=== PATIENT | female | born 1955 | race Caucasian/White ===

== ENCOUNTER → 2018-08-08 10:05 | Outpatient (CLI) | payer OTHER, SELFPAY ==
--- NOTE | 2018-08-08 10:08 | BI_ITS ---
MAMMOGRAPHY - BILATERAL SCREENING REASON FOR EXAM: Female, 63 years old. Routine annual screening examination. PERTINENT HISTORY: Sister with breast cancer. History of bilateral breast reduction surgery. Prior left stereotactic breast biopsy. TECHNIQUE: Digital bilateral breast danielle (3D mammographic acquisition) in the CC and MLO projections. 2-D mediolateral oblique (MLO) and craniocaudad (CC) views of both breasts were obtained. CAD: Full Field Digital Mammography with Computer Added Detection was performed. COMPARISON: Comparison is made with prior study dated August 05, 2017 and July 28, 2016. FINDINGS: Breast Composition: There are scattered areas of fibroglandular density. Stable 2 cm x 1.4 cm fat-containing nodule in the retroareolar region of the left breast. Stable macrocalcifications in the left breast. These are most likely represent postoperative changes. No other significant abnormalities are identified. There has been no significant change since the prior study. BI/SCREENING MAMM (CAD), BILAT IMPRESSION: Stable bilateral screening mammogram. Yearly follow-up mammogram recommended. (A) ASSESSMENT CATEGORY: BIRADS Category 2: Benign. A letter regarding these results will be sent to the patient by the facility within 30 days. Approximately 10% of breast cancers are not detected by mammography. A normal mammogram should not delay biopsy of a clinically suspicious abnormality. [id number] Electronically Signed: Ruperto Dorsey MD at 11:29 EST Tel [phone], Service support ,
--- OUTSIDE RECORDS SUMMARY | 2018-09-24 00:40 | XMS RPT_ITS | Clinical Summary ---
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 Medications Medication Instructions Start Stop Generic Name NDC Provider Date Date MELOXICAM 7.5 MG as directed / MELOXICAM 92444501416 Ivette TABS 02 Chicorelli ACZONE 5 % GEL as directed / DAPSONE 01196581352 Ivette 02 Chicorelli SPIRONOLACTONE 50 as directed / SPIRONOLACTONE 91364050842 Ivette MG TABS 02 Chicorelli GABAPENTIN 400 MG as directed / GABAPENTIN 67955336755 Ivette CAPS 02 Chicorelli IMODIUM A-D 2 MG as directed / LOPERAMIDE HCL 63117940389 Ivette CAPS 02 Chicorelli SYMBICORT 160-4.5 as directed / BUDESONIDE-FORMO 73597351708 Ivette MCG/ACT AERO 02 TEROL FUMARATE Chicorelli ARMOUR THYROID 30 as directed / THYROID 21154625481 Ivette MG TABS 02 Chicorelli ERGOCALCIFEROL as directed / ERGOCALCIFEROL [id number] Alison Crain 78897 UNIT CAPS 02 Chicorelli LOVAZA 1 GM CAPS as directed / [id number] 22606820445 Ivette Ford ETHYL ESTERS Chicorelli REXULTI 1 MG TABS as directed / BREXPIPRAZOLE [id number] Ivette 02 Chicorelli MAXALT 10 MG TABS as directed / RIZATRIPTAN 59290317825 Ivette Ford BENZOATE Chicorelli CYMBALTA 60 MG as directed / DULOXETINE HCL 70189429077 Alison Crain CPEP 02 Chicorelli PROAIR HFA 108 as directed / ALBUTEROL 35511225466 Alison Crain (90 Base) MCG/ACT 02 SULFATE Chicorelli AERS TOPAMAX 50 MG as directed / TOPIRAMATE [id number] Ivette TABS 02 Chicorelli KLONOPIN 1 MG as directed / CLONAZEPAM [id number] Alison Crain AKINS 02 Chicorelli Medications Administered No information available. Allergies, Adverse Reactions, Alerts Allergy Name Reaction Description Start Date Severity Status Provider RAGWEED Critical Active Alison Cain GRASS Critical Active Alison Cain BACTRIM Severe Active Alison Cain BIAXIN Critical Active Alison Cain VICODIN Severe Active Alison Cain WELLBUTRIN Severe Active Alison Cain Results Date Name Value Unit Range Flag Description Office Visit MEDS REVIEW Done Documentation of current medications (procedure) Plan of Care Type Date Detail Appointment 10:00 AM Alison Cain, [address] [place] [address], [address], [place], [address], Pending order X-Ray, Spine, Cervical 2-3 views Procedures Code Procedure Name Date Entry Date CPT-61548 Arthrocentesis, aspiration/injection; major joint shoulder, hip, knee Vital Signs No information available.
--- OUTSIDE RECORDS SUMMARY | 2018-09-24 00:40 | XMS RPT_ITS | Clinical Summary ---
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 Medications Medication Instructions Start Stop Generic Name NDC Provider Date Date MELOXICAM 7.5 MG as directed / MELOXICAM 84891554495 Ivette TABS 02 Ch[place]orelli ACZONE 5 % GEL as directed / DAPSONE 07313288659 Ivette 02 [place]lli SPIRONOLACTONE 50 as directed / SPIRONOLACTONE 37682514723 Ivette MG TABS 02 Chicorelli GABAPENTIN 400 MG as directed / GABAPENTIN 75003905553 Ivette CAPS 02 Chicorelli IMODIUM A-D 2 MG as directed / LOPERAMIDE HCL 73556384544 Ivette CAPS 02 Chicorelli SYMBICORT 160-4.5 as directed / BUDESONIDE-FORMO 70497158622 Ivette MCG/ACT AERO 02 TEROL FUMARATE Chicorelli ARMOUR THYROID 30 as directed / THYROID 63186282256 Ivette MG TABS 02 Chicorelli ERGOCALCIFEROL as directed / ERGOCALCIFEROL 84411043099 Ivette 18239 UNIT CAPS 02 Chicorelli LOVAZA 1 GM CAPS as directed / [id number]-3-[id number] [id number] Alison Crain 02 ETHYL ESTERS Chicorelli REXULTI 1 MG TABS as directed / BREXPIPRAZOLE 10298106373 Ivette 02 Chicorelli MAXALT 10 MG TABS as directed / RIZATRIPTAN 10266902317 Ivette 02 BENZOATE Chicorelli CYMBALTA 60 MG as directed / DULOXETINE HCL 93447579560 Ivette CPEP 02 Chicorelli PROAIR HFA 108 as directed / ALBUTEROL 33514032911 Ivette (90 Base) MCG/ACT 02 SULFATE Chicorelli AERS TOPAMAX 50 MG as directed / TOPIRAMATE [id number] Ivette TABS 02 Chicorelli KLONOPIN 1 MG as directed / CLONAZEPAM [id number] Ivette TABS 02 Chicorelli NUVIGIL 150 MG / ARMODAFINIL [id number] Ivette TABS 03 Chicorelli Medications Administered No information available. Allergies, [...] (procedure) Plan of Care Type Date Detail Pending order X-Ray, Spine, Cervical 2-3 views Procedures Code Procedure Name Date Entry Date CPT-71271 Arthrocentesis, aspiration/injection; major joint shoulder, hip, knee Vital Signs No information available.
--- OUTSIDE RECORDS SUMMARY | 2018-09-24 00:40 | XMS RPT_ITS | Clinical Summary ---
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 Medications Medication Instructions Start Stop Generic Name NDC Provider Date Date MELOXICAM 7.5 MG as directed / MELOXICAM 57073175873 Ivette TABS 02 Ch[place]orelli ACZONE 5 % GEL as directed / DAPSONE 72175654035 Ivette 02 Ch[place]orelli SPIRONOLACTONE 50 as directed / SPIRONOLACTONE 79839356828 Ivette MG TABS 02 Chicorelli GABAPENTIN 400 MG as directed / GABAPENTIN 30085103784 Ivette CAPS 02 Chicorelli IMODIUM A-D 2 MG as directed / LOPERAMIDE HCL 24737049852 Ivette CAPS 02 Chicorelli SYMBICORT 160-4.5 as directed / BUDESONIDE-FORMO 53596021157 Ivette MCG/ACT AERO 02 TEROL FUMARATE Chicorelli ARMOUR THYROID 30 as directed / THYROID 53633310506 Ivette MG TABS 02 Chicorelli ERGOCALCIFEROL as directed / ERGOCALCIFEROL 22012554659 Ivette 13754 UNIT CAPS 02 Chicorelli LOVAZA 1 GM CAPS as directed / [id number]-8-[id number] Alison Crain 02 ETHYL ESTERS Chicorelli REXULTI 1 MG TABS as directed / BREXPIPRAZOLE 26979715988 Ivette 02 Chicorelli MAXALT 10 MG TABS as directed / RIZATRIPTAN 51945897412 Ivette 02 BENZOATE Chicorelli CYMBALTA 60 MG as directed / DULOXETINE HCL 96117507765 Ivette CPEP 02 Chicorelli PROAIR HFA 108 as directed / ALBUTEROL [id number] Ivette (90 Base) MCG/ACT 02 SULFATE Chicorelli AERS TOPAMAX 50 MG as directed / TOPIRAMATE 55999620329 Ivette TABS 02 Chicorelli KLONOPIN 1 MG as directed / CLONAZEPAM 67952729170 Ivette TABS 02 Chicorelli NUVIGIL 150 MG / ARMODAFINIL [id number] Ivette TABS 03 Chicorelli Medications Administered No [...] Procedures Code Procedure Name Date Entry Date CPT-59083 Arthrocentesis, aspiration/injection; major joint shoulder, hip, knee Vital Signs No information available.
--- OUTSIDE RECORDS SUMMARY | 2018-09-24 00:40 | XMS RPT_ITS | Clinical Summary ---
:1955 Author Organization [facility] Address [address] [place] [address] Phone Care Team Providers Name Role Phone Tamica Mukherjee Unavailable Conditions or Problems Problem Problem Onset Status Entry Provider Comment Standard Annotate Name Code Date Date Description Neck pain 84714863 Active Ivette Neck pain (SNOMED CT) / Chicorelli Frozen 639566657 Active Ivette Adhesive right (SNOMED CT) / Chicorelli capsulitis shoulder of shoulder Medications Medication Instructions Start Stop Generic Name NDC Provider Date Date MELOXICAM 7.5 MG as directed MELOXICAM 59562396125 Ivette TABS /02 Ch[place]orelli ACZONE 5 % GEL as directed DAPSONE 43761993552 Ivette /02 Ch[place]lli SPIRONOLACTONE 50 as directed SPIRONOLACTONE 37405233003 Ivette MG TABS /02 [place]orelli GABAPENTIN 400 MG as directed GABAPENTIN 05996751362 Ivette CAPS /02 Chicorelli IMODIUM A-D 2 MG as directed LOPERAMIDE HCL 85874118022 Ivette CAPS /02 Chicorelli SYMBICORT 160-4.5 as directed BUDESONIDE-FORMO 67266727535 Ivette MCG/ACT AERO /02 TEROL FUMARATE Chicorelli ARMOUR THYROID 30 as directed THYROID 39695830093 Ivette MG TABS /02 Chicorelli ERGOCALCIFEROL as directed ERGOCALCIFEROL 83322152201 Alison Crain [address] UNIT CAPS /02 Chicorelli LOVAZA 1 GM CAPS as directed [id number]-7-[id number] 69064929039 Alison Crain / ETHYL ESTERS Chicorelli REXULTI 1 MG TABS as directed BREXPIPRAZOLE 28962525868 Alison Crain / Chicorelli MAXALT 10 MG TABS as directed RIZATRIPTAN 16099383662 Alison Crain / BENZOATE Chicorelli CYMBALTA 60 MG as directed DULOXETINE HCL 84412506229 Alison Crain CPEP / Chicorelli PROAIR HFA 108 as directed ALBUTEROL 72530978136 Alison Crain (90 Base) MCG/ACT / SULFATE Chicorelli AERS TOPAMAX 50 MG as directed TOPIRAMATE 05248371648 Alison Crain TABS / Chicorelli KLONOPIN 1 MG as directed CLONAZEPAM [id number] Alison Crain TABS Chicorelli Medications Administered No information available. Allergies, Adverse Reactions, Alerts Allergy Name Reaction Start Date Severity Status Provider Description RAGWEED Critical Active Alison Cain GRASS Critical [...] Procedures Code Procedure Name Date Entry Date CPT-90470 Arthrocentesis, aspiration/injection; major joint shoulder, hip, knee Vital Signs No information available.
--- OUTSIDE RECORDS SUMMARY | 2018-09-24 00:40 | XMS RPT_ITS | Clinical Summary ---
:1955 Author Organization formerly [facility] Address [address] [place] [address] Phone Care Team Providers Name Role Phone Tamica Mukherjee Unavailable Conditions or Problems Problem Problem Onset Status Entry Provider Comment Standard Annotate Name Code Date Date Description Neck pain 64230922 Active Ivette Neck pain (SNOMED CT) / Chicorelli Frozen 714477744 Active Ivette Adhesive right (SNOMED CT) / Chicorelli capsulitis shoulder of shoulder Medications Medication Instructions Start Stop Generic Name NDC Provider Date Date MELOXICAM 7.5 MG as directed MELOXICAM 64307449145 Ivette TABS /02 Chicorelli ACZONE 5 % GEL as directed DAPSONE 90376391986 Ivette /02 Chicorelli SPIRONOLACTONE 50 as directed SPIRONOLACTONE 72939130915 Ivette MG TABS /02 Chicorelli GABAPENTIN 400 MG as directed GABAPENTIN 24220143245 Ivette CAPS /02 Chicorelli IMODIUM A-D 2 MG as directed LOPERAMIDE HCL 48523648907 Ivette CAPS /02 Chicorelli SYMBICORT 160-4.5 as directed BUDESONIDE-FORMO 80144562608 Ivette MCG/ACT AERO /02 TEROL FUMARATE Chicorelli ARMOUR THYROID 30 as directed THYROID 70836206738 Ivette MG TABS /02 Chicorelli ERGOCALCIFEROL as directed ERGOCALCIFEROL 62133918349 Alison Crain 55294 UNIT CAPS /02 Chicorelli LOVAZA 1 GM CAPS as directed [id number]-[id number] 28408715605 Ivette / ETHYL ESTERS Chicorelli REXULTI 1 MG TABS as directed BREXPIPRAZOLE 70371524838 Alison Crain / Chicorelli MAXALT 10 MG TABS as directed RIZATRIPTAN 37556247539 Alison Crain / BENZOATE Chicorelli CYMBALTA 60 MG as directed DULOXETINE HCL 43026171333 Alison Crain CPEP /02 Chicorelli PROAIR HFA 108 as directed ALBUTEROL 31016407050 Alison Crain (90 Base) MCG/ACT / SULFATE Chicorelli AERS TOPAMAX 50 MG as directed TOPIRAMATE 65356421415 Alison Crain TABS / Chicorelli KLONOPIN 1 MG as directed CLONAZEPAM 15727920476 Alison Crain TABS / Chicorelowen Medications Administered No information available. Allergies, Adverse Reactions, Alerts Allergy Name Reaction Start Date Severity Status Provider Description RAGWEED Critical Active Alison Cain GRASS Critical Active Alison Cain BACTRIM Severe Active Alison Cain BIAXIN Critical Active Alison Cain VICODIN Severe Active Alison Cain WELLBUTRIN Severe Active Alison Cain Results No information available. Plan of Care Type Date Detail Pending order X-Ray, Spine, Cervical 2-3 views Procedures No information available. Vital Signs No information available.
--- OUTSIDE RECORDS SUMMARY | 2018-09-24 00:40 | XMS RPT_ITS | Clinical Summary ---
:1955 Author Organization [facility] Address [address] [place] [address] Phone Care Team Providers Name Role Phone Tamica Mukherjee Unavailable Conditions or Problems Problem Problem Onset Status Entry Provider Comment Standard Annotate Name Code Date Date Description Neck pain 57279687 Active Ivette Neck pain (SNOMED CT) / Chicorelli Frozen 349252160 Active Ivette Adhesive right (SNOMED CT) / Chicorelli capsulitis shoulder of shoulder Medications Medication Instructions Start Stop Generic Name NDC Provider Date Date MELOXICAM 7.5 MG as directed MELOXICAM 56108541421 Ivette TABS /02 Ch[place]lli ACZONE 5 % GEL as directed DAPSONE 81913209767 Ivette /02 Ch[place]lli SPIRONOLACTONE 50 as directed SPIRONOLACTONE 13502342909 Ivette MG TABS /02 Chicorelli GABAPENTIN 400 MG as directed GABAPENTIN 06433008078 Ivette CAPS /02 Chicorelli IMODIUM A-D 2 MG as directed LOPERAMIDE HCL 35730767900 Ivette CAPS /02 Chicorelli SYMBICORT 160-4.5 as directed BUDESONIDE-FORMO 78132797171 Ivette MCG/ACT AERO /02 TEROL FUMARATE Chicorelli ARMOUR THYROID 30 as directed THYROID 23418689306 Ivette MG TABS /02 Chicorelli ERGOCALCIFEROL as directed ERGOCALCIFEROL 57660040410 Alison Crain 775[address] UNIT CAPS /02 Chicorelli LOVAZA 1 GM CAPS as directed [id number] [id number] Alison Crain / ETHYL ESTERS Chicorelli REXULTI 1 MG TABS as directed BREXPIPRAZOLE 22402939198 Alison Crain / Chicorelli MAXALT 10 MG TABS as directed RIZATRIPTAN 49455005816 Alison Crain / BENZOATE Chicorelli CYMBALTA 60 MG as directed DULOXETINE HCL 64897374891 Alison Crain CPEP / Chicorelli PROAIR HFA 108 as directed ALBUTEROL 25837933121 Alison Crain (90 Base) MCG/ACT / SULFATE Chicorelli AERS TOPAMAX 50 MG as directed TOPIRAMATE 77425124437 Alison Crain TABS / Chicorelli KLONOPIN 1 MG as directed CLONAZEPAM [id number] Alison Crain TABS Chicorelli Medications Administered No [...] Procedures Code Procedure Name Date Entry Date CPT-36417 Arthrocentesis, aspiration/injection; major joint shoulder, hip, knee Vital Signs No information available.
--- OUTSIDE RECORDS SUMMARY | 2018-09-24 00:42 | XMS RPT_ITS | Continuity of Care Document ---
:1955 Author Organization [facility] Address [facility] [facility] [place] [address] Phone Care Team Providers Name Role Phone Kathia Patton CNP Unavailable Андрей Williamson MD Unavailable Dr. Marvel Steiner Unavailable Alison Cain Unavailable Jaime Early Unavailable Mimi Rice Unavailable Unavailable Slarb [facility], Bhavna Unavailable Unavailable Unavailable Unavailable Problems Name Dates Details Allergic rhinitis (J30.9, 477.9) Status: Active Anxiety and depression (F41.9, 300.00) Comments: Ruby for anxiety and panic as well as and Rexulti, and cymbaltaSees Dr. 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 Dr. Alexander 8-15 continue current meds. having breast reduction and will help i believe. right now depression and sleep occ. an issue and fibro OOC. look like reactive mono. so rest alot fluids psych changing meds. Status: Active Gas raising (R14.0, 787.3) Status: Active Hair loss (L65.9, 704.00) Status: Active Hoarse voice quality (R49.0, 784.42) Comments: consider ENT, try prilosec dont eat after 6pm Status: Active Hypertension (I10, 401.9) Comments: stable on lisinopril-hctz. reviewed EKG Status: Active Hypothyroidism, unspecified (E03.9, 244.9) 12-May-2012 Comments: was seeing wellness Dr Lynne Vieira at [facility] gone now, will get labs with next visit, TSH 1.Free T4 .77, on armor thyroid today labs stable continue armor thyroid Status: Active Impaired fasting glucose (R73.01, 790.21) Comments: prediabetes will repeat in 3 months 10-16 5.7, 1-17 5.9, 5-17 5.9 Status: Active Migraine (G43.909, 346.90) Comments: improved on topamax uses maxalt rarely currently no migraine Status: Active Mixed Hyperlipidemia (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) (E78.2, 272.2) Comments: reveiwed with patient recent tests hdl good. Status: Active Need for prophylactic vaccination and inoculation against influenza (Renamed from Need for immunization against influenza) (Z23, V04.81) Status: Active Need for prophylactic vaccination and inoculation against influenza (Renamed from Need for immunization against influenza) (Z23, V04.81) Status: Active Need for prophylactic vaccination and inoculation against influenza (Renamed from Need for immunization against influenza) (Z23, V04.81) Status: Active Nonsmoker (Z78.9, V49.89) Status: Active Obesity, unspecified (E66.9, 278.00) Comments: eating less and loosing on topamax. Status: Active CJ (obstructive sleep apnea) (G47.33, 327.23) Comments: on cpap, arthur Bradley Status: Active Rash (R21, 782.1) 12-May-2012 Comments: ? fungal vs seborea dermatitis reji try diflucan and see if different Status: Active Restless legs (G25.81, 333.94) Comments: stable on topamax Status: Active Unspecified Diagnosis Status: Active Uses hearing aid (Z97.4, V45.89) Status: Active Vitamin D deficiency, unspecified (E55.9, 268.9) Status: Active Medications Name Dates Details Aczone 5 % External Gel Active qhs (5 %) Comments: Dr. Jack Trinidad 220 MG Oral Tablet Active as needed (220 MG) Comments: Medication taken as needed. Smoot Thyroid 30 MG Oral Tablet 1 (one) Tablet qd and 2 on Saturday for 0 days Quantity: 114 {Tablet} Refills: 3 Ordered:16-Oct-2017 Ciesa SHEILA, Kathia Vanegas CNP, Diana Start : 16-Oct-2017 Active Smoot Thyroid 30 MG Oral Tablet 1 (one) Tablet qd and 2 on Saturday for 0 days Quantity: 115 {Tablet} Refills: 3 Ordered:16-Oct-2017 Ciesa SHEILA, Kathia Vanegas CNP, Diana Start : 16-Oct-2017 Active Belsomra 20 MG Oral Tablet 1 (one) Tablet Tablet as needed for 0 days Quantity: 30 {Tablet} Refills: 0 Ordered:08-Jul-2017 Bhavna Leonard LPN Start : 01-Apr-2017 Active Comments:Medication taken as needed. Cymbalta 30 MG Oral Capsule Delayed Release Particles 1 (one) Capsule Capsule qam for 0 days Quantity: 30 {Capsule} Refills: 0 Ordered:08-Jul-2017 Bhavna Leonard LPN Start : 01-Apr-2017 Active Cymbalta 60 MG Oral Capsule Delayed Release Particles 2 (two) Capsule DR Part q am for 0 days Quantity: 60 {Capsule} Refills: 0 Ordered:01-Apr-2017 Pooja DEVELOPMENT ANALYST, Kathia Vanegas DEVELOPMENT ANALYST, Diana Start : 01-Apr-2017 Active Fish Oil Burp-Less 1200 MG Oral Capsule 1 (one) Capsule Capsule daily for 0 days Quantity: 30 {Capsule} Refills: 0 Ordered:29-Jan-2017 Rosario Kan Start : 26-Dec-2016 Active Imodium A-D 2 MG Oral Capsule prn diarrhea (2 MG) Active KLONOPIN, 1MG (Oral Tablet) uad Tablet 1 in am 2 hs for 0 days Refills: 0 Ordered:10-Aug-2009 Bhargavi Mueller LPN Start : 17-May-2009 Active MAXALT, 10MG (Oral Tablet) uad Tablet PRN for 0 days Quantity: 10 {Tablet} Refills: 3 Ordered:14-Nov-2015 Nataly Berger MD Start : 14-Nov-2015 Active Nuvigil 150 MG Oral Tablet 1 (one) Tablet Tablet daily for 0 days Quantity: 30 {Tablet} Refills: 0 Ordered:08-Jul-2017 Bhavna Leonard LPN Start : 01-Apr-2017 Active PriLOSEC OTC 20 MG Oral Tablet Delayed Release 1 (one) Tablet Tablet daily as directed for 0 days Quantity: 30 {Tablet} Refills: 0 Ordered:16-Oct-2017 Bhavna Leonard LPN Start : 08-Jul-2017 Active ProAir HFA 108 (90 Base) MCG/ACT Inhalation Aerosol Solution (108 (90 Base) MCG/ACT) Active PROAIR HFA, 108 (90 Base)MCG/ACT (Inhalation Aerosol Solution) 1-2 puffs every 4 hours prn for 0 days Refills: 0 Ordered:29-Aug-2011 TAY Tracey Start : 29-Aug-2011 Active Rexulti 1 MG Oral Tablet 1 (one) Tablet Tablet daily for 30 days Quantity: 30 {Tablet} Refills: 0 Ordered:16-Mar-2016 Bhavna Leonard LPN Start : 13-Feb-2016 Active Comments:Prescribed with Psych Ella Domínguez ROPINIRole HCl 1 MG Oral Tablet 1 (one) Tablet Tablet qhs for 0 days Quantity: 30 {Tablet} Refills: 0 Ordered:06-May-2018 Sathishmaggie SOSA, Kathia SUNIstephenmaggie DEVELOPMENT ANALYST, Diana Start : 22-Jan-2018 Active Comments:neuro Spironolactone 50 MG Oral Tablet bid (50 MG) Active Comments:Dr. Santiago SYMBICORT, 160-4.5MCG/ACT (Inhalation Aerosol) 2 puffs bid (160-4.5 MCG/ACT) Active Comments:Dr. peoples TOPAMAX, 50MG (Oral Tablet) uad Tablet Tablet 1 in am 2 in pm for 0 days Quantity: 60 {Tablet} Refills: 3 Ordered:11-Dec-2013 Nataly Berger MD Start : 11-Dec-2013 Active Comments:[place] manages Topiramate 100 MG Oral Tablet (100 MG) Active ADVAIR DISKUS, 250-50MCG/DOSE (Inhalation Miscellaneous) Misc BID for 0 days Refills: 0 Ordered:13-Aug-2008 TAY Tracey Start : 13-Aug-2008 End : 27-Oct-2008 Inactive ALEVE, 220MG (Oral Tablet) 2 (two) Tablet bid with food for 14 days Refills: 0 Ordered:11-Dec-2013 Luz Valdez DO Start : 20-Nov-2013 End : 04-Dec-2013 Inactive ALIGN (Oral Capsule) 1 (one) Capsule daily for 0 days Quantity: 30 {Capsule} Refills: 0 Ordered:04-Jan-2012 TAY Tracey Start : 06-Nov-2011 End : 04-Jan-2012 Inactive LAURO-D 24 HOUR, 180-240MG (Oral Tablet Extended Release 24 Hour) 1 (one) Tablet ER 24HR QD for 0 days Quantity: 30 {Tablet_ER_24HR} Refills: 5 Ordered:28-May-2008 Omaira Vizcarra Start : 28-May-2008 End : 31-Aug-2008 Inactive ASMANEX 120 METERED DOSES, 220MCG/INH (Inhalation Aerosol Powder Breath Activated) 1 puff qd for 0 days Refills: 0 Ordered:10-Nov-2008 TAY Tracey End : 10-Nov-2008 Inactive ASMANEX 30 METERED DOSES, 220MCG/INH (Inhalation Aerosol Powder Breath Activated) once daily for 0 days Refills: 0 Ordered:30-Mar-2011 Long [facility], Michelle L End : 30-Mar-2011 Inactive AUGMENTIN, 875-125MG (Oral Tablet) 1 Tablet bid for 14 days Quantity: 28 {Tablet} Refills: 0 Ordered:07-Sep-2011 TAY Tracey Start : 31-Aug-2011 End : 07-Sep-2011 Inactive AVELOX, 400MG (Oral Tablet) Tablet QD for 0 days Quantity: 7 {Tablet} Refills: 0 Ordered:24-Aug-2008 Omaira Vizcarra Start : 24-Aug-2008 End : 31-Aug-2008 Inactive BACTROBAN NASAL, 2% (Nasal Ointment) 1 (one) Ointment bid for 2 weeks for 0 days Quantity: 1 {Package} Refills: 0 Ordered:11-Oct-2014 TAY Tracey Start : 10-Aug-2014 End : 11-Oct-2014 Inactive BACTROBAN, 2% (External Cream) 1 Cream bid to wound for 0 days Quantity: 1 {Cream} Refills: 0 Ordered:12-May-2012 TAY Tracey Start : 04-Feb-2012 End : 12-May-2012 Inactive BENADRYL, 25MG (Oral Capsule) 1 Capsule q6-8 hrs prn for 0 days Quantity: 21 {Capsule} Refills: 0 Ordered:18-Sep-2010 Satinder HENAON, Michelle L Start : 11-Aug-2010 End : 18-Sep-2010 Inactive BENTYL, 20MG (Oral Tablet) 1 Tablet tid for 0 days Quantity: 60 {Tablet} Refills: 0 Ordered:16-Jan-2013 TAY Tracey Start : 05-Dec-2012 End : 16-Jan-2013 Inactive BIAXIN XL PAC, 500MG (Oral Tablet Extended Release 24 Hour) 2 (two) Tablet ER 24HR as directed for 0 days Quantity: 2 {Package(s)} Refills: 0 Ordered:14-Oct-2006 Omaira Vizcarra Start : 14-Oct-2006 End : 05-Dec-2006 Inactive CEFDINIR, 300MG (Oral Capsule) 1 Capsule bid for 10 days Quantity: 20 {Capsule} Refills: 0 Ordered:13-Mar-2011 Pooja DEVELOPMENT ANALYST, Kathia Vanegas DEVELOPMENT ANALYST, Kathia Dias Start : 13-Mar-2011 End : 23-Mar-2011 Inactive Cheratussin AC 100-10 MG/5ML Oral Solution 4 Milliliter qhs prn for 0 days Quantity: 150 {Milliliter} Refills: 0 Ordered:28-Jan-2018 Bhavna Leonard LPN Start : 16-Oct-2017 End : 28-Jan-2018 Inactive CHERATUSSIN AC, 100-10MG/5ML (Oral Syrup) 1 Syrup 1-2 tsp every 6 hours prn cough for 0 days Quantity: 8 {Ounce(s)} Refills: 0 Ordered:10-Aug-2013 Nya Thompson LPN Start : 07-May-2013 End : 10-Aug-2013 Inactive CILOXAN, 0.3% (Ophthalmic Solution) 1 Solution bid for 0 days Quantity: 1 {Solution} Refills: 0 Ordered:24-Oct-2010 Bhargavi Mueller LPN Start : 18-Sep-2010 End : 24-Oct-2010 Inactive Comments:dispense one bottle CIPROFLOXACIN HCL, 500MG (Oral Tablet) 1 Tablet bid for 7 days Quantity: 14 {Tablet} Refills: 0 Ordered:18-Feb-2014 Nataly Berger MD Start : 18-Feb-2014 End : 25-Feb-2014 Inactive CIPROFLOXACIN HCL, 750MG (Oral Tablet) 1 Tablet bid for 0 days Quantity: 20 {Tablet} Refills: 0 Ordered:28-Jan-2013 Bhargavi Mueller LPN Start : 16-Jan-2013 End : 28-Jan-2013 Inactive CLARINEX, 5MG (Oral Tablet) Tablet QD for 0 days Refills: 0 Ordered:07-Nov-2010 TAY Tracey Start : 24-Oct-2010 End : 07-Nov-2010 Inactive Comments:after done use zyretic COLD-EEZE, 13.3MG (Mouth/Throat Lozenge) 1 Lozenge tid for 0 days Quantity: 30 {Lozenge} Refills: 0 Ordered:16-Dec-2012 Bhargavi Mueller LPN Start : 14-Oct-2012 End : 16-Dec-2012 Inactive CYCLOBENZAPRINE HCL, 10MG (Oral Tablet) 1 Tablet every 8 hours prn for 0 days Quantity: 30 {Tablet} Refills: 0 Ordered:11-Oct-2014 TAY Tracey Start : 19-Jan-2014 End : 11-Oct-2014 Inactive CYTOMEL, 5MCG (Oral Tablet) 1 Tablet qd for 0 days Refills: 0 Ordered:27-Mar-2007 Omaira Vizcarra Start : 27-Mar-2007 End : 11-Aug-2008 Inactive Comments:restarted 03/27/07 CYTOMEL, 5MCG (Oral Tablet) uad Tablet 4 in am 2 in pm for 0 days Quantity: 90 {Tablet} Refills: 0 Ordered:05-May-2013 Rosario Kan Start : 16-Jan-2013 End : 05-May-2013 Inactive DEMEROL, 50MG (Oral Tablet) 1 (one) Tablet once today and in 12hr for 0 days Quantity: 2 {Tablet} Refills: 0 Ordered:28-Apr-2008 Omaiar Vizcarra Start : 28-Apr-2008 End : 28-May-2008 Inactive DEPLIN, 15MG (Oral Tablet) 1 (one) Tablet QD for 500 days Refills: 0 Ordered:24-Jan-2010 TAY Tracey Start : 24-Jan-2010 End : 08-Jun-2011 Inactive DIOVAN HCT, 160-25MG (Oral Tablet) Tablet QD for 0 days Quantity: 30 {Tablet} Refills: 6 Ordered:10-Nov-2008 TAY Tracey Start : 10-Nov-2008 End : 20-Jan-2009 Inactive DOXYCYCLINE HYCLATE, 100MG (Oral Capsule) 1 Capsule bid for 14 days Quantity: 28 {Capsule} Refills: 0 Ordered:12-May-2012 TAY Tracey Start : 29-Apr-2012 End : 12-May-2012 Inactive DOXYCYCLINE HYCLATE, 100MG (Oral Tablet) 1 (one) Tablet bid for 7 days Quantity: 14 {Tablet} Refills: 0 Ordered:02-Mar-2015 Kathia Patton CNP, CNP, Mary E Start : 02-Mar-2015 End : 09-Mar-2015 Inactive DRISDOL, 60251HQFM (Oral Capsule) 1 q weekly (52485 UNIT) Inactive ESTRADIOL, 1MG (Oral Tablet) 1 qd (1 MG) Inactive FETZIMA, 120MG (Oral Capsule Extended Release 24 Hour) 1 (one) Capsule ER 24HR qd for 0 days Quantity: 30 {Capsule} Refills: 0 Ordered:14-Nov-2015 TAY Tracey Start : 11-Oct-2014 End : 14-Nov-2015 Inactive FLAGYL, 500MG (Oral Tablet) 1 Tablet bid for 0 days Quantity: 20 {Tablet} Refills: 0 Ordered:28-Jan-2013 Bhargavi Mueller LPN Start : 16-Jan-2013 End : 28-Jan-2013 Inactive FLONASE, 50MCG/ACT (Nasal Suspension) 2 (two) Puff(s) daily for 0 days Quantity: 1 {Container} Refills: 0 Ordered:11-Oct-2014 TAY Tracey Start : 08-Jun-2014 End : 11-Oct-2014 Inactive GAS-X EXTRA STRENGTH, 125MG (Oral Capsule) 1 prn (125 MG) Inactive GUAIATUSSIN AC, 100-10MG/5ML (Oral Syrup) 1-2 Teaspoon(s) TID/PRN for 0 days Quantity: 6 {Ounce(s)} Refills: 0 Ordered:16-Aug-2008 TAY Tracey Start : 16-Aug-2008 End : 27-Oct-2008 Inactive HYCODEN (Oral Syrup) (Free Text) 1 Teaspoon(s) q6hrs prn cough for 0 days Quantity: 6 {Ounce(s)} Refills: 0 Ordered:07-Nov-2010 TAY Tracey Start : 25-Oct-2010 End : 07-Nov-2010 Inactive KETEK JUN, 400MG (Oral Tablet) 2 (two) Tablet daily for 5 days Refills: 0 Ordered:24-Jul-2007 Omaira Vizcarra Start : 24-Jul-2007 End : 29-Jul-2007 Inactive KETOROLAC TROMETHAMINE, 10MG (Oral Tablet) 1 Tablet q6hrs for 2 days Quantity: 8 {Tablet} Refills: 0 Ordered:17-Dec-2012 Kathia Patton CNP, CNP, Mary E Start : 17-Dec-2012 End : 19-Dec-2012 Inactive LEVOFLOXACIN, 500MG (Oral Tablet) 1 (one) Tablet Tablet qd for 0 days Quantity: 7 {Tablet} Refills: 0 Ordered:11-Oct-2014 TAY Tracey Start : 24-May-2014 End : 11-Oct-2014 Inactive LOPERAMIDE HCL, 2MG (Oral Tablet) 1 Tablet take 2 tabs to begin then 1 tab after each loose stool for 0 days Quantity: 60 {Tablet} Refills: 0 Ordered:16-Jan-2013 TAY Tracey Start : 16-Dec-2012 End : 16-Jan-2013 Inactive Comments:Do not exceed 16mg/day Lovaza 1 GM Oral Capsule uad Capsule 2 in am 2 in evening for 0 days Quantity: 120 {Capsule} Refills: 3 Ordered:08-Jul-2017 Bhavna Leonard LPN Start : 01-Apr-2017 End : 08-Jul-2017 Inactive Meloxicam 7.5 MG Oral Tablet 1 (one) Tablet prn for 0 days Quantity: 30 {Tablet} Refills: 1 Ordered:08-Jul-2017 Bhavna Leonard LPN Start : 01-Apr-2017 End : 08-Jul-2017 Inactive Comments:with food MERIDIA, 5MG (Oral Capsule) 1 qd for 0 days Refills: 0 Ordered:12-Sep-2008 Omaira Vizcarra End : 11-Aug-2008 Inactive NABUMETONE, 750MG (Oral Tablet) 1 two times daily for 0 days Refills: 0 Ordered:02-May-2010 TAY Tracey Start : 19-Oct-2009 Inactive NASACORT AQ, 55MCG/ACT (Nasal Aerosol Solution) 2 (two) Aerosol Soln daily for 0 days Refills: 0 Ordered:04-Aug-2008 Omaira Vizcarra Start : 04-Aug-2008 End : 14-Oct-2007 Inactive NASONEX, 50MCG/ACT (Nasal Suspension) 2 (two) Puff(s) daily for 0 days Quantity: 1 {Suspension} Refills: 0 Ordered:11-May-2011 Bhargavi Mueller LPN Start : 30-Mar-2011 End : 11-May-2011 Inactive NEXIUM, 40MG (Oral Capsule Delayed Release) 1 (one) Capsule DR qd for 0 days Quantity: 30 {Capsule_DR} Refills: 2 Ordered:06-Sep-2008 TAY Tracey Start : 06-Sep-2008 End : 20-Jan-2009 Inactive OMNARIS, 50MCG/ACT (Nasal Suspension) 2 (two) Suspension daily for 0 days Quantity: 1 {Suspension} Refills: 0 Ordered:29-Aug-2011 Refugio Isaac Start : 11-May-2011 End : 29-Aug-2011 Inactive ORTHO-NOVUM (28), 0.5/0.75/1-35MG-MCG (Oral Tablet) 1 (one) Tablet QD for 0 days Quantity: 90 {Tablet} Refills: 3 Ordered:12-May-2012 TAY Tracey Start : 04-Feb-2012 End : 12-May-2012 Inactive PEPCID AC MAXIMUM STRENGTH, 20MG (Oral Tablet Chewable) 1 Tablet Chewable bid for 0 days Quantity: 28 {Tablet_Chewable} Refills: 0 Ordered:18-Sep-2010 Michelle Rajan LPN Start : 11-Aug-2010 End : 18-Sep-2010 Inactive PHENERGAN, 25MG (Oral Tablet) 1 (one) Tablet q6h prn for 0 days Quantity: 15 {Tablet} Refills: 0 Ordered:28-Apr-2008 Omaira Vizcarra Start : 28-Apr-2008 End : 28-May-2008 Inactive PHENTERMINE HCL, 30MG (Oral Capsule) 1 qd for 0 days Refills: 0 Ordered:22-Apr-2009 TAY Tracey End : 22-Apr-2009 Inactive PREDNISONE, 10MG (Oral Tablet) 1 Tablet for 0 days Refills: 0 Ordered:11-Aug-2008 Omaira Vizcarra Start : 11-Aug-2008 End : 24-Aug-2008 Inactive PRISTIQ, 100MG (Oral Tablet Extended Release 24 Hour) 1 Tablet ER 24HR qd for 0 days Refills: 0 Ordered:23-Nov-2008 TAY Tracey Start : 23-Nov-2008 Inactive Comments:per Dr. Damian WARREN HFA, 108 (90 Base)MCG/ACT (Inhalation Aerosol Solution) 1 or 2 puffs q 4-6 hours prn for 0 days Refills: 0 Ordered:10-Nov-2008 TAY Tracey End : 10-Nov-2008 Inactive PYRIDIUM, 200MG (Oral Tablet) 1 Tablet bid prn for 0 days Quantity: 10 {Tablet} Refills: 0 Ordered:14-Apr-2012 Bhargavi Mueller LPN Start : 20-Mar-2012 End : 14-Apr-2012 Inactive RELAFEN, 500MG (Oral Tablet) 4 QD for 0 days Refills: 0 Ordered:12-Sep-2008 Omaira Vizcarra End : 05-Dec-2006 Inactive RHINOCORT AQUA, 32MCG/ACT (Nasal Suspension) Suspension 1-squirt each nostroil daily for 0 days Quantity: 1 {Suspension} Refills: 0 Ordered:28-Apr-2008 Omaira Vizcarra Start : 28-Apr-2008 End : 28-May-2008 Inactive SEROQUEL XR, 50MG (Oral Tablet Extended Release 24 Hour) 1 Tablet ER 24HR qd for 0 days Refills: 0 Ordered:14-Nov-2015 TAY Tracey Start : 22-Apr-2009 End : 14-Nov-2015 Inactive SINGULAIR, 10MG (Oral Tablet) Tablet QD for 0 days Quantity: 30 {Tablet} Refills: 0 Ordered:24-Aug-2008 TAY Tracey Start : 24-Aug-2008 End : 27-Oct-2008 Inactive SOMA, 350MG (Oral Tablet) Tablet BID/PRN for 0 days Quantity: 60 {Tablet} Refills: 0 Ordered:28-May-2008 Omaira Vizcarra Start : 28-May-2008 End : 11-Aug-2008 Inactive SYNTHROID, 50MCG (Oral Tablet) 1/2 Tablet qd for 0 days Refills: 0 Ordered:12-Sep-2008 Omaira Vizcarra Start : 22-Aug-2007 End : 11-Aug-2008 Inactive Tessalon Perles 100 MG Oral Capsule 1 (one) Capsule tid prn for cough for 0 days Quantity: 30 {Capsule} Refills: 0 Ordered:28-Jan-2018 Slarb Bhavna ASHLEY Start : 16-Oct-2017 End : 28-Jan-2018 Inactive TOPAMAX, 200MG (Oral Tablet) 1 QD for 0 days Refills: 0 Ordered:24-Jan-2010 TAY Tracey Start : 19-Oct-2009 Inactive TOPICORT LP, 0.05% (External Cream) Cream BID for 0 days Quantity: 1 {Cream} Refills: 0 Ordered:19-Dec-2007 Omaira Vizcarra Start : 19-Dec-2007 End : 28-May-2008 Inactive VALTREX, 1GM (Oral Tablet) 1 Tablet tid for 7 days Quantity: 21 {Tablet} Refills: 0 Ordered:16-Apr-2012 Kathia Patton CNP, CNP Diana Start : 16-Apr-2012 End : 23-Apr-2012 Inactive VITAMIN D3, 5000UNIT (Oral Tablet) 1 qd (5000 UNIT) Inactive ZITHROMAX Z-JUN, 250MG (Oral Tablet) 1 Tablet TAD for 0 days Quantity: 1 {Package(s)} Refills: 0 Ordered:10-Aug-2013 Nya Thompson LPN Start : 07-May-2013 End : 10-Aug-2013 Inactive Comments:void after 30 days CLARITIN, 10MG (Oral Capsule) 1 (one) Capsule Capsule daily for 0 days Quantity: 30 {Capsule} Refills: 0 Ordered:09-Aug-2015 Bhavna Leonard LPN Start : 02-Mar-2015 End : 09-Aug-2015 Discontinued Diflucan 150 MG Oral Tablet uad Tablet Tablet one time dose today may repeat in 2 days if not gone for 0 days Quantity: 2 {Tablet} Refills: 0 Ordered:16-Mar-2016 Bhavna Leonard LPN Start : 13-Feb-2016 End : 16-Mar-2016 Discontinued DULERA, 200-5MCG/ACT (Inhalation Aerosol) 1 (one) Aerosol Aerosol bid for 0 days Quantity: 1 {Container} Refills: 0 Ordered:29-Jun-2014 Nataly Berger MD Start : 08-Jun-2014 End : 29-Jun-2014 Discontinued Ergocalciferol 47082 UNIT Oral Capsule 1 Capsule twice weekly for 0 days Quantity: 24 {Capsule} Refills: 0 Ordered:01-Apr-2017 Bhavna Leonard LPN Start : 26-Sep-2016 End : 01-Apr-2017 Discontinued FLEXERIL, 10MG (Oral Tablet) Tablet TID/PRN for 0 days Refills: 0 Ordered:12-Sep-2008 Omaira Vizcarra Start : 14-Oct-2007 End : 28-May-2008 Discontinued Gabapentin 400 MG Oral Capsule qhs (400 MG) End : 01-Apr-2017 Discontinued Comments:Dr. elwis HYDROCHLOROTHIAZIDE, 25MG (Oral Tablet) Tablet QD for 0 days Refills: 0 Ordered:10-Nov-2008 Nataly Berger MD Start : 27-Oct-2008 End : 10-Nov-2008 Discontinued IMITREX, 25MG (Oral Tablet) 1 Tablet QD PRN for 0 days Refills: 0 Ordered:12-Sep-2008 Omaira Vizcarra Start : 09-Dec-2007 End : 28-May-2008 Discontinued LEVAQUIN, 500MG (Oral Tablet) Tablet QD for 0 days Quantity: 10 {Tablet} Refills: 0 Ordered:04-Aug-2008 Omaira Vizcarra Start : 04-Aug-2008 End : 17-Aug-2008 Discontinued Lisinopril-Hydrochlorothiazide 10-12.5 MG Oral Tablet 1 Tablet qd for 0 days Quantity: 90 {Tablet} Refills: 3 Ordered:22-Oct-2016 Pooja SOSA, Kathia Vanegas CNP, Kathia Dias Start : 19-Jun-2016 End : 22-Oct-2016 Discontinued LOVAZA, 1GM (Oral Capsule) 2 bid (1 GM) End : 09-Aug-2015 Discontinued MAGNESIUM GLUCONATE, 500MG (Oral Tablet) 2 (two) Tablet at bedtime for 0 days Quantity: 120 {Tablet} Refills: 0 Ordered:09-Aug-2015 Slarb Bhavna ASHLEY Start : 12-May-2012 End : 09-Aug-2015 Discontinued ORTHO-NOVUM (21), 0.5/0.75/1-35MG-MCG (Oral Tablet) 1 QD for 0 days Refills: 0 Ordered:20-May-2006 Omaira Vizcarra Start : 20-May-2006 End : 12-Nov-2006 Discontinued Comments:This order discontinued per [facility]. PREVACID, 30MG (Oral Capsule Delayed Release) Capsule DR QD for 0 days Refills: 0 Ordered:14-Oct-2007 Omaira Vizcarra Start : 14-Oct-2007 End : 09-Dec-2007 Discontinued SYNTHROID, 25MCG (Oral Tablet) Tablet QD for 0 days Quantity: 30 {Tablet} Refills: 3 Ordered:20-May-2006 Omaira Vizcarra Start : 20-May-2006 End : 05-Dec-2006 Discontinued VITAMIN D, 1000UNIT (Oral Capsule) 1 QD for 0 days Refills: 0 Ordered:12-Sep-2008 Omaira Vizcarra End : 09-Dec-2007 Discontinued Allergies and Adverse Reactions Name Dates Details Augmentin *PENICILLINS* (Allergy) Status: Active Comments: severe diarrhea, nausea and abd. cramping Bactrim *ANTI-INFECTIVE AGENTS - MISC.* Status: Active (Allergy) BIAXIN XL PAC, 500MG (Oral Tablet Status: Active Extended Release 24 Hour) (Allergy) Comments: vomit Influenza vaccine (Allergy) Status: Active Comments: localized reaction 08/08/10 Vicodin *ANALGESICS - OPIOID* (Allergy) Status: Active Wellbutrin *ANTIDEPRESSANTS* (Allergy) Status: Active Past Medical History Name Dates Details Abdominal pain, acute, generalized (R10.84, 789.07) Comments: saw Dr. steiner. did biopsy and colonscopy and negative. told IBS> decrease ruffage and citrus fruits. notice these worsen. notice stress worsen. see Dr. steiner 03-20. CTscan neg 02-05. Status: Inactive as of 11-Oct-2014 Abnormal albumin (R77.0, 790.99) Comments: low will recheck and increase protien Status: Inactive as of 11-Oct-2014 Abnormal blood chemistry (R79.9, 790.6) Comments: albumin recheck Status: Inactive as of 16-Jan-[address] of brain (R90.89, 793.0) Comments: multiple calcification--seen neurologist, rare syndrome, recommend see endocrine ? why. Status: Inactive as of 16-Jan-2013 Abnormal mammogram (R92.8, 793.80) Comments: reveiwed with patient recent tests and need biopsy Status: Inactive as of 16-Jan-2013 Abnormal TSH (R79.89, 790.6) Status: Inactive as of 16-Jan-2013 Acute electrocardiogram changes (R94.31, 794.31) Comments: EKG showed new septal R waves plus with stress and anxiety will get chest pressure. has surgery planned. echo and stress reveiwed with patient recent tests today and okay. cleared now for surgery. Status: Inactive as of 16-May-2015 ACUTE NASOPHARYNGITIS (COMMON COLD) (460.) (460) Status: Resolved as of 20-Jan-2009 Acute pharyngitis (J02.9, 462) Status: Inactive as of 16-May-2015 Acute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 ST changes noted to suggest ischemia. At peak exercise, no ST or T-wave changes were noted to suggest ischemia. Occasional premature ventricular complexes were noted. The res ting blood pressure was 116/62 with a peak blood pressure of 140/80. No clinical angina was noted. The test was terminated due to shortness of breath. MYOCARDIAL PERFUSION PROTOCOL: 14.8 mCi of Ses tamibi was injected at rest. The patient exercised according to the regular Osman protocol for a total duration of 6 minutes attaining 84% of maximum predicted heart rate and a workload of 7 METS. At peak exercise, 45.0 mCi of Sestamibi was injected. Stress images were obtained. Stress and rest images were reconstructed and compared in the short axis, vertical long, and horizontal long axes. [place] d images were also obtained. PERFUSION SPECT ANALYSIS: Review of the images demonstrate normal uptake of tracer noted in all areas of the myocardium. The resting images similarly demonstrated normal uptake of tracer noted in all areas of the myocardium. There is uniform perfusion noted in all areas of the myocardium on the stress and resting images. Mild breast attenuation is present. GATED S PECT ANALYSIS: The gated ejection fraction is noted to be 77% with no wall motion abnormalities present. CONCLUSION 1. Normal exercise myocardial perfusion stress test with no evidence of ischemia. 2. Preserved ejection fraction noted. CC: Nataly Berger MD Die Machine Operator: PARADA Signed 01-Oct-2014 12 Lead Electrocardiogram Result: Comments: See Note; NOTES: [facility] Cardiovascular Services [address] [place] [address] 12 Lead EKG 09/30/141617 MR#: [id number] Acct: [id number] Name: KATHIA VALENTE Rep #: [id number] : 1955 59 From: Guilherme Cisse MD Attending Dr: Thao Goff Status: REG CLI Ordering Dr: Thao Rosa PA-C Date: 09/30/14 Location: [facility] Sex: F C Admitted: Test Reason : PRE OP Blood Pressure : / mmHG Vent. Rate : 092 BPM Atrial Rate : 092 BPM P-R Int : 112 ms QRS Dur : 094 ms QT Int : 368 ms P-R-T Axes : 058 -17 014 degrees QTc Int : 455 ms No rmal sinus rhythm Septal infarct , age undetermined Abnormal ECG Confirmed by GUILHERME CISSE ([id number]), website/blog editor TAMARA MORAN ([id number]) on 10/01/2014 1: 16:07 PM Referred By: KAREEM Confirmed By:GUILHERME POWERS ON 10/01/14 1316 Date Guilherme Cisse MD CC: Nataly Berger MD Date Dictated: 09/30/141617 Date Transcribed: 09/30/141617 Die Machine Operator: Signed 08-Jun-2014 Spirometry (13665) Comments: see scanned document of test done to see results reviewed today with patient Result: 08-Jun-2014 ELECTROCARDIOGRAM, COMPLETE (ECG) (24546) Comments: see scanned document of test done to see results reviewed today with patient Result: [MEASUREMENTS ANALYSIS] Date of Test: 06/08/2014 12:31:18; Heart Rate: 86; HI Interval: 146; QRS: 104; QT Interval: 360; Corrected QT Interval (QTc): 405; P Wave [place]: 38; QRS Wave [place]: -9; T Wave [place] : -1; Blood Pressure: 118/70 [ECG DIAGNOSTIC STATEMENTS] Date of Test: 06/08/2014 12:31:18; Summary: Sinus Rhythm WITHIN NORMAL LIMITS 24-May-2014 Spirometry (70401) Comments: good effort and curvve mild restriciton Result: 02-Feb-2014 Upper Ext Joint Only(Routine) Result: Comments: See Note; NOTES: [facility] Imaging Services [address] [place] [address] MRI Report MR#: [id number] Acct: [id number] Name: KATHIA VALENTE Rep #: [id number] DO B: 1955 F 58 From: Kevin Lee MD PCP: Nataly Berger MD Status: REG CLI Study: Upper Ext Joint Only(Routine) Date of Exam: 02/02/14 Exam# [id number] Ordering Dr: Luz Valdez DO STUDY : MRI LEFT SHOULDER REASON FOR EXAM: Female, 58 years old. Left shoulder pain and decreased range of motion. Left arm radiculopathy. No known injury. TECHNIQUE: Standardized fat and water weighted pulse sequences were obtained in all 3 orthogonal planes. COMPARISON: None. FINDINGS: Patient was moving throughout the procedure which resulted in a degraded image quality, but there is still significant diagnostic information available. Given the limitations of the degraded image quality, there is a probable full-thickness tear of the anterior leading edge of the distal supraspinatus tendon which measures approximately 10 mm in width and length (series 3 image 6 and series 8 images 10-11). There is no retracted tendon. Normal supraspinatus tendo n. Normal infraspinatus tendon. Normal subscapularis tendon. Normal teres minor tendon. Normal supraspinatus muscle. Normal infraspinatus muscle. Normal subscapularis muscle. Normal teres minor musc le. There is fluid in the glenohumeral joint distending the sub-coracoid recess and extending into the biceps tendon sheath. Normal humeral head and visualized proximal humerus. Normal biceps labral complex. Normal intracapsular long biceps tendon. There is a small tear of the posterior superior labrum at the 10 o'clock to the 11 o'clock position which does not extend superiorly or anteriorly a nd does not qualify as a SLAP tear (series 7 images 7-8 and series 3 images 8- 9). There is blunting of the articular surface of the anterior and inferior labrum but there are no further discrete labr al tears and there is no osseous Bankart lesion. Normal capsulo- ligamentous complex. Normal rotator interval. There is mild osteoarthritis of the acromioclavicular articulation. There is a Type II morphology (curved), with a neutral orientation. There is edema/minimal fluid in the subacromial-subdeltoid bursa. Normal quadrilateral space. Normal axillary space. Normal deltoid muscle. Normal t rapezius muscle. IMPRESSION: 1. Technically limited examination because of patient motion. 2. Given the limitations of the degraded image quality, there is a pr obable full-thickness tear of the anterior leading edge of the distal supraspinatus tendon. 3. Posterior superior labral tear without evidence of a SLAP tear. 4. Acromioclavicular arthrosis. 5. Farshad ohumeral joint effusion and edema/minimal fluid in the subacromial-subdeltoid bursa. Electronically Signed: Kevin Lee MD at 14:02 EDT Tel , Service support [phone], CC: Natayl Berger MD; Luz Valdez DO Die Machine Operator: Signed 10-Aug-2013 Brain/Head without Contrast Result: Comments: See Note; NOTES: [facility] Imaging Services [address] [place] [address] CAT Scan Report MR#: [id number] Acct: [id number] Name: KATHIA VALENTE Rep #: [id number] : 1955 F 58 From: Ruperto Dorsey MD PCP: Status: REG CLI Study: Brain/Head without Contrast Date of Exam: 08/10/13 Exam# [id number] Ordering Dr: Luz Valdez DO STUDY: CT BRAI N WITHOUT CONTRAST REASON FOR EXAM: Female, 58 years old. Syncope. History of Fahr's disease. RADIATION DOSAGE (If Supplied By Facility): CTDIvol = ( 64.89 ) mGy, DLP = ( 1053.62 ) mGycm TECHNIQ UE: Transaxial CT imaging of the brain was performed without administration of intravenous contrast material. COMPARISON: None. FINDINGS: Normal soft tissue st ructures. Normal calvarium. Normal size ventricles and extra-axial spaces for the patient's age. Normal white matter tracts of the cerebral hemispheres. Dense calcification is seen within the basal ganglia in keeping with known heart disease. Calcifications are also seen in the right and left cerebellar hemispheres as well as at the dukes white matter junction of both cerebral hemispheres. Vanessa l brainstem. There is no intracranial hemorrhage. There are no findings of an acute ischemic infarction. Normal visualized paranasal sinuses. IMPRESSION: Jacob cifications in the basal ganglia as well as within the cerebellar hemispheres and dukes-white matter junction in keeping with known Fahr's disease. Electronically Signed: Ruperto Dorsey M.D. 2 at 16:06 EST , Service support [phone], CC: Luz Valdez DO Die Machine Operator: Signed Immunization Name Dates Details Tdap (7 years and up) on: 17-May-2009 Comments: Lot #: [id number] date: mount given: 0.5 mlRoute: IMSite given: left deltoidGiven by: Maggie Lua LPN Social History Name Dates Details Caffeine Use Comments: 3 glasses soda qd Status: Active Current Work/Study Status Comments: Unemployed not looking for work Status: Active Exercise History Comments: Inactive Status: Active Living Situation Comments: Lives alone Status: Active No Drug Use Status: Active Non Drinker/No Alcohol Use Status: Active Non Smoker/No Tobacco Use Status: Active Tobacco use: Never smoker. Status: Active Smoking Status Name Dates Details Never smoker Vital Signs Date Test Result Details [id number] Temperature 98.2 f Comments: Method: Temporal Pulse 93 /min Comments: Pattern: Regular Respiration Rate 13 /min Comments: Pattern: Unlabored O2 SAT 96 % Comments: Room air BP Systolic 110 mm[Hg] Comments: Patient Position: Sitting; Cuff Location: Left Arm; Cuff Size: Standard BP Diastolic 80 mm[Hg] Comments: Patient Position: Sitting; Cuff Location: Left Arm; Cuff Size: Standard Weight 225.5 lb Height 63 in Body Mass Index Calculated 39.95 kg/m2 Body Surface Area Calculated 2.04 m2 :32 Temperature 97 f Pulse 99 /min Comments: Pattern: Regular Respiration Rate 16 /min Comments: Pattern: Unlabored O2 SAT 97 % Comments: Room air BP Systolic 118 mm[Hg] Comments: Patient Position: Sitting; Cuff Location: Left Arm; Cuff Size: Standard BP Diastolic 80 mm[Hg] Comments: Patient Position: Sitting; Cuff Location: Left Arm; Cuff Size: Standard Weight 214.375 lb Height 63 in Body Mass Index Calculated 37.97 kg/m2 Body Surface Area Calculated 1.99 m2 :25 Temperature 97.9 f Pulse 64 /min Comments: Pattern: Regular Respiration Rate 18 /min Comments: Pattern: Unlabored O2 SAT 99 % Comments: Room air BP Systolic 116 mm[Hg] Comments: Patient Position: Sitting; Cuff Location: Left Arm; Cuff Size: Standard BP Diastolic 72 mm[Hg] Comments: Patient Position: Sitting; Cuff Location: Left Arm; Cuff Size: Standard Weight 215 lb Height 63 in Body Mass Index Calculated 38.09 kg/m2 Body Surface Area Calculated 1.99 m2 :26 Temperature 97.6 f Pulse 87 /min Comments: Pattern: Regular Respiration Rate 18 /min Comments: Pattern: Unlabored O2 SAT 95 % Comments: Room air BP Systolic 122 mm[Hg] Comments: Patient Position: Sitting; Cuff Location: Left Arm; Cuff Size: Standard BP Diastolic 78 mm[Hg] Comments: Patient Position: Sitting; Cuff Location: Left Arm; Cuff Size: Standard Weight 214 lb Height 63 in Body Mass Index Calculated 37.91 kg/m2 Body Surface Area Calculated 1.99 m2 :49 Temperature 97.9 f Pulse 96 /min Comments: Pattern: Regular Respiration Rate 16 /min Comments: Pattern: Unlabored O2 SAT 94 % Comments: Room air BP Systolic 118 mm[Hg] Comments: Patient Position: Sitting; Cuff Location: Left Arm; Cuff Size: Standard BP Diastolic 76 mm[Hg] Comments: Patient Position: Sitting; Cuff Location: Left Arm; Cuff Size: Standard Weight 223.25 lb Height 63 in Body Mass Index Calculated 39.55 kg/m2 Body Surface Area Calculated 2.03 m2 :27 Temperature 97.4 f Comments: Method: Temporal Pulse 86 /min Comments: Pattern: Regular Respiration Rate 16 /min Comments: Pattern: Unlabored O2 SAT 98 % Comments: Room air BP Systolic 110 mm[Hg] Comments: Patient Position: Sitting; Cuff Location: Left Arm; Cuff Size: Standard BP Diastolic 68 mm[Hg] Comments: Patient Position: Sitting; Cuff Location: Left Arm; Cuff Size: Standard Weight 221.25 lb Height 63 in Body Mass Index Calculated 39.19 kg/m2 Body Surface Area Calculated 2.02 m2 :12 Temperature 98 f Pulse 101 /min Comments: Pattern: Regular Respiration Rate 16 /min Comments: Pattern: Unlabored O2 SAT 98 % Comments: Room air BP Systolic 118 mm[Hg] Comments: Patient Position: Sitting; Cuff Location: Left Arm; Cuff Size: Standard BP Diastolic 80 mm[Hg] Comments: Patient Position: Sitting; Cuff Location: Left Arm; Cuff Size: Standard Weight 221.25 lb Height 63 in Body Mass Index Calculated 39.19 kg/m2 Body Surface Area Calculated 2.02 m2 :31 Temperature 97.8 f Pulse 93 /min Comments: Pattern: Regular Respiration Rate 16 /min Comments: Pattern: Unlabored O2 SAT 97 % Comments: Room air BP Systolic 124 mm[Hg] Comments: Patient Position: Sitting; Cuff Location: Left Arm; Cuff Size: Standard BP Diastolic 76 mm[Hg] Comments: Patient Position: Sitting; Cuff Location: Left Arm; Cuff Size: Standard Weight 227.125 lb Height 63 in Body Mass Index Calculated 40.23 kg/m2 Body Surface Area Calculated 2.04 m2 :18 Temperature 97.3 f Pulse 88 /min Comments: Pattern: Regular Respiration Rate 16 /min Comments: Pattern: Unlabored O2 SAT 95 % Comments: Room air BP Systolic 138 mm[Hg] Comments: Patient Position: Sitting; Cuff Location: Left Arm; Cuff Size: Standard BP Diastolic 84 mm[Hg] Comments: Patient Position: Sitting; Cuff Location: Left Arm; Cuff Size: Standard Weight 228 lb Height 63 in Body Mass Index Calculated 40.39 kg/m2 Body Surface Area Calculated 2.04 m2 :34 Comments: repeat bp BP Systolic 104 mm[Hg] Comments: Patient Position: Sitting; Cuff Location: Left Arm; Cuff Size: Standard BP Diastolic 62 mm[Hg] Comments: Patient Position: Sitting; Cuff Location: Left Arm; Cuff Size: Standard :34 Comments: doppler used 102/0 Pulse 89 /min Comments: Pattern: Regular :33 Pulse 83 /min Comments: Pattern: Regular BP Systolic 110 mm[Hg] Comments: Patient Position: Supine; Cuff Location: Left Arm; Cuff Size: Standard BP Diastolic 80 mm[Hg] Comments: Patient Position: Supine; Cuff Location: Left Arm; Cuff Size: Standard :38 Pulse 96 /min Comments: Pattern: Regular Respiration Rate 16 /min Comments: Pattern: Unlabored O2 SAT 95 % Comments: Room air BP Systolic 104 mm[Hg] Comments: Patient Position: Sitting; Cuff Location: Left Arm; Cuff Size: Standard BP Diastolic 80 mm[Hg] Comments: Patient Position: Sitting; Cuff Location: Left Arm; Cuff Size: Standard Weight 222 lb Height 63 in Body Mass Index Calculated 39.33 kg/m2 Body Surface Area Calculated 2.02 m2 :24 Temperature 97.9 f Comments: Method: Temporal Pulse 81 /min Comments: Pattern: Regular Respiration Rate 16 /min Comments: Pattern: Unlabored O2 SAT 98 % Comments: Room air BP Systolic 120 mm[Hg] Comments: Patient Position: Sitting; Cuff Location: Left Arm; Cuff Size: Standard BP Diastolic 70 mm[Hg] Comments: Patient Position: Sitting; Cuff Location: Left Arm; Cuff Size: Standard Weight 222 lb Height 63 in Body Mass Index Calculated 39.33 kg/m2 Body Surface Area Calculated 2.02 m2 :30 Temperature 97.7 f Pulse 84 /min Comments: Pattern: Regular Respiration Rate 16 /min Comments: Pattern: Unlabored O2 SAT 95 % Comments: Room air BP Systolic 116 mm[Hg] Comments: Patient Position: Sitting; Cuff Location: Left Arm; Cuff Size: Standard BP Diastolic 72 mm[Hg] Comments: Patient Position: Sitting; Cuff Location: Left Arm; Cuff Size: Standard Weight 222.5 lb Height 63 in Body Mass Index Calculated 39.41 kg/m2 Body Surface Area Calculated 2.02 m2 [id number] Temperature 98.2 f Pulse 90 /min Comments: Pattern: Regular Respiration Rate 18 /min Comments: Pattern: Unlabored O2 SAT 96 % Comments: Room air BP Systolic 132 mm[Hg] Comments: Patient Position: Sitting; Cuff Location: Left Arm; Cuff Size: Standard BP Diastolic 64 mm[Hg] Comments: Patient Position: Sitting; Cuff Location: Left Arm; Cuff Size: Standard Weight 216.5 lb Height 63 in Body Mass Index Calculated 38.35 kg/m2 Body Surface Area Calculated 2 m2 :31 Temperature 97.4 f Pulse 80 /min Comments: Pattern: Regular Respiration Rate 17 /min Comments: Pattern: Unlabored O2 SAT 95 % Comments: Room air BP Systolic 124 mm[Hg] Comments: Patient Position: Sitting; Cuff Location: Left Arm; Cuff Size: Standard BP Diastolic 82 mm[Hg] Comments: Patient Position: Sitting; Cuff Location: Left Arm; Cuff Size: Standard Weight 222 lb Height 63 in Body Mass Index Calculated 39.33 kg/m2 Body Surface Area Calculated 2.02 m2 :17 Temperature 97.9 f Comments: Method: Temporal Pulse 86 /min Comments: Pattern: Regular Respiration Rate 18 /min Comments: Pattern: Unlabored O2 SAT 97 % Comments: Room air BP Systolic 114 mm[Hg] Comments: Patient Position: Sitting; Cuff Location: Left Arm; Cuff Size: Large BP Diastolic 78 mm[Hg] Comments: Patient Position: Sitting; Cuff Location: Left Arm; Cuff Size: Large Weight 222 lb Height 63 in Body Mass Index Calculated 39.33 kg/m2 Body Surface Area Calculated 2.02 m2 :28 Temperature 87 f Pulse 87 /min Comments: Pattern: Regular Respiration Rate 16 /min Comments: Pattern: Unlabored O2 SAT 95 % Comments: Room air BP Systolic 140 mm[Hg] Comments: Patient Position: Sitting; Cuff Location: Left Arm; Cuff Size: Standard BP Diastolic 84 mm[Hg] Comments: Patient Position: Sitting; Cuff Location: Left Arm; Cuff Size: Standard Weight 230 lb Height 63 in Body Mass Index Calculated 40.74 kg/m2 Body Surface Area Calculated 2.05 m2 :08 Temperature 97.1 f Comments: Method: Temporal Pulse 99 /min Comments: Pattern: Regular Respiration Rate 20 /min Comments: Pattern: Unlabored O2 SAT 98 % Comments: Room air BP Systolic 118 mm[Hg] Comments: Patient Position: Sitting; Cuff Location: Left Arm; Cuff Size: Large BP Diastolic 76 mm[Hg] Comments: Patient Position: Sitting; Cuff Location: Left Arm; Cuff Size: Large Weight 226 lb Height 63 in Body Mass Index Calculated 40.03 kg/m2 Body Surface Area Calculated 2.04 m2 :15 Temperature 99 f Comments: Method: Oral Pulse 102 /min Comments: Pattern: Regular Respiration Rate 17 /min O2 SAT 97 % Comments: Room air BP Systolic 122 mm[Hg] Comments: Patient Position: Sitting; Cuff Location: Left Arm; Cuff Size: Standard BP Diastolic 80 mm[Hg] Comments: Patient Position: Sitting; Cuff Location: Left Arm; Cuff Size: Standard Weight 236 lb Height 63 in Body Mass Index Calculated 41.81 kg/m2 Body Surface Area Calculated 2.07 m2 :29 Temperature 98.4 f Comments: Method: Oral Pulse 100 /min Comments: Pattern: Regular Respiration Rate 16 /min Comments: Pattern: Unlabored O2 SAT 98 % Comments: Room air BP Systolic 120 mm[Hg] Comments: Patient Position: Sitting; Cuff Location: Left Arm; Cuff Size: Standard BP Diastolic 78 mm[Hg] Comments: Patient Position: Sitting; Cuff Location: Left Arm; Cuff Size: Standard Weight 236 lb Height 63 in Body Mass Index Calculated 41.81 kg/m2 Body Surface Area Calculated 2.07 m2 :53 Temperature 97.1 f Comments: Method: Oral Pulse 102 /min Comments: Pattern: Regular Respiration Rate 18 /min O2 SAT 98 % Comments: Room air BP Systolic 124 mm[Hg] Comments: Patient Position: Sitting; Cuff Location: Left Arm; Cuff Size: Standard BP Diastolic 76 mm[Hg] Comments: Patient Position: Sitting; Cuff Location: Left Arm; Cuff Size: Standard Weight 236 lb Height 63 in Body Mass Index Calculated 41.81 kg/m2 Body Surface Area Calculated 2.07 m2 :56 Temperature 98.2 f Comments: Method: Temporal Pulse 90 /min Comments: Pattern: Regular Respiration Rate 20 /min Comments: Pattern: Unlabored O2 SAT 98 % Comments: Room air BP Systolic 124 mm[Hg] Comments: Patient Position: Sitting; Cuff Location: Left Arm; Cuff Size: Large BP Diastolic 78 mm[Hg] Comments: Patient Position: Sitting; Cuff Location: Left Arm; Cuff Size: Large Weight 236 lb Height 63 in Body Mass Index Calculated 41.81 kg/m2 Body Surface Area Calculated 2.07 m2 :25 Temperature 98.1 f Comments: Method: Temporal Pulse 98 /min Comments: Pattern: Regular Respiration Rate 16 /min Comments: Pattern: Unlabored O2 SAT 94 % Comments: Room air BP Systolic 128 mm[Hg] Comments: Patient Position: Sitting; Cuff Location: Left Arm; Cuff Size: Standard BP Diastolic 80 mm[Hg] Comments: Patient Position: Sitting; Cuff Location: Left Arm; Cuff Size: Standard Weight 236 lb Height 63 in Body Mass Index Calculated 41.81 kg/m2 Body Surface Area Calculated 2.07 m2 :56 Temperature 98.2 f Comments: Method: Temporal Pulse 94 /min Comments: Pattern: Regular Respiration Rate 18 /min Comments: Pattern: Unlabored O2 SAT 97 % Comments: Room air BP Systolic 102 mm[Hg] Comments: Patient Position: Sitting; Cuff Location: Left Arm; Cuff Size: Standard BP Diastolic 72 mm[Hg] Comments: Patient Position: Sitting; Cuff Location: Left Arm; Cuff Size: Standard Weight 236 lb Height 63 in Body Mass Index Calculated 41.81 kg/m2 Body Surface Area Calculated 2.07 m2 :06 Temperature 98.2 f Comments: Method: Temporal Pulse 74 /min Comments: Pattern: Regular Respiration Rate 16 /min Comments: Pattern: Unlabored O2 SAT 98 % Comments: Room air BP Systolic 118 mm[Hg] Comments: Patient Position: Sitting; Cuff Location: Left Arm; Cuff Size: Standard BP Diastolic 70 mm[Hg] Comments: Patient Position: Sitting; Cuff Location: Left Arm; Cuff Size: Standard Weight 236 lb Height 63 in Body Mass Index Calculated 41.81 kg/m2 Body Surface Area Calculated 2.07 m2 :29 Temperature 97 f Pulse 92 /min Comments: Pattern: Regular Respiration Rate 18 /min Comments: Pattern: Unlabored O2 SAT 97 % Comments: Room air BP Systolic 116 mm[Hg] Comments: Patient Position: Sitting; Cuff Location: Left Arm; Cuff Size: Large BP Diastolic 80 mm[Hg] Comments: Patient Position: Sitting; Cuff Location: Left Arm; Cuff Size: Large Weight 232 lb Height 63 in Body Mass Index Calculated 41.1 kg/m2 Body Surface Area Calculated 2.06 m2 :25 Temperature 96 f Comments: Method: Temporal Pulse 114 /min Comments: Pattern: Regular Respiration Rate 16 /min Comments: Pattern: Unlabored O2 SAT 96 % Comments: Room air BP Systolic 116 mm[Hg] Comments: Patient Position: Sitting; Cuff Location: Left Arm; Cuff Size: Standard BP Diastolic 74 mm[Hg] Comments: Patient Position: Sitting; Cuff Location: Left Arm; Cuff Size: Standard Weight 232 lb Height 63 in Body Mass Index Calculated 41.1 kg/m2 Body Surface Area Calculated 2.06 m2 :11 Temperature 97.3 f Comments: Method: Oral Pulse 98 /min Comments: Pattern: Regular Respiration Rate 16 /min Comments: Pattern: Unlabored O2 SAT 92 % Comments: Room air BP Systolic 122 mm[Hg] Comments: Patient Position: Sitting; Cuff Location: Left Arm; Cuff Size: Standard BP Diastolic 78 mm[Hg] Comments: Patient Position: Sitting; Cuff Location: Left Arm; Cuff Size: Standard Weight 243.8 lb Height 63 in Body Mass Index Calculated 43.19 kg/m2 Body Surface Area Calculated 2.1 m2 :12 Temperature 96.6 f Comments: Method: Temporal Pulse 95 /min Comments: Pattern: Regular Respiration Rate 16 /min Comments: Pattern: Unlabored O2 SAT 94 % Comments: Room air BP Systolic 122 mm[Hg] Comments: Patient Position: Sitting; Cuff Location: Left Arm; Cuff Size: Standard BP Diastolic 74 mm[Hg] Comments: Patient Position: Sitting; Cuff Location: Left Arm; Cuff Size: Standard Weight 242.8 lb Height 63 in Body Mass Index Calculated 43.01 kg/m2 Body Surface Area Calculated 2.1 m2 :13 Temperature 98 f Comments: Method: Oral Pulse 83 /min Comments: Pattern: Regular Respiration Rate 18 /min Comments: Pattern: Unlabored O2 SAT 98 % Comments: Room air BP Systolic 124 mm[Hg] Comments: Patient Position: Sitting; Cuff Location: Right Arm; Cuff Size: Large BP Diastolic 78 mm[Hg] Comments: Patient Position: Sitting; Cuff Location: Right Arm; Cuff Size: Large Weight 245.1875 lb Height 63 in Body Mass Index Calculated 43.43 kg/m2 Body Surface Area Calculated 2.11 m2 :43 Pulse 85 /min Comments: Pattern: Regular Respiration Rate 16 /min Comments: Pattern: Unlabored O2 SAT 98 % Comments: Room air BP Systolic 118 mm[Hg] Comments: Patient Position: Sitting; Cuff Location: Left Arm; Cuff Size: Standard BP Diastolic 80 mm[Hg] Comments: Patient Position: Sitting; Cuff Location: Left Arm; Cuff Size: Standard Weight 241.125 lb Height 63 in Body Mass Index Calculated 42.71 kg/m2 Body Surface Area Calculated 2.09 m2 :01 Temperature 98.1 f Comments: Method: Oral Pulse 109 /min Comments: Pattern: Regular Respiration Rate 20 /min Comments: Pattern: Unlabored O2 SAT 96 % Comments: Room air BP Systolic 128 mm[Hg] Comments: Patient Position: Sitting; Cuff Location: Left Arm; Cuff Size: Large BP Diastolic 82 mm[Hg] Comments: Patient Position: Sitting; Cuff Location: Left Arm; Cuff Size: Large Weight 241.125 lb Height 63 in Body Mass Index Calculated 42.71 kg/m2 Body Surface Area Calculated 2.09 m2 :31 Pulse 91 /min Comments: Pattern: Regular Respiration Rate 20 /min Comments: Pattern: Unlabored O2 SAT 96 % Comments: Room air BP Systolic 122 mm[Hg] Comments: Patient Position: Sitting; Cuff Location: Left Arm; Cuff Size: Large BP Diastolic 78 mm[Hg] Comments: Patient Position: Sitting; Cuff Location: Left Arm; Cuff Size: Large Weight 240 lb Height 63 in Body Mass Index Calculated 42.51 kg/m2 Body Surface Area Calculated 2.09 m2 :23 Temperature 97.4 f Comments: Method: Temporal Pulse 74 /min Comments: Pattern: Regular Respiration Rate 16 /min Comments: Pattern: Unlabored O2 SAT 97 % Comments: Room air BP Systolic 122 mm[Hg] Comments: Patient Position: Sitting; Cuff Location: Left Arm; Cuff Size: Standard BP Diastolic 66 mm[Hg] Comments: Patient Position: Sitting; Cuff Location: Left Arm; Cuff Size: Standard Weight 242 lb Height 63 in Body Mass Index Calculated 42.87 kg/m2 Body Surface Area Calculated 2.1 m2 :44 Pulse 80 /min Comments: Pattern: Regular Respiration Rate 18 /min Comments: Pattern: Unlabored BP Systolic 124 mm[Hg] Comments: Patient Position: Sitting; Cuff Location: Left Arm; Cuff Size: Large BP Diastolic 82 mm[Hg] Comments: Patient Position: Sitting; Cuff Location: Left Arm; Cuff Size: Large Weight 239.25 lb Height 63 in Body Mass Index Calculated 42.38 kg/m2 Body Surface Area Calculated 2.09 m2 :29 Temperature 97.8 f Comments: Method: Temporal Pulse 70 /min Comments: Pattern: Regular Respiration Rate 16 /min Comments: Pattern: Unlabored O2 SAT 98 % Comments: Room air BP Systolic 128 mm[Hg] Comments: Patient Position: Sitting; Cuff Location: Left Arm; Cuff Size: Standard BP Diastolic 76 mm[Hg] Comments: Patient Position: Sitting; Cuff Location: Left Arm; Cuff Size: Standard Weight 234 lb Height 63 in Body Mass Index Calculated 41.45 kg/m2 Body Surface Area Calculated 2.07 m2 :08 Temperature 98 f Comments: Method: Oral Pulse 80 /min Comments: Pattern: Regular Respiration Rate 20 /min Comments: Pattern: Unlabored BP Systolic 114 mm[Hg] Comments: Patient Position: Sitting; Cuff Location: Left Arm; Cuff Size: Standard BP Diastolic 78 mm[Hg] Comments: Patient Position: Sitting; Cuff Location: Left Arm; Cuff Size: Standard Weight 234 lb Height 63 in Body Mass Index Calculated 41.45 kg/m2 Body Surface Area Calculated 2.07 m2 :22 Temperature 98.2 f Comments: Method: Oral Pulse 76 /min Comments: Pattern: Regular Respiration Rate 16 /min Comments: Pattern: Unlabored O2 SAT 95 % Comments: Room air BP Systolic 118 mm[Hg] Comments: Patient Position: Sitting; Cuff Location: Left Arm; Cuff Size: Standard BP Diastolic 78 mm[Hg] Comments: Patient Position: Sitting; Cuff Location: Left Arm; Cuff Size: Standard Weight 234 lb Height 63 in Body Mass Index Calculated 41.45 kg/m2 Body Surface Area Calculated 2.07 m2 :24 Temperature 97.6 f Comments: Method: Oral Pulse 84 /min Comments: Pattern: Regular Respiration Rate 20 /min Comments: Pattern: Unlabored BP Systolic 114 mm[Hg] Comments: Patient Position: Sitting; Cuff Location: Left Arm; Cuff Size: Standard BP Diastolic 78 mm[Hg] Comments: Patient Position: Sitting; Cuff Location: Left Arm; Cuff Size: Standard Weight 233 lb Height 63 in Body Mass Index Calculated 41.27 kg/m2 Body Surface Area Calculated 2.06 m2 :49 Temperature 98 f Comments: Method: Oral Pulse 88 /min Comments: Pattern: Regular Respiration Rate 20 /min Comments: Pattern: Unlabored BP Systolic 126 mm[Hg] Comments: Patient Position: Sitting; Cuff Location: Left Arm; Cuff Size: Large BP Diastolic 82 mm[Hg] Comments: Patient Position: Sitting; Cuff Location: Left Arm; Cuff Size: Large Weight 233 lb Height 63 in Body Mass Index Calculated 41.27 kg/m2 Body Surface Area Calculated 2.06 m2 :01 Temperature 98.2 f Comments: Method: Oral Pulse 102 /min Comments: Pattern: Regular Respiration Rate 20 /min BP Systolic 132 mm[Hg] Comments: Patient Position: Sitting; Cuff Location: Left Arm; Cuff Size: Standard BP Diastolic 86 mm[Hg] Comments: Patient Position: Sitting; Cuff Location: Left Arm; Cuff Size: Standard Weight 233 lb Height 63 in Body Mass Index Calculated 41.27 kg/m2 Body Surface Area Calculated 2.06 m2 :09 Temperature 97.8 f Comments: Method: Oral Pulse 76 /min Comments: Pattern: Regular Respiration Rate 18 /min Comments: Pattern: Unlabored BP Systolic 124 mm[Hg] Comments: Patient Position: Sitting; Cuff Location: Left Arm; Cuff Size: Large BP Diastolic 84 mm[Hg] Comments: Patient Position: Sitting; Cuff Location: Left Arm; Cuff Size: Large Weight 233 lb Height 63 in Body Mass Index Calculated 41.27 kg/m2 Body Surface Area Calculated 2.06 m2 :30 Temperature 98.3 f Comments: Method: Oral Pulse 82 /min Comments: Pattern: Regular Respiration Rate 17 /min BP Systolic 120 mm[Hg] Comments: Patient Position: Sitting; Cuff Location: Left Arm; Cuff Size: Standard BP Diastolic 80 mm[Hg] Comments: Patient Position: Sitting; Cuff Location: Left Arm; Cuff Size: Standard Weight 234.375 lb Height 63 in Body Mass Index Calculated 41.52 kg/m2 Body Surface Area Calculated 2.07 m2 :38 Temperature 97.7 f Comments: Method: Oral Pulse 80 /min Comments: Pattern: Regular Respiration Rate 20 /min Comments: Pattern: Unlabored BP Systolic 122 mm[Hg] Comments: Patient Position: Sitting; Cuff Location: Left Arm; Cuff Size: Large BP Diastolic 82 mm[Hg] Comments: Patient Position: Sitting; Cuff Location: Left Arm; Cuff Size: Large Weight 236 lb Height 63 in Body Mass Index Calculated 41.81 kg/m2 Body Surface Area Calculated 2.07 m2 :10 Temperature 95.4 f Comments: Method: Temporal Pulse 104 /min Comments: Pattern: Regular Respiration Rate 16 /min Comments: Pattern: Unlabored O2 SAT 97 % Comments: Room air BP Systolic 118 mm[Hg] Comments: Patient Position: Sitting; Cuff Location: Left Arm; Cuff Size: Standard BP Diastolic 80 mm[Hg] Comments: Patient Position: Sitting; Cuff Location: Left Arm; Cuff Size: Standard Weight 234 lb Height 63 in Body Mass Index Calculated 41.45 kg/m2 Body Surface Area Calculated 2.07 m2 :02 Temperature 97 f Comments: Method: Tympanic Pulse 92 /min Comments: Pattern: Regular Respiration Rate 18 /min Comments: Pattern: Unlabored O2 SAT 98 % Comments: Room air BP Systolic 112 mm[Hg] Comments: Patient Position: Sitting; Cuff Location: Left Arm; Cuff Size: Standard BP Diastolic 78 mm[Hg] Comments: Patient Position: Sitting; Cuff Location: Left Arm; Cuff Size: Standard Weight 232 lb Height 63 in Body Mass Index Calculated 41.1 kg/m2 Body Surface Area Calculated 2.06 m2 :34 Temperature 98 f Comments: Method: Oral Pulse 76 /min Comments: Pattern: Regular Respiration Rate 20 /min Comments: Pattern: Unlabored BP Systolic 124 mm[Hg] Comments: Patient Position: Sitting; Cuff Location: Left Arm; Cuff Size: Standard BP Diastolic 78 mm[Hg] Comments: Patient Position: Sitting; Cuff Location: Left Arm; Cuff Size: Standard Weight 232 lb Height 63 in Body Mass Index Calculated 41.1 kg/m2 Body Surface Area Calculated 2.06 m2 :08 Temperature 97.8 f Comments: Method: Oral Pulse 84 /min Comments: Pattern: Regular Respiration Rate 20 /min Comments: Pattern: Unlabored BP Systolic 108 mm[Hg] Comments: Patient Position: Sitting; Cuff Location: Left Arm; Cuff Size: Standard BP Diastolic 74 mm[Hg] Comments: Patient Position: Sitting; Cuff Location: Left Arm; Cuff Size: Standard Weight 232 lb Height 63 in Body Mass Index Calculated 41.1 kg/m2 Body Surface Area Calculated 2.06 m2 :01 Temperature 98.8 f Comments: Method: Oral Pulse 72 /min Comments: Pattern: Regular Respiration Rate 16 /min Comments: Pattern: Unlabored O2 SAT 93 % Comments: Room air BP Systolic 118 mm[Hg] Comments: Patient Position: Sitting; Cuff Location: Left Arm; Cuff Size: Standard BP Diastolic 72 mm[Hg] Comments: Patient Position: Sitting; Cuff Location: Left Arm; Cuff Size: Standard Weight 233.375 lb Height 63 in Body Mass Index Calculated 41.34 kg/m2 Body Surface Area Calculated 2.07 m2 :53 Temperature 98.2 f Comments: Method: Oral Pulse 102 /min Comments: Pattern: Regular Respiration Rate 17 /min Comments: Pattern: Unlabored O2 SAT 95 % Comments: Room air BP Systolic 136 mm[Hg] Comments: Patient Position: Sitting; Cuff Location: Left Arm; Cuff Size: Standard BP Diastolic 80 mm[Hg] Comments: Patient Position: Sitting; Cuff Location: Left Arm; Cuff Size: Standard Weight 228 lb Height 63 in Body Mass Index Calculated 40.39 kg/m2 Body Surface Area Calculated 2.04 m2 :09 Temperature 97.8 f Comments: Method: Temporal Pulse 72 /min Comments: Pattern: Regular Respiration Rate 16 /min Comments: Pattern: Unlabored BP Systolic 104 mm[Hg] Comments: Patient Position: Sitting; Cuff Location: Left Arm; Cuff Size: Standard BP Diastolic 62 mm[Hg] Comments: Patient Position: Sitting; Cuff Location: Left Arm; Cuff Size: Standard Weight 228 lb Height 63 in Body Mass Index Calculated 40.39 kg/m2 Body Surface Area Calculated 2.04 m2 :39 Temperature 98.8 f Comments: Method: Oral Pulse 92 /min Comments: Pattern: Regular Respiration Rate 16 /min Comments: Pattern: Unlabored BP Systolic 110 mm[Hg] Comments: Patient Position: Sitting; Cuff Location: Left Arm; Cuff Size: Large BP Diastolic 64 mm[Hg] Comments: Patient Position: Sitting; Cuff Location: Left Arm; Cuff Size: Large Weight 228 lb Height 63 in Body Mass Index Calculated 40.39 kg/m2 Body Surface Area Calculated 2.04 m2 :03 Temperature 98.2 f Comments: Method: Oral Pulse 84 /min Comments: Pattern: Regular Respiration Rate 20 /min Comments: Pattern: Unlabored BP Systolic 100 mm[Hg] Comments: Patient Position: Sitting; Cuff Location: Left Arm; Cuff Size: Large BP Diastolic 72 mm[Hg] Comments: Patient Position: Sitting; Cuff Location: Left Arm; Cuff Size: Large Weight 227 lb Height 63 in Body Mass Index Calculated 40.21 kg/m2 Body Surface Area Calculated 2.04 m2 :29 Temperature 97.8 f Comments: Method: Oral Pulse 96 /min Comments: Pattern: Regular Respiration Rate 18 /min Comments: Pattern: Unlabored BP Systolic 122 mm[Hg] Comments: Patient Position: Sitting; Cuff Location: Left Arm; Cuff Size: Standard BP Diastolic 80 mm[Hg] Comments: Patient Position: Sitting; Cuff Location: Left Arm; Cuff Size: Standard Weight 225 lb Height 63 in Body Mass Index Calculated 39.86 kg/m2 Body Surface Area Calculated 2.03 m2 :34 Temperature 98.1 f Comments: Method: Oral Pulse 78 /min Comments: Pattern: Regular Respiration Rate 20 /min Comments: Pattern: Unlabored BP Systolic 124 mm[Hg] Comments: Patient Position: Sitting; Cuff Location: Left Arm; Cuff Size: Large BP Diastolic 80 mm[Hg] Comments: Patient Position: Sitting; Cuff Location: Left Arm; Cuff Size: Large Weight 229 lb Height 63 in Body Mass Index Calculated 40.57 kg/m2 Body Surface Area Calculated 2.05 m2 :49 Temperature 97.6 f Comments: Method: Oral Pulse 90 /min Comments: Pattern: Regular Respiration Rate 20 /min Comments: Pattern: Unlabored BP Systolic 124 mm[Hg] Comments: Patient Position: Sitting; Cuff Location: Left Arm; Cuff Size: Standard BP Diastolic 82 mm[Hg] Comments: Patient Position: Sitting; Cuff Location: Left Arm; Cuff Size: Standard Weight 230 lb Height 63 in Body Mass Index Calculated 40.74 kg/m2 Body Surface Area Calculated 2.05 m2 :33 Temperature 97.5 f Pulse 94 /min Comments: Pattern: Regular Respiration Rate 17 /min Comments: Pattern: Unlabored BP Systolic 136 mm[Hg] Comments: Patient Position: Sitting; Cuff Location: Left Arm; Cuff Size: Standard BP Diastolic 84 mm[Hg] Comments: Patient Position: Sitting; Cuff Location: Left Arm; Cuff Size: Standard Weight 230.1 lb Height 63 in Body Mass Index Calculated 40.76 kg/m2 Body Surface Area Calculated 2.05 m2 :13 Temperature 98.2 f Comments: Method: Oral Pulse 72 /min Comments: Pattern: Regular Respiration Rate 16 /min Comments: Pattern: Unlabored BP Systolic 112 mm[Hg] Comments: Patient Position: Sitting; Cuff Location: Left Arm; Cuff Size: Standard BP Diastolic 68 mm[Hg] Comments: Patient Position: Sitting; Cuff Location: Left Arm; Cuff Size: Standard Weight 232.1 lb Height 63 in Body Mass Index Calculated 41.11 kg/m2 Body Surface Area Calculated 2.06 m2 :33 Temperature 97.6 f Comments: Method: Oral Pulse 78 /min Comments: Pattern: Regular Respiration Rate 18 /min Comments: Pattern: Unlabored BP Systolic 124 mm[Hg] Comments: Patient Position: Sitting; Cuff Location: Left Arm; Cuff Size: Standard BP Diastolic 80 mm[Hg] Comments: Patient Position: Sitting; Cuff Location: Left Arm; Cuff Size: Standard Weight 240 lb Height 63 in Body Mass Index Calculated 42.51 kg/m2 Body Surface Area Calculated 2.09 m2 [id number] Temperature 98.6 f Comments: Method: Oral Pulse 102 /min Comments: Pattern: Regular Respiration Rate 18 /min O2 SAT 96 % Comments: Room air BP Systolic 110 mm[Hg] Comments: Patient Position: Sitting; Cuff Location: Left Arm; Cuff Size: Standard BP Diastolic 70 mm[Hg] Comments: Patient Position: Sitting; Cuff Location: Left Arm; Cuff Size: Standard Weight 250 lb Height 63 in Body Mass Index Calculated 44.29 kg/m2 Body Surface Area Calculated 2.13 m2 :30 Temperature 97.6 f Comments: Method: Oral Pulse 88 /min Comments: Pattern: Regular Respiration Rate 18 /min Comments: Pattern: Unlabored BP Systolic 110 mm[Hg] Comments: Patient Position: Sitting; Cuff Location: Left Arm; Cuff Size: Standard BP Diastolic 76 mm[Hg] Comments: Patient Position: Sitting; Cuff Location: Left Arm; Cuff Size: Standard Weight 250 lb Height 63 in Body Mass Index Calculated 44.29 kg/m2 Body Surface Area Calculated 2.13 m2 :04 Temperature 98.3 f Comments: Method: Oral Pulse 88 /min Comments: Pattern: Regular Respiration Rate 16 /min Comments: Pattern: Unlabored BP Systolic 108 mm[Hg] Comments: Patient Position: Sitting; Cuff Location: Left Arm; Cuff Size: Large BP Diastolic 78 mm[Hg] Comments: Patient Position: Sitting; Cuff Location: Left Arm; Cuff Size: Large Weight 250 lb Height 63 in Body Mass Index Calculated 44.29 kg/m2 Body Surface Area Calculated 2.13 m2 :10 Temperature 98.4 f Comments: Method: Oral Pulse 100 /min Comments: Pattern: Regular Respiration Rate 16 /min Comments: Pattern: Unlabored BP Systolic 140 mm[Hg] Comments: Patient Position: Sitting; Cuff Location: Right Arm; Cuff Size: Large BP Diastolic 68 mm[Hg] Comments: Patient Position: Sitting; Cuff Location: Right Arm; Cuff Size: Large Weight 253 lb Height 63 in Body Mass Index Calculated 44.82 kg/m2 Body Surface Area Calculated 2.14 m2 :17 Temperature 97.4 f Comments: Method: Oral Pulse 90 /min Comments: Pattern: Regular Respiration Rate 18 /min Comments: Pattern: Unlabored BP Systolic 130 mm[Hg] Comments: Patient Position: Sitting; Cuff Location: Left Arm; Cuff Size: Standard BP Diastolic 80 mm[Hg] Comments: Patient Position: Sitting; Cuff Location: Left Arm; Cuff Size: Standard Weight 253 lb Height 63.5 in Body Mass Index Calculated 44.11 kg/m2 Body Surface Area Calculated 2.15 m2 :23 Temperature 97.9 f Comments: Method: Oral Pulse 86 /min Comments: Pattern: Regular Respiration Rate 22 /min Comments: Pattern: Unlabored BP Systolic 124 mm[Hg] Comments: Patient Position: Sitting; Cuff Location: Left Arm; Cuff Size: Large BP Diastolic 84 mm[Hg] Comments: Patient Position: Sitting; Cuff Location: Left Arm; Cuff Size: Large Weight 253 lb Height 63.5 in Body Mass Index Calculated 44.11 kg/m2 Body Surface Area Calculated 2.15 m2 :10 Temperature 97.7 f Comments: Method: Oral Pulse 86 /min Comments: Pattern: Regular Respiration Rate 17 /min Comments: Pattern: Unlabored O2 SAT 95 % Comments: Room air BP Systolic 120 mm[Hg] Comments: Patient Position: Sitting; Cuff Location: Left Arm; Cuff Size: Standard BP Diastolic 82 mm[Hg] Comments: Patient Position: Sitting; Cuff Location: Left Arm; Cuff Size: Standard Weight 251 lb Height 63.5 in Body Mass Index Calculated 43.76 kg/m2 Body Surface Area Calculated 2.14 m2 :04 Temperature 97.3 f Comments: Method: Oral Pulse 82 /min Comments: Pattern: Regular Respiration Rate 17 /min Comments: Pattern: Unlabored BP Systolic 120 mm[Hg] Comments: Patient Position: Sitting; Cuff Location: Left Arm; Cuff Size: Standard BP Diastolic 80 mm[Hg] Comments: Patient Position: Sitting; Cuff Location: Left Arm; Cuff Size: Standard Weight 251 lb Height 63.5 in Body Mass Index Calculated 43.76 kg/m2 Body Surface Area Calculated 2.14 m2 :11 Temperature 96.4 f Comments: Method: Oral Pulse 98 /min Comments: Pattern: Regular Respiration Rate 18 /min Comments: Pattern: Unlabored BP Systolic 130 mm[Hg] Comments: Patient Position: Sitting; Cuff Location: Left Arm; Cuff Size: Standard BP Diastolic 80 mm[Hg] Comments: Patient Position: Sitting; Cuff Location: Left Arm; Cuff Size: Standard :21 Temperature 97 f Comments: Method: Oral Pulse 108 /min Comments: Pattern: Regular Respiration Rate 18 /min Comments: Pattern: Unlabored BP Systolic 132 mm[Hg] Comments: Patient Position: Sitting; Cuff Location: Left Arm; Cuff Size: Standard BP Diastolic 80 mm[Hg] Comments: Patient Position: Sitting; Cuff Location: Left Arm; Cuff Size: Standard :17 Temperature 98.4 f Comments: Method: Oral Pulse 88 /min Comments: Pattern: Regular Respiration Rate 20 /min Comments: Pattern: Unlabored BP Systolic 124 mm[Hg] Comments: Patient Position: Sitting; Cuff Location: Left Arm; Cuff Size: Standard BP Diastolic 80 mm[Hg] Comments: Patient Position: Sitting; Cuff Location: Left Arm; Cuff Size: Standard Weight 251 lb Height 63.5 in Body Mass Index Calculated 43.76 kg/m2 Body Surface Area Calculated 2.14 m2 :01 Temperature 97.8 f Comments: Method: Oral Pulse 86 /min Comments: Pattern: Regular Respiration Rate 20 /min Comments: Pattern: Unlabored BP Systolic 118 mm[Hg] Comments: Patient Position: Sitting; Cuff Location: Left Arm; Cuff Size: Large BP Diastolic 80 mm[Hg] Comments: Patient Position: Sitting; Cuff Location: Left Arm; Cuff Size: Large Weight 251 lb Height 63.5 in Body Mass Index Calculated 43.76 kg/m2 Body Surface Area Calculated 2.14 m2 :40 Temperature 95.9 f Comments: Method: Oral Pulse 82 /min Comments: Pattern: Regular Respiration Rate 18 /min Comments: Pattern: Unlabored BP Systolic 112 mm[Hg] Comments: Patient Position: Sitting; Cuff Location: Left Arm; Cuff Size: Standard BP Diastolic 78 mm[Hg] Comments: Patient Position: Sitting; Cuff Location: Left Arm; Cuff Size: Standard Weight 248.3125 lb :54 Temperature 98.2 f Comments: Method: Oral Pulse 78 /min Comments: Pattern: Regular Respiration Rate 20 /min Comments: Pattern: Unlabored BP Systolic 104 mm[Hg] Comments: Patient Position: Sitting; Cuff Location: Left Arm; Cuff Size: Large BP Diastolic 74 mm[Hg] Comments: Patient Position: Sitting; Cuff Location: Left Arm; Cuff Size: Large Weight 248 lb :30 Temperature 98.2 f Comments: Method: Oral Pulse 84 /min Comments: Pattern: Regular Respiration Rate 20 /min Comments: Pattern: Unlabored BP Systolic 116 mm[Hg] Comments: Patient Position: Sitting; Cuff Location: Left Arm; Cuff Size: Large BP Diastolic 78 mm[Hg] Comments: Patient Position: Sitting; Cuff Location: Left Arm; Cuff Size: Large Weight 246 lb :28 Pulse 90 /min Comments: Pattern: Regular Respiration Rate 20 /min Comments: Pattern: Unlabored BP Systolic 120 mm[Hg] Comments: Patient Position: Sitting; Cuff Location: Left Arm; Cuff Size: Large BP Diastolic 80 mm[Hg] Comments: Patient Position: Sitting; Cuff Location: Left Arm; Cuff Size: Large Weight 254 lb :28 Temperature 97.4 f Comments: Method: Oral Pulse 82 /min Comments: Pattern: Regular Respiration Rate 18 /min Comments: Pattern: Unlabored BP Systolic 110 mm[Hg] Comments: Patient Position: Sitting; Cuff Location: Left Arm; Cuff Size: Standard BP Diastolic 74 mm[Hg] Comments: Patient Position: Sitting; Cuff Location: Left Arm; Cuff Size: Standard Weight 247.4375 lb :32 Temperature 97.2 f Comments: Method: Oral Pulse 92 /min Comments: Pattern: Regular Respiration Rate 18 /min Comments: Pattern: Unlabored O2 SAT 98 % Comments: Room air BP Systolic 112 mm[Hg] Comments: Patient Position: Sitting; Cuff Location: Left Arm; Cuff Size: Standard BP Diastolic 72 mm[Hg] Comments: Patient Position: Sitting; Cuff Location: Left Arm; Cuff Size: Standard Weight 248 lb Height 0 in Head Circumference 0.00 cm :52 Pulse 80 /min Comments: Pattern: Regular Respiration Rate 18 /min Comments: Pattern: Unlabored BP Systolic 122 mm[Hg] Comments: Patient Position: Sitting; Cuff Location: Left Arm; Cuff Size: Large BP Diastolic 82 mm[Hg] Comments: Patient Position: Sitting; Cuff Location: Left Arm; Cuff Size: Large Weight 248 lb Height 0 in Head Circumference 0.00 cm :02 Pulse 78 /min Comments: Pattern: Regular Respiration Rate 18 /min Comments: Pattern: Unlabored BP Systolic 116 mm[Hg] Comments: Patient Position: Sitting; Cuff Location: Left Arm; Cuff Size: Large BP Diastolic 80 mm[Hg] Comments: Patient Position: Sitting; Cuff Location: Left Arm; Cuff Size: Large Weight 249 lb Height 0 in Head Circumference 0.00 cm :11 Pulse 80 /min Comments: Pattern: Regular Respiration Rate 16 /min Comments: Pattern: Unlabored BP Systolic 118 mm[Hg] Comments: Patient Position: Sitting; Cuff Location: Left Arm; Cuff Size: Large BP Diastolic 78 mm[Hg] Comments: Patient Position: Sitting; Cuff Location: Left Arm; Cuff Size: Large Weight 245.05 lb Height 0 in Head Circumference 0.00 cm :25 Pulse 78 /min Comments: Pattern: Regular Respiration Rate 18 /min Comments: Pattern: Unlabored BP Systolic 126 mm[Hg] Comments: Patient Position: Sitting; Cuff Location: Left Arm; Cuff Size: Large BP Diastolic 84 mm[Hg] Comments: Patient Position: Sitting; Cuff Location: Left Arm; Cuff Size: Large Weight 241 lb Height 0 in Head Circumference 0.00 cm :37 Pulse 70 /min Comments: Pattern: Regular Respiration Rate 16 /min Comments: Pattern: Unlabored BP Systolic 116 mm[Hg] Comments: Patient Position: Sitting; Cuff Location: Left Arm; Cuff Size: Large BP Diastolic 80 mm[Hg] Comments: Patient Position: Sitting; Cuff Location: Left Arm; Cuff Size: Large Weight 239 lb Height 0 in Head Circumference 0.00 cm :18 Pulse 98 /min Comments: Pattern: Regular Respiration Rate 20 /min Comments: Pattern: Unlabored BP Systolic 160 mm[Hg] Comments: Patient Position: Sitting; Cuff Location: Left Arm; Cuff Size: Large BP Diastolic 110 mm[Hg] Comments: Patient Position: Sitting; Cuff Location: Left Arm; Cuff Size: Large Weight 240 lb Height 0 in Head Circumference 0.00 cm :42 Temperature 98.2 f Comments: Method: Oral Pulse 94 /min Comments: Pattern: Regular Respiration Rate 20 /min Comments: Pattern: Labored O2 SAT 98 % Comments: Room air BP Systolic 180 mm[Hg] Comments: Patient Position: Sitting; Cuff Location: Left Arm; Cuff Size: Large BP Diastolic 100 mm[Hg] Comments: Patient Position: Sitting; Cuff Location: Left Arm; Cuff Size: Large Weight 240 lb Height 0 in Head Circumference 0.00 cm :15 Temperature 96.1 f Comments: Method: Oral Pulse 92 /min Comments: Pattern: Regular Respiration Rate 18 /min Comments: Pattern: Unlabored O2 SAT 98 % Comments: Room air BP Systolic 112 mm[Hg] Comments: Patient Position: Sitting; Cuff Location: Left Arm; Cuff Size: Large BP Diastolic 62 mm[Hg] Comments: Patient Position: Sitting; Cuff Location: Left Arm; Cuff Size: Large Weight 233.25 lb Height 0 in Head Circumference 0.00 cm :13 Temperature 97.8 f Comments: Method: Undefined Pulse 108 /min Comments: Pattern: Regular Respiration Rate 18 /min Comments: Pattern: Undefined BP Systolic 130 mm[Hg] Comments: Patient Position: Sitting; Cuff Location: Right Arm; Cuff Size: Large BP Diastolic 84 mm[Hg] Comments: Patient Position: Sitting; Cuff Location: Right Arm; Cuff Size: Large Weight 0 lb Height 0 in Head Circumference 0.00 cm :51 Temperature 97.9 f Comments: Method: Oral Pulse 88 /min Comments: Pattern: Regular Respiration Rate 18 /min Comments: Pattern: Unlabored BP Systolic 118 mm[Hg] Comments: Patient Position: Sitting; Cuff Location: Left Arm; Cuff Size: Large BP Diastolic 78 mm[Hg] Comments: Patient Position: Sitting; Cuff Location: Left Arm; Cuff Size: Large Weight 0 lb Height 0 in Head Circumference 0.00 cm :50 Temperature 98.2 f Comments: Method: Oral Pulse 80 /min Comments: Pattern: Regular Respiration Rate 18 /min Comments: Pattern: Unlabored O2 SAT 98 % Comments: Room air BP Systolic 126 mm[Hg] Comments: Patient Position: Sitting; Cuff Location: Left Arm; Cuff Size: Large BP Diastolic 82 mm[Hg] Comments: Patient Position: Sitting; Cuff Location: Left Arm; Cuff Size: Large Weight 0 lb Height 0 in Head Circumference 0.00 cm :41 Temperature 97.2 f Comments: Method: Oral Pulse 118 /min Comments: Pattern: Regular Respiration Rate 18 /min Comments: Pattern: Unlabored O2 SAT 98 % Comments: Room air BP Systolic 144 mm[Hg] Comments: Patient Position: Sitting; Cuff Location: Left Arm; Cuff Size: Standard BP Diastolic 88 mm[Hg] Comments: Patient Position: Sitting; Cuff Location: Left Arm; Cuff Size: Standard Weight 226.5625 lb Height 0 in Head Circumference 0.00 cm :58 Temperature 98.7 f Comments: Method: Oral Pulse 104 /min Comments: Pattern: Regular Respiration Rate 20 /min Comments: Pattern: Unlabored O2 SAT 98 % Comments: Room air BP Systolic 140 mm[Hg] Comments: Patient Position: Sitting; Cuff Location: Right Arm; Cuff Size: Standard BP Diastolic 90 mm[Hg] Comments: Patient Position: Sitting; Cuff Location: Right Arm; Cuff Size: Standard Weight 0 lb Height 0 in Head Circumference 0.00 cm :04 Temperature 97.8 f Comments: Method: Oral Pulse 92 /min Comments: Pattern: Regular Respiration Rate 18 /min Comments: Pattern: Unlabored O2 SAT 98 % Comments: Room air BP Systolic 122 mm[Hg] Comments: Patient Position: Sitting; Cuff Location: Left Arm; Cuff Size: Large BP Diastolic 84 mm[Hg] Comments: Patient Position: Sitting; Cuff Location: Left Arm; Cuff Size: Large Weight 0 lb Height 0 in Head Circumference 0.00 cm :16 Temperature 97.7 f Comments: Method: Undefined Pulse 96 /min Comments: Pattern: Regular Respiration Rate 18 /min Comments: Pattern: Undefined BP Systolic 116 mm[Hg] Comments: Patient Position: Sitting; Cuff Location: Right Arm; Cuff Size: Large BP Diastolic 82 mm[Hg] Comments: Patient Position: Sitting; Cuff Location: Right Arm; Cuff Size: Large Weight 0 lb Height 0 in Head Circumference 0.00 cm :08 Temperature 97.9 f Comments: Method: Oral Pulse 88 /min Comments: Pattern: Regular Respiration Rate 18 /min Comments: Pattern: Unlabored BP Systolic 122 mm[Hg] Comments: Patient Position: Sitting; Cuff Location: Left Arm; Cuff Size: Large BP Diastolic 72 mm[Hg] Comments: Patient Position: Sitting; Cuff Location: Left Arm; Cuff Size: Large Weight 226.5625 lb Height 0 in Head Circumference 0.00 cm :29 Temperature 98 f Comments: Method: Oral Pulse 86 /min Comments: Pattern: Regular Respiration Rate 16 /min Comments: Pattern: Unlabored BP Systolic 110 mm[Hg] Comments: Patient Position: Sitting; Cuff Location: Left Arm; Cuff Size: Standard BP Diastolic 80 mm[Hg] Comments: Patient Position: Sitting; Cuff Location: Left Arm; Cuff Size: Standard Weight 226 lb Height 0 in Head Circumference 0.00 cm :03 Temperature 97.6 f Comments: Method: Oral Pulse 70 /min Comments: Pattern: Regular Respiration Rate 18 /min Comments: Pattern: Unlabored BP Systolic 124 mm[Hg] Comments: Patient Position: Sitting; Cuff Location: Left Arm; Cuff Size: Large BP Diastolic 80 mm[Hg] Comments: Patient Position: Sitting; Cuff Location: Left Arm; Cuff Size: Large Weight 226 lb Height 0 in Head Circumference 0.00 cm :42 Temperature 97.6 f Comments: Method: Oral Pulse 74 /min Comments: Pattern: Regular Respiration Rate 16 /min Comments: Pattern: Unlabored BP Systolic 120 mm[Hg] Comments: Patient Position: Sitting; Cuff Location: Left Arm; Cuff Size: Standard BP Diastolic 82 mm[Hg] Comments: Patient Position: Sitting; Cuff Location: Left Arm; Cuff Size: Standard Weight 220.0313 lb Height 0 in Head Circumference 0.00 cm :48 Temperature 98.2 f Comments: Method: Oral Pulse 72 /min Comments: Pattern: Regular Respiration Rate 18 /min Comments: Pattern: Unlabored BP Systolic 122 mm[Hg] Comments: Patient Position: Sitting; Cuff Location: Left Arm; Cuff Size: Standard BP Diastolic 78 mm[Hg] Comments: Patient Position: Sitting; Cuff Location: Left Arm; Cuff Size: Standard Weight 0 lb Height 0 in Head Circumference 0.00 cm :20 Temperature 97.8 f Comments: Method: Oral Pulse 72 /min Comments: Pattern: Regular Respiration Rate 18 /min Comments: Pattern: Unlabored BP Systolic 122 mm[Hg] Comments: Patient Position: Sitting; Cuff Location: Left Arm; Cuff Size: Standard BP Diastolic 76 mm[Hg] Comments: Patient Position: Sitting; Cuff Location: Left Arm; Cuff Size: Standard Weight 0 lb Height 0 in Head Circumference 0.00 cm :29 Temperature 98.2 f Comments: Method: Oral Pulse 76 /min Comments: Pattern: Regular Respiration Rate 18 /min Comments: Pattern: Unlabored BP Systolic 118 mm[Hg] Comments: Patient Position: Sitting; Cuff Location: Left Arm; Cuff Size: Standard BP Diastolic 76 mm[Hg] Comments: Patient Position: Sitting; Cuff Location: Left Arm; Cuff Size: Standard Weight 227 lb Height 0 in Head Circumference 0.00 cm :27 Temperature 98.4 f Comments: Method: Oral Pulse 80 /min Comments: Pattern: Regular Respiration Rate 18 /min Comments: Pattern: Unlabored BP Systolic 124 mm[Hg] Comments: Patient Position: Sitting; Cuff Location: Right Arm; Cuff Size: Large BP Diastolic 76 mm[Hg] Comments: Patient Position: Sitting; Cuff Location: Right Arm; Cuff Size: Large Weight 225.0313 lb Height 63.5 in Body Mass Index Calculated 39.24 kg/m2 Body Surface Area Calculated 2.05 m2 Head Circumference 0.00 cm :31 Temperature 97.6 f Comments: Method: Oral Pulse 84 /min Comments: Pattern: Regular Respiration Rate 18 /min Comments: Pattern: Unlabored BP Systolic 140 mm[Hg] Comments: Patient Position: Sitting; Cuff Location: Left Arm; Cuff Size: Large BP Diastolic 100 mm[Hg] Comments: Patient Position: Sitting; Cuff Location: Left Arm; Cuff Size: Large Weight 225.0313 lb Height 0 in Head Circumference 0.00 cm :38 Temperature 97.2 f Comments: Method: Oral Pulse 88 /min Comments: Pattern: Regular Respiration Rate 17 /min Comments: Pattern: Unlabored O2 SAT 97 % Comments: Room air BP Systolic 136 mm[Hg] Comments: Patient Position: Sitting; Cuff Location: Left Arm; Cuff Size: Standard BP Diastolic 84 mm[Hg] Comments: Patient Position: Sitting; Cuff Location: Left Arm; Cuff Size: Standard Weight 219 lb Height 0 in Head Circumference 0.00 cm :45 Temperature 98 f Comments: Method: Oral Pulse 72 /min Comments: Pattern: Regular Respiration Rate 18 /min Comments: Pattern: Unlabored BP Systolic 124 mm[Hg] Comments: Patient Position: Sitting; Cuff Location: Left Arm; Cuff Size: Standard BP Diastolic 80 mm[Hg] Comments: Patient Position: Sitting; Cuff Location: Left Arm; Cuff Size: Standard Weight 0 lb Height 0 in Head Circumference 0.00 cm :14 Temperature 98.2 f Comments: Method: Oral Pulse 78 /min Comments: Pattern: Regular Respiration Rate 18 /min Comments: Pattern: Unlabored BP Systolic 126 mm[Hg] Comments: Patient Position: Sitting; Cuff Location: Left Arm; Cuff Size: Standard BP Diastolic 82 mm[Hg] Comments: Patient Position: Sitting; Cuff Location: Left Arm; Cuff Size: Standard Weight 219 lb Height 0 in Head Circumference 0.00 cm :33 Temperature 98.6 f Comments: Method: Oral Pulse 76 /min Comments: Pattern: Regular Respiration Rate 20 /min Comments: Pattern: Unlabored BP Systolic 122 mm[Hg] Comments: Patient Position: Sitting; Cuff Location: Left Arm; Cuff Size: Standard BP Diastolic 80 mm[Hg] Comments: Patient Position: Sitting; Cuff Location: Left Arm; Cuff Size: Standard Weight 0 lb Height 0 in Head Circumference 0.00 cm :48 Temperature 98.5 f Comments: Method: Oral Pulse 86 /min Comments: Pattern: Regular Respiration Rate 18 /min Comments: Pattern: Unlabored BP Systolic 122 mm[Hg] Comments: Patient Position: Sitting; Cuff Location: Left Arm; Cuff Size: Standard BP Diastolic 74 mm[Hg] Comments: Patient Position: Sitting; Cuff Location: Left Arm; Cuff Size: Standard Weight 219 lb Height 0 in Head Circumference 0.00 cm :03 Temperature 97.5 f Comments: Method: Oral Pulse 88 /min Comments: Pattern: Regular Respiration Rate 16 /min Comments: Pattern: Unlabored BP Systolic 120 mm[Hg] Comments: Patient Position: Sitting; Cuff Location: Right Arm; Cuff Size: Standard BP Diastolic 76 mm[Hg] Comments: Patient Position: Sitting; Cuff Location: Right Arm; Cuff Size: Standard Weight 219 lb Height 0 in Head Circumference 0.00 cm :19 Temperature 97.7 f Comments: Method: Oral Pulse 88 /min Comments: Pattern: Regular Respiration Rate 20 /min Comments: Pattern: Unlabored BP Systolic 124 mm[Hg] Comments: Patient Position: Sitting; Cuff Location: Left Arm; Cuff Size: Standard BP Diastolic 82 mm[Hg] Comments: Patient Position: Sitting; Cuff Location: Left Arm; Cuff Size: Standard Weight 215 lb Height 0 in Head Circumference 0.00 cm :23 Temperature 98.6 f Comments: Method: Oral Pulse 90 /min Comments: Pattern: Regular Respiration Rate 20 /min Comments: Pattern: Unlabored BP Systolic 130 mm[Hg] Comments: Patient Position: Sitting; Cuff Location: Left Arm; Cuff Size: Standard BP Diastolic 90 mm[Hg] Comments: Patient Position: Sitting; Cuff Location: Left Arm; Cuff Size: Standard Weight 211 lb Height 0 in Head Circumference 0.00 cm :04 Temperature 98.1 f Comments: Method: Oral Pulse 100 /min Comments: Pattern: Regular Respiration Rate 16 /min Comments: Pattern: Unlabored BP Systolic 110 mm[Hg] Comments: Patient Position: Sitting; Cuff Location: Left Arm; Cuff Size: Standard BP Diastolic 86 mm[Hg] Comments: Patient Position: Sitting; Cuff Location: Left Arm; Cuff Size: Standard Weight 0 lb Height 0 in Head Circumference 0.00 cm :41 Temperature 97.9 f Comments: Method: Oral Pulse 78 /min Comments: Pattern: Regular Respiration Rate 20 /min Comments: Pattern: Unlabored BP Systolic 124 mm[Hg] Comments: Patient Position: Sitting; Cuff Location: Left Arm; Cuff Size: Standard BP Diastolic 80 mm[Hg] Comments: Patient Position: Sitting; Cuff Location: Left Arm; Cuff Size: Standard Weight 206 lb Height 0 in Head Circumference 0.00 cm :04 Pulse 72 /min Comments: Pattern: Regular Respiration Rate 16 /min Comments: Pattern: Unlabored BP Systolic 114 mm[Hg] Comments: Patient Position: Sitting; Cuff Location: Left Arm; Cuff Size: Standard BP Diastolic 72 mm[Hg] Comments: Patient Position: Sitting; Cuff Location: Left Arm; Cuff Size: Standard Weight 206.5 lb Height 63 in Body Mass Index Calculated 36.58 kg/m2 Body Surface Area Calculated 1.96 m2 Head Circumference 0.00 cm :06 Temperature 97.9 f Comments: Method: Oral Pulse 72 /min Comments: Pattern: Regular Respiration Rate 16 /min Comments: Pattern: Unlabored BP Systolic 134 mm[Hg] Comments: Patient Position: Sitting; Cuff Location: Left Arm; Cuff Size: Standard BP Diastolic 82 mm[Hg] Comments: Patient Position: Sitting; Cuff Location: Left Arm; Cuff Size: Standard Weight 210 lb Height 0 in Head Circumference 0.00 cm :19 Pulse 84 /min Comments: Pattern: Regular Respiration Rate 16 /min Comments: Pattern: Undefined BP Systolic 120 mm[Hg] Comments: Patient Position: Sitting; Cuff Location: Left Arm; Cuff Size: Standard BP Diastolic 90 mm[Hg] Comments: Patient Position: Sitting; Cuff Location: Left Arm; Cuff Size: Standard Weight 207 lb Height 63 in Body Mass Index Calculated 36.67 kg/m2 Body Surface Area Calculated 1.96 m2 Head Circumference 0.00 cm Results Date Description Value Details :17 CALCIFEDIOL (04037) Comments: PATIENT WAS FASTINGPERFORMED BY: [email or web address] [place] [id number] Vitamin D, 25-Hydroxy 27.4 ng/mL (Abnormal) Range: 30.0-100.0 Comments: Vitamin D deficiency has been defined by the [place] of[place] and an Endocrine Society practice guideline as alevel of serum 25-OH vitamin D less than 20 ng/mL (1,2).The Endocrine Society went on to further define vitamin Dinsufficiency as a level between 21 and 29 ng/mL (2).1. IOM ([place] of [employer]). 2010. Dietary reference intakes for calcium and D. [place]: The National Academies Press.2. Coy MF, Raya NC, Armida PARADA, et al. Evaluation, treatment, and prevention of vitamin D deficiency: an Endocrine Society clinical practice guideline. JCEM. 2010; 96(7):1911-30. :17 MICROALBUMIN: CREATININE RATIO Comments: PATIENT WAS FASTINGPERFORMED BY: [email or web address] [facility] [id number] ([id number]) AND (27316) Alb/Creat Ratio <5.2 {mg/g_creat} (Normal) Range: 0.0-30.0 Albumin, Urine <3.0 ug/mL (Normal) Creatinine, Urine 58.1 mg/dL (Normal) :17 URINALYSIS (24110) Comments: PATIENT WAS FASTINGPERFORMED BY: [facility] CenterDvvgow4589 [facility] [id number] Microscopic Examination See below: (Normal) Comments: Microscopic was indicated and was performed. Nitrite, Urine Negative (Normal) Urobilinogen,Semi-Qn 0.2 mg/dL (Normal) Range: 0.2-1.0 Bilirubin Negative (Normal) Occult Blood Negative (Normal) Ketones Negative (Normal) Glucose Negative (Normal) Protein Negative (Normal) WBC Esterase Trace (Abnormal) Appearance Clear (Normal) Urine-Color Yellow (Normal) pH 6.0 (Normal) Range: 5.0-7.5 Specific [place] 1.016 (Normal) Range: 1.005-1.030 :17 TSH (39217) Comments: PATIENT WAS FASTINGPERFORMED BY: [facility] CenterGoynkb8827 [facility] [id number] TSH 1.550 {uIU/mL} (Normal) Range: 0.450-4.500 :17 CBC, Platelets & Auto Diff Comments: PATIENT WAS FASTINGPERFORMED BY: [facility] CenterOmluhp7517 [facility] [id number] ([id number]) Immature Grans (Abs) 0.0 {x10E3/uL} (Normal) Range: 0.0-0.1 Immature Granulocytes 0 % (Normal) Baso (Absolute) 0.0 {x10E3/uL} (Normal) Range: 0.0-0.2 Eos (Absolute) 0.2 {x10E3/uL} (Normal) Range: 0.0-0.4 Monocytes(Absolute) 0.5 {x10E3/uL} (Normal) Range: 0.1-0.9 Lymphs (Absolute) 3.1 {x10E3/uL} (Normal) Range: 0.7-3.1 Neutrophils (Absolute) 3.7 {x10E3/uL} (Normal) Range: 1.4-7.0 Basos 0 % (Normal) Eos 2 % (Normal) Monocytes 7 % (Normal) Lymphs 41 % (Normal) Neutrophils 50 % (Normal) Platelets 266 {x10E3/uL} (Normal) Range: 150-379 RDW 14.6 % (Normal) Range: 12.3-15.4 MCHC 33.1 g/dL (Normal) Range: 31.5-35.7 MCH 28.9 pg (Normal) Range: 26.6-33.0 MCV 87 fL (Normal) Range: 79-97 Hematocrit 42.3 % (Normal) Range: 34.0-46.6 Hemoglobin 14.0 g/dL (Normal) Range: 11.1-15.9 RBC 4.84 {x10E6/uL} (Normal) Range: 3.77-5.28 WBC 7.6 {x10E3/uL} (Normal) Range: 3.4-10.8 :17 Lipid Panel (23107) Comments: PATIENT WAS FASTINGPERFORMED BY: [employer] [facility] [id number] LDL/HDL Ratio 1.7 {ratio} (Normal) Range: 0.0-3.2 Comments: LDL/HDL Ratio Men Women 1/2 Avg.Risk 1.0 1.5 Av g.Risk 3.6 3.2 2X Avg.Risk 6.2 5.0 3X Avg.Risk 8.0 6.1 LDL Cholesterol Calc 111 mg/dL (Abnormal) Range: 0-99 VLDL Cholesterol Jacob 25 mg/dL (Normal) Range: 5-40 HDL Cholesterol 65 mg/dL (Normal) Triglycerides 126 mg/dL (Normal) Range: 0-149 Cholesterol, Total 201 mg/dL (Abnormal) Range: 100-199 :17 Metabolic Panel, Comprehensive Comments: PATIENT WAS FASTINGPERFORMED BY: [employer] [facility] [id number] ([id number]) ALT (SGPT) 16 [iU]/L (Normal) Range: 0-32 AST (SGOT) 15 [iU]/L (Normal) Range: 0-40 Alkaline Phosphatase 82 [iU]/L (Normal) Range: 39-117 Bilirubin, Total 0.3 mg/dL (Normal) Range: 0.0-1.2 A/G Ratio 1.7 (Normal) Range: 1.2-2.2 Globulin, Total 2.4 g/dL (Normal) Range: 1.5-4.5 Albumin 4.0 g/dL (Normal) Range: 3.6-4.8 Protein, Total 6.4 g/dL (Normal) Range: 6.0-8.5 Calcium 9.2 mg/dL (Normal) Range: 8.7-10.3 Carbon Dioxide, Total 21 mmol/L (Normal) Range: 20-29 Chloride 108 mmol/L (Abnormal) Range: 96-106 Potassium 4.5 mmol/L (Normal) Range: 3.5-5.2 Sodium 144 mmol/L (Normal) Range: 134-144 BUN/Creatinine Ratio 19 (Normal) Range: 12-28 eGFR If Africn Am 58 mL/min/1.73 (Abnormal) eGFR If NonAfricn Am 50 mL/min/1.73 (Abnormal) Creatinine 1.18 mg/dL (Abnormal) Range: 0.57-1.00 BUN 22 mg/dL (Normal) Range: 8-27 Glucose 95 mg/dL (Normal) Range: 65-99 29-Apr-20189:17 Microscopic Examination Comments: PATIENT WAS FASTINGPERFORMED BY: [employer] [facility] [facility] [id number] Bacteria Few (Normal) Mucus Threads Present (Normal) Epithelial Cells (non renal) 0-10 {/hpf} (Normal) Range: 0 - 10 RBC 0-2 {/hpf} (Normal) Range: 0 - 2 WBC 0-5 {/hpf} (Normal) Range: 0 - 5 [id number]-Gnh-027187:31 CALCIFEDIOL (30299) Comments: PATIENT NOT FASTINGPERFORMED BY: [employer] [id number] Vitamin D, 25-Hydroxy 27.7 ng/mL (Abnormal) Range: 30.0-100.0 Comments: Vitamin D deficiency has been defined by the [place] of[place]icine and an Endocrine Society practice guideline as alevel of serum 25-OH vitamin D less than 20 ng/mL (1,2).The Endocrine Society went on to further define vitamin Dinsufficiency as a level between 21 and 29 ng/mL (2).1. IOM ([place] of [employer]). 2010. Dietary reference intakes for calcium and D. [place]: The National Academies Press.2. Coy MF, Raya CLARK, Armida PARADA, et al. Evaluation, treatment, and prevention of vitamin D deficiency: an Endocrine Society clinical practice guideline. JCEM. 2010; 96(7):1911-30. [id number] VITAMIN B12 AND FOLATES Comments: PATIENT NOT FASTINGPERFORMED BY: [employer] Znelbd2367 [place] [id number] ([id number]) Folate (Folic Acid), Serum 18.9 ng/mL (Normal) Comments: A serum folate concentration of less than 3.1 ng/mL isconsidered to represent clinical deficiency. Vitamin B12 595 pg/mL (Normal) Range: 232-1245 :54 TSH (95414) Comments: PATIENT WAS FASTINGPERFORMED BY: [facility] Hxbjgs2818 [facility] [id number] TSH 1.360 {uIU/mL} (Normal) Range: 0.450-4.500 :54 CBC, Platelets & Auto Diff Comments: PATIENT WAS FASTINGPERFORMED BY: [facility] Lmhfav7468 [facility] [id number] ([id number]) Immature Grans (Abs) 0.0 {x10E3/uL} (Normal) Range: 0.0-0.1 Immature Granulocytes 0 % (Normal) Baso (Absolute) 0.0 {x10E3/uL} (Normal) Range: 0.0-0.2 Eos (Absolute) 0.1 {x10E3/uL} (Normal) Range: 0.0-0.4 Monocytes(Absolute) 0.7 {x10E3/uL} (Normal) Range: 0.1-0.9 Lymphs (Absolute) 2.8 {x10E3/uL} (Normal) Range: 0.7-3.1 Neutrophils (Absolute) 4.6 {x10E3/uL} (Normal) Range: 1.4-7.0 Basos 0 % (Normal) Eos 2 % (Normal) Monocytes 8 % (Normal) Lymphs 34 % (Normal) Neutrophils 56 % (Normal) Platelets 284 {x10E3/uL} (Normal) Range: 150-379 RDW 14.3 % (Normal) Range: 12.3-15.4 MCHC 32.7 g/dL (Normal) Range: 31.5-35.7 MCH 29.1 pg (Normal) Range: 26.6-33.0 MCV 89 fL (Normal) Range: 79-97 Hematocrit 43.4 % (Normal) Range: 34.0-46.6 Hemoglobin 14.2 g/dL (Normal) Range: 11.1-15.9 RBC 4.88 {x10E6/uL} (Normal) Range: 3.77-5.28 WBC 8.2 {x10E3/uL} (Normal) Range: 3.4-10.8 56-Vfk-53824:54 Metabolic Panel, Comprehensive Comments: PATIENT WAS FASTINGPERFORMED BY: [facility] CenterUuxqvf1653 [facility] [id number] ([id number]) ALT (SGPT) 17 [iU]/L (Normal) Range: 0-32 AST (SGOT) 14 [iU]/L (Normal) Range: 0-40 Alkaline Phosphatase, S 82 [iU]/L (Normal) Range: 39-117 Bilirubin, Total <0.2 mg/dL (Normal) Range: 0.0-1.2 A/G Ratio 1.7 (Normal) Range: 1.2-2.2 Globulin, Total 2.4 g/dL (Normal) Range: 1.5-4.5 Albumin, Serum 4.1 g/dL (Normal) Range: 3.6-4.8 Protein, Total, Serum 6.5 g/dL (Normal) Range: 6.0-8.5 Calcium, Serum 9.1 mg/dL (Normal) Range: 8.7-10.3 Carbon Dioxide, Total 19 mmol/L (Normal) Range: 18-29 Chloride, Serum 109 mmol/L (Abnormal) Range: 96-106 Potassium, Serum 4.3 mmol/L (Normal) Range: 3.5-5.2 Sodium, Serum 143 mmol/L (Normal) Range: 134-144 BUN/Creatinine Ratio 30 (Abnormal) Range: 12-28 eGFR If Africn Am 74 mL/min/1.73 (Normal) eGFR If NonAfricn Am 64 mL/min/1.73 (Normal) Creatinine, Serum 0.96 mg/dL (Normal) Range: 0.57-1.00 BUN 29 mg/dL (Abnormal) Range: 8-27 Glucose, Serum 104 mg/dL (Abnormal) Range: 65-99 :54 LIPID PANEL (31366) Comments: PATIENT WAS FASTINGPERFORMED BY: [facility] CenterPtkdws1820 [facility] [id number] LDL/HDL Ratio 1.7 {ratio_units} (Normal) Range: 0.0-3.2 Comments: LDL/HDL Ratio Men Women 1/2 Avg.Risk 1.0 1.5 Av g.Risk 3.6 3.2 2X Avg.Risk 6.2 5.0 3X Avg.Risk 8.0 6.1 LDL Cholesterol Calc 94 mg/dL (Normal) Range: 0-99 VLDL Cholesterol Jacob 32 mg/dL (Normal) Range: 5-40 HDL Cholesterol 56 mg/dL (Normal) Triglycerides 159 mg/dL (Abnormal) Range: 0-149 Cholesterol, Total 182 mg/dL (Normal) Range: 100-199 :28 Metabolic Panel, Comprehensive Comments: repeat for SGOT 48; PATIENT NOT FASTINGPERFORMED BY: [facility] CenterVynmoj0261 [facility] [id number] ([id number]) ALT (SGPT) 18 [iU]/L (Normal) Range: 0-32 AST (SGOT) 19 [iU]/L (Normal) Range: 0-40 Alkaline Phosphatase, S 76 [iU]/L (Normal) Range: 39-117 Bilirubin, Total 0.2 mg/dL (Normal) Range: 0.0-1.2 A/G Ratio 1.8 (Normal) Range: 1.2-2.2 Globulin, Total 2.4 g/dL (Normal) Range: 1.5-4.5 Albumin, Serum 4.3 g/dL (Normal) Range: 3.6-4.8 Protein, Total, Serum 6.7 g/dL (Normal) Range: 6.0-8.5 Calcium, Serum 9.0 mg/dL (Normal) Range: 8.7-10.3 Carbon Dioxide, Total 22 mmol/L (Normal) Range: 18-29 Chloride, Serum 107 mmol/L (Abnormal) Range: 96-106 Potassium, Serum 3.8 mmol/L (Normal) Range: 3.5-5.2 Sodium, Serum 143 mmol/L (Normal) Range: 134-144 BUN/Creatinine Ratio 22 (Normal) Range: 12-28 eGFR If Africn Am 68 mL/min/1.73 (Normal) eGFR If NonAfricn Am 59 mL/min/1.73 (Abnormal) Creatinine, Serum 1.03 mg/dL (Abnormal) Range: 0.57-1.00 BUN 23 mg/dL (Normal) Range: 8-27 Glucose, Serum 94 mg/dL (Normal) Range: 65-99 [id number]-Dtf-[id number]:36 TSH (THYROID STIMULATING Comments: Jun 2017; PATIENT WAS FASTINGPERFORMED BY: [employer] [facility] [id number] HORMONE) ([id number]) TSH 1.270 {uIU/mL} (Normal) Range: 0.450-4.500 [id number]:[id number] Metabolic Panel, Comprehensive Comments: Jun 2017; PATIENT WAS FASTINGPERFORMED BY: [employer] [facility] [id number] ([id number]) ALT (SGPT) 24 [iU]/L (Normal) Range: 0-32 AST (SGOT) 48 [iU]/L (Abnormal) Range: 0-40 Alkaline Phosphatase, S 79 [iU]/L (Normal) Range: 39-117 Bilirubin, Total 0.4 mg/dL (Normal) Range: 0.0-1.2 A/G Ratio 1.7 (Normal) Range: 1.2-2.2 Globulin, Total 2.5 g/dL (Normal) Range: 1.5-4.5 Albumin, Serum 4.3 g/dL (Normal) Range: 3.6-4.8 Protein, Total, Serum 6.8 g/dL (Normal) Range: 6.0-8.5 Calcium, Serum 9.3 mg/dL (Normal) Range: 8.7-10.3 Carbon Dioxide, Total 22 mmol/L (Normal) Range: 18-29 Chloride, Serum 108 mmol/L (Abnormal) Range: 96-106 Potassium, Serum 4.4 mmol/L (Normal) Range: 3.5-5.2 Sodium, Serum 147 mmol/L (Abnormal) Range: 134-144 BUN/Creatinine Ratio 15 (Normal) Range: 12-28 eGFR If Africn Am 78 mL/min/1.73 (Normal) eGFR If NonAfricn Am 68 mL/min/1.73 (Normal) Creatinine, Serum 0.92 mg/dL (Normal) Range: 0.57-1.00 BUN 14 mg/dL (Normal) Range: 8-27 Glucose, Serum 85 mg/dL (Normal) Range: 65-99 4-Lev-570071:36 Lipid Panel (22025) Comments: Jun 2017; PATIENT WAS FASTINGPERFORMED BY: [employer] [facility] [id number] LDL/HDL Ratio 1.8 {ratio_units} (Normal) Range: 0.0-3.2 Comments: LDL/HDL Ratio Men Women 1/2 Avg.Risk 1.0 1.5 Av g.Risk 3.6 3.2 2X Avg.Risk 6.2 5.0 3X Avg.Risk 8.0 6.1 LDL Cholesterol Calc 104 mg/dL (Abnormal) Range: 0-99 VLDL Cholesterol Jacob 28 mg/dL (Normal) Range: 5-40 HDL Cholesterol 59 mg/dL (Normal) Triglycerides 139 mg/dL (Normal) Range: 0-149 Cholesterol, Total 191 mg/dL (Normal) Range: 100-199 [id number]-Ujs-[id number]:36 HGB A1C (29076) Comments: (Jun 2017); PATIENT WAS FASTINGPERFORMED BY: [employer] [facility] [id number] Hemoglobin A1c 5.3 % (Normal) Range: 4.8-5.6 Comments: . Pre-diabetes: 5.7 - 6.4 Diabetes: >6.4 Glycemic control for adults with diabetes: <7.0 [id number]:20 HGB A1C (83997) Comments: today; PATIENT NOT FASTINGPERFORMED BY: [facility]70 [facility] [id number] Hemoglobin A1c 6.1 % (Abnormal) Range: 4.8-5.6 Comments: . Pre-diabetes: 5.7 - 6.4 Diabetes: >6.4 Glycemic control for adults with diabetes: <7.0 :22 LIPID PANEL (20137) Comments: REpeat in Mar; PATIENT WAS FASTINGPERFORMED BY: [facility] [id number] LDL/HDL Ratio 2.2 {ratio_units} (Normal) Range: 0.0-3.2 Comments: LDL/HDL Ratio Men Women 1/2 Avg.Risk 1.0 1.5 Av g.Risk 3.6 3.2 2X Avg.Risk 6.2 5.0 3X Avg.Risk 8.0 6.1 LDL Cholesterol Calc 135 mg/dL (Abnormal) Range: 0-99 VLDL Cholesterol Jacob 28 mg/dL (Normal) Range: 5-40 HDL Cholesterol 62 mg/dL (Normal) Triglycerides 142 mg/dL (Normal) Range: 0-149 Cholesterol, Total 225 mg/dL (Abnormal) Range: 100-199 :22 T4, FREE (THYROXINE) (31712) Comments: PATIENT WAS FASTINGPERFORMED BY: [facility] [place] [address] [id number]; OV 12/14 T4,Free(Direct) 0.77 ng/dL (Abnormal) Range: 0.82-1.77 :22 T3, FREE (TRIDOTHYRONINE) (64081) Comments: PATIENT WAS FASTINGPERFORMED BY: [facility]6[address] [facility] [id number] Triiodothyronine,Free,Serum 3.0 pg/mL (Normal) Range: 2.0-4.4 :22 TSH (THYROID STIMULATING Comments: PATIENT WAS FASTINGPERFORMED BY: [address] [id number] HORMONE) (16913) TSH 1.390 {uIU/mL} (Normal) Range: 0.450-4.500 :22 Metabolic Panel, Comprehensive Comments: PATIENT WAS FASTINGPERFORMED BY: [address]ox RoadDublin [place] [id number] (22772) ALT (SGPT) 14 [iU]/L (Normal) Range: 0-32 AST (SGOT) 14 [iU]/L (Normal) Range: 0-40 Alkaline Phosphatase, S 68 [iU]/L (Normal) Range: 39-117 Bilirubin, Total 0.3 mg/dL (Normal) Range: 0.0-1.2 A/G Ratio 1.7 (Normal) Range: 1.2-2.2 Globulin, Total 2.5 g/dL (Normal) Range: 1.5-4.5 Albumin, Serum 4.3 g/dL (Normal) Range: 3.5-5.5 Protein, Total, Serum 6.8 g/dL (Normal) Range: 6.0-8.5 Calcium, Serum 9.4 mg/dL (Normal) Range: 8.7-10.2 Carbon Dioxide, Total 19 mmol/L (Normal) Range: 18-29 Chloride, Serum 107 mmol/L (Abnormal) Range: 96-106 Potassium, Serum 4.3 mmol/L (Normal) Range: 3.5-5.2 Sodium, Serum 144 mmol/L (Normal) Range: 134-144 BUN/Creatinine Ratio 22 (Normal) Range: 9-23 eGFR If Africn Am 71 mL/min/1.73 (Normal) eGFR If NonAfricn Am 62 mL/min/1.73 (Normal) Creatinine, Serum 1.00 mg/dL (Normal) Range: 0.57-1.00 BUN 22 mg/dL (Normal) Range: 6-24 Glucose, Serum 92 mg/dL (Normal) Range: 65-99 :22 HGB A1C (25691) Comments: PATIENT WAS FASTINGPERFORMED BY: [facility] CenterAzzykv4323 [facility] [id number] Hemoglobin A1c 5.9 % (Abnormal) Range: 4.8-5.6 Comments: . Pre-diabetes: 5.7 - 6.4 Diabetes: >6.4 Glycemic control for adults with diabetes: <7.0 :22 LIPID PANEL (35968) Comments: PATIENT WAS FASTINGPERFORMED BY: [facility] Zqyynr2841 [facility] [id number] LDL/HDL Ratio 2.1 {ratio_units} (Normal) Range: 0.0-3.2 Comments: LDL/HDL Ratio Men Women 1/2 Avg.Risk 1.0 1.5 Av g.Risk 3.6 3.2 2X Avg.Risk 6.2 5.0 3X Avg.Risk 8.0 6.1 LDL Cholesterol Calc 121 mg/dL (Abnormal) Range: 0-99 VLDL Cholesterol Jacob 30 mg/dL (Normal) Range: 5-40 HDL Cholesterol 57 mg/dL (Normal) Triglycerides 151 mg/dL (Abnormal) Range: 0-149 Cholesterol, Total 208 mg/dL (Abnormal) Range: 100-199 :22 CALCIFEDIOL (73684) Comments: PATIENT WAS FASTINGPERFORMED BY: [facility] Uhbsli7703 [facility] [id number] Vitamin D, 25-Hydroxy 31.2 ng/mL (Normal) Range: 30.0-100.0 Comments: Vitamin D deficiency has been defined by the [place] of[place]icine and an Endocrine Society practice guideline as alevel of serum 25-OH vitamin D less than 20 ng/mL (1,2).The Endocrine Society went on to further define vitamin Dinsufficiency as a level between 21 and 29 ng/mL (2).1. IOM ([place] of Medicine). 2010. Dietary reference intakes for calcium and D. [place]: The National Academies Press.2. Coy MF, Raya NC, Armida PARADA, et al. Evaluation, treatment, and prevention of vitamin D deficiency: an Endocrine Society clinical practice guideline. JCEM. 2010; 96(7):1911-30. 91-Lce-304198:14 URINE RAMON CULTURE-IDENTIFICATN Comments: PATIENT NOT FASTINGPERFORMED BY: [facility] Iiopbs1305 [facility] [id number] Information: SRC:UC (67224) Result 1 MUG (Normal) Comments: Mixed urogenital flora2,000 Colonies/mL Urine Culture,Comprehensive Final report (Normal) 71-Ffc-25202:11 Urinalysis, Office (18956) UA - LEUKOCYTE ESTERASE Trace (Normal) UA - NITRITE Negative (Normal) URINE UROBILINGN SAUNDRA TIMED Normal mg/dL (Normal) UA - PROTEIN Negative mg/dL (Normal) UA - PH 6 (Abnormal) UA - BLOOD Negative (Normal) UA - SPECIFIC GRAVITY 1.020 (Normal) UA - KETONES Negative mg/dL (Normal) UA - BILIRUBIN Negative (Normal) UA - GLUCOSE Negative (Normal) 92-Uja-288610:29 Renal function Panel (13628) Comments: PATIENT NOT FASTINGPERFORMED BY: [facility] [id number] Albumin, Serum 4.1 g/dL (Normal) Range: 3.5-5.5 Phosphorus, Serum 3.4 mg/dL (Normal) Range: 2.5-4.5 Calcium, Serum 9.4 mg/dL (Normal) Range: 8.7-10.2 Carbon Dioxide, Total 21 mmol/L (Normal) Range: 18-29 Chloride, Serum 101 mmol/L (Normal) Range: 96-106 Potassium, Serum 4.2 mmol/L (Normal) Range: 3.5-5.2 Sodium, Serum 138 mmol/L (Normal) Range: 134-144 BUN/Creatinine Ratio 27 (Abnormal) Range: 9-23 eGFR If Africn Am 73 mL/min/1.73 (Normal) eGFR If NonAfricn Am 63 mL/min/1.73 (Normal) Creatinine, Serum 0.98 mg/dL (Normal) Range: 0.57-1.00 BUN 26 mg/dL (Abnormal) Range: 6-24 Glucose, Serum 90 mg/dL (Normal) Range: 65-99 78-Zaq-35497:45 Comp. Metabolic Panel (14) Comments: PATIENT WAS FASTINGPERFORMED BY: Crocodoc6370 [facility] SystemsNov[facility] [id number] ALT (SGPT) 14 [iU]/L (Normal) Range: 0-32 AST (SGOT) 15 [iU]/L (Normal) Range: 0-40 Alkaline Phosphatase, 65 [iU]/L (Normal) Range: 39-117 S Bilirubin, Total 0.2 mg/dL (Normal) Range: 0.0-1.2 A/G Ratio 1.5 (Normal) Range: 1.1-2.5 Globulin, Total 2.7 g/dL (Normal) Range: 1.5-4.5 Albumin, Serum 4.1 g/dL (Normal) Range: 3.5-5.5 Protein, Total, Serum 6.8 g/dL (Normal) Range: 6.0-8.5 Calcium, Serum 9.2 mg/dL (Normal) Range: 8.7-10.2 Carbon Dioxide, Total 21 mmol/L (Normal) Range: 18-29 Chloride, Serum 105 mmol/L (Normal) Range: 96-106 Potassium, Serum 4.2 mmol/L (Normal) Range: 3.5-5.2 Sodium, Serum 142 mmol/L (Normal) Range: 134-144 BUN/Creatinine Ratio 26 (Abnormal) Range: 9-23 eGFR If Africn Am 78 mL/min/1.73 (Normal) eGFR If NonAfricn Am 67 mL/min/1.73 (Normal) Creatinine, Serum 0.93 mg/dL (Normal) Range: 0.57-1.00 BUN 24 mg/dL (Normal) Range: 6-24 Glucose, Serum 98 mg/dL (Normal) Range: 65-99 Hemoglobin A1c 5.9 % (Abnormal) Comments: PATIENT WAS FASTINGPERFORMED BY: [facility] [id number] :45 Range: 4.8-5.6 Comments: . Pre-diabetes: 5.7 - 6.4 Diabetes: >6.4 Glycemic control for adults with diabetes: <7.0 :45 Lipid Panel Comments: PATIENT WAS FASTINGPERFORMED BY: Azumio70 [facility] [id number] LDL Cholesterol Calc 110 mg/dL (Abnormal) Range: 0-99 VLDL Cholesterol Jacob 29 mg/dL (Normal) Range: 5-40 HDL Cholesterol 60 mg/dL (Normal) Triglycerides 144 mg/dL (Normal) Range: 0-149 Cholesterol, Total 199 mg/dL (Normal) Range: 100-199 :45 Microalbumin, Random Urine Comments: PATIENT WAS FASTINGPERFORMED BY: Azumio70 [facility] [id number] Microalbumin, Urine 15.2 ug/mL (Normal) :45 Microscopic Examination Comments: PATIENT WAS FASTINGPERFORMED BY: [facility] Ljqoqc5528 [facility] [id number] Bacteria Few (Normal) Mucus Threads Present (Normal) Crystal Type Amorphous Sediment (Normal) Crystals Present (Abnormal) Cast Type Hyaline casts (Normal) Casts Present {/lpf} (Abnormal) Epithelial Cells (non renal) >10 {/hpf} (Abnormal) Range: 0 - 10 RBC 3-10 {/hpf} (Abnormal) Range: 0 - 2 WBC 11-30 {/hpf} (Abnormal) Range: 0 - 5 :45 Urinalysis, Routine Comments: PATIENT WAS FASTINGPERFORMED BY: Crocodoc6370 [facility] [id number] Microscopic Examination See below: Comments: Microscopic was indicated and was performed. (Normal) Nitrite, Urine Negative (Normal) Urobilinogen,Semi-Qn 1.0 mg/dL Range: 0.2-1.0 (Normal) Bilirubin Negative (Normal) Occult Blood Negative (Normal) Ketones Negative (Normal) Glucose Negative (Normal) Protein Negative (Normal) WBC Esterase 2+ (Abnormal) Appearance Cloudy (Abnormal) Urine-Color Yellow (Normal) pH 6.5 (Normal) Range: 5.0-7.5 Specific [place] 1.019 (Normal) Range: 1.005-1.030 Vitamin D, 25-Hydroxy 41.6 ng/mL Comments: PATIENT WAS FASTINGPERFORMED BY: [facility] Bvzrzi5626 [facility] [id number] 78:45 (Normal) Range: 30.0-100.0 Comments: Vitamin D deficiency has been defined by the [place] ofMedicine and an Endocrine Society practice guideline as alevel of serum 25-OH vitamin D less than 20 ng/mL (1,2).The Endocrine Society went on to further define vitamin Dinsufficiency as a level between 21 and 29 ng/mL (2).1. IOM ([place] of Medicine). 2010. Dietary reference intakes for calcium and D. [place]: The National Academies Press.2. Coy MF, Raya NC, Armida PARADA, et al. Evaluation, treatment, and prevention of vitamin D deficiency: an Endocrine Society clinical practice guideline. JCEM. 2010; 96(7):1911-30. BREAST BIOPSY (CHOOSE SITE) See Note (Normal) Comments: [facility] Grpfekielb4314 [address]. [place], [address] 610:30 Comments: Patient: KATHIA VALENTE : 1955 (61/F) Acct Num: [id number] Phys: Mckayla Napoles MD Unit Num: [id number] Loc: BIRAD Specimen: [id number] Received: 08/06/161443 Spec Type: BREAS T BX TISSUES TISSUES: COMMENT Immunohistochemistry ([id number]) supports the above diagnosis. GROSS DESCRIPTION Received is one container labeled with the patient's name and arelis gnated left breast. The specimen consists of multiple elongated fragments of gordon-yellow fibroadipose tissue that in aggregate measure 3 x 2.5 x 0.3 cm. The entire specimen is submitted in one casset te. / SJ:osbaldo 08/06/16 TC:5 CPT: 42866 HEADER OPERATION: Left stereotactic needle core biopsy PRE-OP DIAGNOSIS: Left microcalcifications TISSUE SUBMITTED: Left breast tissue ISCHEMIC TONY E: 2 minutes FIXATION TIME: 9 hours MICROSCOPIC DESCRIPTION Slides are reviewed. MICROSCOPIC DIAGNOSIS Left breast, stereotactic needle core biopsy: Fibrosis, associated benign histioc ytic proliferation, clustered microcalcifications and organizing hemorrhage. No evidence of malignancy. AM:osbaldo 08/07/16 Signed Rajat [facility] 08/08/16 <signature on file> IMMUNOHISTOCHEMISTRY See Note (Normal) Comments: [facility] Cmuezmhrnd1871 [address]. [place], [address] ; another doc 60:00 Comments: Patient: KATHIA VALENTE : 1955 (61/F) Acct Num: [id number] Phys: Mckayla Napoles MD Unit Num: [id number] Loc: BIRAD Specimen: [id number] Received: 08/07/161122 Spec Type: IMMU NO TISSUES TISSUES: SPECIMEN INFORMATION: Tissue Source: Left breast tissue Clinical Info: Left microcalcifications Specimen Number: [id number] CPT code: 40642, 74094 x4 METHOD OLOGY: Deparaffinized sections of prefer/formalin-fixed tissue or PAP/DQ stained slides are incubated with monoclonal/polyclonal antibodies/oligonucleotide probes. Localization is made via biotin thaddeus e immunoperoxidase method. Appropriate controls are performed and reacted as expected. Results on target cell population are indicated in the following table: RESULTS: ANTIBODY / CLONE RESULT AE1-3 (AE1/AE3/PCK26) negative Macro (HAM-56) positive GATA3 (L50-823) negative P53 (DO-7) negative CK7 (OV-TL12/30) negative These tests were developed and their performance characteristics determined by [facility]. They may not have been cleared or approved by the U.S. Food and Drug A dministration. The FDA has determined that such clearance or approval is not necessary. INTERPRETATION: Left breast core biopsy: Benign breast tissue. AM:osbaldo 08/08/16 PHYSICIAN AND INSTITUTION [place] [address] Signed Rajat [facility] 08/08/16 <signature on file> :00 TSH (57126) Comments: PATIENT NOT FASTINGPERFORMED BY: [facility] Kkrrpo5415 [facility] [id number] TSH 0.646 {uIU/mL} (Normal) Range: 0.450-4.500 31-Jul-20169:00 T4, FREE (THYROXINE) (65535) Comments: PATIENT NOT FASTINGPERFORMED BY: [facility] Mrqfjd7677 [facility] [id number] T4,Free(Direct) 0.73 ng/dL (Abnormal) Range: 0.82-1.77 31-Jul-20169:00 T3, FREE (TRIDOTHYRONINE) (43639) Comments: PATIENT NOT FASTINGPERFORMED BY: [facility] Tqfbno1205 [facility] [id number] Triiodothyronine,Free,Serum 2.4 pg/mL (Normal) Range: 2.0-4.4 :46 HGB A1C (49040) Comments: PATIENT WAS FASTINGPERFORMED BY: [facility]6[address] [facility] [id number] Hemoglobin A1c 5.7 % (Abnormal) Range: 4.8-5.6 Comments: . Pre-diabetes: 5.7 - 6.4 Diabetes: >6.4 Glycemic control for adults with diabetes: <7.0 :46 Metabolic Panel, Basic (95246) Comments: PATIENT WAS FASTINGPERFORMED BY: [facility] CompanyBarnes-Jewish HospitalBhwmyd7766 [facility] [id number] Calcium, Serum 9.2 mg/dL (Normal) Range: 8.7-10.2 Carbon Dioxide, Total 19 mmol/L (Normal) Range: 18-29 Chloride, Serum 105 mmol/L (Normal) Range: 97-106 Comments: Please note reference interval change Potassium, Serum 4.0 mmol/L (Normal) Range: 3.5-5.2 Comments: Please note reference interval change Sodium, Serum 141 mmol/L (Normal) Range: 136-144 Comments: Please note reference interval change BUN/Creatinine Ratio 25 (Abnormal) Range: 9-23 eGFR If Africn Am 80 mL/min/1.73 (Normal) eGFR If NonAfricn Am 69 mL/min/1.73 (Normal) Creatinine, Serum 0.91 mg/dL (Normal) Range: 0.57-1.00 BUN 23 mg/dL (Normal) Range: 6-24 Glucose, Serum 92 mg/dL (Normal) Range: 65-99 :46 TSH (33032) Comments: PATIENT WAS FASTINGPERFORMED BY: [facility]6[address] [facility] [id number] TSH 1.080 {uIU/mL} (Normal) Range: 0.450-4.500 :46 T4, FREE (THYROXINE) (85962) Comments: PATIENT WAS FASTINGPERFORMED BY: [facility] CompanyCharles [place] [address]10[address] [facility] [id number] T4,Free(Direct) 0.77 ng/dL (Abnormal) Range: 0.82-1.77 :46 T3, FREE (TRIDOTHYRONINE) (87687) Comments: PATIENT WAS FASTINGPERFORMED BY: [facility] Ceplfr6025 [facility] [id number] Triiodothyronine,Free,Serum 2.5 pg/mL (Normal) Range: 2.0-4.4 :46 Lipid Panel (05560) Comments: PATIENT WAS FASTINGPERFORMED BY: [facility] Ucmfkr7964 [facility] [id number] LDL/HDL Ratio 2.1 {ratio_units} (Normal) Range: 0.0-3.2 Comments: LDL/HDL Ratio Men Women 1/2 Avg.Risk 1.0 1.5 Av g.Risk 3.6 3.2 2X Avg.Risk 6.2 5.0 3X Avg.Risk 8.0 6.1 LDL Cholesterol Calc 117 mg/dL (Abnormal) Range: 0-99 VLDL Cholesterol Jacob 31 mg/dL (Normal) Range: 5-40 HDL Cholesterol 56 mg/dL (Normal) Comments: According to ATP-III Guidelines, HDL-C >59 mg/dL is considered anegative risk factor for CHD. Triglycerides 155 mg/dL (Abnormal) Range: 0-149 Cholesterol, Total 204 mg/dL (Abnormal) Range: 100-199 :46 CALCIFEDIOL (59544) Comments: PATIENT WAS FASTINGPERFORMED BY: [facility] Hgnkzh2769 [facility] [id number]; OV 06/19 Vitamin D, 25-Hydroxy 26.0 ng/mL (Abnormal) Range: 30.0-100.0 Comments: Vitamin D deficiency has been defined by the [place] ofMedicine and an Endocrine Society practice guideline as alevel of serum 25-OH vitamin D less than 20 ng/mL (1,2).The Endocrine Society went on to further define vitamin Dinsufficiency as a level between 21 and 29 ng/mL (2).1. IOM ([place] of Medicine). 2010. Dietary reference intakes for calcium and D. [place]: The National Academies Press.2. Coy MF, Raya NC, Armida PARADA, et al. Evaluation, treatment, and prevention of vitamin D deficiency: an Endocrine Society clinical practice guideline. JCEM. 2010; 96(7):1911-30. :38 METABOLIC PANEL, Comments: PATIENT WAS FASTINGPERFORMED BY: [facility] Dmyzxs6159 [facility] [id number] Information: [id number] COMPREHENSIVE (70662) ALT (SGPT) 14 [iU]/L (Normal) Range: 0-32 AST (SGOT) 15 [iU]/L (Normal) Range: 0-40 Alkaline Phosphatase, S 69 [iU]/L (Normal) Range: 39-117 Bilirubin, Total 0.3 mg/dL (Normal) Range: 0.0-1.2 A/G Ratio 1.8 (Normal) Range: 1.1-2.5 Globulin, Total 2.3 g/dL (Normal) Range: 1.5-4.5 Albumin, Serum 4.1 g/dL (Normal) Range: 3.5-5.5 Protein, Total, Serum 6.4 g/dL (Normal) Range: 6.0-8.5 Calcium, Serum 9.2 mg/dL (Normal) Range: 8.7-10.2 Carbon Dioxide, Total 23 mmol/L (Normal) Range: 18-29 Chloride, Serum 103 mmol/L (Normal) Range: 97-108 Potassium, Serum 4.1 mmol/L (Normal) Range: 3.5-5.2 Sodium, Serum 144 mmol/L (Normal) Range: 134-144 BUN/Creatinine Ratio 22 (Normal) Range: 9-23 eGFR If Africn Am 72 mL/min/1.73 (Normal) eGFR If NonAfricn Am 63 mL/min/1.73 (Normal) Creatinine, Serum 0.99 mg/dL (Normal) Range: 0.57-1.00 BUN 22 mg/dL (Normal) Range: 6-24 Glucose, Serum 94 mg/dL (Normal) Range: 65-99 :38 LIPID PANEL (03181) Comments: PATIENT WAS FASTINGPERFORMED BY: [facility] Wprxjh3591 [facility] [id number] LDL/HDL Ratio 2.3 {ratio_units} (Normal) Range: 0.0-3.2 Comments: LDL/HDL Ratio Men Women 1/2 Avg.Risk 1.0 1.5 Av g.Risk 3.6 3.2 2X Avg.Risk 6.2 5.0 3X Avg.Risk 8.0 6.1 LDL Cholesterol Calc 124 mg/dL (Abnormal) Range: 0-99 VLDL Cholesterol Jacob 24 mg/dL (Normal) Range: 5-40 HDL Cholesterol 54 mg/dL (Normal) Comments: According to ATP-III Guidelines, HDL-C >59 mg/dL is considered anegative risk factor for CHD. Triglycerides 119 mg/dL (Normal) Range: 0-149 Cholesterol, Total 202 mg/dL (Abnormal) Range: 100-199 :38 CALCIFIDIOL (46244) VIT D 25 Comments: PATIENT WAS FASTINGPERFORMED BY: [facility].To Dblekb7077 [facility] [id number]; [facility] Vitamin D, 25-Hydroxy 29.1 ng/mL (Abnormal) Range: 30.0-100.0 Comments: Vitamin D deficiency has been defined by the [place] ofSt[facility] Hospitalcine and an Endocrine Society practice guideline as alevel of serum 25-OH vitamin D less than 20 ng/mL (1,2).The Endocrine Society went on to further define vitamin Dinsufficiency as a level between 21 and 29 ng/mL (2).1. IOM ([place] of Medicine). 2010. Dietary reference intakes for calcium and D. [place]: The National Academies Press.2. Coy MF, Raya NC, Armida PARADA, et al. Evaluation, treatment, and prevention of vitamin D deficiency: an Endocrine Society clinical practice guideline. JCEM. 2010; 96(7):1911-30. :38 HGB A1C (11433) Comments: PATIENT WAS FASTINGPERFORMED BY: [facility] Dlkodv4247 [facility] [id number]; [facility] 7-22 Hemoglobin A1c 6.0 % (Abnormal) Range: 4.8-5.6 Comments: . Pre-diabetes: 5.7 - 6.4 Diabetes: >6.4 Glycemic control for adults with diabetes: <7.0 73-Tli-549663:08 PT (PROTHROMBIN TIME) (57644) Comments: PATIENT NOT FASTINGPERFORMED BY: [facility]6[address] [facility] [id number] Prothrombin Time 10.3 {sec} (Normal) Range: 9.1-12.0 INR 1.0 (Normal) Range: 0.8-1.2 Comments: Reference interval is for non-anticoagulated patients. . Suggested INR therapeutic range for Vitamin K anta gonist therapy: Standard Dose (moderate intensity therapeutic range): 2.0 - 3.0 Higher intensity therapeutic range 2.5 - 3.5 62-Hzk-730757:08 CBC, Platelets & Auto Comments: PATIENT NOT FASTINGPERFORMED BY: [facility]6[address] [facility] [id number] Information: [id number] Diff (36234) Immature Grans (Abs) 0.0 {x10E3/uL} (Normal) Range: 0.0-0.1 Immature Granulocytes 0 % (Normal) Baso (Absolute) 0.0 {x10E3/uL} (Normal) Range: 0.0-0.2 Eos (Absolute) 0.2 {x10E3/uL} (Normal) Range: 0.0-0.4 Monocytes(Absolute) 0.5 {x10E3/uL} (Normal) Range: 0.1-0.9 Lymphs (Absolute) 2.6 {x10E3/uL} (Normal) Range: 0.7-3.1 Neutrophils (Absolute) 3.7 {x10E3/uL} (Normal) Range: 1.4-7.0 Basos 0 % (Normal) Eos 3 % (Normal) Monocytes 7 % (Normal) Lymphs 38 % (Normal) Neutrophils 52 % (Normal) Platelets 286 {x10E3/uL} (Normal) Range: 150-379 RDW 14.5 % (Normal) Range: 12.3-15.4 MCHC 32.5 g/dL (Normal) Range: 31.5-35.7 MCH 28.3 pg (Normal) Range: 26.6-33.0 MCV 87 fL (Normal) Range: 79-97 Hematocrit 39.4 % (Normal) Range: 34.0-46.6 Hemoglobin 12.8 g/dL (Normal) Range: 11.1-15.9 RBC 4.53 {x10E6/uL} (Normal) Range: 3.77-5.28 WBC 7.0 {x10E3/uL} (Normal) Range: 3.4-10.8 63-Qme-743043:08 Metabolic Panel, Comprehensive Comments: PATIENT NOT FASTINGPERFORMED BY: [facility] Rahyzf7505 [facility] [id number] (77926) ALT (SGPT) 11 [iU]/L (Normal) Range: 0-32 AST (SGOT) 15 [iU]/L (Normal) Range: 0-40 Alkaline Phosphatase, S 77 [iU]/L (Normal) Range: 39-117 Bilirubin, Total 0.2 mg/dL (Normal) Range: 0.0-1.2 A/G Ratio 1.4 (Normal) Range: 1.1-2.5 Globulin, Total 2.8 g/dL (Normal) Range: 1.5-4.5 Albumin, Serum 3.9 g/dL (Normal) Range: 3.5-5.5 Protein, Total, Serum 6.7 g/dL (Normal) Range: 6.0-8.5 Calcium, Serum 9.1 mg/dL (Normal) Range: 8.7-10.2 Carbon Dioxide, Total 19 mmol/L (Normal) Range: 18-29 Chloride, Serum 105 mmol/L (Normal) Range: 97-108 Potassium, Serum 3.8 mmol/L (Normal) Range: 3.5-5.2 Sodium, Serum 139 mmol/L (Normal) Range: 134-144 BUN/Creatinine Ratio 23 (Normal) Range: 9-23 eGFR If Africn Am 98 mL/min/1.73 (Normal) eGFR If NonAfricn Am 85 mL/min/1.73 (Normal) Creatinine, Serum 0.77 mg/dL (Normal) Range: 0.57-1.00 BUN 18 mg/dL (Normal) Range: 6-24 Glucose, Serum 87 mg/dL (Normal) Range: 65-99 13-Nsp-88767:21 Urinalysis, Office (84062) UA - LEUKOCYTE ESTERASE Negative (Normal) UA - NITRITE Negative (Normal) URINE UROBILINGN SAUNDRA TIMED 2 mg/dL (Normal) UA - PROTEIN Negative mg/dL (Normal) UA - PH 6.0 (Normal) UA - BLOOD Negative (Normal) UA - SPECIFIC GRAVITY 1.025 (Normal) UA - KETONES Negative mg/dL (Normal) UA - BILIRUBIN Negative (Normal) UA - GLUCOSE Negative (Normal) :06 CALCIFIDIOL (73568) VIT D 25 Comments: PATIENT WAS FASTINGPERFORMED BY: [facility] NetworksNew [facility] Medical CenterKugupb1996 [facility] [id number] Vitamin D, 25-Hydroxy 31.1 ng/mL (Normal) Range: 30.0-100.0 Comments: Vitamin D deficiency has been defined by the [place] ofSt. [facility] Hospitalcine and an Endocrine Society practice guideline as alevel of serum 25-OH vitamin D less than 20 ng/mL (1,2).The Endocrine Society went on to further define vitamin Dinsufficiency as a level between 21 and 29 ng/mL (2).1. IOM ([place] of Medicine). 2010. Dietary reference intakes for calcium and D. [place]: The National Academies Press.2. Coy MF, Raya NC, Armida PARADA, et al. Evaluation, treatment, and prevention of vitamin D deficiency: an Endocrine Society clinical practice guideline. JCEM. 2010; 96(7):1911-30. :06 METABOLIC PANEL, Comments: PATIENT WAS FASTINGPERFORMED BY: [facility] CareNew [facility] CenterYtdfps3589 [facility] [id number] Information: [id number] COMPREHENSIVE (37165) ALT (SGPT) 17 [iU]/L (Normal) Range: 0-32 AST (SGOT) 17 [iU]/L (Normal) Range: 0-40 Alkaline Phosphatase, S 80 [iU]/L (Normal) Range: 39-117 Bilirubin, Total 0.3 mg/dL (Normal) Range: 0.0-1.2 A/G Ratio 1.6 (Normal) Range: 1.1-2.5 Globulin, Total 2.7 g/dL (Normal) Range: 1.5-4.5 Albumin, Serum 4.4 g/dL (Normal) Range: 3.5-5.5 Protein, Total, Serum 7.1 g/dL (Normal) Range: 6.0-8.5 Calcium, Serum 9.5 mg/dL (Normal) Range: 8.7-10.2 Carbon Dioxide, Total 20 mmol/L (Normal) Range: 18-29 Chloride, Serum 106 mmol/L (Normal) Range: 97-108 Potassium, Serum 3.5 mmol/L (Normal) Range: 3.5-5.2 Sodium, Serum 144 mmol/L (Normal) Range: 134-144 BUN/Creatinine Ratio 19 (Normal) Range: 9-23 eGFR If Africn Am 75 mL/min/1.73 (Normal) eGFR If NonAfricn Am 65 mL/min/1.73 (Normal) Creatinine, Serum 0.96 mg/dL (Normal) Range: 0.57-1.00 BUN 18 mg/dL (Normal) Range: 6-24 Glucose, Serum 113 mg/dL (Abnormal) Range: 65-99 63-Rnl-11765:06 LIPID PANEL (08378) Comments: PATIENT WAS FASTINGPERFORMED BY: [place] [facility] [id number]; apt. 3-21 LDL/HDL Ratio 2.3 {ratio_units} (Normal) Range: 0.0-3.2 Comments: LDL/HDL Ratio Men Women 1/2 Avg.Risk 1.0 1.5 Av g.Risk 3.6 3.2 2X Avg.Risk 6.2 5.0 3X Avg.Risk 8.0 6.1 LDL Cholesterol Calc 131 mg/dL (Abnormal) Range: 0-99 VLDL Cholesterol Jacob 44 mg/dL (Abnormal) Range: 5-40 HDL Cholesterol 58 mg/dL (Normal) Comments: According to ATP-III Guidelines, HDL-C >59 mg/dL is considered anegative risk factor for CHD. Triglycerides 221 mg/dL (Abnormal) Range: 0-149 Cholesterol, Total 233 mg/dL (Abnormal) Range: 100-199 3-Ynk-310172:21 Upper Respiratory Culture Comments: PATIENT NOT FASTINGPERFORMED BY: [employer] [facility] [id number] Information: SRC:THRT [id number] Result 1 RRF (Normal) Comments: Routine respiratory samuel Upper Respiratory Culture Final report (Normal) :19 Rapid Strep Test, Office (00898) Rapid Strep Test, Office Negative (Normal) :18 Rapid Flu (15371 x 2) Influenza A Ag negetive A & B (Normal) :33 METABOLIC PANEL, Comments: PATIENT WAS FASTINGPERFORMED BY: [facility]6[address] [facility] [id number] Information: [id number] COMPREHENSIVE (22531) ALT (SGPT) 10 [iU]/L (Normal) Range: 0-32 AST (SGOT) 15 [iU]/L (Normal) Range: 0-40 Alkaline Phosphatase, S 75 [iU]/L (Normal) Range: 39-117 Bilirubin, Total 0.3 mg/dL (Normal) Range: 0.0-1.2 A/G Ratio 1.4 (Normal) Range: 1.1-2.5 Globulin, Total 2.8 g/dL (Normal) Range: 1.5-4.5 Albumin, Serum 4.0 g/dL (Normal) Range: 3.5-5.5 Protein, Total, Serum 6.8 g/dL (Normal) Range: 6.0-8.5 Calcium, Serum 9.1 mg/dL (Normal) Range: 8.7-10.2 Carbon Dioxide, Total 22 mmol/L (Normal) Range: 18-29 Chloride, Serum 101 mmol/L (Normal) Range: 97-108 Potassium, Serum 3.9 mmol/L (Normal) Range: 3.5-5.2 Sodium, Serum 139 mmol/L (Normal) Range: 134-144 BUN/Creatinine Ratio 18 (Normal) Range: 9-23 eGFR If Africn Am 82 mL/min/1.73 (Normal) eGFR If NonAfricn Am 71 mL/min/1.73 (Normal) Creatinine, Serum 0.90 mg/dL (Normal) Range: 0.57-1.00 BUN 16 mg/dL (Normal) Range: 6-24 Glucose, Serum 85 mg/dL (Normal) Range: 65-99 :33 LIPID PANEL (49808) Comments: PATIENT WAS FASTINGPERFORMED BY: [facility] CenterAytltf8644 [facility] [id number]; will review at 05/16 appt LDL/HDL Ratio 1.9 {ratio_units} (Normal) Range: 0.0-3.2 Comments: LDL/HDL Ratio Men Women 1/2 Avg.Risk 1.0 1.5 Av g.Risk 3.6 3.2 2X Avg.Risk 6.2 5.0 3X Avg.Risk 8.0 6.1 LDL Cholesterol Calc 139 mg/dL (Abnormal) Range: 0-99 VLDL Cholesterol Jacob 49 mg/dL (Abnormal) Range: 5-40 HDL Cholesterol 72 mg/dL (Normal) Comments: According to ATP-III Guidelines, HDL-C >59 mg/dL is considered anegative risk factor for CHD. Triglycerides 243 mg/dL (Abnormal) Range: 0-149 Cholesterol, Total 260 mg/dL (Abnormal) Range: 100-199 :33 CALCIFIDIOL (85350) VIT D 25 Comments: PATIENT WAS FASTINGPERFORMED BY: [facility] Zzwlby6496 [facility] [id number] Vitamin D, 25-Hydroxy 30.0 ng/mL (Normal) Range: 30.0-100.0 Comments: Vitamin D deficiency has been defined by the [place] of[place]icine and an Endocrine Society practice guideline as alevel of serum 25-OH vitamin D less than 20 ng/mL (1,2).The Endocrine Society went on to further define vitamin Dinsufficiency as a level between 21 and 29 ng/mL (2).1. IOM ([place] of Medicine). 2010. Dietary reference intakes for calcium and D. [place]: The National Academies Press.2. Coy MF, Raya NC, Armida PARADA, et al. Evaluation, treatment, and prevention of vitamin D deficiency: an Endocrine Society clinical practice guideline. JCEM. 2010; 96(7):1911-30. :33 Hemoglobin Glyclated (HGB A1C) Comments: PATIENT WAS FASTINGPERFORMED BY: [facility] CenterUeddld2219 [facility] [id number] (27187) Hemoglobin A1c 5.5 % (Normal) Range: 4.8-5.6 Comments: . Increased risk for diabetes: 5.7 - 6.4 Diabetes: >6.4 Glycemic control for adults with diabetes: <7.0 :32 Comprehensive Metabolic Profil Comments: Test performed at:[facility] [address] [place], [place] [id number] GAP 9 (Normal) Range: 5-15 CO2 26.0 mmol/L (Normal) Range: 21.0-32.0 CL 107 mmol/L (Normal) Range: 98-107 K 3.7 mmol/L (Normal) Range: 3.5-5.1 NA 142 mmol/L (Normal) Range: 136-145 T BILI 0.30 mg/dL (Normal) Range: 0.00-4.00 ALT 21 U/L (Normal) Range: 12-78 ALK P 84 U/L (Normal) Range: 50-136 AST 15 U/L (Normal) Range: 15-37 CA 8.9 mg/dL (Normal) Range: 8.5-10.1 A/G 0.8 {RATIO} (Abnormal) Range: 0.9-2.4 GLOB 3.9 g/dL (Normal) Range: 2.7-4.2 ALB 3.1 g/dL (Abnormal) Range: 3.4-5.0 T PROT 7.0 g/dL (Normal) Range: 6.4-8.2 BUN/CRE 19.1 {RATIO} (Normal) Range: 10-20 EST GFR - AA 65 mL/min (Normal) EST GFR 54 mL/min (Abnormal) CREAT,SERUM 1.1 mg/dL (Abnormal) Range: 0.6-1.0 BUN 21 mg/dL (Abnormal) Range: 7-18 GLU 96 mg/dL (Normal) Range: 70-110 :32 Hemoglobin A1c Comments: Test performed at:[facility] [address] [place] [address] HGB A1C 5.6 % (Normal) Range: 4.2-6.3 :32 Lipid Profile Comments: Test performed at:[facility] [address] [place] [address] VLDL 37 mg/dL (Normal) Range: 5-40 LDL 108 mg/dL (Normal) Range: 0-130 HDL 63 mg/dL (Normal) Comments: Reference Range HDL <40 mg/dL Low HDL Cholesterol HDL >or= 60 mg/dL High HDL Cholesterol TRIG 186 mg/dL (Normal) Range: 0-199 Comments: Serum Triglycerides Reference Interval Normal <150 mg/dL Borderline high 150 - 199 mg/dL High 200 - 499 mg/dL Very High > or = 500 mg/dL CHOL 208 mg/dL (Abnormal) Comments: <200 mg/dL Desirable 200-240 mg/dL Borderline >240 mg/dL High Risk :32 Vitamin D,25 Hydroxy Comments: Test performed at:[facility] [address] [place] [address] Vitamin D 25-OH 28.4 ng/mL (Normal) Comments: Vitamin D 25(OH) Status Range Deficiency <20 ng/mL (50nmol/L) Insuffciency 20 - 30 ng/mL (50 - 75 nmol/L) Sufficiency 30 - 100 ng/mL (75 - 250 nmol/L) Toxicity >100 ng/mL (>250 nmol/L) :35 Basic Metabolic Profile (BMP) Comments: Test performed at:[facility] [address] [place] [address] GAP 9 (Normal) Range: 5-15 CO2 26.0 mmol/L (Normal) Range: 21.0-32.0 CL 103 mmol/L (Normal) Range: 98-107 K 3.4 mmol/L (Abnormal) Range: 3.5-5.1 NA 138 mmol/L (Normal) Range: 136-145 CA 9.0 mg/dL (Normal) Range: 8.5-10.1 BUN/CRE 22.2 {RATIO} (Abnormal) Range: 10-20 EST GFR - AA 84 mL/min (Normal) EST GFR 69 mL/min (Normal) CREAT,SERUM 0.9 mg/dL (Normal) Range: 0.6-1.0 BUN 20 mg/dL (Abnormal) Range: 7-18 GLU 87 mg/dL (Normal) Range: 70-110 95-Xvk-657165:35 CBC-Complete Blood Cnt No Diff Comments: Test performed at:[facility] [address] [place] [place] [address] MPV 10.8 fL (Normal) Range: 6.2-12.0 PLT 345 K/mm3 (Normal) Range: 150-450 RDW SD 47.1 fL (Abnormal) Range: 35.1-43.9 RDW CV 14.8 % (Abnormal) Range: 11.6-14.6 MCHC 31.8 {g/gl} (Abnormal) Range: 32-36 MCH 27.4 pg (Normal) Range: 27.0-32.0 MCV 86.3 fL (Normal) Range: 81-99 HCT 40.9 % (Normal) Range: 37-47 HGB 13.0 g/dL (Normal) Range: 12.0-15.0 RBC 4.74 {M/mm3} (Normal) Range: 4.2-5.4 WBC 11.2 K/mm3 (Abnormal) Range: 4.4-11.0 3-Jzl-987619:53 Rapid Flu (97234 x 2) Influenza A Ag negative a and b (Normal) 22-Amo-733612:34 POTASSIUM SERUM (95393) Comments: PATIENT NOT FASTINGPERFORMED BY: [facility] Unfnvk5[address] [facility] [id number] Information: [id number] Potassium, Serum 3.9 mmol/L (Normal) Range: 3.5-5.2 6-Dgq-287415:21 Basic Metabolic Profile (BMP) Comments: Test performed at:[facility] [address] [place] [address] GAP 9 (Normal) Range: 5-15 CO2 24.0 mmol/L (Normal) Range: 21.0-32.0 CL 106 mmol/L (Normal) Range: 98-107 K 3.4 mmol/L (Abnormal) Range: 3.5-5.1 NA 139 mmol/L (Normal) Range: 136-145 CA 8.9 mg/dL (Normal) Range: 8.5-10.1 BUN/CRE 22.2 {RATIO} (Abnormal) Range: 10-20 EST GFR - AA 84 mL/min (Normal) EST GFR 69 mL/min (Normal) CREAT,SERUM 0.9 mg/dL (Normal) Range: 0.6-1.0 BUN 20 mg/dL (Abnormal) Range: 7-18 GLU 80 mg/dL (Normal) Range: 70-110 3-Zlv-610677:21 CBC-Complete Blood Cnt No Diff Comments: Test performed at:[facility] [address] [place], [place] [id number] MPV 10.6 fL (Normal) Range: 6.2-12.0 PLT 320 K/mm3 (Normal) Range: 150-450 RDW SD 48.6 fL (Abnormal) Range: 35.1-43.9 RDW CV 15.3 % (Abnormal) Range: 11.6-14.6 MCHC 31.4 {g/gl} (Abnormal) Range: 32-36 MCH 27.2 pg (Normal) Range: 27.0-32.0 MCV 86.6 fL (Normal) Range: 81-99 HCT 42.0 % (Normal) Range: 37-47 HGB 13.2 g/dL (Normal) Range: 12.0-15.0 RBC 4.85 {M/mm3} (Normal) Range: 4.2-5.4 WBC 9.5 K/mm3 (Normal) Range: 4.4-11.0 :49 Hemoglobin Glyclated (HGB A1C) Comments: PATIENT WAS FASTINGPERFORMED BY: [employer] Iauwal[address] [facility] [id number] (37395) Hemoglobin A1c 5.9 % (Abnormal) Range: 4.8-5.6 Comments: . Increased risk for diabetes: 5.7 - 6.4 Diabetes: >6.4 Glycemic control for adults with diabetes: <7.0 :49 Metabolic Panel, Comments: PATIENT WAS FASTINGPERFORMED BY: [facility] NetworksZ[facility] CenterXgimhb1473 [facility] [id number] Information: [id number] Comprehensive (12274) ALT (SGPT) 16 [iU]/L (Normal) Range: 0-32 AST (SGOT) 20 [iU]/L (Normal) Range: 0-40 Alkaline Phosphatase, S 78 [iU]/L (Normal) Range: 39-117 Bilirubin, Total 0.3 mg/dL (Normal) Range: 0.0-1.2 A/G Ratio 1.5 (Normal) Range: 1.1-2.5 Globulin, Total 2.7 g/dL (Normal) Range: 1.5-4.5 Albumin, Serum 4.0 g/dL (Normal) Range: 3.5-5.5 Protein, Total, Serum 6.7 g/dL (Normal) Range: 6.0-8.5 Calcium, Serum 9.5 mg/dL (Normal) Range: 8.7-10.2 Carbon Dioxide, Total 21 mmol/L (Normal) Range: 18-29 Chloride, Serum 105 mmol/L (Normal) Range: 97-108 Potassium, Serum 4.2 mmol/L (Normal) Range: 3.5-5.2 Sodium, Serum 141 mmol/L (Normal) Range: 134-144 BUN/Creatinine Ratio 22 (Normal) Range: 9-23 eGFR If Africn Am 82 mL/min/1.73 (Normal) eGFR If NonAfricn Am 71 mL/min/1.73 (Normal) Creatinine, Serum 0.90 mg/dL (Normal) Range: 0.57-1.00 BUN 20 mg/dL (Normal) Range: 6-24 Glucose, Serum 89 mg/dL (Normal) Range: 65-99 81-Fqp-64159:49 Lipid Panel (16890) Comments: PATIENT WAS FASTINGPERFORMED BY: [facility] CenterEezusi7572 [facility] [id number] LDL/HDL Ratio 1.6 {ratio_units} (Normal) Range: 0.0-3.2 Comments: LDL/HDL Ratio Men Women 1/2 Avg.Risk 1.0 1.5 Av g.Risk 3.6 3.2 2X Avg.Risk 6.2 5.0 3X Avg.Risk 8.0 6.1 LDL Cholesterol Calc 106 mg/dL (Abnormal) Range: 0-99 VLDL Cholesterol Jacob 39 mg/dL (Normal) Range: 5-40 HDL Cholesterol 68 mg/dL (Normal) Comments: According to ATP-III Guidelines, HDL-C >59 mg/dL is considered anegative risk factor for CHD. Triglycerides 196 mg/dL (Abnormal) Range: 0-149 Cholesterol, Total 213 mg/dL (Abnormal) Range: 100-199 :49 CALCIFIDIOL (09496) VIT D 25 Comments: PATIENT WAS FASTINGPERFORMED BY: [facility] Qczmtg3253 [facility] [id number] Vitamin D, 25-Hydroxy 45.5 ng/mL (Normal) Range: 30.0-100.0 Comments: Vitamin D deficiency has been defined by the [place] of[place]icine and an Endocrine Society practice guideline as alevel of serum 25-OH vitamin D less than 20 ng/mL (1,2).The Endocrine Society went on to further define vitamin Dinsufficiency as a level between 21 and 29 ng/mL (2).1. IOM ([place] of Medicine). 2010. Dietary reference intakes for calcium and D. [place]: The National Academies Press.2. Coy MF, Raya NC, Armida PARADA, et al. Evaluation, treatment, and prevention of vitamin D deficiency: an Endocrine Society clinical practice guideline. JCEM. 2010; 96(7):1911-30. :08 HgA1C , Office (60949) HgA1C , Office 6.1 % (Normal) Range: 4.6 - 7.1 :08 Blood Glucose , Office (82080) Blood Glucose , Office 108 (Normal) :56 CBCD ALC 2.74 {X10_3/ul} (Normal) Range: 0.83-4.51 ANC 3.4 {X10_3/uL} (Normal) Range: 2.0-7.7 IG% 0.100 % (Normal) Range: 0.0-0.9 Comments: IG% - Immature Granulocytes (promyelocytes, myelocytes andmetamyelocytes) > 1% indicates that a LEFT SHIFT is Present. B% 0.3 % (Normal) Range: 0-1 E% 3.5 % (Normal) Range: 0-5 M% 10.1 % (Abnormal) Range: 0-10 L% 38.4 % (Normal) Range: 19-41 N% 47.6 % (Normal) Range: 47-70 MPV 10.5 fL (Normal) Range: 6.2-12.0 PLT 402 K/mm3 (Normal) Range: 150-450 RDWSD 44.5 fL (Abnormal) Range: 35.1-43.9 RDWCV 14.8 % (Abnormal) Range: 11.6-14.6 MCHC 32.0 {g/gl} (Normal) Range: 32-36 MCH 26.9 pg (Abnormal) Range: 27.0-32.0 MCV 83.9 fL (Normal) Range: 81-99 HCT 38.1 % (Normal) Range: 37-47 HGB 12.2 g/dL (Normal) Range: 12.0-15.0 RBC 4.54 {M/mm3} (Normal) Range: 4.2-5.4 WBC 7.1 K/mm3 (Normal) Range: 4.4-11.0 :56 CMP GAP 9 (Normal) Range: 5-15 CO2 23.0 mmol/L (Normal) Range: 21.0-32.0 CL 106 mmol/L (Normal) Range: 98-107 K 3.5 mmol/L (Normal) Range: 3.5-5.1 NA 138 mmol/L (Normal) Range: 136-145 BIT 0.20 mg/dL (Normal) Range: 0.00-4.00 ALT 24 U/L (Normal) Range: 12-78 ALK 83 U/L (Normal) Range: 50-136 AST 17 U/L (Normal) Range: 15-37 CA 9.6 mg/dL (Normal) Range: 8.5-10.1 AG 0.8 {RATIO} (Abnormal) Range: 0.9-2.4 GLOB 3.9 g/dL (Normal) Range: 2.7-4.2 ALB 3.0 g/dL (Abnormal) Range: 3.4-5.0 TPROT 6.9 g/dL (Normal) Range: 6.4-8.2 BC 17.8 {RATIO} (Normal) Range: 10-20 ECRCL 57.05 ml/min (Normal) GFRAA 84 mL/min (Normal) GFR 69 mL/min (Normal) CREAT 0.9 mg/dL (Normal) Range: 0.6-1.0 BUN 16 mg/dL (Normal) Range: 7-18 GLU 83 mg/dL (Normal) Range: 70-110 :56 LIPID VLDL 30 mg/dL (Normal) Range: 5-40 LDL 90 mg/dL (Normal) Range: 0-130 HDL 70 mg/dL (Normal) Comments: Reference RangeHDL <40 mg/dL Low HDL CholesterolHDL >or= 60 mg/dL High HDL Cholesterol TRIG 150 mg/dL (Normal) Range: 0-199 Comments: Serum Triglycerides Reference IntervalNormal <150 mg/dLBorderline high 150 - 199 mg/dLHigh 200 - 499 mg/ dLVery High > or = 500 mg/dL CHOL 190 mg/dL (Normal) Comments: <200 mg/dL Khnwxwmzc143-049 mg/dL Borderline>240 mg/dL High Risk :56 TSH 1.21 {uIU/mL} (Normal) Range: 0.358-3.74 :56 UAC Comments: How was Urine Obtained? CLEAN CATCH AMORP 2+ (Normal) UMUC 0 SEEN {/hpf} (Normal) UBAC 0 SEEN {/hpf} (Normal) UEPIS 0-5 SEEN {/hpf} (Normal) Range: 5-10 URBC 0 SEEN {/hpf} (Normal) Range: 0-5 UWBC 0 SEEN {/hpf} (Normal) Range: 0-5 HENRY Negative /ul (Normal) UOB Negative /ul (Normal) ERICK Negative (Normal) UROBU Normal mg/dL (Normal) uPROTU Negative mg/dL (Normal) SWETHA 6.5 (Normal) Range: 5.0 - 8.0 SGU 1.020 (Normal) Range: 1.002-1.030 KETU Negative mg/dL (Normal) BILIU Negative mg/dL (Normal) GLUR Normal mg/dL (Normal) UCLAR Sl. Cloudy (Normal) UCOL Yellow (Normal) 11-Kaw-624154:30 RAMON CULTURE-OTHER (12541) Comments: PATIENT NOT FASTINGPERFORMED BY: YULIANA [facility] Gncqic[address] [facility] [id number] Information: SRC:THRT [id number] Result 1 RRF (Normal) Comments: Routine respiratory samuel Upper Respiratory Culture Final report (Normal) :56 Rapid Strep Test, Office (35160) Rapid Strep Test, Office Negative (Normal) 57-Nbs-493736:14 EBV Panel (94256) Comments: PATIENT NOT FASTINGPERFORMED BY: [facility]CoNew [facility] CenterUznwdn3919 Rusty VicenteNovant Health [id number] Information: [id number] Interpretation: SPRCS (Normal) Comments: EBV Interpretation Chart . Interpretation EBV-IgM VCA-IgG EBNA-IgG EA(D)-IgG . EBV Seronegative - - - - Early Phase + - - - Acute Primary + + - +or- Infection Convalescence/Past - + + +or- Infection Reactivated +or- + + + Infection + Antibody Present - Antibody Absent EBV Nuclear Antigen Ab, IgG >600.0 U/mL (Abnormal) Range: 0.0-17.9 Comments: Negative <18.0 Equivocal 18.0 - 21.9 Positive >21.9 EBV Ab VCA, IgG >600.0 U/mL (Abnormal) Range: 0.0-17.9 Comments: Negative <18.0 Equivocal 18.0 - 21.9 Positive >21.9 EBV Early Antigen Ab, IgG >150.0 U/mL (Abnormal) Range: 0.0-8.9 Comments: Hepatitis A, Hepatitis C and HIV antibodies may cross-reactwith this assay. Negative < 9.0 Equivoc al 9.0 - 10.9 Positive >10.9 EBV Ab VCA, IgM <36.0 U/mL (Normal) Range: 0.0-35.9 Comments: Negative <36.0 Equivocal 36.0 - 43.9 Positive >43.9 :37 UA Comments: Comments: CALL DR SANCHEZ WITH RESULTSHow was Urine Obtained? CLEAN CATCH HENRY Negative /ul (Normal) UOB Negative /ul (Normal) ERICK Negative (Normal) UROBU Normal mg/dL (Normal) uPROTU Negative mg/dL (Normal) SWETHA 6.0 (Normal) Range: 5.0 - 8.0 SGU 1.020 (Normal) Range: 1.002-1.030 KETU Negative mg/dL (Normal) BILIU Negative mg/dL (Normal) GLUR Normal mg/dL (Normal) UCLAR Sl. Cloudy (Normal) UCOL Yellow (Normal) 69-Ojy-374048:55 Microscopic Examination Comments: PERFORMED BY: [address] [id number] Bacteria Few (Normal) Mucus Threads Present (Normal) Epithelial Cells (non renal) 0-10 {/hpf} (Normal) Range: 0 - 10 RBC 0-2 {/hpf} (Normal) Range: 0 - 2 WBC 0-5 {/hpf} (Normal) Range: 0 - 5 :55 Urinalysis, Routine Comments: PERFORMED BY: [address] [id number] Microscopic Examination See below: (Normal) Appearance Clear (Normal) Urine-Color [place] (Normal) Comments: Unable to read or assay due to color interference. Specific [place] 1.018 (Normal) Range: 1.005-1.030 :55 Urine Culture,Comprehensive Comments: PERFORMED BY: [address] [id number] Result 1 MUG (Normal) Comments: Mixed urogenital flora1,000 Colonies/mL Urine Culture,Comprehensive Final report (Normal) 50-Lne-22002:09 Urinalysis, Office (28871) UA - LEUKOCYTE ESTERASE Negative (Normal) UA - NITRITE Positive (Normal) URINE UROBILINGN SAUNDRA TIMED Normal mg/dL (Normal) UA - PROTEIN Negative mg/dL (Normal) UA - PH 6 (Abnormal) UA - BLOOD Negative (Normal) UA - SPECIFIC GRAVITY 1.020 (Normal) UA - KETONES Negative mg/dL (Normal) UA - BILIRUBIN Negative (Normal) UA - GLUCOSE 100 (Abnormal) 4-Sho-548016:11 PREALB 28.9 mg/dL (Normal) Range: 20.0-40.0 2-Eze-084039:11 PROEL tPROELN Comment (Normal) Comments: The SPE pattern appears essentially unremarkable. Evidenceof monoclonal protein is not apparent.Performed at: [address] [id number] Director: David Weaver MD, Phone: [phone] tPROELAG 1.2 (Normal) Range: 0.7-2.0 tPROELIN Comment (Normal) Comments: Protein electrophoresis scan will follow via computer,mail, or corporate event planner delivery.Scanned image report available in EMR tPROELGL 2.9 g/dL (Normal) Range: 2.0-4.5 tPROELGA 0.7 g/dL (Normal) Range: 0.5-1.6 tPROELMS (Normal) Comments: NOT OBSERVED tPROELBE 1.2 g/dL (Normal) Range: 0.6-1.3 tPROELAL2 0.8 g/dL (Normal) Range: 0.4-1.2 tPROELAL1 0.3 g/dL (Normal) Range: 0.1-0.4 tPROELALB 3.5 g/dL (Normal) Range: 3.2-5.6 $tPROELTP 6.4 g/dL (Normal) Range: 6.0-8.5 :25 HgA1C , Office (01901) HgA1C , Office 6.0 % (Normal) Range: 4.6 - 7.1 :54 CBCD ANC 5.4 {X10_3/uL} (Normal) Range: 2.0-7.7 IG% 0.100 % (Normal) Range: 0.0-0.9 Comments: IG% - Immature Granulocytes (promyelocytes, myelocytes andmetamyelocytes) > 1% indicates that a LEFT SHIFT is Present. B% 0.2 % (Normal) Range: 0-1 E% 2.1 % (Normal) Range: 0-5 M% 6.1 % (Normal) Range: 0-10 L% 28.8 % (Normal) Range: 19-41 N% 62.7 % (Normal) Range: 47-70 MPV 10.5 fL (Normal) Range: 6.2-12.0 PLT 308 K/mm3 (Normal) Range: 150-450 RDWSD 45.0 fL (Abnormal) Range: 35.1-43.9 RDWCV 14.2 % (Normal) Range: 11.6-14.6 MCHC 33.0 {g/gl} (Normal) Range: 32-36 MCH 28.5 pg (Normal) Range: 27.0-32.0 MCV 86.5 fL (Normal) Range: 81-99 HCT 40.9 % (Normal) Range: 37-47 HGB 13.5 g/dL (Normal) Range: 12.0-15.0 RBC 4.73 {M/mm3} (Normal) Range: 4.2-5.4 WBC 8.7 K/mm3 (Normal) Range: 4.4-11.0 :54 CMP GAP 6 (Normal) Range: 5-15 CO2 24.0 mmol/L (Normal) Range: 21.0-32.0 CL 107 mmol/L (Normal) Range: 98-107 K 3.9 mmol/L (Normal) Range: 3.5-5.1 NA 137 mmol/L (Normal) Range: 136-145 BIT 0.20 mg/dL (Normal) Range: 0.00-1.00 ALT 25 U/L (Normal) Range: 12-78 ALK 77 U/L (Normal) Range: 50-136 AST 19 U/L (Normal) Range: 15-37 CA 8.9 mg/dL (Normal) Range: 8.5-10.1 AG 0.6 {RATIO} (Abnormal) Range: 0.9-2.4 GLOB 4.5 g/dL (Abnormal) Range: 2.7-4.2 ALB 2.8 g/dL (Abnormal) Range: 3.4-5.0 TPROT 7.3 g/dL (Normal) Range: 6.4-8.2 BC 23.3 {RATIO} (Abnormal) Range: 10-20 GFRAA 84 mL/min (Normal) GFR 69 mL/min (Normal) CREAT 0.9 mg/dL (Normal) Range: 0.6-1.0 BUN 21 mg/dL (Abnormal) Range: 7-18 GLU 95 mg/dL (Normal) Range: 70-110 :54 FT3 2.4 pg/mL (Normal) Range: 2.18-3.98 :54 LIPID LDL 122 mg/dL (Normal) Range: 0-130 VLDL 26 mg/dL (Normal) Range: 5-40 HDL 84 mg/dL (Normal) Comments: Reference RangeHDL <40 mg/dL Low HDL CholesterolHDL >or= 60 mg/dL High HDL Cholesterol TRIG 132 mg/dL (Normal) Range: 0-199 Comments: Serum Triglycerides Reference IntervalNormal <150 mg/dLBorderline high 150 - 199 mg/dLHigh 200 - 499 mg/ dLVery High > or = 500 mg/dL CHOL 232 mg/dL (Abnormal) Comments: <200 mg/dL Xrtrkvlsj441-592 mg/dL Borderline>240 mg/dL High Risk :54 T4F 0.62 ng/dL (Abnormal) Range: 0.76-1.46 :54 TSH 0.90 {uIU/mL} (Normal) Range: 0.358-3.74 :54 UAC Comments: How was Urine Obtained? CLEAN CATCH AMORP 2+ (Normal) UMUC 0 SEEN {/hpf} (Normal) UBAC 0 SEEN {/hpf} (Normal) UEPIS 0-5 SEEN {/hpf} (Normal) Range: 5-10 URBC 0 SEEN {/hpf} (Normal) Range: 0-5 UWBC 0 SEEN {/hpf} (Normal) Range: 0-5 HENRY Negative /ul (Normal) UOB Negative /ul (Normal) ERICK Negative (Normal) uPROTU Negative mg/dL (Normal) UROBU Normal mg/dL (Normal) SWETHA 8.0 (Normal) Range: 5.0 - 8.0 SGU 1.010 (Normal) Range: 1.002-1.030 KETU Negative mg/dL (Normal) BILIU Negative mg/dL (Normal) GLUR Normal mg/dL (Normal) UCLAR Sl. Cloudy (Normal) UCOL Yellow (Normal) :54 VITD 53.8 mg/mL (Normal) Comments: Vitamin D 25(OH) Status RangeDeficiency <20 ng/mL (50nmol/L)Insuffciency 20 - 30 ng/mL (50 - 75 nmol/L)Sufficiency 30 - 100 ng/mL (75 - 250 nmol/L)Toxicity >100 ng/mL (>250 nmol/L) :17 HgA1C , Office (95540) HgA1C , Office 5.8 % (Normal) Range: 4.6 - 7.1 :19 CBCMD ANC 3.7 3/uL (Normal) Range: 2.0-7.7 B% 0.7 % (Normal) Range: 0-1 IG% 0.10 % (Normal) Range: 0.0-0.9 Comments: IG% - Immature Granulocytes (promyelocytes, myelocytes,metamyelocytes) >1.0% indicates that a LEFT SHIFT ispresent. E% 5.4 % (Abnormal) Range: 0-5 M% 7.8 % (Normal) Range: 0-10 L% 37.2 % (Normal) Range: 19-41 N% 48.8 % (Normal) Range: 47-70 MPV 10.7 fL (Normal) Range: 6.2-12.0 PLT 275 K/mm3 (Normal) Range: 150-450 RDWCV 14.7 % (Abnormal) Range: 11.6-14.6 RDWSD 45.6 fL (Abnormal) Range: 35.1-43.9 MCHC 32.9 g/dL (Normal) Range: 32-36 MCH 28.4 pg (Normal) Range: 27.0-32.0 HCT 39.5 % (Normal) Range: 37-47 MCV 86.4 fL (Normal) Range: 81-99 HGB 13.0 g/dL (Normal) Range: 12.0-15.0 RBC 4.57 {M/mm3} (Normal) Range: 4.2-5.4 WBC 7.6 {k/mm3} (Normal) Range: 4.4-11.0 28-Apr-20138:19 CMP GAP 8 (Normal) Range: 5-15 CO2 27.0 mmol/L (Normal) Range: 21.0-32.0 CL 100 mmol/L (Normal) Range: 98-107 K 3.7 mmol/L (Normal) Range: 3.5-5.1 NA 135 mmol/L (Abnormal) Range: 136-145 BIT 0.30 mg/dL (Normal) Range: 0.00-1.00 ALK 74 U/L (Normal) Range: 50-136 ALT 27 U/L (Normal) Range: 12-78 AST 16 U/L (Normal) Range: 15-37 AG 0.8 {RATIO} (Abnormal) Range: 0.9-2.4 CA 8.5 mg/dL (Normal) Range: 8.5-10.1 ALB 3.0 g/dL (Abnormal) Range: 3.4-5.0 GLOB 3.7 g/dL (Normal) Range: 2.7-4.2 TPROT 6.7 g/dL (Normal) Range: 6.4-8.2 BC 21.0 {RATIO} (Abnormal) Range: 10-20 GFRAA 74 mL/min (Normal) CREAT 1.0 mg/dL (Normal) Range: 0.6-1.0 GFR 61 mL/min (Normal) BUN 21 mg/dL (Abnormal) Range: 7-18 GLU 80 mg/dL (Normal) Range: 70-110 :19 FT3 2.0 pg/mL (Abnormal) Range: 2.18-3.98 :19 LIPID VLDL 25 mg/dL (Normal) Range: 5-40 HDL 76 mg/dL (Normal) Comments: Reference RangeHDL <40 mg/dL Low HDL CholesterolHDL >or= 60 mg/dL High HDL Cholesterol LDL 101 mg/dL (Normal) Range: 0-130 CHOL 202 mg/dL (Abnormal) Comments: <200 mg/dL [id number] mg/dL Borderline>240 mg/dL High Risk TRIG 124 mg/dL (Normal) Comments: Serum Triglycerides Reference IntervalNormal <150 mg/dLBorderline high 150 - 199 mg/dLHigh 200 - 499 mg/ dLVery High > or = 500 mg/dL :19 T4F 0.65 ng/dL (Abnormal) Range: 0.76-1.46 :19 TSH 1.64 {uIU/mL} (Normal) Range: 0.358-3.74 :19 UAC UMUC 0 SEEN {/hpf} (Normal) UBAC 0 SEEN {/hpf} (Normal) UEPIS 5-10 SEEN {/hpf} (Normal) Range: 5-10 URBC 0 SEEN {/hpf} (Normal) Range: 0-5 UWBC 0-5 SEEN {/hpf} (Normal) Range: 0-5 HENRY 25 /ul (Abnormal) UOB Negative /ul (Normal) ERICK Negative (Normal) UROBU Normal mg/dL (Normal) uPROTU Negative mg/dL (Normal) SWETHA 6.5 (Normal) Range: 5.0 - 8.0 SGU 1.015 (Normal) Range: 1.002-1.030 KETU Negative mg/dL (Normal) BILIU Negative mg/dL (Normal) GLUR Normal mg/dL (Normal) UCLAR Sl. Cloudy (Normal) UCOL Yellow (Normal) :19 VITD 47.4 ng/mL (Normal) Comments: Vitamin D 25(OH) Status RangeDeficiency <20 ng/mL (50nmol/L)Insufficiency 20 - 30 ng/mL (50 - 75 nmol/L)Sufficiency 30 - 100 ng/mL (75 - 250 nm ol/L)Toxicity >100 ng/mL (250 nmol/L) :56 TSH (57230) Comments: copy to Dr. Damian Randle [facility]; PATIENT NOT FASTINGPERFORMED BY: [employer] [place] [id number] TSH 0.201 {uIU/mL} (Abnormal) Range: 0.450-4.500 :56 T3, FREE (TRIDOTHYRONINE) (11282) Comments: PATIENT NOT FASTINGPERFORMED BY: [employer] Qqluhd1346 [employer] [place] [id number] Triiodothyronine,Free,Serum 4.5 pg/mL (Abnormal) Range: 2.0-4.4 :56 T4, FREE (THYROXINE) Comments: PATIENT NOT FASTINGPERFORMED BY: [facility] Ehwbia7838 [facility] [id number] Information: [id number] ([id number]) T4,Free(Direct) 0.22 ng/dL (Abnormal) Range: 0.82-1.77 4-Tcs-799927:35 ABDOMEN/PELVIS WITH CONTRAST Radiology Report See Note (Normal) Comments: PROCEDURE: CT ABDOMEN AND PELVIS WITH CONTRAST REASON FOR EXAM: Female, 57 years old. Abdominal pain. RADIATION DOSAGE (If Supplied By Facility): CTDIvol = ( 22.33 ) mGy, DLP= ( 2396.65 ) mG ycm TECHNIQU E: Transaxial images were obtained from the dome of the diaphragmto the symphysis pubis with oral contrast. 100 ml of Isovue 300 contrastwas administered. Multiplanar coronal and sagittal images wereref ormatted. COMPARISON: Prior abdomen and pelvic CT exam of December 22, 2011. FINDINGS:One linear scar at the right lung base unchanged from the prior exam. Thevisualized portions of the heart are within no rmal limits. Normal liver. There are surgical clips in the gallbladder fossaconsistent with a prior cholecystectomy. There is moderate residualdilatation of the common bile duct without visualized filli ng defects.Normal spleen. Mildly prominent main pancreatic duct without otherabnormality of the pancreas or peripancreatic soft tissues. Normal bilateral adrenal glands. Normal right kidney. Normal left kidney. Normal visualized stomach. Normal small intestine. Mild diverticulosis ispresent. There is no current evidence of diverticulitis. The appendix isvisualized and appears normal. No enlarged mesen teric lymph nodes. Normal abdominal aorta. Normal inferior vena cava. Normalretroperitoneum. Normal urinary bladder. There are no demonstrated pelvic masses or freefluid. Normal abdominal wall. Minimal degenerative disk and joint changes. IMPRESSION:1. No acute abdominal findings.2. Mild diverticulosis without current evidence of diverticulitis.3. A normal appendix is identified.4. Normal gynecologic structures for age. No pelvic mass or free fluid. Signed: Christiana Lundberg M.D.January 28, 2013 at 5:14:08 PM [id number] Signed TT/TT If you are the referring physician and would like t o consult with theradiologist who provided this interpretation, please contact Christiana Solis M.D. at [phone]. If this radiologist is unavailable, youwill be directed to another radiologist to a ssist. If you are a patient with a question regarding this report, pleasecontact your referring physician directly. Professional Interpretation Provided By: [email or web address], Phone , Fax These documents contain legally protected and confidential healthinformation intended only for the use of the individual or entity namedabove. If you are not the intended recipient, you are hereby notifiedthat any disclosure, copying, distribution, or other use of thesedocuments is strictly prohibited. If you have received this informationin error, please notify the sender immediately and arrang e for the returnor destruction of these documents. Dictated on 01/28/131713 by Tamika JOSEPH,TheresaTranscribed on 01/28/131715 by ITS IMPORTSign by Tamika JOSEPH,Christiana on 01/29/13 1012 Sign by: Tamika JOSEPH,Christiana :32 CBCMD ANC 5.4 3/uL (Normal) Range: 2.0-7.7 IG% 0.10 % (Abnormal) Range: 0.0-0.0 B% 0.2 % (Normal) Range: 0-1 E% 3.1 % (Normal) Range: 0-5 M% 7.5 % (Normal) Range: 0-10 L% 25.7 % (Normal) Range: 19-41 N% 63.4 % (Normal) Range: 47-70 MPV 11.0 fL (Normal) Range: 6.2-12.0 PLT 301 K/mm3 (Normal) Range: 150-450 RDWSD 44.5 fL (Abnormal) Range: 35.1-43.9 RDWCV 14.3 % (Normal) Range: 11.6-14.6 MCHC 33.0 g/dL (Normal) Range: 32-36 MCH 28.1 pg (Normal) Range: 27.0-32.0 MCV 85.3 fL (Normal) Range: 81-99 HCT 39.4 % (Normal) Range: 37-47 HGB 13.0 g/dL (Normal) Range: 12.0-15.0 RBC 4.62 {M/mm3} (Normal) Range: 4.2-5.4 WBC 8.5 {k/mm3} (Normal) Range: 4.4-11.0 :32 CMP GAP 9 (Normal) Range: 5-15 CO2 27.0 mmol/L (Normal) Range: 21.0-32.0 CL 106 mmol/L (Normal) Range: 98-107 K 3.7 mmol/L (Normal) Range: 3.5-5.1 NA 142 mmol/L (Normal) Range: 136-145 BIT 0.30 mg/dL (Normal) Range: 0.00-1.00 ALT 37 U/L (Normal) Range: 12-78 ALK 63 U/L (Normal) Range: 50-136 AST 43 U/L (Abnormal) Range: 15-37 CA 9.6 mg/dL (Normal) Range: 8.5-10.1 AG 0.8 {RATIO} (Abnormal) Range: 0.9-2.4 GLOB 3.7 g/dL (Normal) Range: 2.7-4.2 ALB 3.1 g/dL (Abnormal) Range: 3.4-5.0 TPROT 6.8 g/dL (Normal) Range: 6.4-8.2 BC 23.8 {RATIO} (Abnormal) Range: 10-20 GFRAA 96 mL/min (Normal) GFR 79 mL/min (Normal) BUN 19 mg/dL (Abnormal) Range: 7-18 CREAT 0.8 mg/dL (Normal) Range: 0.6-1.0 Comments: RESULTS CALLED TO BILL 01/28/13 MADELIN ASENCIO.REPORT READ BACK BY SAME . GLU 90 mg/dL (Normal) Range: 70-110 02-Bea-136782:31 Sed Rate Erythrocyte (02343) Comments: PATIENT NOT FASTINGPERFORMED BY: [facility] Smkisv2723 [facility] [id number] Sedimentation Rate-Westergren 4 mm/h (Normal) Range: 0-40 60-Axr-820620:31 CBC, Platelets & Auto Comments: PATIENT NOT FASTINGPERFORMED BY: [facility] Rywepa1328 [facility] [id number] Information: [id number] Diff (42468) Immature Grans (Abs) 0.0 {x10E3/uL} (Normal) Range: 0.0-0.1 Immature Granulocytes 0 % (Normal) Range: 0-2 Baso (Absolute) 0.1 {x10E3/uL} (Normal) Range: 0.0-0.2 Eos (Absolute) 0.3 {x10E3/uL} (Normal) Range: 0.0-0.4 Monocytes(Absolute) 0.6 {x10E3/uL} (Normal) Range: 0.1-1.0 Lymphs (Absolute) 4.2 {x10E3/uL} (Normal) Range: 0.7-4.5 Neutrophils (Absolute) 6.3 {x10E3/uL} (Normal) Range: 1.8-7.8 Basos 0 % (Normal) Range: 0-3 Eos 3 % (Normal) Range: 0-7 Monocytes 6 % (Normal) Range: 4-13 Lymphs 37 % (Normal) Range: 14-46 Neutrophils 54 % (Normal) Range: 40-74 Platelets 326 {x10E3/uL} (Normal) Range: 140-415 RDW 14.2 % (Normal) Range: 12.3-15.4 MCHC 33.0 g/dL (Normal) Range: 31.5-35.7 MCH 27.6 pg (Normal) Range: 26.6-33.0 MCV 84 fL (Normal) Range: 79-97 Hematocrit 40.3 % (Normal) Range: 34.0-46.6 Hemoglobin 13.3 g/dL (Normal) Range: 11.1-15.9 RBC 4.82 {x10E6/uL} (Normal) Range: 3.77-5.28 WBC 11.5 {x10E3/uL} (Abnormal) Range: 4.0-10.5 61-Xhu-283154:31 Metabolic Panel, Comprehensive Comments: PATIENT NOT FASTINGPERFORMED BY: [facility]Mdsfxj[facility]1 [facility] [id number] ([id number]) ALT (SGPT) 20 [iU]/L (Normal) Range: 0-32 AST (SGOT) 21 [iU]/L (Normal) Range: 0-40 Alkaline Phosphatase, S 69 [iU]/L (Normal) Range: 25-150 Bilirubin, Total 0.2 mg/dL (Normal) Range: 0.0-1.2 A/G Ratio 1.5 (Normal) Range: 1.1-2.5 Globulin, Total 2.8 g/dL (Normal) Range: 1.5-4.5 Albumin, Serum 4.2 g/dL (Normal) Range: 3.5-5.5 Protein, Total, Serum 7.0 g/dL (Normal) Range: 6.0-8.5 Calcium, Serum 9.7 mg/dL (Normal) Range: 8.7-10.2 Carbon Dioxide, Total 22 mmol/L (Normal) Range: 20-32 Chloride, Serum 102 mmol/L (Normal) Range: 97-108 Potassium, Serum 4.1 mmol/L (Normal) Range: 3.5-5.2 Sodium, Serum 139 mmol/L (Normal) Range: 134-144 BUN/Creatinine Ratio 23 (Normal) Range: 9-23 eGFR If Africn Am 95 mL/min/1.73 (Normal) eGFR If NonAfricn Am 82 mL/min/1.73 (Normal) Creatinine, Serum 0.81 mg/dL (Normal) Range: 0.57-1.00 BUN 19 mg/dL (Normal) Range: 6-24 Glucose, Serum 98 mg/dL (Normal) Range: 65-99 85-Mql-066561:10 OVA & PARASITE DIR SMEAR Comments: PATIENT NOT FASTINGPERFORMED BY: [facility] [id number] Information: SRC:TASNEEM [id number] ([id number]) Result 1 NOCP (Normal) Comments: No ova, cysts, or parasites seen. Ova + Parasite Exam Final report (Normal) Comments: These results were obtained using wet preparation(s) and trichromestained smear. This test does not include testing for Cryptosporidiumparvum, Cyclospora, or Microsporidia. : CDIF See Note (Normal) Comments: A positive result in the glutamate dehydrogenase ofC. Difficile confirms the presence of the organism in a presence of toxigenic C. difficile. An indeterminate result (Antigen Negative/Toxin Positive)wi 25 ll occur in approximaately 10-12% of cases and should betreated as a positive result and retested with a freshspecimen. NOTE that Molecular testing for C. difficile isalso available in these cases. C. DIFF ANTIGENS NEGATIVE :25 CUST SHIGA See Note (Normal) Comments: SHIGA TOXIN 1 AND SHIGA TOXIN 2 NOT DETECTED CULST See Note (Normal) Comments: No Salmonella, Shigella, Yersinia or Campylobacter isolated.No significant amount of Staphylococcus aureus oryeast-like organisms isolated. :25 OP See Note (Normal) Comments: OVA AND PARASITES EXAM, ROUTINEThese results were obtained using wet preparation(s) and trichrome stained smear. Thistest does not include testingfor Crytosporidium parvum,Cyclospora, or Mi crosporidia. TESTING PERFORMED AT [facility]. ORIGINAL REPORT ONFILE IN LAB CONTAINS ADDITIONAL TEST SITE INFORMATION. OVA/ PARASITES EXAM NO OVA, CYSTS, OR PARASITES FOUND. :25 STOB See Note (Normal) Comments: OCCULT BLOOD Negative : WBCST See Note (Normal) Comments: FECAL WBC LACTOFERRIN Negative: No Fecal WBC Lactoferrin present :16 Blood Glucose , Office (99555) Blood Glucose , Office 97 (Normal) Comments: has eaten :04 CBCMD ANC 3.8 3/uL (Normal) Range: 2.0-7.7 IG% 0.10 % (Abnormal) Range: 0.0-0.0 B% 0.5 % (Normal) Range: 0-1 E% 13.1 % (Abnormal) Range: 0-5 M% 8.4 % (Normal) Range: 0-10 L% 34.2 % (Normal) Range: 19-41 N% 43.7 % (Abnormal) Range: 47-70 MPV 11.3 fL (Normal) Range: 6.2-12.0 PLT 261 K/mm3 (Normal) Range: 150-450 RDWSD 44.3 fL (Abnormal) Range: 35.1-43.9 RDWCV 14.7 % (Abnormal) Range: 11.6-14.6 MCHC 32.0 g/dL (Normal) Range: 32-36 MCH 27.4 pg (Normal) Range: 27.0-32.0 MCV 85.5 fL (Normal) Range: 81-99 HCT 40.0 % (Normal) Range: 37-47 HGB 12.8 g/dL (Normal) Range: 12.0-15.0 RBC 4.68 {M/mm3} (Normal) Range: 4.2-5.4 WBC 8.7 {k/mm3} (Normal) Range: 4.4-11.0 :04 CMP GAP 10 (Normal) Range: 5-15 CO2 27.0 mmol/L (Normal) Range: 21.0-32.0 CL 103 mmol/L (Normal) Range: 98-107 K 3.9 mmol/L (Normal) Range: 3.5-5.1 NA 140 mmol/L (Normal) Range: 136-145 BIT 0.40 mg/dL (Normal) Range: 0.00-1.00 *ALT 31 U/L (Normal) Range: 12-78 ALK 58 U/L (Normal) Range: 50-136 AST 19 U/L (Normal) Range: 15-37 CA 8.4 mg/dL (Abnormal) Range: 8.5-10.1 AG 0.9 {RATIO} (Normal) Range: 0.9-2.4 GLOB 3.6 g/dL (Normal) Range: 2.7-4.2 ALB 3.2 g/dL (Abnormal) Range: 3.4-5.0 TPROT 6.8 g/dL (Normal) Range: 6.4-8.2 BC 20.0 {RATIO} (Normal) Range: 10-20 GFRAA 96 mL/min (Normal) GFR 79 mL/min (Normal) CREAT 0.8 mg/dL (Normal) Range: 0.6-1.0 BUN 16 mg/dL (Normal) Range: 7-18 GLU 86 mg/dL (Normal) Range: 70-110 :04 LIPID VLDL 30 mg/dL (Normal) Range: 5-40 CHOL 164 mg/dL (Normal) Comments: <200 mg/dL Ssocbbfpi300-343 mg/dL Borderline>240 mg/dL High Risk HDL 60 mg/dL (Normal) Comments: Reference RangeHDL <40 mg/dL Low HDL CholesterolHDL >or= 60 mg/dL High HDL Cholesterol LDL 74 mg/dL (Normal) Range: 0-130 TRIG 151 mg/dL (Normal) Comments: Serum Triglycerides Reference IntervalNormal <150 mg/dLBorderline high 150 - 199 mg/dLHigh 200 - 499 mg/ dLVery High > or = 500 mg/dL :04 MIACRE tMICROCREAT 3.8 {mg/g_CRE} (Normal) MIALB 7.8 mg/L (Normal) CREU 203.4 mg/dL (Normal) :04 T4F 0.31 ng/dL (Abnormal) Range: 0.76-1.46 :04 TSH 0.37 {uIU/mL} (Normal) Range: 0.358-3.74 :04 VITD 78.9 ng/mL (Normal) Comments: Vitamin D 25(OH) Status RangeDeficiency <20 ng/mL (50nmol/L)Insufficiency 20 - 30 ng/mL (50 - 75 nmol/L)Sufficiency 30 - 100 ng/mL (75 - 250 nm ol/L)Toxicity >100 ng/mL (250 nmol/L)Effective 201204-Aug-201238-Wxv-449559:38 HgA1C , Office (05118) HgA1C , Office 5.4 % (Normal) Range: 4.6 - 7.1 44-Afi-508139:38 Blood Glucose , Office (96976) Blood Glucose , Office 106 (Normal) 52-Fut-048623:10 HgA1C , Office (72799) HgA1C , Office 6.0 % (Normal) Range: 4.6 - 7.1 24-Ise-620098:10 Blood Glucose , Office (96432) Blood Glucose , Office 106 (Normal) :58 CUAN No anaerobic bacteria isolated. (Normal) :58 CUN NAC See Note (Normal) Comments: AMOUNT GROWTH RARE ORGANISM 1: STAPHYLOCOCCUS AUREUS STAPHYLOCOCCUS AUREUS: REACTION BENZYLPENICILLIN - >=0.5 R CIPROFLOXACIN GP (IV/NF) $$ 4 R CLINDAMYCIN $$ <=0.25 S INDUCIBLE CC RESISTANCE (NF)$ Neg - ERYTHROMYCIN $$ >=8 R GENTA MICIN GP $ <=0.5 S LEVOFLOXACIN $ 4 I LINEZOLID $$$ 1 S MOXIFLOXICIN (NF) $$ 1 S OXACILLIN $$ 0.5 S TIGECYCLINE (NF) $$$ <=0.12 S QUINUPRISTIN/DALFOPRI (NF) $$$ <=0.25 S RIFAMPIN $ & lt;=0.5 S TETRACYCLINE $ <=1 S TRIMETHOPRIM/SULFAMETHOXAZ $ <=10 S VANCOMYCIN $ 1 S GS See Note (Normal) Comments: GRAM STAIN NO ORGANISMS SEEN :01 CUUR URC See Note (Normal) Comments: STAPHYLOCOCCUS SAPROPHYTICUS URINE SENSITIVITIES ARE NOTRECOMMENDED PER CLSI GUIDELINES.TREATMENT WITH NITROFURANTOIN, TRIMETHOPRIM SULFA OR AFLUROQUINILONE IS SUGGESTED. COLONY COUNT & gt;100,000 ORGANISM 1: STAPHYLOCOCCUS SAPROPHYTICUS STAPHYLOCOCCUS SAPROPHYTICUS: REACTION BENZYLPENICILLIN - >=0.5 R CIPROFLOXACIN GP (IV/NF) $$ <=0.5 S CLINDAMYCIN $$ <=0.25 S INDUCIBLE CC RESISTANCE (NF)$ Neg - ERYTHROMYCIN $$ >=8 R GENTAMICIN GP $ <=0.5 S LEVOFLOXACIN $ 0.5 S NITROFURANTOIN $ <=16 S OXACILLIN $$ >=4 R RIFA MPIN $ <=0.5 S TETRACYCLINE $ <=1 S VANCOMYCIN $ 1 S 35-Hpi-22839:14 Urinalysis, Office (63445) UA - BILIRUBIN Negative (Normal) UA - BLOOD Hemolyzed Small (Normal) UA - GLUCOSE Negative (Normal) UA - KETONES Negative mg/dL (Normal) UA - LEUKOCYTE ESTERASE Moderate (Normal) UA - NITRITE Negative (Normal) UA - PH 6.0 (Normal) UA - PROTEIN 100 mg/dL (Normal) UA - SPECIFIC GRAVITY 1.020 (Normal) URINE UROBILINGN SAUNDRA TIMED Normal mg/dL (Normal) :55 CMP GAP 10 (Normal) Range: 5-15 CO2 23.0 mmol/L (Normal) Range: 21.0-32.0 CL 106 mmol/L (Normal) Range: 98-107 K 4.0 mmol/L (Normal) Range: 3.5-5.1 NA 139 mmol/L (Normal) Range: 136-145 BIT 0.30 mg/dL (Normal) Range: 0.00-1.00 ALT 43 U/L (Normal) Range: 12-78 ALK 71 U/L (Normal) Range: 50-136 AST 23 U/L (Normal) Range: 15-37 CA 9.2 mg/dL (Normal) Range: 8.5-10.1 AG 0.8 {RATIO} (Abnormal) Range: 0.9-2.4 GLOB 3.9 g/dL (Normal) Range: 2.7-4.2 ALB 3.2 g/dL (Abnormal) Range: 3.4-5.0 TPROT 7.1 g/dL (Normal) Range: 6.4-8.2 BC 17.8 {RATIO} (Normal) Range: 10-20 GFRAA 84 mL/min (Normal) GFR 69 mL/min (Normal) CREAT 0.9 mg/dL (Normal) Range: 0.6-1.0 BUN 16 mg/dL (Normal) Range: 7-18 GLU 98 mg/dL (Normal) Range: 70-110 :55 LIPID VLDL 27 mg/dL (Normal) Range: 5-40 LDL 134 mg/dL (Abnormal) Range: 0-130 HDL 58 mg/dL (Normal) Comments: Reference Range HDL <40 mg/dL Low HDL Cholesterol HDL >or= 60 mg/dL High HDL Cholesterol TRIG 136 mg/dL (Normal) Comments: Serum Triglycerides Reference Interval Normal <150 mg/dL Borderline high 150 - 199 mg/dL High 200 - 499 mg/dL Very High > or = 500 mg/dL CHOL 219 mg/dL (Abnormal) Comments: <200 mg/dL Desirable 200-240 mg/dL Borderline >240 mg/dL High Risk :37 HgA1C , Office (60519) HgA1C , Office 5.8 % (Normal) Range: 4.6 - 7.1 :37 Blood Glucose , Office (13898) Blood Glucose , Office 120 (Normal) 3-Nrq-973667:01 Pathology Report Comments: PERFORMED BY: Nit[employer].IOCYT [facility] [place] Zboj20552 [facility] [id number] BY: ) [facility] [address] [place] [address] [id number] Clinical Inf ormation: [id number] See MATER Comments: Material submitted: .PART A: SHAVE BIOPSY LEFT KNEEPART B: SHAVE BIOPSY L GROINClinical history: .LARGE SKIN TAG Note (Normal) SLARGER AND IRRITATEDDiagnosis:A: FIBROEPITHELIAL POLYP.B: NEVUS LIPOMATOSUS SUPERFICIALIS.CHRISTOPHER/02/08/2012 Electronically signed: .Jennifer Lewis MD, DermatopathologistGross description: .A: SUBMITTED IN FORMALIN LABELED KATHIA VALENTE DESIGNATED LEFT POPLITEAL AREA IS A FRAGMENT OF GORDON/YELLOW TISSUE MEASURING 1.0 X 0.8 X 0.4 CM. THE MARGINS ARE INKED BLUE. THE SPE CIMEN IS SERIALLY SECTIONED INTO FOUR PIECES AND SUBMITTED IN TOTO IN A.B: SUBMITTED IN FORMALIN LABELED KATHIA VALENTE DESIGNATED LEFT GROIN IS A FRAGMENT OF YELLOW TISSUE MEASURING 1.1 X 0. 9 X 0.5 CM. THE MARGINS ARE INKED BLACK. THE SPECIMEN IS TRISECTED AND SUBMITTED IN TOTO IN B.XJW/JASPathologist provided ICD-9:701.9, 216.5CPT .750542, 164608 28-Jan-20129:19 CBCMD RBCM NORM C+C {NORMAL} (Normal) PE ADEQUATE (Normal) EOS 1 % (Normal) Range: 0-5 MON 5 % (Normal) Range: 0-10 LYMPH 29 % (Normal) Range: 19-41 BAND 5 % (Normal) Range: 0-5 PMN 60 % (Normal) Range: 47-70 SHANKAR 100 (Normal) ANC 4.5 3/uL (Normal) Range: 2.0-7.7 PLT 320 K/mm3 (Normal) Range: 150-450 RDW 15.0 % (Abnormal) Range: 11.6-14.6 MCHC 34.1 g/dL (Normal) Range: 32-36 MCH 28.8 pg (Normal) Range: 27.0-32.0 MCV 84.4 fL (Normal) Range: 81-99 HCT 37.7 % (Normal) Range: 37-47 HGB 12.8 g/dL (Normal) Range: 12.0-16.0 RBC 4.47 {M/mm3} (Normal) Range: 4.2-5.4 WBC 7.9 K/mm3 (Normal) Range: 4.4-11.0 :19 VITD 80.6 ng/mL (Normal) Range: 30.0-100.0 Comments: Vitamin D deficiency has been defined by the [place] of[place]icine and an Endocrine Society practice guideline as alevel of serum 25-OH vitamin D less than 20 ng/mL (1,2).The Endocrine Society went on to further define vitamin Dinsufficiency as a level between 21 and 29 ng/mL (2).1. IOM ([place] of Medicine). 2010. Dietary reference intakes for calcium and D. [place]: The National Academies Press.2. Coy MF, Raya NC, Armida PARADA, et al. Evaluation, treatment, and prevention of vitamin D deficiency: an Endocrine Society clinical practice guideline. JCEM. 2010; 96(7): 1911-30.Performed at: [facility] [address] [id number] Director: Shahrzad Clifford MD, Phone: [phone] 70-Lki-376791:33 Urinalysis, Office (16777) UA - BILIRUBIN Negative (Normal) UA - BLOOD Negative (Normal) UA - GLUCOSE Negative (Normal) UA - KETONES Negative mg/dL (Normal) UA - LEUKOCYTE ESTERASE Negative (Normal) UA - NITRITE Negative (Normal) UA - PH 6.0 (Normal) UA - PROTEIN Negative mg/dL (Normal) UA - SPECIFIC GRAVITY 1.025 (Normal) URINE UROBILINGN SAUNDRA TIMED Normal mg/dL (Normal) 24-Yoq-245076:06 HgA1C , Office (45388) HgA1C , Office 5.8 % (Normal) Range: 4.6 - 7.1 :19 QFTBINC tQFTBAGNIL 0.10 {IU/mL} (Normal) tQFTBINT Comment (Normal) Comments: The QuantiFERON TB Gold (in Tube) assay is intended for useas an aid in the diagnosis of TB infection. Negativeresults suggest that there is no TB infection. In patientswith high suspicion of exposure, a negative test should berepeated. A positive test indicates infection withMycobacterium tuberculosis. Among individuals withouttuberculosis infection, a positive test may be due toexposure to M. k[place] ii, M. szulgai or M. marinum. On theInternet, go to cdc.gov/tb for further details. .The specimen received for QuantiFERON testing was incubated by the ordering institution. Specific procedures outlinedin our Directory of Services and in the package insert forthe QuantiFERON Gold (In Tube) test must be followed toenable for proper stimulation o f cells for the productionof interferon gamma.Performed at: [address] [id number] Director: Carlos A Stover MD, Phone: [phone] tQFTBMIT > 10.00 {IU/mL} (Normal) tQFTBNIL 0.05 {IU/mL} (Normal) tQFTBAG 0.15 {IU/mL} (Normal) tQFTBPC Comment (Normal) Comments: To be considered positive a specimen should have a TB Agminus Nil value greater than or equal to 0.35 IU/mL and inaddition the TB Ag minus Nil value must be greater than orequal to 25% of the Nil value. There may be insufficientinformation in these values to differentiate between somenegative and some indeterminate test values. tQFTBGD Negative (Normal) 28-Jan-20129:19 PROEL tPROELIN Comment (Normal) Comments: The SPE pattern appears essentially unremarkable. Evidenceof monoclonal protein is not apparent.Protein electrophoresis scan will follow via computer,mail, or corporate event planner delivery. tPROELAG 1.1 (Normal) Range: 0.7-2.0 tPROELGL 3.0 g/dL (Normal) Range: 2.0-4.5 tPROELMS Not Observed g/dL (Normal) tPROELGA 0.7 g/dL (Normal) Range: 0.5-1.6 tPROELBE 1.2 g/dL (Normal) Range: 0.6-1.3 tPROELAL1 0.3 g/dL (Normal) Range: 0.1-0.4 tPROELAL2 0.9 g/dL (Normal) Range: 0.4-1.2 tPROELALB 3.4 g/dL (Normal) Range: 3.2-5.6 $tPROELTP 6.4 g/dL (Normal) Range: 6.0-8.5 :27 CBCD,SMEAR DIFF RED CELL MORPH SeeNote {NORMAL} (Normal) Comments: Result: NORM C+C PLT EST SeeNote (Normal) Comments: Result: ADEQUATE MONOCYTE 4 % (Normal) Range: 0-10 LYMPH 27 % (Normal) Range: 19-41 BAND 11 % (Abnormal) Range: 0-5 SEGS 58 % (Normal) Range: 47-70 CELLS COUNTED 100 (Normal) ABSOLUTE NEUT 8.8 3/uL (Abnormal) Range: 2.0-7.7 PLT 364 K/mm3 (Normal) Range: 150-450 RDW 15.8 % (Abnormal) Range: 11.6-14.6 MCHC 34.1 g/dL (Normal) Range: 32-36 MCH 28.3 pg (Normal) Range: 27.0-32.0 MCV 82.9 fL (Normal) Range: 81-99 HCT 40.6 % (Normal) Range: 37-47 HGB 13.8 g/dL (Normal) Range: 12.0-16.0 RBC 4.89 {M/mm3} (Normal) Range: 4.2-5.4 WBC 12.9 K/mm3 (Abnormal) Range: 4.4-11.0 :27 FREE T3 2.1 pg/mL (Abnormal) Range: 2.18-3.98 :27 T4 FREE DIRECT 0.27 ng/dL (Abnormal) Range: 0.76-1.46 :27 TSH 1.31 {uIU/mL} (Normal) Range: 0.358-3.74 60-Tnw-887824:54 UNILAT LT DIAG DIGITAL & CAD Radiology Report See Note (Normal) Comments: MAMMOGRAPHY - UNILATERAL DIAGNOSTIC: LEFT BREAST REASON FOR EXAM: Female, 56 years old. Abnormal screening mammogram. PERTINENT HISTORY: Non-contributory. TECHNIQUE: Digital examinati on. A 90 de gree lateral view as well ascompression spot views of the left breast were obtained. CAD: CAD wasperformed on this study. COMPARISON: Comparison is made with prior examination dated July. FINDINGS:The breast composition is composed of scattered fibroglandular densities. There is a 9.3-mm nodular density in the upper lateral aspect of the leftbreast. Ultrasound is recommended. No other s ignificant abnormalities are identified. IMPRESSION:Nodular density in the left breast as described. Correlation withultrasound is suggested . ASSESSMENT CATEGORY:BIRADS Category 0: Need additional cem ging evaluation and/or priormammograms for comparison. A letter regarding these results will be sentto the patient by the facility within 30 days. Approximately 10% of breast cancers are not detected b y mammography. Anormal mammogram should not delay biopsy of a clinically suspiciousabnormality. To consult with a radiologist regarding this report, please call our [id number] line @ Dictated on 09/05/11 1327 by Rosalba Dorsey MDranscribed on 09/05/11 1505 by ITS IMPORTSign by Ruperto Dorsey MD on 09/05/11 1506 Sign by: ____ Ruperto Dorsey MD [id number] BREAST UNILATERAL Radiology Report See Note (Normal) Comments: PROCEDURE: ULTRASOUND BREAST(S) - LEFT REASON FOR EXAM: Female, 56 years old. TECHNIQUE: Axial and longitudinal images of the LEFT breast wereperformed with a high resolution ultrasound transduce r. COMPARISON: None. FINDINGS: LEFT BREAST:There is a 1.1 cm x 1 cm x 1.7 cm hypoechoic nodule at the 3 o'clocklesionof the breast at 3 cm from the nipple. This has a vertical orientation.Abiopsy is recommended. There is also evidence of a 1.7 cm x 1.7 cm x 0.8cm well-defined hypoechoic nodule at the 3 o'clock position of the breastat 4 cm from the nipple with slight increased echotexture in the c enterofit. This may represent a small lymph node. IMPRESSION:Nodular density at the 3 o'clock position of the breast at 3 centimetersfrom the nipple. A biopsy is suggested. ASSESSMENT CATEGORY:BIRADS Category 4: Suspicious Abnormality - Biopsy Should Be Considered. To consult with a radiologist regarding this report, please call our [id number] line @ Dictated on 09/05/11 1130 by Willian JOSEPH,MengriJuliethranscribed on 09/06/11 1223 by ITS IMPORTSign by Ruperto Dorsey MD on 09/06/11 1224 Sign by: Ruperto Dorsey MD 29-Aug-20118:38 Rapid Strep Test, Office ([id number]) Rapid Strep Test, Negative (Normal) Office 29-Aug-20119:17 CULTURE, THROAT See Note (Normal) Comments: Penicillin is the drug of choice for Beta Streptococcalinfections. For Penicillin allergic patients, Erythromycinmay be used.COPY OF REPORT SENT TO [facility]CTION [facility] 08/31/11 1055[facility] AMOUNT GROW TH 2+ ORGANISM 1: GROUP A BETA STREPTOCOCCUS [id number] BILAT SCRN DIGITAL & CAD Radiology Report See Note (Normal) Comments: MAMMOGRAPHY - BILATERAL SCREENING REASON FOR EXAM: Female, 56 years old. Routine annual screeningexamination. PERTINENT HISTORY: Non-contributory. TECHNIQUE: Digital examination. Med iolateral ob lique (MLO) andcraniocaudad (CC) views of both breasts were obtained. CAD: CAD wasperformed on this study. COMPARISON: Comparison mammogram study of 06/05/2010. FINDINGS:The breast composition is comp osed of scattered fibroglandular densities. A 10 x 20 mm spiculated mass like density in the superior outer aspect ofthe left breast is noted and requires additional workup. There are no suspicious mass es or suspicious microcalcifications in theright breast. Partially obscured stable isodense masses are seen in bothbreasts. Stable nodular densities are seen in both breasts. Benignroundcalcification s are seen in both breasts.CAD images were reviewed.No other significant abnormalities are identified. IMPRESSION:The masslike density in the superior outer aspect of the left breastrequires additional workup. The patient should return for an LM view ofthe left breast as well as spot compression CC and spot compression MLOview of the left breast mass like density. An ultrasound may also beneeded. SESSMENT CATEGORY:BIRADS Category 0: Need additional imaging evaluation and/or priormammograms for comparison. A letter regarding these results will be sentto the patient by the facility within 30 day s. Approximately 10% of breast cancers are not detected by mammography. Anormal mammogram should not delay biopsy of a clinically suspiciousabnormality. To consult with a radiologist regarding this rep ort, please call our [id number] line @ Dictated on 08/24/11 1430 by Marissa Mccullough DOeTranscribed on 08/26/11 0800 by ITS IMPORTSign by Sherin Mccullough DO on 08/26/11 0801 Sign by: Sherin Mccullough DO 30-Oct-20117:27 COMP METABOLIC GAP 10 (Normal) Range: 5-15 CO2 24.0 mmol/L (Normal) Range: 21.0-32.0 CL 104 mmol/L (Normal) Range: 98-107 K 4.0 mmol/L (Normal) Range: 3.5-5.1 NA 138 mmol/L (Normal) Range: 136-145 T BILI 0.30 mg/dL (Normal) Range: 0.00-1.00 ALT 25 U/L (Normal) Range: 12-78 ALK P 60 U/L (Normal) Range: 50-136 AST 10 U/L (Abnormal) Range: 15-37 CA 8.7 mg/dL (Normal) Range: 8.5-10.1 A/G 0.8 {RATIO} (Abnormal) Range: 0.9-2.4 GLOB 4.3 g/dL (Abnormal) Range: 2.7-4.2 ALB 3.3 g/dL (Abnormal) Range: 3.4-5.0 T PROT 7.6 g/dL (Normal) Range: 6.4-8.2 BUN/CRE 30.0 {RATIO} (Abnormal) Range: 10-20 EST GFR - AA 96 mL/min (Normal) EST GFR 79 mL/min (Normal) CREAT,SERUM 0.8 mg/dL (Normal) Range: 0.6-1.0 BUN 24 mg/dL (Abnormal) Range: 7-18 GLU 107 mg/dL (Normal) Range: 70-110 [id number] LQDPAP [id number] PAPSMR Comment (Normal) Comments: The Pap smear is a screening test designed to aid in thedetection of premalignant and malignant conditions of theuterine cervix. It is not a diagnostic procedure andshould not be used as the sole means of detecting cervicalcancer. Both false-positive and false-negative reports dooccur. .The HPV DNA reflex criteria were not met with this speci menresult therefore, no HPV testing was performed. .Performed at: - [facility] [id number] Director: Annette Walsh MD, Phone: [phone] COMM . (Normal) DIAGN Comment (Normal) Comments: NEGATIVE FOR INTRAEPITHELIAL LESION AND MALIGNANCY.Satisfactory for evaluation. Endocervical and/or squamous metaplasticcells (endocervical component) are present.Giancarlo Hammonds, Roller [employer] (ASCP) This liquid based ThinPrep(R) pap test was screened withthe use of an image guided system. :55 CBCD,SMEAR DIFF RED CELL MORPH SeeNote {NORMAL} (Normal) Comments: Result: NORM C+C PLT EST SeeNote (Normal) Comments: Result: ADEQUATE MONOCYTE 2 % (Normal) Range: 0-10 LYMPH 32 % (Normal) Range: 19-41 BAND 5 % (Normal) Range: 0-5 SEGS 61 % (Normal) Range: 47-70 CELLS COUNTED 100 (Normal) ABSOLUTE NEUT 7.4 3/uL (Normal) Range: 2.0-7.7 PLT 331 K/mm3 (Normal) Range: 150-450 RDW 15.7 % (Abnormal) Range: 11.6-14.6 MCHC 33.8 g/dL (Normal) Range: 32-36 MCH 27.6 pg (Normal) Range: 27.0-32.0 MCV 81.8 fL (Normal) Range: 81-99 HCT 37.5 % (Normal) Range: 37-47 HGB 12.6 g/dL (Normal) Range: 12.0-16.0 RBC 4.58 {M/mm3} (Normal) Range: 4.2-5.4 WBC 11.1 K/mm3 (Abnormal) Range: 4.4-11.0 :30 CBCD,SMEAR DIFF RED CELL MORPH SeeNote {NORMAL} (Normal) Comments: Result: NORM C+C PLT EST SeeNote (Normal) Comments: Result: ADEQUATE EOS 1 % (Normal) Range: 0-5 MONOCYTE 8 % (Normal) Range: 0-10 LYMPH 25 % (Normal) Range: 19-41 SEGS 66 % (Normal) Range: 47-70 CELLS COUNTED 100 (Normal) ABSOLUTE NEUT 7.6 3/uL (Normal) Range: 2.0-7.7 PLT 334 K/mm3 (Normal) Range: 150-450 RDW 15.9 % (Abnormal) Range: 11.6-14.6 MCHC 33.7 g/dL (Normal) Range: 32-36 MCH 28.0 pg (Normal) Range: 27.0-32.0 MCV 83.1 fL (Normal) Range: 81-99 HCT 38.5 % (Normal) Range: 37-47 HGB 12.9 g/dL (Normal) Range: 12.0-16.0 RBC 4.63 {M/mm3} (Normal) Range: 4.2-5.4 WBC 11.3 K/mm3 (Abnormal) Range: 4.4-11.0 :30 COMP METABOLIC Comments: appt 05/17/11 GAP 10 (Normal) Range: 5-15 CO2 24.0 mmol/L (Normal) Range: 21.0-32.0 CL 104 mmol/L (Normal) Range: 98-107 K 4.0 mmol/L (Normal) Range: 3.5-5.1 NA 138 mmol/L (Normal) Range: 136-145 T BILI 0.30 mg/dL (Normal) Range: 0.00-1.00 ALT 20 U/L (Normal) Range: 12-78 ALK P 59 U/L (Normal) Range: 50-136 AST 9 U/L (Abnormal) Range: 15-37 CA 8.7 mg/dL (Normal) Range: 8.5-10.1 A/G 0.9 {RATIO} (Normal) Range: 0.9-2.4 GLOB 3.9 g/dL (Normal) Range: 2.7-4.2 ALB 3.4 g/dL (Normal) Range: 3.4-5.0 T PROT 7.3 g/dL (Normal) Range: 6.4-8.2 BUN/CRE 21.1 {RATIO} (Abnormal) Range: 10-20 EST GFR - AA 84 mL/min (Normal) EST GFR 69 mL/min (Normal) CREAT,SERUM 0.9 mg/dL (Normal) Range: 0.6-1.0 BUN 19 mg/dL (Abnormal) Range: 7-18 GLU 98 mg/dL (Normal) Range: 70-110 :30 FREE T3 2.7 pg/mL (Normal) Range: 2.18-3.98 :30 LIPID VLDL 37 mg/dL (Normal) Range: 5-40 LDL 87 mg/dL (Normal) Range: 0-130 HDL 48 mg/dL (Normal) Comments: Reference Range HDL <40 mg/dL Low HDL Cholesterol HDL >or= 60 mg/dL High HDL Cholesterol TRIG 184 mg/dL (Normal) Comments: Serum Triglycerides Reference Interval Normal <150 mg/dL Borderline high 150 - 199 mg/dL High 200 - 499 mg/dL Very High > or = 500 mg/dL CHOL 172 mg/dL (Normal) Comments: <200 mg/dL Desirable 200-240 mg/dL Borderline >240 mg/dL High Risk :30 T4 FREE DIRECT 0.47 ng/dL (Abnormal) Range: 0.76-1.46 :30 TSH 1.26 {uIU/mL} (Normal) Range: 0.358-3.74 :30 VIT D,25 70509 94.5 ng/mL (Normal) Comments: appt 05/17/11 Range: 32.0-100.0 Comments: Recent studies consider the lower limit of 32.0 ng/mL to ronn threshold for optimal health.Sp WYLIE. J Nutr. 2004;135(2):317-22.Performed at: [facility] [address] [id number]Lab Director: Shahrzad Clifford MD, Phone: [phone] :[phone] CULTURE, THROAT See Note (Normal) Comments: Normal throat samuel isolated. No beta-hemolyticstreptococcus isolated. :32 Rapid Strep Test, Office ([id number]) Rapid Strep Test, Office Negative (Normal) :21 CBCD,SMEAR DIFF PLT EST SeeNote (Normal) Comments: Result: ADEQUATE RED CELL MORPH SeeNote {NORMAL} (Normal) Comments: Result: NORM C+C EOS 2 % (Normal) Range: 0-5 MONOCYTE 9 % (Normal) Range: 0-10 OTHER WBC TYPE 1 % (Normal) ABSOLUTE NEUT 4.5 3/uL (Normal) Range: 2.0-7.7 BAND 1 % (Normal) Range: 0-5 CELLS COUNTED 100 (Normal) LYMPH 43 % (Abnormal) Range: 19-41 SEGS 44 % (Abnormal) Range: 47-70 PLT 298 K/mm3 (Normal) Range: 150-450 RDW 15.9 % (Abnormal) Range: 11.6-14.6 MCH 28.9 pg (Normal) Range: 27.0-32.0 MCHC 33.8 g/dL (Normal) Range: 32-36 MCV 85.5 fL (Normal) Range: 81-99 HCT 35.5 % (Abnormal) Range: 37-47 HGB 12.0 g/dL (Normal) Range: 12.0-16.0 RBC 4.16 {M/mm3} (Abnormal) Range: 4.2-5.4 WBC 8.4 K/mm3 (Normal) Range: 4.4-11.0 :21 COMP METABOLIC CO2 24.0 mmol/L (Normal) Range: 21.0-32.0 GAP 9 (Normal) Range: 5-15 CL 106 mmol/L (Normal) Range: 98-107 K 3.5 mmol/L (Normal) Range: 3.5-5.1 NA 139 mmol/L (Normal) Range: 136-145 ALT 25 U/L (Normal) Range: 12-78 T BILI 0.20 mg/dL (Normal) Range: 0.00-1.00 ALK P 47 U/L (Abnormal) Range: 50-136 AST 19 U/L (Normal) Range: 15-37 CA 8.6 mg/dL (Normal) Range: 8.5-10.1 A/G 0.7 {RATIO} (Abnormal) Range: 0.9-2.4 GLOB 3.8 g/dL (Normal) Range: 2.7-4.2 ALB 2.8 g/dL (Abnormal) Range: 3.4-5.0 T PROT 6.6 g/dL (Normal) Range: 6.4-8.2 BUN/CRE 20.0 {RATIO} (Normal) Range: 10-20 EST GFR 80 mL/min (Normal) EST GFR - AA 97 mL/min (Normal) CREAT,SERUM 0.8 mg/dL (Normal) Range: 0.6-1.0 BUN 16 mg/dL (Normal) Range: 7-18 GLU 92 mg/dL (Normal) Range: 70-110 :21 FREE T3 3.1 pg/mL (Normal) Range: 2.18-3.98 :21 LIPID VLDL 30 mg/dL (Normal) Range: 5-40 HDL 50 mg/dL (Normal) Comments: Reference Range HDL <40 mg/dL Low HDL Cholesterol HDL >or= 60 mg/dL High HDL Cholesterol LDL 90 mg/dL (Normal) Range: 0-130 TRIG 149 mg/dL (Normal) Comments: Serum Triglycerides Reference Interval Normal <150 mg/dL Borderline high 150 - 199 mg/dL High 200 - 499 mg/dL Very High > or = 500 mg/dL CHOL 170 mg/dL (Normal) Comments: <200 mg/dL Desirable 200-240 mg/dL Borderline >240 mg/dL High Risk :21 T4 FREE DIRECT 0.48 ng/dL (Abnormal) Range: 0.76-1.46 :21 TSH 0.75 {uIU/mL} (Normal) Range: 0.358-3.74 :21 VIT D,25 14941 70.2 ng/mL (Normal) Range: 32.0-100.0 Comments: Recent studies consider the lower limit of 32.0 ng/mL to ronn threshold for optimal health.Sp WYLIE. J Nutr. 2004;135(2):317-22.Performed at: - [place] [address]Lab Director: Shahrzad Clifford MD, Phone: [phone] 1-Mar-29480:00 CULTURE, THROAT See Note (Normal) Comments: Normal throat samuel isolated. No beta-hemolyticstreptococcus isolated. [id number]:36 PAP I-G [id number] GC BY NUC ACID SeeNote (Normal) Comments: Result: NEGATIVE CHLAMY,NUC ACID SeeNote (Normal) Comments: Result: NEGATIVE COMM . (Normal) PAPSMR Comment (Normal) Comments: The Pap smear is a screening test designed to aid in thedetection of premalignant and malignant conditions of theuterine cervix. It is not a diagnostic procedure andshould not be used as the sole means of detecting cervicalcancer. Both false-positive and false-negative reports dooccur. .The HPV DNA reflex criteria were not met with this speci menresult therefore, no HPV testing was performed. . DIAGN Comment (Normal) Comments: NEGATIVE FOR INTRAEPITHELIAL LESION AND MALIGNANCY.Satisfactory for evaluation. Endocervical and/or squamous metaplasticcells (endocervical component) are present.Malcolm Santillan Roller Pneumatic (ASCP)Th is liquid based ThinPrep(R) pap test was screened withthe use of an image guided system. [id number] BILAT SCRN DIGITAL & CAD Radiology Report See Note (Normal) Comments: Exam Number: [id number] AMMOGRAPHY - BILATERAL SCREENING INDICATION:Routine annual screening examination. PERTINENT HISTORY:Non-contributory. TECHNIQUE:Digital examination. Mediolateral oblique (MLO) an d craniocaudad (CC) views of both breasts were obtained. CAD was performed on this study. COMPARISON:June 03, 2009 and March 14, 2007 FINDINGS:The breast composition is composed of scattered fibroglan dular densities. There are no masses or suspicious microcalcifications. No other significant abnormalities are identified. IMPRESSION:Normal bilateral screening mammogram. Yearly follow-up recommended. ASSESSMENT CATEGORY:Category 2: Benign finding(s) Approximately 10% of breast cancers are not detected by mammography. A normal mammogram should not delay biopsy of a clinically suspicious abnormality. Reported By: THAO MILLER ESTRADIOL 4515 76.6 pg/mL (Normal) Comments: Adult Female:Follicular phase 12.5 - 166.0Ovulation phase 85.8 - 498.0Luteal phase 43.8 - 211.0Postmenopausal <6.0 - [id number] trimester 215.0 - >4300.0Girls (1- 2:05 10 years) 6.0 - 27.0Roche ECLIA methodology FSH 4309 12.2 m[iU]/mL Comments: Follicular phase 3.5 - 12.5Ovulation phase 4.7 - 21.5Luteal phase 1.7 - 7.7Postmenopausal 25.8 - 134.8Performed at: - [facility] [address] 2:05 (Normal) [id number] Director: Shahrzad Clifford MD, Phone: [phone] :[phone] CBCD,SMEAR DIFF ABSOLUTE NEUT 4.4 3/uL (Normal) Range: 2.0-7.7 BAND 1 % (Normal) Range: 0-5 CELLS COUNTED 100 (Normal) EOS 4 % (Normal) Range: 0-5 LYMPH 39 % (Normal) Range: 19-41 MCHC 33.7 g/dL (Normal) Range: 32-36 MONOCYTE 1 % (Normal) Range: 0-10 PLT 297 K/mm3 (Normal) Range: 150-450 PLT EST SeeNote (Normal) Comments: Result: ADEQUATE RDW 14.6 % (Normal) Range: 11.6-14.6 RED CELL MORPH SeeNote {NORMAL} (Normal) Comments: Result: NORM C+C SEGS 55 % (Normal) Range: 47-70 HCT 37.5 % (Normal) Range: 37-47 HGB 12.6 g/dL (Normal) Range: 12.0-16.0 MCH 28.5 pg (Normal) Range: 27.0-32.0 MCV 84.5 fL (Normal) Range: 81-99 RBC 4.44 {M/mm3} (Normal) Range: 4.2-5.4 WBC 7.8 K/mm3 (Normal) Range: 4.4-11.0 :53 COMP METABOLIC ALT 24 U/L (Normal) Range: 12-78 CL 104 mmol/L (Normal) Range: 98-107 CO2 24.0 mmol/L (Normal) Range: 21.0-32.0 GAP 11 (Normal) Range: 5-15 K 3.7 mmol/L (Normal) Range: 3.5-5.1 NA 139 mmol/L (Normal) Range: 136-145 T BILI 0.10 mg/dL (Normal) Range: 0.00-1.00 A/G 0.8 {RATIO} (Abnormal) Range: 0.9-2.4 ALB 3.1 g/dL (Abnormal) Range: 3.4-5.0 ALK P 62 U/L (Normal) Range: 50-136 AST 12 U/L (Abnormal) Range: 15-37 BUN 16 mg/dL (Normal) Range: 7-18 BUN/CRE 17.8 {RATIO} (Normal) Range: 10-20 CA 8.6 mg/dL (Normal) Range: 8.5-10.1 CREAT,SERUM 0.9 mg/dL (Normal) Range: 0.6-1.0 EST GFR 70 mL/min (Normal) EST GFR - AA 85 mL/min (Normal) GLOB 3.8 g/dL (Normal) Range: 2.7-4.2 T PROT 6.9 g/dL (Normal) Range: 6.4-8.2 GLU 93 mg/dL (Normal) Range: 70-110 :53 FREE T3 2.9 pg/mL (Normal) Range: 2.18-3.98 :53 LIPID CHOL 175 mg/dL (Normal) Comments: <200 mg/dL Vrqcfsbxy661-435 mg/dL Borderline>240 mg/dL High Risk HDL 50 mg/dL (Normal) Comments: Reference RangeHDL <40 mg/dL Low HDL CholesterolHDL >or= 60 mg/dL High HDL Cholesterol LDL 104 mg/dL (Normal) Range: 0-130 TRIG 105 mg/dL (Normal) Comments: Serum Triglycerides Reference IntervalNormal <150 mg/dLBorderline high 150 - 199 mg/dLHigh 200 - 499 mg/ dLVery High > or = 500 mg/dL VLDL 21 mg/dL (Normal) Range: 5-40 :53 MICROALB:CRE UR MALB:CREAT 10.0 {mg/g_CRE} (Normal) MICROALBUMIN,UR 18.3 mg/L (Normal) UR CREAT 181.8 mg/dL (Normal) :53 T4 FREE DIRECT 0.45 ng/dL (Abnormal) Range: 0.76-1.46 :53 TSH 0.34 {uIU/mL} (Abnormal) Range: 0.358-3.74 :53 VIT D,25 87295 51.5 ng/mL (Normal) Range: 32.0-100.0 Comments: Recent studies consider the lower limit of 32.0 ng/mL to ronn threshold for optimal health.[facility]. J Nutr. 2004;135(2):317-22.Performed at: [facility] [employer] [id number]Lab Director: Shahrzad Clifford MD, Phone: [phone] :[phone] VIT D,25 40510 63.3 ng/mL (Normal) Range: 32.0-100.0 Comments: Recent studies consider the lower limit of 32.0 ng/mL to ronn threshold for optimal health.[facility]. J Nutr. 2004;135(2):317-22.Performed at: [employer] [id number]Lab Director: Shahrzad Clifford MD, Phone: [phone] [id number]:02 GLU 95 mg/dL (Normal) Range: 70-110 :01 CBCD,SMEAR DIFF EOS 1 % (Normal) Range: 0-5 LYMPH 42 % (Abnormal) Range: 19-41 MONOCYTE 7 % (Normal) Range: 0-10 PLT EST SeeNote (Normal) Comments: Result: ADEQUATE RED CELL MORPH SeeNote {NORMAL} (Normal) Comments: Result: NORM C+C BAND 5 % (Normal) Range: 0-5 CELLS COUNTED 100 (Normal) HCT 42.8 % (Normal) Range: 37-47 HGB 13.9 g/dL (Normal) Range: 12.0-16.0 MCH 28.0 pg (Normal) Range: 27.0-32.0 MCHC 32.5 g/dL (Normal) Range: 32-36 MCV 86.2 fL (Normal) Range: 81-99 PLT 355 K/mm3 (Normal) Range: 150-450 RBC 4.97 {M/mm3} (Normal) Range: 4.2-5.4 RDW 14.4 % (Normal) Range: 11.6-14.6 SEGS 45 % (Abnormal) Range: 47-70 WBC 9.0 K/mm3 (Normal) Range: 4.4-11.0 :01 COMP METABOLIC CL 104 mmol/L (Normal) Range: 98-107 CO2 21.0 mmol/L (Normal) Range: 21.0-32.0 GAP 19 (Abnormal) Range: 5-15 K 3.5 mmol/L (Normal) Range: 3.5-5.1 A/G 0.8 {RATIO} (Abnormal) Range: 0.9-2.4 ALB 3.3 g/dL (Abnormal) Range: 3.4-5.0 ALK P 71 U/L (Normal) Range: 50-136 ALT 29 U/L (Normal) Range: 12-78 AST 10 U/L (Abnormal) Range: 15-37 BUN/CRE 19.0 {RATIO} (Normal) Range: 10-20 CA 9.0 mg/dL (Normal) Range: 8.5-10.1 CREAT,SERUM 1.0 mg/dL (Normal) Range: 0.6-1.0 EST GFR 62 mL/min (Normal) EST GFR - AA 75 mL/min (Normal) GLOB 4.1 g/dL (Normal) Range: 2.7-4.2 NA 144 mmol/L (Normal) Range: 136-145 T BILI 0.30 mg/dL (Normal) Range: 0.00-1.00 T PROT 7.4 g/dL (Normal) Range: 6.4-8.2 BUN 19 mg/dL (Abnormal) Range: 7-18 GLU 104 mg/dL (Normal) Range: 70-110 :01 LIPID VLDL 43 mg/dL (Abnormal) Range: 5-40 CHOL 216 mg/dL (Abnormal) Comments: <200 mg/dL Qvebijumk915-495 mg/dL Borderline>240 mg/dL High Risk HDL 57 mg/dL (Normal) Comments: Reference RangeHDL <40 mg/dL Low HDL CholesterolHDL >or= 60 mg/dL High HDL Cholesterol LDL 116 mg/dL (Normal) Range: 0-130 TRIG 213 mg/dL (Abnormal) Comments: Serum Triglycerides Reference IntervalNormal <150 mg/dLBorderline high 150 - 199 mg/dLHigh 200 - 499 mg/ dLVery High > or = 500 mg/dL :01 MICROALB:CRE UR MALB:CREAT 5.7 {mg/g_CRE} (Normal) MICROALBUMIN,UR 17.7 mg/L (Normal) UR CREAT 309.8 mg/dL (Normal) Comments: Test repeated and verified by dilution. :45 FREE T3 3.2 pg/mL (Normal) Range: 2.18-3.98 :45 T4 FREE DIRECT 0.5 ng/dL (Abnormal) Range: 0.76-1.146 :45 TSH 0.27 {uIU/mL} (Abnormal) Range: 0.358-3.74 :32 Rapid Strep Test, Office (24355) Rapid Strep Test, Negative (Normal) Office :51 BC No growth in 5 days. (Normal) :51 C DIF TOXIN See Note (Normal) Comments: C. DIFF TOXINS A&B NEGATIVE :51 CUL STOOL/SHIG CULTURE, STOOL See Note (Normal) Comments: No Salmonella, Shigella, Yersinia or Campylobacter isolated.No significant amount of Staphylococcus aureus oryeast-like organisms isolated. SHIGA-TOXIN See Note (Normal) Comments: SHIGA-TOXIN 1 & 2 SHIGA TOXIN 1 AND SHIGA TOXIN 2 NOT DETECTED : LDH 148 U/L (Normal) Range: 100-190 :51 O AND P See Note (Normal) Comments: OVA AND PARASITES EXAM, ROUTINE These results were obtained using wet preparation(s) and trichrome stained smear. This test does not include testing for Crytosporidium parvum, Cyclospora, or Microspo ridia. TESTING PERFORMED AT [facility]. ORIGINAL REPORT ON FILE IN LAB CONTAINS ADDITIONAL TEST SITE INFORMATION. OVA/ PARASITES EXAM NO OVA, CYSTS, OR PARASITES FOUND. :51 WBC,STOOL See Note (Normal) Comments: FECAL WBCs NONE SEEN [id number] CULTURE, URINE URINE CULTURE See Note {CFU/mL} (Normal) Comments: COLONY COUNT 1000-10,000 ORGANISM 1: MIXED GRAM POSITIVE ORGANISMS :06 CBCD,SMEAR DIFF EOS 7 % (Abnormal) Range: 0-5 LYMPH 27 % (Normal) Range: 19-41 MONOCYTE 6 % (Normal) Range: 0-10 PLT EST SeeNote (Normal) Comments: Result: ADEQUATE RED CELL MORPH SeeNote {NORMAL} (Normal) Comments: Result: NORM C+C BAND 2 % (Normal) Range: 0-5 CELLS COUNTED 100 (Normal) HCT 38.3 % (Normal) Range: 37-47 HGB 12.8 g/dL (Normal) Range: 12.0-16.0 MCH 28.1 pg (Normal) Range: 27.0-32.0 MCHC 33.4 g/dL (Normal) Range: 32-36 MCV 84.2 fL (Normal) Range: 81-99 PLT 333 K/mm3 (Normal) Range: 150-450 RBC 4.55 {M/mm3} (Normal) Range: 4.2-5.4 RDW 15.2 % (Abnormal) Range: 11.6-14.6 SEGS 58 % (Normal) Range: 47-70 WBC 13.8 K/mm3 (Abnormal) Range: 4.4-11.0 [id number]:26 BILAT SCRN DIGITAL & CAD Radiology Report See Note (Normal) Comments: Exam Number: [id number] MAMMOGRAM, BILATERAL SCREENING DIGITAL AND CAD HISTORYRoutine screening. Full field digital images were obtained in mediolateral oblique andcraniocaudal projections. CAD images w ere reviewed. The current study is compared to the examinations of December 17nd March 14, 2007. There is moderately dense fibroglandular parenchyma present. There isno skin thickening or retraction , architectural distortion, or clusterof suspicious microcalcifications. There are numerous areas ofasymmetric parenchymal density which are very similar to that seen onprevious examinations. If there is no suspicious palpableabnormality, followup mammogram in 1 year is recommended. IMPRESSIONThere is no radiographic evidence of malignancy identified. FINAL ASSESSMENTBenign findings. BIRADS Category 2. A letter regarding these results has been sent to the patient. This interpretation was rendered by a radiologist certified under theMammography Quality Standards Act of 1992 (MQSA). The mammograms werealso examined with computer-aided detection software (Stem.). Reported By: ANTHONY ANDRE M.D. [id number] LQD PAP [id number] Comments: CYTOLOGY INFORMATION:- CLINICAL INFORMATION: - DATE LMP/MENOPAUSE: - COLLECTION VIAL: Thin Prep Vial- HEALTH TECHNICIAN SOURCE: CERVICAL/ENDOCERVICAL- COLLECTION TECHNIQUE: BRUSH/SPATULA ADEQ Comment (Normal) Comments: Satisfactory for evaluation. Endocervical and/or squamous metaplasticcells (endocervical component) are present. COMM . (Normal) DIAGN Comment (Normal) Comments: NEGATIVE FOR INTRAEPITHELIAL LESION AND MALIGNANCY. HPV RFLX Comment (Normal) Comments: The HPV DNA reflex criteria were not met with this specimenresult therefore, no HPV testing was performed. .Performed At: [address] [id number] [facility] Comment (Normal) Comments: The Pap smear is a screening test designed to aid in thedetection of premalignant and malignant conditions of theuterine cervix. It is not a diagnostic procedure andshould not be used as the sole means of detecting cervicalcancer. Both false-positive and false-negative reports dooccur. . PERFORM Comment (Normal) Comments: Luc Cho, [employer] (ASCP) [id number] CBC HCT 39.7 % (Normal) Range: 37-47 HGB 13.1 g/dL (Normal) Range: 12.0-16.0 MCH 28.5 pg (Normal) Range: 27.0-32.0 MCHC 32.8 g/dL (Normal) Range: 32-36 MCV 86.9 fL (Normal) Range: 81-99 MPV 9.6 fL (Normal) Range: 6.5-12.0 PLT 293 K/mm3 (Normal) Range: 150-450 RBC 4.57 {M/mm3} (Normal) Range: 4.2-5.4 RDW 14.2 % (Normal) Range: 11.6-14.6 WBC 11.6 K/mm3 (Abnormal) Range: 4.4-11.0 :11 COMP METABOLIC A/G 0.8 {RATIO} (Abnormal) Range: 0.9-2.4 ALB 3.1 g/dL (Abnormal) Range: 3.4-5.0 ALK P 56 U/L (Normal) Range: 50-136 ALT 26 U/L (Abnormal) Range: 30-65 AST 8 U/L (Abnormal) Range: 15-37 BUN 22 mg/dL (Abnormal) Range: 7-18 BUN/CRE 22.0 {RATIO} (Abnormal) Range: 10-20 CA 8.9 mg/dL (Normal) Range: 8.5-10.1 CL 110 mmol/L (Abnormal) Range: 98-107 CO2 22.0 mmol/L (Normal) Range: 21.0-32.0 CREAT,SERUM 1.0 mg/dL (Normal) Range: 0.6-1.0 EST GFR 62 mL/min (Normal) EST GFR - AA 75 mL/min (Normal) GAP 9 (Normal) Range: 5-15 GLOB 4.0 g/dL (Normal) Range: 2.7-4.2 GLU 91 mg/dL (Normal) Range: 70-110 K 3.9 mmol/L (Normal) Range: 3.5-5.1 NA 141 mmol/L (Normal) Range: 136-145 T BILI 0.20 mg/dL (Normal) Range: 0.00-1.00 T PROT 7.1 g/dL (Normal) Range: 6.4-8.2 :11 LIPID CHOL 176 mg/dL (Normal) Comments: <200 mg/dL Desirable 200-240 mg/dL Borderline >240 mg/dL High Risk HDL 58 mg/dL (Normal) Comments: Reference Range HDL <40 mg/dL Low HDL Cholesterol HDL >or= 60 mg/dL High HDL Cholesterol LDL 75 mg/dL (Normal) Range: 0-130 TRIG 213 mg/dL (Abnormal) Comments: Serum Triglycerides Reference Interval Normal <150 mg/dL Borderline high 150 - 199 mg/dL High 200 - 499 mg/dL Very High > or = 500 mg/dL VLDL 43 mg/dL (Abnormal) Range: 5-40 :11 VIT D,25 69410 41.4 ng/mL (Normal) Range: 32.0-100.0 Comments: Recent studies consider the lower limit of 32.0 ng/mL to ronn threshold for optimal health.[facility]. J Nutr. 2004;135(2):317-22.Performed At: [facility] [place] [address] [id number] VIT D,25 75203 27.4 ng/mL (Abnormal) Range: 32.0-100.0 Comments: Recent studies consider the lower limit of 32.0 ng/mL to ronn threshold for optimal health.[facility]. J Nutr. 2004;135(2):317-22.Performed At: [address] [id number] :[id number] K 3.9 mmol/L (Normal) Range: 3.5-5.1 :26 BMP BUN 20 mg/dL (Abnormal) Range: 7-18 BUN/CRE 20.0 {RATIO} (Normal) Range: 10-20 CA 8.8 mg/dL (Normal) Range: 8.5-10.1 CL 106 mmol/L (Normal) Range: 98-107 CO2 24.6 mmol/L (Normal) Range: 21.0-32.0 CREAT,SERUM 1.0 mg/dL (Normal) Range: 0.6-1.0 EST GFR 62 mL/min (Normal) EST GFR - AA 75 mL/min (Normal) GAP 10 (Normal) Range: 5-15 GLU 92 mg/dL (Normal) Range: 70-110 K 3.1 mmol/L (Abnormal) Range: 3.5-5.1 NA 141 mmol/L (Normal) Range: 136-145 :26 VIT D,25 47213 24.5 ng/mL (Abnormal) Range: 32.0-100.0 Comments: Recent studies consider the lower limit of 32.0 ng/mL to ronn threshold for optimal health.Sp WYLIE. J Nutr. 2004;135(2):317-22.Performed At: [facility] [place], [place] [id number] 67-Hvb-251228:04 PPD (48933) Comments: Lot #[id number]-01/21/2010Site-left forearmDose0.1given by Keyla Vizcarra LPN SKIN TEST INTRADERMAL TB negative (Normal) Comments: no redness, edema, induration, 0 mm 63-Wdg-622026:02 CHEST WITH CONTRAST Radiology Report See Note (Normal) Comments: Exam Number: [id number] CT SCAN OF CHEST. HISTORYCough. TECHNIQUEScans were obtained at 5-mm intervals from the lung apices to theadrenals with the intravenous administration of 120 ml of Iso bonnie 300. FI NDINGSThere is minimal increased attenuation seen within the lung parenchymadiffusely. This most likely represents the result of suboptimalinspiration. There are a few linear densities in the right lo werlobe, compatible with minimal atelectasis or scar. No focalinfiltrate, area of consolidation, or parenchymal nodule is seen. Nohilar, mediastinal, or axillary adenopathy is identified. Visualizedu pper abdominal structures are within normal limits. There is milddegenerative change of the thoracic spine. There is increasedattenuation in the sternum on a single image. Sagittal and coronalreconst ructions demonstrate this to represent the site of fusion, thesite of the sternomanubrial joint. IMPRESSION1. There is slight haziness of the lung parenchyma diffusely. This is most likely explai alysha by poor inspiration with the resulting high position of the diaphragm. If symptoms persist, a followup high resolution examination could be performed to exclude the much less likely possib ility of interstitial disease. 2. Increased attenuation seen on a single image of the sternum is found to represent slight sclerosis at the sternomanubrial joint. There is no acute bony abnorma lity identified. Reported By: ANTHONY ANDRE M.D. 59-Nzo-[id number]: CULTURE, THROAT See Note (Normal) Comments: Normal throat samuel isolated. No beta-hemolyticstreptococcus isolated. 32 22-Phb-470377:56 Rapid Strep Test, Office (78334) Comments: neg Rapid Strep Test, Office Negative (Normal) 46-Fjg-990378:51 CBCD,SMEAR DIFF BAND 2 % (Normal) Range: 0-5 BASOPHIL 1 % (Normal) Range: 0-1 CELLS COUNTED 100 (Normal) HCT 40.4 % (Normal) Range: 37-47 HGB 13.5 g/dL (Normal) Range: 12.0-16.0 LYMPH 26 % (Normal) Range: 19-41 MCH 28.7 pg (Normal) Range: 27.0-32.0 MCHC 33.4 g/dL (Normal) Range: 32-36 MCV 86.1 fL (Normal) Range: 81-99 MONOCYTE 4 % (Normal) Range: 0-10 PLT 348 K/mm3 (Normal) Range: 150-450 PLT EST SeeNote (Normal) Comments: Result: ADEQUATE RBC 4.69 {M/mm3} (Normal) Range: 4.2-5.4 RDW 14.5 % (Normal) Range: 11.6-14.6 RED CELL MORPH SeeNote {NORMAL} (Normal) Comments: Result: NORM C+C SEGS 67 % (Normal) Range: 47-70 WBC 10.1 K/mm3 (Normal) Range: 4.4-11.0 64-Sot-057721:51 COMP METABOLIC CL 110 mmol/L (Abnormal) Range: 98-107 CO2 22.0 mmol/L (Normal) Range: 21.0-32.0 GAP 9 (Normal) Range: 5-15 K 4.4 mmol/L (Normal) Range: 3.5-5.1 A/G 0.9 {RATIO} (Normal) Range: 0.9-2.4 ALB 3.4 g/dL (Normal) Range: 3.4-5.0 ALK P 64 U/L (Normal) Range: 50-136 ALT 28 U/L (Abnormal) Range: 30-65 AST 16 U/L (Normal) Range: 15-37 BUN 21 mg/dL (Abnormal) Range: 7-18 BUN/CRE 23.3 {RATIO} (Abnormal) Range: 10-20 CA 9.4 mg/dL (Normal) Range: 8.5-10.1 CREAT,SERUM 0.9 mg/dL (Normal) Range: 0.6-1.0 EST GFR 70 mL/min (Normal) EST GFR - AA 85 mL/min (Normal) Comments: ESTIMATED GLOMERULAR FILTRATION RATE The National Kidney Foundation (NKF) guidelines forChronic kidney disease (CKD) recommends all laboratoriesestimate the level of glomerular filtration rate (GFR)in p atients from age 18 - 70 years of age.The eGFR for patient's is the eGFRmultiplied by 1.212. [facility] Laboratory uses the abbreviated Modification of Diet inRenal Disease (MDRD) study equati on to calculate the eGFR.The Estimated GFR equation is not applicable for patients<18 years of age or patients >70 years of age.The following conditions may alter the eGFR calculationresult: extre mes in body size, severe malnutrition orobesity, skeletal muscle disease, paraplegia, quadriplegia,vegetarian diet, , certain drug therapy and rapidlychanging kidney function. Association o f GFR and Staging of Kidney Disease*GFR (mL/min) With Kidney Disease W/O Kidney Disease>/= 90 Stage One Amxrjd73 - 89 Stage Two Suspect Decreased GFR30 - 59 Stage Three Stage Three15 - 29 Stage Four Stage Four< 15 or Dialysis Stage Five Stage Five *Each stage assumes the associ ated GFR level has been ineffect for at least three months.Additional studies & clinical assessments are indicated toconclude diagnosis of Chronic Kidney Disease (CKD). GLOB 3.6 g/dL (Normal) Range: 2.7-4.2 GLU 103 mg/dL (Normal) Range: 70-110 NA 141 mmol/L (Normal) Range: 136-145 T BILI 0.13 mg/dL (Normal) Range: 0.00-1.00 T PROT 7.0 g/dL (Normal) Range: 6.4-8.2 44-Cgy-935315:51 EBVIgG/M [id number] EB-EA IgG 10557 337 AU/mL (Abnormal) Range: 0-99 Comments: Negative <100 Equivocal 100 - 120 Positive >120 EB-NAg [id number] 403 AU/mL (Abnormal) Range: 0-99 Comments: Negative <100 Equivocal 100 - 120 Positive >120 EB-VCA [id number] 647 AU/mL (Abnormal) Range: 0-99 Comments: Negative <100 Equivocal 100 - 120 Positive >120 EB-VCA [id number] 14 AU/mL (Normal) Range: 0-99 Comments: Negative <100 Equivocal 100 - 120 Positive >120 INTERPRETATION Comment (Normal) Comments: EBV Interpretation Chart . Interpretation VCA-IgM EA-IgG VCA-IgG NA-ABS . Susceptible - - - - Acute Infection + +or- + - Convalescent Phase +or- +or- + + Chronic or Reactivated - + + +or- Old Infection - - +or- + + Antibody Pr esent - Antibody AbsentPerformed At: [facility] [place], [place] [id number] :5 TSH 0.74 {uIU/mL} (Normal) Range: 0.34-4.82 1 :11 CBCD BASO% 0.4 % (Normal) Range: 0-1 EO% 0.8 % (Normal) Range: 0-5 LY% 25.0 % (Normal) Range: 19-41 MCH 29.4 pg (Normal) Range: 27.0-32.0 MCHC 33.5 g/dL (Normal) Range: 32-36 MCV 87.9 fL (Normal) Range: 81-99 MONO% 5.0 % (Normal) Range: 0-10 MPV 9.3 fL (Normal) Range: 6.5-12.0 NEUT% 68.8 % (Normal) Range: 47-70 PLT 302 K/mm3 (Normal) Range: 150-450 RDW 14.6 % (Normal) Range: 11.6-14.6 HCT 41.1 % (Normal) Range: 37-47 HGB 13.8 g/dL (Normal) Range: 12.0-16.0 RBC 4.67 {M/mm3} (Normal) Range: 4.2-5.4 WBC 15.2 K/mm3 (Abnormal) Range: 4.4-11.0 :11 COMP METABOLIC A/G 1.0 {RATIO} (Normal) Range: 0.9-2.4 ALB 3.5 g/dL (Normal) Range: 3.4-5.0 ALK P 65 U/L (Normal) Range: 50-136 ALT 32 U/L (Normal) Range: 30-65 AST 13 U/L (Abnormal) Range: 15-37 BUN 17 mg/dL (Normal) Range: 7-18 BUN/CRE 17.0 {RATIO} (Normal) Range: 10-20 CA 9.1 mg/dL (Normal) Range: 8.5-10.1 CL 106 mmol/L (Normal) Range: 98-107 CO2 24.2 mmol/L (Normal) Range: 21.0-32.0 CREAT,SERUM 1.0 mg/dL (Normal) Range: 0.6-1.0 GAP 8 (Normal) Range: 5-15 GLOB 3.5 g/dL (Normal) Range: 2.7-4.2 GLU 84 mg/dL (Normal) Range: 70-110 K 4.1 mmol/L (Normal) Range: 3.5-5.1 NA 138 mmol/L (Normal) Range: 136-145 T BILI 0.35 mg/dL (Normal) Range: 0.00-1.00 T PROT 7.0 g/dL (Normal) Range: 6.4-8.2 :01 Rapid Strep Test, Office (96414) Rapid Strep Test, Office Negative (Normal) 25-Ovm-735538:02 LQD PAP [id number] Comments: CYTOLOGY INFORMATION:- CLINICAL INFORMATION: - DATE LMP/MENOPAUSE: 03/29/08 LMP- COLLECTION VIAL: Thin Prep Vial- HEALTH TECHNICIAN SOURCE: CERVICAL/ENDOCERVICAL- COLLECTION TECHNIQUE: BRUSH/SPATULA ADEQ Comment (Normal) Comments: Satisfactory for evaluation. Endocervical and/or squamous metaplasticcells (endocervical component) are present. COMM . (Normal) Comments: AMENDED REPORT 04/26/081206 COMM previously reported as: DIAGN Comment (Normal) Comments: NEGATIVE FOR INTRAEPITHELIAL LESION AND MALIGNANCY. HPV RFLX Comment (Normal) Comments: The HPV DNA reflex criteria were not met with this specimenresult therefore, no HPV testing was performed. .Performed At: [address] [id number] AMENDED REPORT 04/26/081206 HPV RFLX previously reported as: PAPSMR Comment (Normal) Comments: The Pap smear is a screening test designed to aid in thedetection of premalignant and malignant conditions of theuterine cervix. It is not a diagnostic procedure andshould not be used as the sole means of detecting cervicalcancer. Both false-positive and false-negative reports dooccur. . AMENDED REPORT 04/26/081206 PAPSMR previously reported as: PERFORM Comment (Normal) Comments: Radha Moctezuma, Supervisory [employer] (ASCP) AMENDED REPORT 04/26/081206 PERFORM previously reported as: 66-Tmb-[id number]:02 PTH,[id number] Comments: CYTOLOGY INFORMATION:- CLINICAL INFORMATION: - DATE LMP/MENOPAUSE: 03/29/08 LMP- COLLECTION VIAL: Thin Prep Vial- HEALTH TECHNICIAN SOURCE: CERVICAL/ENDOCERVICAL- COLLECTION TECHNIQUE: BRUSH/SPATULA PTH,Intact 15 pg/mL (Normal) Range: 12-65 Comments: Performed At: [address] [id number] 84-Giw-64746:49 BRAIN/HEAD W/WO CONTRAST Radiology Report See Note (Normal) Comments: Exam Number: [id number] CT OF THE HEAD WITH AND WITHOUT CONTRAST STATEMENT Syncope. Patient states migraines, lightheadedness, confusion andnumbness. COMPARISON STUDYMar2006. TECHNIQU ERoutine pre and postcontrast enhanced CT of the brain was performed.One hundred cc of Isovue 300 was utilized for contrast enhancement. FINDINGSThere is a stable pattern of coarse calcifications present within thecerebellum, basal ganglia, subcortical and periventricular whitematter. Size, number and distribution of calcifications is unchangedand would be most compatible with a remote insult. There is noevi dence for acute intracranial hemorrhage, midline shift, or mass. There are no extra-axial fluid collections. The dukes white interfaceappears intact. The ventricular system, basilar cisterns, andposteri or fossa structures are unchanged. Postenhancement imagingdemonstrates no asymmetric areas of parenchymal enhancement orenhancing masses. The calvarium appears intact. The visualizedparanasal sinus es and mastoid air cells are clear. IMPRESSION1) No acute intracranial process or significant change compared tothe November 12, 2006, study. 2) Redemonstration of diffuse dystrophic intracranial calci ficationswithin the cerebellum and cerebral hemispheres bilaterally. This islikely secondary to a remote insult. Reported By: THAO LOCKE M.D. 52-Rvs-[id number]:12 CBCD,SMEAR DIFF ATYPICAL LYMPH RARE % (Normal) BAND 2 % (Normal) Range: 0-5 CELLS COUNTED 100 (Normal) HCT 42.4 % (Normal) Range: 37-47 HGB 14.4 g/dL (Normal) Range: 12.0-16.0 LYMPH 32 % (Normal) Range: 19-41 MCH 29.3 pg (Normal) Range: 27.0-32.0 MCHC 34.0 g/dL (Normal) Range: 32-36 MCV 86.3 fL (Normal) Range: 81-99 MONOCYTE 5 % (Normal) Range: 0-10 PLT 319 K/mm3 (Normal) Range: 150-450 PLT EST SeeNote (Normal) Comments: Result: ADEQUATE RBC 4.91 {M/mm3} (Normal) Range: 4.2-5.4 RDW 13.5 % (Normal) Range: 11.6-14.6 RED CELL MORPH SeeNote {NORMAL} (Normal) Comments: Result: NORM C+C SEGS 61 % (Normal) Range: 47-70 WBC 11.4 K/mm3 (Abnormal) Range: 4.4-11.0 07-Vji-435157:12 COMP METABOLIC A/G 1.1 {RATIO} (Normal) Range: 0.9-2.4 ALB 3.6 g/dL (Normal) Range: 3.4-5.0 ALK P 96 U/L (Normal) Range: 50-136 ALT 49 U/L (Normal) Range: 30-65 AST 17 U/L (Normal) Range: 15-37 BUN/CRE 17.8 {RATIO} (Normal) Range: 10-20 CA 9.0 mg/dL (Normal) Range: 8.5-10.1 CL 104 mmol/L (Normal) Range: 98-107 CO2 23.6 mmol/L (Normal) Range: 21.0-32.0 GAP 4 (Abnormal) Range: 5-15 GLOB 3.4 g/dL (Normal) Range: 2.7-4.2 K 4.2 mmol/L (Normal) Range: 3.5-5.1 NA 132 mmol/L (Abnormal) Range: 136-145 T BILI 0.24 mg/dL (Normal) Range: 0.00-1.00 T PROT 7.0 g/dL (Normal) Range: 6.4-8.2 BUN 16 mg/dL (Normal) Range: 7-18 CREAT,SERUM 0.9 mg/dL (Normal) Range: 0.6-1.0 GLU 84 mg/dL (Normal) Range: 70-110 :02 LIVER ALB 3.3 g/dL (Abnormal) Range: 3.4-5.0 ALK P 59 U/L (Normal) Range: 50-136 ALT 37 U/L (Normal) Range: 30-65 AST 18 U/L (Normal) Range: 15-37 D BILI 0.06 mg/dL (Normal) Range: 0.00-0.30 T BILI 0.26 mg/dL (Normal) Range: 0.00-1.00 T PROT 6.8 g/dL (Normal) Range: 6.4-8.2 55-Dvo-945606:02 ROUTINE UA BILIRUBIN URINE SeeNote (Normal) Comments: Result: NEGATIVE CLARITY SeeNote (Normal) Comments: Result: SL CLOUDY COLOR YELLOW (Normal) GLUCOSE, UR SeeNote (Normal) Comments: Result: NEGATIVE KETONE UR SeeNote mg/dL (Normal) Comments: Result: NEGATIVE LEUK ESTERASE SeeNote (Normal) Comments: Result: NEGATIVE NITRITE UR SeeNote (Normal) Comments: Result: NEGATIVE OCCULT BLOOD-UR 3+ (Abnormal) pH UR 5.5 (Normal) Range: 5.0-8.0 PROT DIPSTX SeeNote (Normal) Comments: Result: NEGATIVE SP.GR. DIPSTX 1.025 (Normal) Range: 1.002-1.030 UROBILI 0.2 EU/dl (Normal) Range: 0.2 - 1.0 :11 CBCD,SMEAR DIFF BAND 3 % (Normal) Range: 0-5 CELLS COUNTED 100 (Normal) HCT 38.7 % (Normal) Range: 37-47 HGB 13.1 g/dL (Normal) Range: 12.0-16.0 LYMPH 35 % (Normal) Range: 19-41 MCH 29.3 pg (Normal) Range: 27.0-32.0 MCHC 33.7 g/dL (Normal) Range: 32-36 MCV 86.8 fL (Normal) Range: 81-99 MONOCYTE 8 % (Normal) Range: 0-10 PLT 310 K/mm3 (Normal) Range: 150-450 PLT EST SeeNote (Normal) Comments: Result: ADEQUATE RBC 4.45 {M/mm3} (Normal) Range: 4.2-5.4 RDW 14.5 % (Normal) Range: 11.6-14.6 RED CELL MORPH SeeNote {NORMAL} (Normal) Comments: Result: NORM C+C SEGS 54 % (Normal) Range: 47-70 WBC 9.7 K/mm3 (Normal) Range: 4.4-11.0 :11 COMP METABOLIC A/G 0.8 {RATIO} (Abnormal) Range: 0.9-2.4 ALB 3.1 g/dL (Abnormal) Range: 3.4-5.0 ALK P 45 U/L (Abnormal) Range: 50-136 ALT 34 [iU]/L (Normal) Range: 30-65 AST 19 U/L (Normal) Range: 15-37 BUN 14 mg/dL (Normal) Range: 7-18 BUN/CRE 15.6 {RATIO} (Normal) Range: 10-20 CA 8.1 mg/dL (Abnormal) Range: 8.5-10.1 CL 108 mmol/L (Abnormal) Range: 98-107 CO2 23.2 mmol/L (Normal) Range: 21.0-32.0 CREAT,SERUM 0.9 mg/dL (Normal) Range: 0.6-1.0 GAP 8 (Normal) Range: 5-15 GLOB 3.7 g/dL (Normal) Range: 2.7-4.2 GLU 89 mg/dL (Normal) Range: 70-110 K 3.6 mmol/L (Normal) Range: 3.5-5.1 NA 139 mmol/L (Normal) Range: 136-145 T BILI 0.30 mg/dL (Normal) Range: 0.00-1.00 T PROT 6.8 g/dL (Normal) Range: 6.4-8.2 :11 LIPID CHOL 178 mg/dL (Normal) Comments: <200 mg/dL Desirable 200-240 mg/dL Borderline >240 mg/dL High Risk HDL 43 mg/dL (Normal) Comments: Reference Range HDL <40 mg/dL Low HDL Cholesterol HDL >or= 60 mg/dL High HDL Cholesterol LDL 108 mg/dL (Normal) Range: 0-130 TRIG 137 mg/dL (Normal) Comments: Serum Triglycerides Reference Interval Normal <150 mg/dL Borderline high 150 - 199 mg/dL High 200 - 499 mg/dL Very High > or = 500 mg/dL VLDL 27 mg/dL (Normal) Range: 5-40 :06 CULTURE, THROAT See Note (Normal) Comments: Normal throat samuel isolated. No beta-hemolyticstreptococcus isolated. :51 Rapid Strep Test, Office (93026) Comments: neg Rapid Strep Test, Office Negative (Normal) :38 Rapid Flu (51015 x 2) Comments: neg INFLUENZA IMMUNOASSY DIRECT OPTICAL OBSERV negative (Normal) Comments: aw :55 Urinalysis, Office (37884) Comments: negative, but specific gravity high, encouraged fluids UA - BILIRUBIN Negative (Normal) UA - BLOOD Negative (Normal) UA - GLUCOSE Negative (Normal) UA - KETONES Negative mg/dL (Normal) UA - LEUKOCYTE ESTERASE Negative (Normal) UA - NITRITE Negative (Normal) UA - PH 5.0 (Normal) UA - PROTEIN Negative mg/dL (Normal) UA - SPECIFIC GRAVITY 1.025 (Normal) URINE UROBILINGN SAUNDRA 2 mg/dL (Normal) TIMED :4 CULTURE, THROAT See Note (Normal) Comments: Normal throat samuel isolated. No beta-hemolyticstreptococcus isolated. 5 :4 FLU A+B DIRECT See Note (Normal) Comments: Negative test results should be confirmed by culture. Order Rapid Viral Culture for Influenzae A+B ([id number]) if clinically indicated. INFLUENZA ANTIGEN,DIRECT Presumptive NEGATIVE for Influenza A/B Antigen (See Note) 5 :29 Rapid Strep Test, Office (93053) Rapid Strep Test, Negative (Normal) Office :02 T3, FREE 01356 2.3 pg/mL (Normal) Comments: PLEASE SEND A COPY OF THE T3F TO DR MARTIN Range: 2.3-4.2 Comments: Performed At: [address] [id number] :02 T4 FREE,DIRECT 0.7 ng/dL (Abnormal) Range: 0.89-1.76 :02 TSH 0.13 {uIU/mL} Range: 0.34-4.82 (Abnormal) :37 T3, FREE 29138 2.8 pg/mL (Normal) Range: 2.3-4.2 Comments: Performed At: [address] [id number] :37 T4 FREE,DIRECT 1.1 ng/dL (Normal) Range: 0.89-1.76 :37 TSH < 0.01 {uIU/mL} Range: 0.34-4.82 (Abnormal) :14 Rapid Strep Test, Office (58143) Rapid Strep Test, Negative (Normal) Office :56 T3, FREE 83333 2.7 pg/mL (Normal) Range: 2.3-4.2 Comments: Performed At: [address] [id number] :56 T4 FREE,DIRECT 0.9 ng/dL (Normal) Range: 0.89-1.76 :56 TSH < 0.01 {uIU/mL} Range: 0.34-4.82 (Abnormal) :06 UNILAT RT DIAG DIGITAL & CAD Radiology Report See Note (Normal) Comments: Exam Number: [id number] MAMMOGRAM, RIGHT UNILATERAL DIAGNOSTIC DIGITAL AND CAD HISTORYAbnormal screening study. TECHNIQUEFull field digital images were obtained in true lateral, mediolateralo blique and s pot compression views. CAD images were reviewed. COMPARISONThe current study is compared to the examinations of November of 2004,November of 2005, and March 14, 2007. FINDINGSThe area of asymmetric parenchyma present seen just above the plane ofthe nipple on the mediolateral oblique projection of March 14, 2007, isnot found to be a persistent finding. There are areas of asymmetricparenchymal density within t he breast, but there are no dominantmasses. There are scattered benign calcifications. If there is nosuspicious palpable abnormality, followup mammogram in 1 year isrecommended. IMPRESSIONThere is no radiographic evidence of malignancy identified. FINAL ASSESSMENTBenign findings. BIRADS Category 2. A letter regarding these results has been sent to the patient. This interpretation was rendered by a radiologist certified under theMammography Quality Standards Act of 1992 (MQSA). The mammograms werealso examined with computer-aided detection software ([employer] Reported By: ANTHONY ANDRE M.D. ESTRADIOL 4515 110 pg/mL (Normal) Range: 19-528 :15 Comments: Adult Male: <54 Menstruating Female (Day of cycle relative to LH Peak) Follicular ( -12) 19 - 83 (- 4) 64 - 183 Midcycle (- 1) 150 - 528 Luteal (+ 2) 58 - 157 (+ 6) 60 - 211 (+12) 55 - 150 Postmenopausal Fema le (Untreated) 0 - 31 . Fitz Centaur/ACS MethodologyPerformed At: [facility] [place], [place] [id number] FSH 4309 29.7 m[iU]/mL Comments: . Male Female 5th day <0.2 - 4.6 <0.2 - 4.6 2 mo- 3 yrs. 0.2 - 2.7 1.4 - :15 (Normal) 9.2 4- 6 yrs. 0.2 - 2.7 0.4 - 6.6 7- 9 yrs. 0.2 - 2.7 0.4 - 5.0 10-11 yrs. 0.4 - 5.0 Not Estab 12-13 yrs. 0.4 - 6.6 Not Estab 14-15 yrs. 0.7 - 13.2 Not Estab >15 yrs. 1.4 - 18.1 See Below Female Follicular 2.5 - 10.2 Midcycle 3.4 - 33.4 Lut eal 1.5 - 9.1 <0.2 Postmenopausal 23.0 - 116.3 LUTEIN HOR 4283 38.7 m[iU]/mL Range: 0.0-76.3 :15 (Normal) Comments: Male Female 0- 1 yr. 0.5 - 1.9 0.0 - 0.5 2- 5 yrs. 0.0 - 0.5 0.0 - 0.5 6- 10 yrs. 0.0 - 0.5 0.0 - 0.5 11- 19 yrs. 0.5 - 5.3 0.5 - 9.0 20- 69 yrs. 1.5 - 9.3 0.0 - 76.3 70-100 y rs. 3.1 - 34.6 5.0 - 52.3 Female Follicular 1.9 - 12.5 Midcycle 8.7 - 7 6.3 Luteal 0.5 - 16.9 0.0 - 1.5 Postmenopausal 15. 9 - 54.0 Contraceptives 0.7 - 5.6 91-Sxi-112532:30 MAMM, BILAT SCRN DIGITAL & CAD Radiology Report See Note (Normal) Comments: Exam Number: [id number] MAMMOGRAM, BILATERAL SCREENING DIGITAL AND CAD HISTORYRoutine screening. Full field digital images were obtained in mediolateral oblique,craniocaudal projections. CAD images we re reviewed. The current study is compared to the examinations of November 2004 andNovember 2005. There is moderately dense fibroglandular parenchyma present. There isno skin thickening or retraction, robson ectural distortion, or clusterof suspicious microcalcifications. There are a large number ofasymmetric parenchymal densities seen on both sides. Most of thesehave not significantly changed. There is 1 area of asymmetryidentified in the periphery of the right mediolateral oblique viewwhich cannot be identified on previous studies. For furtherevaluation, true lateral and right medial oblique spot co mpressionviews are recommended. IMPRESSIONApparent change in density in the periphery of the right breast seenin the mediolateral oblique projection. Additional views aresuggested. FINAL ASSESSMENTNe ed additional imaging evaluation. BIRADS Category 0. A letter regarding these results has been sent to the patient. This interpretation was rendered by a radiologist certified under theMammography Uriel lity Standards Act of 1992 (MQSA). The mammograms werealso examined with computer-aided detection software ([employer], [employer] Reported By: ANTHONY ANDRE M.D. [id number]: CORTISOL 4051 43.7 ug/dL Comments: COMMENTS: ENDO 247/ DRAW AT 1110Precautions*: NOT APPLICABLEBASELINE OR POST MEDICATION STIMULATION?: 60 MIN POST MED STIMULATIDR'S WRITTEN ORDER: 60MIN CORTISOL LEVEL 13 (Abnormal) Range: 3.1-22.4 Comments: Male Female 5 days old 0.6 - 19.8 0.6 - 19.8 2 mos-13 yrs. 2.4 - 22.9 2.4 - 22.9 14-15 yrs. 2.5 - 22.9 2.4 - 28.6 Adult (AM) 4.3 - 22.4 4.3 - 22.4 Adult (PM) 3.1 - 16.7 3.1 - 16.7Performed At: [facility] [place] [id number] : CORTISOL 4051 38.4 ug/dL Comments: COMMENTS: ENDO 247/ DRAW AT 1040Precautions*: NOT APPLICABLEBASELINE OR POST MEDICATION STIMULATION?: 30 MIN POST MED STIMULATIDR'S WRITTEN ORDER: 30MIN CORTISOL LEVEL 40 (Abnormal) Range: 3.1-22.4 Comments: Male Female 5 days old 0.6 - 19.8 0.6 - 19.8 2 mos-13 yrs. 2.4 - 22.9 2.4 - 22.9 14-15 yrs. 2.5 - 22.9 2.4 - 28.6 Adult (AM) 4.3 - 22.4 4.3 - 22.4 Adult (PM) 3.1 - 16.7 3.1 - 16.7Performed At: [facility] [place] [id number] : CORTISOL 4051 27.0 ug/dL Comments: COMMENTS: IV THERAPY WILL DRAWPrecautions*: NOT APPLICABLEBASELINE OR POST MEDICATION STIMULATION?: BASELINE 05 (Abnormal) Range: 3.1-22.4 Comments: Male Female 5 days old 0.6 - 19.8 0.6 - 19.8 2 mos-13 yrs. 2.4 - 22.9 2.4 - 22.9 14-15 yrs. 2.5 - 22.9 2.4 - 28.6 Adult (AM) 4.3 - 22.4 4.3 - 22.4 Adult (PM) 3.1 - 16.7 3.1 - 16.7Performed At: [facility] [place] [address] [id number] :36 COMP METABOLIC A/G 0.8 {RATIO} (Abnormal) Range: 0.9-2.4 ALB 3.2 g/dL (Abnormal) Range: 3.4-5.0 ALK P 57 U/L (Normal) Range: 50-136 ALT 32 [iU]/L (Normal) Range: 30-65 AST 12 U/L (Abnormal) Range: 15-37 BUN 13 mg/dL (Normal) Range: 7-18 BUN/CRE 14.4 {RATIO} (Normal) Range: 10-20 CA 8.9 mg/dL (Normal) Range: 8.5-10.1 CL 110 mmol/L (Abnormal) Range: 98-107 CO2 18.7 mmol/L (Abnormal) Range: 22.0-29.0 CREAT,SERUM 0.9 mg/dL (Normal) Range: 0.6-1.0 GAP 11 (Normal) Range: 5-15 GLOB 3.8 g/dL (Abnormal) Range: 2.3-3.5 GLU 87 mg/dL (Normal) Range: 70-110 K 3.8 mmol/L (Normal) Range: 3.5-5.1 NA 140 mmol/L (Normal) Range: 136-145 T BILI 0.27 mg/dL (Normal) Range: 0.00-1.00 T PROT 7.0 g/dL (Normal) Range: 6.4-8.2 :36 LIPID CHOL 184 mg/dL (Normal) Comments: <200 mg/dL Desirable 200-240 mg/dL Borderline >240 mg/dL High Risk HDL 43 mg/dL (Normal) Comments: Reference Range HDL <40 mg/dL Low HDL Cholesterol HDL >or= 60 mg/dL High HDL Cholesterol LDL 108 mg/dL (Normal) Range: 0-130 TRIG 164 mg/dL (Normal) Comments: Serum Triglycerides Reference Interval Normal <150 mg/dL Borderline high 150 - 199 mg/dL High 200 - 499 mg/dL Very High > or = 500 mg/dL VLDL 33 mg/dL (Normal) Range: 5-40 :36 T3, FREE 03080 2.8 pg/mL (Normal) Range: 2.3-4.2 Comments: Performed At: [address] [id number] T4 THYROXIN 2.2 ug/dL (Abnormal) Range: 4.8-13.9 :36 TSH < 0.01 {uIU/mL} Range: 0.34-4.82 (Abnormal) :42 T3UP T3 UPTAKE 26 % (Abnormal) Range: 30-39 T7 (FTI) 0.7 (Abnormal) Range: 1.4-4.5 :42 T4 THYROXIN 2.5 ug/dL (Abnormal) Range: 4.8-13.9 :42 TSH < 0.01 {uIU/mL} (Abnormal) Range: 0.34-4.82 Plan of Care Name Dates Details Instructions BMI 39.0-39.9,adult : Follow up in 3 months Indication: BMI 39.0-39.9,adult Hypertension : Reviewed Diagnostic Tests Indication: Hypertension Vitamin D deficiency, unspecified : Reviewed Diagnostic Tests Indication: Vitamin D deficiency, unspecified Anxiety and depression : Reviewed Diagnostic Tests Indication: Anxiety and depression Nonsmoker : Eprescribed prescriptions ([id number]) Indication: Nonsmoker Mixed Hyperlipidemia (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) : Eprescribed prescriptions (G8553) Indication: Mixed Hyperlipidemia (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) Nonsmoker : Follow up in 3 months Indication: Nonsmoker Hypertension : Reviewed Lab Indication: Hypertension Hair loss : Reviewed Lab Indication: Hair loss Anxiety and depression : Reviewed Lab Indication: Anxiety and depression BMI 37.0-37.9, adult : Follow up in 3 months Indication: BMI 37.0-37.9, adult Mixed Hyperlipidemia (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) : Reviewed Lab Indication: Mixed Hyperlipidemia (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) Mixed Hyperlipidemia (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) : Eprescribed prescriptions (G8553) Indication: Mixed Hyperlipidemia (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) Mixed Hyperlipidemia (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) : Follow up in 3 months for Gen med after Jul 02 Indication: Mixed Hyperlipidemia (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) Hypertension : Eprescribed prescriptions (G8553) Indication: Hypertension Depression (311.) : Reviewed Diagnostic Tests Indication: Depression (311.) Depression (311.) : Reviewed Lab Indication: Depression (311.) BMI 39.0-39.9,adult : Eprescribed prescriptions (G8553) Indication: BMI 39.0-39.9,adult BMI 39.0-39.9,adult : Follow up in 3 months Indication: BMI 39.0-39.9,adult Impaired fasting glucose : Reviewed Diagnostic Tests Indication: Impaired fasting glucose Hypertension : Eprescribed prescriptions (G8553) Indication: Hypertension Calcific tendinitis of right shoulder : Follow up if no improvement or if symptoms worsen Indication: Calcific tendinitis of right shoulder Calcific tendinitis of right shoulder : Reviewed Diagnostic Tests Indication: Calcific tendinitis of right shoulder Calcific tendinitis of right shoulder : Reviewed Lab Indication: Calcific tendinitis of right shoulder Hypothyroidism, unspecified : Follow up on Saturday Indication: Hypothyroidism, unspecified Right shoulder pain : Eprescribed prescriptions (G8553) Indication: Right shoulder pain Hypotension : Follow up if no improvement or if symptoms worsen Indication: Hypotension Hypothyroidism, unspecified : Follow up in 3 months after lab work Indication: Hypothyroidism, unspecified Impaired fasting glucose : Eprescribed prescriptions (G8553) Indication: Impaired fasting glucose BMI 38.0-38.9,adult : Follow up in 3 months a week after fasting labs are done Indication: BMI 38.0-38.9,adult Hyperglyceridemia : Eprescribed prescriptions (G8553) Indication: Hyperglyceridemia Anxiety and depression : Follow up if no improvement or if symptoms worsen Indication: Anxiety and depression Migraine : Eprescribed prescriptions (G8553) Indication: Migraine Hypertension : Eprescribed prescriptions (G8553) Indication: Hypertension Fever : Follow up if no improvement or if symptoms worsen Indication: Fever Acute pharyngitis : Sore throat: diagnosis and treatment Indication: Acute pharyngitis Impaired fasting glucose : Blood Glucose Test: blood Indication: Impaired fasting glucose Impaired fasting glucose : Eprescribed prescriptions (G8553) Indication: Impaired fasting glucose Upper respiratory infection : Follow up if no improvement or if symptoms worsen Indication: Upper respiratory infection Chills : Eprescribed prescriptions (G8553) Indication: Chills Anxiety and depression : Eprescribed prescriptions (G8553) Indication: Anxiety and depression Asthma, intrinsic, with status asthmaticus : Eprescribed prescriptions (G8553) Indication: Asthma, intrinsic, with status asthmaticus Impaired fasting glucose : Eprescribed prescriptions (G8553) Indication: Impaired fasting glucose Cough : Eprescribed prescriptions (G8553) Indication: Cough Acute sinusitis, unspecified : Eprescribed prescriptions (G8553) Indication: Acute sinusitis, unspecified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 Lot #[id number] pExp-4/11Site-L dltdDose0.5mlgiven by:Michelle boo LPN IMMUNIZ ADMNIN, 1 VAC, On: 08-Aug-2010 Intent SNGL/COMBO ([id number])By: Michelle Rajan LPN MAMMOGRAM, SCREENING, BOTH On: 29-May-2010 Intent BREASTS ([id number])By: Nataly Berger MD MAMMOGRAM, SCREENING, BOTH On: 02-May-2010 Intent BREASTS (46774)By: Nataly Berger MD Aerosol Treatment ([id number])By: On: 10-Aug-2009 Intent Ciesa DEVELOPMENT ANALYST, Diana Ciesa DEVELOPMENT ANALYST, Diana Pulse Oximetry ([id number])By: On: 10-Aug-2009 Intent Ciesa DEVELOPMENT ANALYST, Diana Ciesa DEVELOPMENT ANALYST, Diana Aerosol Treatment ([id number])By: On: 10-Aug-2009 Intent Ciesa DEVELOPMENT ANALYST, Diana Ciesa DEVELOPMENT ANALYST, Diana SPECIMEN HNDLNG/TRNSPRT, OFFC On: 10-Aug-2009 Intent > LAB ([id number])By: Bhargavi Mueller LPN TDAP VACCINE >7 IM ([id number])By: On: 17-May-2009 Intent Nataly Berger MD Comments: Lot #: [id number] date: mount given: 0.5 mlRoute: IMSite given: left deltoidGiven by: Maggie Lua LPN MAMMOGRAM, SCREENING, BOTH On: 17-May-2009 Intent BREASTS (75470)By: Nataly Berger MD Pulse Oximetry ([id number])By: On: 27-Oct-2008 Intent TAY Tracey EKG (53910)By: Alexy On: 27-Oct-2008 Intent TAY Bio Z (83238)By: Alexy On: 27-Oct-2008 Intent TAY Spirometry (64152)By: Arthur On: 06-Sep-2008 Arlene Chaudhari DO Comments: fair effort - improved obstruction CT - ChestBy: Arlene Gibson DO On: 06-Sep-2008 Intent A Radiology - ChestBy: Jessica On: 24-Aug-2008 Intent Nataly JOSEPH Pulse Oximetry (80775)By: On: 24-Aug-2008 Intent TAY Tracey Pulse Oximetry ([id number])By: On: 17-Aug-2008 Intent Ciesa DEVELOPMENT ANALYST, Diana Ciesa DEVELOPMENT ANALYST, Diana Aerosol Treatment ([id number])By: On: 17-Aug-2008 Intent Ciesa DEVELOPMENT ANALYST, Diana Ciesa DEVELOPMENT ANALYST, Diana Spirometry ([id number])By: Vanessa On: 13-Aug-2008 Intent Enedina GONZALEZ Comments: done-aw Pulse Oximetry ([id number])By: On: 13-Aug-2008 Intent Mast Enedina GONZALEZ Comments: 98% Inhaler Demo (11688)By: Arthur On: 11-Aug-2008 Intent Arlene MORILLO Spirometry (52543)By: Arthur On: 11-Aug-2008 Arlene Chaudhari DO Comments: good effort - mod obstruction Aerosol Treatment ([id number])By: On: 11-Aug-2008 Intent Arlene Gibson DO Comments: done-AW Pulse Oximetry ([id number])By: On: 11-Aug-2008 Intent Arlnee Gibson DO Comments: 97% kupsau58% after aerosol Solu- Medrol Injection, 125mg On: 11-Aug-2008 Intent ([id number])By: Arlene Gibson DO Comments: Lot #[id number]-left sojEhyo5sp/125mggiven by Keyla Vizcarra LPN MAMMOGRAM, SCREENING, BOTH On: 21-Apr-2008 Intent BREASTS ([id number])By: Nataly Berger MD CT - Brain/HeadBy: Jessica On: 11-Mar-2008 Intent Nataly JOSEPH EEGBy: Nataly Berger MD On: 11-Mar-2008 Intent Echo CompleteBy: Jessica JOSEPH, On: 11-Mar-2008 Intent Nataly Kramer EKG ([id number])By: Jessica JOSEPH, On: 11-Mar-2008 Intent Nataly Kramer Holter Moniter (09477)By: On: 11-Mar-2008 Intent Nataly Berger MD Pulse Oximetry ([id number])By: On: 20-Nov-2007 Intent Kathia Patton CNP, CNP, Kathia Dias Aerosol Treatment ([id number])By: On: 20-Nov-2007 Intent Kathia Patton CNP, CNP, Kathia Dias SPECIMEN HNDLNG/TRNSPRT, OFFC On: 20-Nov-2007 Intent > LAB ([id number])By: Kathia Patton CNP, CNP, Mary E EKG ([id number])By: Jessica JOSEPH, On: 14-Oct-2007 Intent Nataly Kramer SPECIMEN HNDLNG/TRNSPRT, OFFC On: 08-Oct-2007 Intent > LAB ([id number])By: Kathia Patton CNP, CNP, Mary E MAMMOGRAM, SCREENING, BOTH On: 06-Mar-2007 Intent BREASTS ([id number])By: Nataly Berger MD Toradol Injection, 30 mg On: 01-May-2006 Intent ([id number])By: Nataly Berger MD Planned Medications INFUSION, NORMAL SALINE SOLUTION , 250 CC Ordered: 05-Dec-2012 Pending José Miguel DO, Ulz INJECTION, KETOROLAC TROMETHAMINE, PER 15 MG Ordered: 16-Dec-2012 Pending Kathia Patton CNP, CNP, Mary E INJECTION, KETOROLAC TROMETHAMINE, PER 15 MG Ordered: 04-Jun-2013 Pending Nataly Berger MD INJECTION, KETOROLAC TROMETHAMINE, PER 15 MG Ordered: 04-Jun-2013 Pending Nataly Berger MD INJECTION, KETOROLAC TROMETHAMINE, PER 15 MG Ordered: 11-Dec-2016 Pending Kathia Patton CNP, CNP, Mary E Instructions Name Dates Details Nonsmoker : How to access health information online Indication: Nonsmoker Nonsmoker : How to access health information online - Detail Indication: Nonsmoker Nonsmoker : Patient Instructions Indication: Nonsmoker Mixed Hyperlipidemia (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) : How to access health information online Indication: Mixed Hyperlipidemia (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) Mixed Hyperlipidemia (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) : How to access health information online - Detail Indication: Mixed Hyperlipidemia (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) Gas raising : Patient Instructions Indication: Gas raising Mixed Hyperlipidemia (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) : How to access health information online Indication: Mixed Hyperlipidemia (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) Mixed Hyperlipidemia (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) : How to access health information online - Detail Indication: Mixed Hyperlipidemia (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) Mixed Hyperlipidemia (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) : Patient Instructions Indication: Mixed Hyperlipidemia (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) Mixed Hyperlipidemia (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) : DISCONTINUED - LIPID PANEL (06318) Indication: Mixed Hyperlipidemia (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) Hypertension : DISCONTINUED - MICROALBUMIN: CREATININE RATIO (12149) AND (00598) Indication: Hypertension Hypertension : DISCONTINUED - URINALYSIS (16066) Indication: Hypertension Vitamin D deficiency, unspecified : DISCONTINUED - CALCIFEDIOL (21520) Indication: Vitamin D deficiency, unspecified Impaired fasting glucose : DISCONTINUED - METABOLIC PANEL, COMPREHENSIVE (23957) Indication: Impaired fasting glucose Impaired fasting glucose : DISCONTINUED - GLUCOSE (00851) Indication: Impaired fasting glucose Impaired fasting glucose : DISCONTINUED - HGB A1C (44128) Indication: Impaired fasting glucose Hyperglyceridemia : Patient Instructions Indication: Hyperglyceridemia Hypertension : How to access health information online Indication: Hypertension Hypertension : How to access health information online - Detail Indication: Hypertension Hypertension : Patient Instructions Indication: Hypertension BMI 39.0-39.9,adult : How to access health information online Indication: BMI 39.0-39.9,adult BMI 39.0-39.9,adult : How to access health information online - Detail Indication: BMI 39.0-39.9,adult BMI 39.0-39.9,adult : Patient Instructions Indication: BMI 39.0-39.9,adult Hypertension : How to access health information online Indication: Hypertension Hypertension : How to access health information online - Detail Indication: Hypertension Hypertension : Patient Instructions Indication: Hypertension Calcific tendinitis of right shoulder : Patient Instructions Indication: Calcific tendinitis of right shoulder Right shoulder pain : How to access health information online Indication: Right shoulder pain Right shoulder pain : How to access health information online - Detail Indication: Right shoulder pain Right shoulder pain : Patient Instructions Indication: Right shoulder pain Hypotension : How to access health information online Indication: Hypotension Hypotension : How to access health information online - Detail Indication: Hypotension Hypotension : Patient Instructions Indication: Hypotension Impaired fasting glucose : Patient Instructions Indication: Impaired fasting glucose Impaired fasting glucose : How to access health information online Indication: Impaired fasting glucose Impaired fasting glucose : How to access health information online - Detail Indication: Impaired fasting glucose Hyperglyceridemia : How to access health information online Indication: Hyperglyceridemia Hyperglyceridemia : How to access health information online - Detail Indication: Hyperglyceridemia Hyperglyceridemia : Patient Instructions Indication: Hyperglyceridemia Migraine : How to access health information online Indication: Migraine Migraine : How to access health information online - Detail Indication: Migraine Migraine : Patient Instructions Indication: Migraine Hypertension : How to access health information online Indication: Hypertension Hypertension : How to access health information online - Detail Indication: Hypertension Hypertension : Patient Instructions Indication: Hypertension Impaired fasting glucose : How to access health information online Indication: Impaired fasting glucose Impaired fasting glucose : How to access health information online - Detail Indication: Impaired fasting glucose Impaired fasting glucose : Patient Instructions Indication: Impaired fasting glucose Chills : How to access health information online Indication: Chills Chills : How to access health information online - Detail Indication: Chills Anxiety and depression : How to access health information online Indication: Anxiety and depression Anxiety and depression : How to access health information online - Detail Indication: Anxiety and depression Anxiety and depression : Patient Instructions Indication: Anxiety and depression Asthma, intrinsic, with status asthmaticus : How to access health information online Indication: Asthma, intrinsic, with status asthmaticus Asthma, intrinsic, with status asthmaticus : How to access health information online - Detail Indication: Asthma, intrinsic, with status asthmaticus Asthma, intrinsic, with status asthmaticus : Patient Instructions Indication: Asthma, intrinsic, with status asthmaticus Impaired fasting glucose : How to access health information online Indication: Impaired fasting glucose Impaired fasting glucose : How to access health information online - Detail Indication: Impaired fasting glucose Impaired fasting glucose : Patient Instructions Indication: Impaired fasting glucose Cough : c Indication: Cough Acute sinusitis, unspecified : Patient Instructions Indication: Acute sinusitis, unspecified Urinary tract infection, site not specified : Patient Instructions Indication: Urinary tract infection, site not specified Shoulder pain, acute : Patient Instructions Indication: Shoulder pain, acute Shoulder pain, acute : Patient Instructions Indication: Shoulder pain, acute Tension headache (Renamed from Benign headache) : Patient Instructions Indication: Tension headache (Renamed from Benign headache) Depression (311.) : Patient Instructions Indication: Depression (311.) Acute sinusitis, unspecified : Patient Instructions Indication: Acute sinusitis, unspecified Hypertension : Patient Instructions Indication: Hypertension Irritable bowel syndrome : Patient Instructions Indication: Irritable bowel syndrome Diarrhea : Patient Instructions Indication: Diarrhea Impaired fasting glucose : Patient Instructions Indication: Impaired fasting glucose Depression (311.) : Patient Instructions Indication: Depression (311.) Pharyngitis, acute : Sore throat: diagnosis and treatment Indication: Pharyngitis, acute Pharyngitis, acute : Sore throat: diagnosis and treatment Indication: Pharyngitis, acute Pharyngitis, acute : Sore throat: diagnosis and treatment Indication: Pharyngitis, acute Encounters Annotation/Addendum On: 19-Jun-2018 11:07 [facility] End: 19-Jun-2018 11:08 Office Visit On: 06-May-2018 11:19 Encounter Diagnosis: Need for prophylactic vaccination and inoculation against influenza (Renamed from Need for immunization against influenza) End: 06-May-2018 13:18 [facility] Office Visit On: 06-May-2018 10:08 Encounter Reason: Follow up for chronic medical issues - The patient feels well with minor complaints (anxiety. depression. weight). Patient has been compliant with instructions. Current medication use: no side effects, End: 06-May-2018 11:18 compliant with dosing regimen and considered effective by patient. Patient sleeps 6 (CPAP) hours per night. Impact of disease: emotional impact-moderate. Nutrition: balanced diet and supplemental vitami ns. The medical issues the patient is following up for include asthma, blood sugar issues, cardiac issues, depression, fibromyalgia, high blood pressure, high cholesterol, hypothyroid and other (obesity , IBS, CJ, vitamin d def., Fahr's syndrome, RLS). Note for Follow up for chronic medical issues: Mostly personal issues with mother and stress., [ADDITIONAL REASON] Follow up tests - Diagnostic tests include other (labs). Date: (04/29/18). , [ADDITIONAL REASON] Depression - Note for Depression : Feels down in the dumps feels stressed , [ADDITIONAL REASON] Migraine headache - Note for Headache: Had a bout on Saturday of severe migraine Encounter Diagnosis: Nonsmoker, BMI 39.0-39.9,adult, Anxiety and depression, Uses hearing aid, Hypertension, Fibromyalgia, Vitamin D deficiency, unspecified, Encounter for screening for malignant neoplasm of colon (Renamed from Special screening for malignant neoplasms, colon) [facility] Office Visit On: 28-Jan-2018 7:58 Encounter Reason: Follow up for chronic medical issues - The patient feels well with minor complaints (anxiety. depression. weight). Patient has been compliant with instructions. Current medication use: no side effects, End: 28-Jan-2018 10:56 compliant with dosing regimen and considered effective by patient. Patient sleeps 6 (CPAP) hours per night. Impact of disease: emotional impact-moderate. Nutrition: balanced diet and supplemental vitami ns. The medical issues the patient is following up for include asthma, blood sugar issues, cardiac issues, depression, fibromyalgia, high blood pressure, high cholesterol, hypothyroid and other (obesity , IBS, CJ, vitamin d def., Fahr's syndrome, RLS). Note for Follow up for chronic medical issues: Mostly personal issues with mother and stress., [ADDITIONAL REASON] Anxiety - Symptoms include anxiety. The symptoms occur constantly. Since diagnos is the disease has been worsening. Recently the disease has been worsening. Note for Anxiety: Feeling stressed with mother and break up of boyfriend.Sees psychiatris and counselor , [ADDITIONAL REASON] Weight Gain - Symptoms are exacerbated by stress and depression. Encounter Diagnosis: Mixed Hyperlipidemia (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), Hypertension, Nonsmoker, BMI 37.0-37.9, adult, Vitamin D deficiency, unspecified, Gas raising [facility] Annotation/Addendum On: 22-Jan-2018 9:30 Encounter Diagnosis: Restless legs End: 22-Jan-2018 9:32 [facility] Office Visit On: 16-Oct-2017 10:18 Encounter Reason: Cough - The cough is described as productive (green). The cough occurs intermittently. Symptoms are described as unchanged. Previous presentation included a cough. Note for Cough: Dry cough need somet End: 16-Oct-2017 11:07 pedro for that, used airborn hot teaEncounter Diagnosis: BMI 38.0-38.9,adult, Nonsmoker, Cough (786.2), Hair loss, Anxiety and depression, Hypertension, Asthma, Mixed Hyperlipidemia (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), Vitamin D deficiency, unspecified, Hypothyroidism, unspecified [facility] Annotation/Addendum On: 07-Oct-2017 16:45 Encounter Diagnosis: Hypertension End: 07-Oct-2017 16:48 [facility] Office Visit On: 08-Jul-2017 7:59 Encounter Reason: Follow up tests - Diagnostic tests include other (labs)., [ADDITIONAL REASON] Follow up for chronic medical issues - The patient feels well with minor complai End: 08-Jul-2017 10:02 nts (voice). Patient has been compliant with instructions. Current medication use: no side effects, compliant with dosing regimen and considered effective by patient. Patient sleeps 6 hours per night. I mpact of disease: emotional impact-moderate. Nutrition: balanced diet and supplemental vitamins. The medical issues the patient is following up for include asthma, blood sugar issues, cardiac issues, de pression, fibromyalgia, high blood pressure, high cholesterol, hypothyroid and other (obesity, IBS, CJ, vitamin d def., Fahr's syndrome, RLS ). Note for Follow up for chronic medical issues: On [facility] for wt loss takes 2 supplements to curb appetite, has lost wt , [ADDITIONAL REASON] Hoarse Voice - Has hoarse voice comes and goes, salt water helps with gargle, has seen Sibilia, did not see anything like polyps , Encounter Diagnosis: Nonsmoker, BMI 37.0-37.9, adult, Need for prophylactic vaccination and inoculation against influenza (Renamed from Need for immunization against influenza), Mixed Hyperlipidemia (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), Calcific tendinitis of right shoulder, Encounter for screening mammogram for breast cancer, Asthma, CJ (obstructive sleep apnea), Hoarse voice quality [facility] Office Visit On: 01-Apr-2017 7:37 Encounter Reason: Follow up for chronic medical issues - The patient feels well with minor complaints (would like to discuss fatigue medication.). Patient has been compliant with instructions. Current medication use: no End: 01-Apr-2017 11:22 side effects, compliant with dosing regimen and considered effective by patient. Patient sleeps 6 hours per night. Impact of disease: emotional impact-moderate. Nutrition: balanced diet and supplemental vitamins. The medical issues the patient is following up for include asthma, blood sugar issues, cardiac issues, depression, fibromyalgia, high blood pressure, high cholesterol, hypothyroid and other ( obesity, IBS, CJ, vitamin d def., Fahr's syndrome, RLS ). Note for Follow up for chronic medical issues: Seeing psychiatrist Dr. Em Domínguez in [place] put on nuvigil and belsomra at night, [ADDITIONAL REASON] Follow up tests - Diagnostic tests include other (labs). Date: (03/22/17). Encounter Diagnosis: Anxiety and depression, Chronic fatigue and malaise, BMI 39.0-39.9,adult, Nonsmoker, Hypertension, Impaired fasting glucose, Hyperglyceridemia, Vitamin D deficiency, unspecified, Mixed Hyperlipidemia (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) [facility] Office Visit On: 29-Jan-2017 10:20 Encounter Reason: Follow up acute care visit - The patient does not feel well. Patient has been compliant with instructions., [ADDITIONAL REASON] Shoulder Problem - Note for Shoulder problem: Saw Nils given exercises Encounter Diagnosis: End: 29-Jan-2017 11:19 Nonsmoker, BMI 39.0-39.9,adult, Calcific tendinitis of right shoulder, Chronic fatigue and malaise, CJ (obstructive sleep apnea), Depression (311.) [facility] Office Visit On: 26-Dec-2016 11:00 Encounter Reason: Follow up for chronic medical issues - The patient feels well with minor complaints (cough), has decreased energy level and is sleeping poorly. Patient has been compliant with instructions. Current medi End: 26-Dec-2016 11:54 cation use: no side effects, compliant with dosing regimen and considered effective by patient. Patient sleeps 5 (depends on the night) hours per night. Impact of disease: emotional impact-moderate. Nut rition: balanced diet and supplemental vitamins. The medical issues the patient is following up for include asthma, blood sugar issues, cardiac issues, depression, fibromyalgia, high blood pressure, hig h cholesterol, hypothyroid and other (obesity, IBS, CJ, vitamin d def., Fahr's syndrome, RLS )., [ADDITIONAL REASON] Cough - The onset of the cough has been gradual. The cough is characterized as dry. The amount of sputum produced is scanty. The symptoms have been associated with hoarseness. Encounter Diagnosis: Nonsmoker, BMI 39.0-39.9,adult, Cough, Anxiety and depression, Mixed Hyperlipidemia (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), Impaired fasting glucose, Hypertension, Hypothyroidism, unspecified [facility] Office Visit On: 14-Dec-2016 10:23 Encounter Reason: Follow up tests - Diagnostic tests include other and X-Ray. Date: (12/11/16). Current symptoms include other (right arm pain).Encounter Diagnosis: BMI 40.0-44.9, adult, Current nonsmoker (Renamed from Current non-smoker), End: 14-Dec-2016 11:04 Calcific tendinitis of right shoulder [facility] Office Visit On: 11-Dec-2016 8:14 Encounter Reason: Shoulder Problem - This shoulder problem is without any known injury. The patient is right hand dominant. The injury involved the right shoulder. This occurred 3 week(s) ago. Symptoms include shoulder p End: 11-Dec-2016 8:49 ain, tenderness, localized swelling, clicking (popping) and decreased range of motion. Symptoms are located in the right shoulder. The pain radiates to the right upper arm. Onset was 3 week(s) ago. The symptoms occur constantly. Symptoms are exacerbated by motion at the shoulder and elevation of the shoulder. Associated symptoms include localized warmth and numbness in the arm. Previous presentation i ncluded shoulder pain, shoulder stiffness and pain in the arm. Note for Shoulder problem: was carrying a lot of boxes and suitcases for my mom. Encounter Diagnosis: Current nonsmoker (Renamed from Current non-smoker), BMI 40.0-44.9, adult, Right shoulder pain, Vitamin D deficiency, unspecified, Mixed Hyperlipidemia (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), Impaired fasting glucose, Chronic fatigue and malaise, Hypothyroidism, unspecified [facility] Office Visit On: 22-Oct-2016 8:29 Encounter Reason: Dizziness - The last clinic visit was 3 day(s) ago. No changes in management were made at the last visit. Symptoms include dizziness. The dizziness is described as lightheadedness. Onset was gradual 3 d End: 22-Oct-2016 11:08 ay(s) ago. The symptoms occur intermittently. Symptoms are exacerbated by lying down, standing and getting up quickly.Encounter Diagnosis: Hypotension, Elevated serum creatinine, BMI 38.0-38.9,adult, Current nonsmoker (Renamed from Current non-smoker) [facility] Office Visit On: 26-Sep-2016 10:17 Encounter Reason: Follow up for chronic medical issues - The patient does not feel well, has decreased energy level and is sleeping well (feels like she is sleeping too much, sleeps during the day). Patient has been comp End: 26-Sep-2016 12:26 liant with instructions. Current medication use: no side effects, compliant with dosing regimen and considered effective by patient. Patient sleeps 7 hours per night. Impact of disease: emotional impact -moderate. Nutrition: balanced diet and supplemental vitamins. The medical issues the patient is following up for include asthma, blood sugar issues, cardiac issues, depression, fibromyalgia, high blood pressure, high cholesterol, hypothyroid and other (obesity, IBS, CJ, vitamin d def., Fahr's syndrome, RLS )., [ADDITIONAL REASON] Follow up tests - Date: (09/12/16 blood work). Encounter Diagnosis: Impaired fasting glucose, BMI 39.0-39.9,adult, Nonsmoker, Vitamin D deficiency, unspecified, Depression (311.) [facility] Lab Order On: 01-Aug-2016 8:24 Encounter Diagnosis: Hyperthyroidism End: 01-Aug-2016 12:39 [facility] Office Visit On: 19-Jun-2016 10:20 Encounter Reason: Follow up for chronic medical issues - The patient feels well with minor complaints (tired) and has decreased energy level. Patient has been compliant with instructions. Current medication use: no side End: 19-Jun-2016 11:06 effects, compliant with dosing regimen and considered effective by patient. Patient sleeps 5 hours per night. Impact of disease: emotional impact-moderate. Nutrition: balanced diet and supplemental kayla mins. The medical issues the patient is following up for include asthma, blood sugar issues, cardiac issues, depression, fibromyalgia, high blood pressure, high cholesterol, hypothyroid and other (obesi ty, IBS, CJ, vitamin d def., Fahr's syndrome, RLS )., [ADDITIONAL REASON] Follow up tests - Diagnostic tests include other (labs). Encounter Diagnosis: Impaired fasting glucose, Fibromyalgia, Vitamin D deficiency, unspecified, BMI 38.0-38.9,adult, Nonsmoker, Irritable bowel syndrome, Hypertension, Mixed Hyperlipidemia (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), Need for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 current symptoms. There is a family history of cardiovascular disease (sister- gra End: 09-Apr-2007 11:20 ndparents) and myocardial infarction before age 55 (sister- 41) , while there is no family history of breast cancer ,cystic fibrosis ,Down's syndrome or mental retardation. Past medical history includes emotional problems (depression) ,hypertension and other (IBS, fibryomyalgia). Note for Follow up, Diagnostic Procedure Results: saw ramón and doing better, talk with Dr. bryant, headache in back of head muscle tight--masssotherapy done, [ADDITIONAL REASON] Follow up, Laboratory Test Results - Date: (03-21-07). Current symptoms/reason for visit include/s Follow up visit with no current symptoms. There is a family history of cardiovascul ar disease (grandparents, sister) and myocardial infarction before age 55 (sister) , while there is no family history of breast cancer ,cystic fibrosis ,Down's syndrome or mental retardation. Past medic al history includes emotional problems (depression) ,hypertension ,irritable bowel disease and other (fibryomyalgia). Encounter Diagnosis: Depression (311.), Abnormal TSH (794.5), Tension headache (307.81) [facility] Visit On: 27-Mar-2007 10:02 Encounter Reason: Well Women Exam - The patient feels well with minor complaints ,has decreased energy level and is sleeping poorly. Pap smear: history of abnormal pap (years ago) and date of last pap: (2005). Contracept End: 27-Mar-2007 12:15 christiano history: The patient is not using any method of contraception at this time. Patient exercises a weekly. The patient's libido is normal. The patient reports that she does not perform monthly breast self exam. Encounter Diagnosis: Well Women Exam (V72.31)( Pap, Mammo, Routine Female and Dexa), UNSPECIFIED ACQUIRED HYPOTHYROIDISM (244.9), Depression (311.) [facility] Visit On: 06-Mar-2007 10:17 Encounter Reason: Follow up for chronic medical issues - The patient feels well with minor complaints ,has decreased energy level and is sleeping well. Patient has been compliant with instructions. Current medication use End: 06-Mar-2007 10:40 : no side effects ,compliant with dosing regimen and considered effective by patient. Patient sleeps 8 hours per night. Impact of disease: emotional impact-mild. Nutrition: balanced diet. The medical is sues the patient is following up for include depression ,high blood pressure ,high cholesterol ,hypothyroid and other (fibromyalgia, IBS, migraine ). Note for Follow up for chronic medical issues: rev iewed with patient specialist's note shewman adjusting throid, some signs and symptoms with change some hotflush, some headache some allergiessome neck stiffness, some headache around eyes and back of h ead, menses--2 w a month cramping and feel irritable, week of peroid spotting not full mensesEncounter Diagnosis: Abnormal TSH (794.5), Hypertension (401.0), Irritable bowel (564.1), Migraine (346.80), Depression (311.), Fibromyalgia (729.1), Tension headache (307.81), Irregular Menstraul Cycle (626.4) [facility] Historical Summary On: 21-Feb-2007 10:55 [facility] End: 21-Feb-2007 10:57 Office Visit On: 05-Dec-2006 10:23 Encounter Reason: Follow up, Laboratory Test Results - Lab results: abnormal blood chemistry and other (abnormal TSH ). Date: (11-30). Current symptoms/reason for visit include/s Symptoms include hypothyroidism ,migraine End: 05-Dec-2006 10:59 headaches and other (neck ache ). Past medical history includes emotional problems (depression) ,hypertension ,hypothyroidism and other (migraines, fibromyalgia ). Note for Follow up, Laboratory Test R esults: depression has been bad--called crisis centered, no plan to hurt self but very depressed, work hirshman Encounter Diagnosis: Hypertension (401.0), Irritable bowel (564.1), Migraine (346.80), Fibromyalgia (729.1), Abnormal CT of Brain(794.09) , Abnormal TSH (794.5) [facility] Visit On: 12-Nov-2006 14:04 Encounter Reason: Neck pain - The onset of the neck pain has been gradual following no specific incident and has been occurring in an intermittent pattern for 4 weeks. The course has been recurrent. The neck pain is desc End: 12-Nov-2006 15:01 ribed as a moderate dull aching. The neck pain is described as being located in the sides of cervical spine. The back pain does not radiate There have been no aggravating factors. The pain has not been relieved by anything. , [ADDITIONAL REASON] Headache/ - The onset of the headache/ has been gradual and has been occurring in a persistent pattern for 2 weeks. The course has been recurrent and increasing in severity. The hea dache/ is characterized as a pressure sensation ,deep pain ,severe and throbbing. The headache/ is experienced any time of the day (no diurnal variation). The headache/ is described as being located in the entire head. The symptoms are aggravated by bright light and fatigue. The symptoms have been associated with ear pain ,neck pain and neck stiffness, while the symptoms have not been associated with nasal discharge/stuffy nose ,vertigo or vomiting. Note for Headache/: alot of heir sx are back in head but has temporal area but has pain in the back of the neck-- no trauma and not sleeping well wake s with the headaches and last all day- no visual change- no weakness or numbness in arm or leg- no fever but light sensitive- hx- of migraines- very unlike her migraines- she has alot of stress at home - hx of chronic depression Encounter Diagnosis: SYMPTOMS INVOLVING HEAD AND NECK; HEADACHE (784.0), cervical spasm with fibromyalgia- send for pt- then followup after pt [facility] Visit On: 14-Oct-2006 8:41 Encounter Reason: Sinusitis/ - The duration of the symptoms are 2 weeks The course has been gradually worsening. The sinusitis/ has no relieving factors. Associated features include The symptoms have been associated with End: 14-Oct-2006 9:16 ear pain ,nasal discharge/stuffy nose ,sinus pain and sore throat (scratchy ). Encounter Diagnosis: Acute sinusitis, unspecified (461.9), Hypertension (401.0) [facility] Visit On: 06-Aug-2006 11:04 Encounter Reason: Follow up, Laboratory Test Results - Lab results: other (TSH T- 3, T4). Date: (07-26-06). Current symptoms/reason for visit include/s Symptoms include anxiety ,nausea and other (tired). Past medical histo End: 06-Aug-2006 11:36 ry includes other (fibromyalgia, major depression). Note for Follow up, Laboratory Test Results: felt better on the 50 of cytomel, but tsh suppressedEncounter Diagnosis: Abnormal TSH (794.5), Depression (311.), Fibromyalgia (729.1), Hypertension (401.0), Migraine (346.80), Diarrhea (787.91), Irritable bowel (564.1), Tension headache (307.81), OTHER SPECIFIED DISORDERS OF BREAST (611.8) [facility] Historical Summary On: 12-Jun-2006 19:44 [facility] End: 12-Jun-2006 19:46 Office Visit On: 20-May-2006 10:06 Encounter Reason: Follow up tests - Diagnostic tests include CT scan (reveiwed from clinic colonic diverticulum rest normal) and other (Blood Work). Date: (05/09/06, 05/15/06). Current symptoms include abdominal pain (better). Encounter Diagnosis: End: 20-May-2006 10:38 Depression (311.), Fibromyalgia (729.1), Abnormal TSH (794.5) [facility] Historical Summary On: 20-May-2006 8:29 [facility] End: 20-May-2006 8:34 Office Visit On: 01-May-2006 10:15 Encounter Reason: Diarrhea - The onset of the diarrhea has been variable and has been occurring in an intermittent pattern for days. The course has been constant (immodium helps). The stools are watery. The symptoms have End: 01-May-2006 22:46 been associated with abdominal pain ,anxiety (worse recently,three weeks alot) ,heat intolerance ,nausea ,nocturnal bowel movements and weakness, while the symptoms have not been associated with fever ,[place] ,similar illness in other people eating the same meal ,start of a new medication ,vomiting ,diabetic /low carb snacks ,drink well water ,milk intake or recent antibiotics. Note for Diarrhea: has IBS alot, [ADDITIONAL REASON] Fatigue - The fatigue has been occurring for 1 months (patient has ahd for long time worst with anxiety. on cytomel will get check soon.). , [ADDITIONAL REASON] Headache/ - The headache/ has been occurring for 1 months. Note for Headache/: Pt felt PARADA not like a migraine, allover the head. Imitrex did not help. Encounter Diagnosis: Diarrhea (787.91), Irritable bowel (564.1), Fibromyalgia (729.1), Depressive Disorder (311.), Headache,Migraine (346.00), Benign essential hypertension (401.1), Tension headache (307.81) [facility] [place] [facility] [place] [employer]; a guarantor
--- OUTSIDE RECORDS SUMMARY | 2018-09-24 00:45 | XMS RPT_ITS | Continuity of Care Document ---
:1955 Author Organization [facility] Address [facility] [place] [address] Phone Care Team Providers Name Role Phone Kathia Patton CNP Unavailable Андрей Williamson MD Unavailable Dr. Marvel Steiner Unavailable Alison Cain Unavailable Jaime Early Unavailable Mimi Rice Unavailable Unavailable Slarb BLOW UP OPERATOR, Bhavna Unavailable Unavailable Unavailable Unavailable Problems Name Dates Details Allergic rhinitis (J30.9, 477.9) Status: Active Anxiety and depression (F41.9, 300.00) Comments: Ruby for anxiety and panic as well as and Rexulti, and cymbaltaSees Dr. Em Domínguez in [place] Status: Active Asthma (J45.909, 493.90) Comments: stable [...] Status: Active Fibromyalgia (M79.7, 729.1) Comments: saw [facility] rheum. Dr. Alexander 8-15 continue current meds. [...] was seeing wellness Dr Lynne Vieira at [facility] gone now, will get labs with next [...] (220 MG) Comments: Medication taken as needed. Eden Thyroid 30 MG Oral Tablet 1 (one) Tablet qd and 2 on Saturday for 0 days Quantity: 114 {Tablet} Refills: 3 Ordered:16-Oct-2017 Ciesa SHEILA, Kathia Vanegas CNP, Diana Start : 16-Oct-2017 Active Eden Thyroid 30 MG Oral Tablet 1 (one) [...] Quantity: 60 {Capsule} Refills: 0 Ordered:01-Apr-2017 Pooja ELECTRICIAN CONSTRUCTOR SUPERVISOR, Kathia Vanegas ELECTRICIAN CONSTRUCTOR SUPERVISOR, Diana Start : 01-Apr-2017 Active Fish Oil [...] Quantity: 30 {Tablet} Refills: 0 Ordered:16-Mar-2016 Bhavna Leonadr LPN Start : 13-Feb-2016 Active Comments:Prescribed with Psych Ella Domínguez ROPINIRole HCl 1 MG Oral Tablet 1 (one) Tablet Tablet qhs for 0 days Quantity: 30 {Tablet} Refills: 0 Ordered:06-May-2018 Sathishmaggie SOSA, Kathia SUNIstephenmaggie ELECTRICIAN CONSTRUCTOR SUPERVISOR, Diana Start : 22-Jan-2018 Active Comments:neuro Spironolactone [...] for 0 days Refills: 0 Ordered:30-Mar-2011 Long BLOW UP OPERATOR, Michelle L End : 30-Mar-2011 Inactive AUGMENTIN, [...] Quantity: 20 {Capsule} Refills: 0 Ordered:13-Mar-2011 Pooja ELECTRICIAN CONSTRUCTOR SUPERVISOR, Kathia Vanegas ELECTRICIAN CONSTRUCTOR SUPERVISOR, Kathia Dias Start : 13-Mar-2011 End : [...] days Quantity: 2 {Tablet} Refills: 0 Ordered:28-Apr-2008 Omaira Vizcarra Start [...] : 02-Mar-2015 End : 09-Mar-2015 Inactive DRISDOL, 67260AHQL (Oral Capsule) 1 q weekly (02064 UNIT) Inactive ESTRADIOL, 1MG (Oral Tablet) 1 [...] : 08-Jun-2014 End : 29-Jun-2014 Discontinued Ergocalciferol 38818 UNIT Oral Capsule 1 Capsule twice weekly for 0 days Quantity: 24 {Capsule} Refills: 0 Ordered:01-Apr-2017 Bhavna Leonard LPN Start : 26-Sep-2016 End : 01-Apr-2017 Discontinued FLEXERIL, 10MG (Oral Tablet) Tablet TID/PRN for 0 days Refills: 0 Ordered:12-Sep-2008 Omaira Vizcarra Start : 14-Oct-2007 End : 28-May-2008 Discontinued Gabapentin 400 MG Oral Capsule qhs (400 MG) End : 01-Apr-2017 Discontinued Comments:Dr. lewis HYDROCHLOROTHIAZIDE, 25MG (Oral Tablet) Tablet QD for [...] and large breasts. G cup. weight loss. loom changer purse. nsaids. ice it. good bra [...] (CAD), BILAT Result: Comments: See Note; NOTES: [facility] Imaging Services [address] [place] [address] SCREENING MAMM (CAD), BILAT MR#: [id number] Acct: [id number] Name: KATHIA VALENTE Rep #: [id number] : 1955 F 62 From: Ruperto Dorsey MD PCP: Kathia Patton NP Status: REG CLI Study: SCREENING MAMM (CAD), BILAT Date of Exam: 08/05/17 Exam# [id number] Ordering Dr: Kathia Patton MAMMOGR APHY - [...] delay biopsy of a clinically suspicious abnormality. [id number] Electronically Signed: Ruperto Dorsye MD at 15:13 EST Tel [phone], Service support , CC: Kathia Patton NP Umbrella Supervisor: Signed 25-Dec-2016 Cerv Spine 2 or 3 Views Result: Comments: See Note; NOTES: [facility] Imaging Services [address] [place] [address] Verdana 4d Cerv Spine 2 or 3 Views MR#: [id number] Acct: [id number] Name: KATHIA VALENTE Re p #: [id number] : 1955 F 61 From: Troy Cueto MD PCP: Kathia Patton Status: REG CLI Study: Cerv Spine 2 or 3 Views Date of Exam: 12/25/16 Exam# [id number] Ordering Dr: Alison Cain DO JUANI DY: [...] , CC: Kathia Patton; Alison Cain DO Umbrella Supervisor: Signed 11-Dec-2016 Shoulder min 2 Views Result: Comments: See Note; NOTES: [facility] Imaging Services [address] [place] [address] Verdana 4d Shoulder min 2 Views MR#: [id number] Acct: [id number] Name: KATHIA VALENTE Rep # : [id number] : 1955 F 61 From: Sheyla Perez MD PCP: Kathia Patton Status: REG CLI Study: Shoulder min 2 Views Date of Exam: 12/11/16 Exam# [id number] Ordering Dr: Kathia Patton STUDY: X-RAY - [...] at 9:31 EDT Tel , Service support [phone], CC: Kathia Patton Umbrella Supervisor: Signed 10-Aug-2016 Operative Report Result: Comments: See Note; NOTES: [facility] Medical Records Department [address] [place] [address] Operative Report 08/06/16 1625 MR#: [id number] Acct: [id number] Name: KATHIA VALENTE Rep #: [id number] : 1955 61 From: Mckayla Napoles MD PCP: Kathia Patton Status: REG CLI Y Location: [facility] Report of Operation Date of Procedure: 08/06/16 [...] at the head of the table. A fourth mate compression mammogram was then obtained in the [...] placed into the biopsy cavity and a fourth mate film revealed that it was properly deployed. [...] AND CAD Result: Comments: See Note; NOTES: [facility] Imaging Services [address] [place] [address] Verdana 4d Bilat Scrn Digital AND CAD MR#: [id number] Acct: [id number] Name: KATHIA VALENTE Rep #: [id number] : 1955 F 61 From: Ruperto Dorsey MD PCP: Nataly Berger MD Status: REG CLI Study: Bilat Scrn Digital AND CAD Date of Exam: 07/28/16 Exam# [id number] Ordering Dr: Kathia Patton MAMMOGRAPHY - BILATERAL [...] delay biopsy of a clinically suspicious abnormality. [id number] Electronically Signed: Ruperto Dorsey MD at 9:32 EST Tel [phone], Service support [phone], CC: Kathia Patton; Nataly Berger MD Umbrella Supervisor: Signed 09-Aug-2015 Spirometry (14463) Comments: mild restriction Result: 23-May-2015 Bilat Scrn Digital AND CAD Result: Comments: See Note; NOTES: [facility] Imaging Services [address] [place] [address] Breast Imaging Report MR#: [id number] Acct: [id number] Name: KATHIA VALENTE Rep #: [id number] : 1955 F 60 From: Ruperto Dorsey MD PCP: Nataly Berger MD Status: REG CLI Study: Bilat Scrn Digital AND CAD Date of Exam: 05/23/15 Exam# [id number] Ordering Dr: Nataly Berger MD MAMMOGRAPHY - [...] Ruperto Dorsey MD at 13:10 EDT Tel [phone], Service support [phone], CC: Nataly Berger MD Umbrella Supervisor: Signed 08-Oct-2014 Echocardiogram Complete Result: Comments: See Note; NOTES: [facility] Cardiovascular Services [address] [place] [address] Echo Complete 10/08/14912 MR#: [id number] Acct: [id number] Name: NICK VALENTE MCKENZIE Lopez Rep #: [id number] : 1955 59 From: Guilherme Cisse MD Attending Dr: Nataly Berger MD Status: REG CLI Ordering Dr: Nataly Berger MD Date: 10/08/14 Location: [facility] Sex: F C Admitted: Torres phipps This [...] 8.9 cm/sec 131.1 cm/sec MV A max lorena: Ao max P.9 mmHg 61.7 cm/sec MV [...] Physician: Nataly Berger Performed By: Nicki Segovia [facility] 10/08/14 1525 Date Guilherme Cisse MD CC: Nataly Berger MD Date Dictated: 10/08/14 0913 Date Transcribed: 10/08/14 1525 Umbrella Supervisor: Signed 08-Oct-2014 Nuclear Stress Test - Treadmil Result: Comments: See Note; NOTES: [facility] Imaging Services [address] [place] [address] Nuclear Medicine Report MR#: [id number] Acct: [id number] Name: KATHIA VALENTE Rep #: [id number] : 1955 F 59 From: Mazin Jose MD PCP: Nataly Berger MD Status: REG CLI Study: Nuclear Stress Test - [facility] Date of Exam: 10/08/14 Exam# [id number] Ordering Dr: Nataly Berger MD EXERCISE MYOCARDIAL PERFUSION STRESS TEST REASON FOR EVALUATION: This is a 59-year-old lady with a history of chest pain. Baseline EKG demonstrates normal sinus rhythm with a rate of 78 beats pe r minute. Normal intervals are noted. MEDICATIONS: Klonopin, Lisinopril, Hydrochlorothiazide, Seroquel, Eden Thyroid, Maxalt, Symbicort. STRESS TEST: The patient exercised according to the [facility] protocol for a total duration of [...] axis, vertical long, and horizontal long axes. Mcintyre d images were also obtained. PERFUSION SPECT [...] ejection fraction noted. CC: Nataly Berger MD Umbrella Supervisor: PARADA Signed 01-Oct-2014 12 Lead Electrocardiogram Result: Comments: See Note; NOTES: [facility] Cardiovascular Services [address] [place] [address] 12 Lead EKG 09/30/141617 MR#: [id number] Acct: [id number] Name: KATHIA VALENTE Rep #: [id number] : 1955 59 From: Guilherme Cisse MD [...] Abnormal ECG Confirmed by GUILHERME CISSE ([id number]), writer editor TAMARA MORAN ([id number]) on 10/01/2014 1: 16:07 PM Referred By: KAREEM Confirmed By:GUILHERME POWERS ON 10/01/14 1316 Date Guilherme Cisse MD CC: Nataly Berger MD Date Dictated: 09/30/141617 Date Transcribed: 09/30/141617 Umbrella Supervisor: Signed 08-Jun-2014 Spirometry (37239) Comments: see scanned document of test done to see results reviewed today with patient Result: 08-Jun-2014 ELECTROCARDIOGRAM, COMPLETE (ECG) (75133) Comments: see scanned document of test done to see results reviewed today with patient Result: [MEASUREMENTS ANALYSIS] Date of Test: 06/08/2014 12:31:18; Heart Rate: 86; OK Interval: 146; QRS: 104; QT Interval: 360; Corrected QT Interval (QTc): 405; P [place]: 38; QRS [place]: -9; T [place] : -1; Blood Pressure: 118/70 [ECG DIAGNOSTIC STATEMENTS] Date of Test: 06/08/2014 12:31:18; Summary: Sinus Rhythm WITHIN NORMAL LIMITS 24-May-2014 Spirometry (05999) Comments: good effort and curvve mild restriciton Result: 02-Feb-2014 Upper Ext Joint Only(Routine) Result: Comments: See Note; NOTES: [facility] Imaging Services [address] [place] [address] MRI Report MR#: [id number] Acct: [id number] Name: KATHIA VALENTE Rep #: [id number] DO B: 1955 F 58 From: Kevin Lee MD PCP: Nataly Berger MD Status: REG CLI Study: Upper Ext Joint Only(Routine) Date of Exam: 02/02/14 Exam# [id number] Ordering Dr: Luz Valdez DO STUDY : [...] at 14:02 EDT Tel , Service support [phone], CC: Nataly Berger MD; Luz Valdez DO Umbrella Supervisor: Signed 10-Aug-2013 Brain/Head without Contrast Result: Comments: See Note; NOTES: [facility] Imaging Services [address] [place] [address] CAT Scan Report MR#: [id number] Acct: [id number] Name: KATHIA VALENTE Rep #: [id number] : 1955 F 58 From: Ruperto Dorsey MD PCP: Status: REG CLI Study: Brain/Head without Contrast Date of Exam: 08/10/13 Exam# [id number] Ordering Dr: Luz Valdez DO STUDY: CT [...] 2 at 16:06 EST , Service support [phone], CC: Luz Valdez DO Umbrella Supervisor: Signed Immunization Name Dates Details Tdap (7 years and up) on: 17-May-2009 Comments: Lot #: [id number] date: mount given: 0.5 mlRoute: IMSite given: [...] smoker Vital Signs Date Test Result Details 43-Xpe-119760:11 Temperature 98.2 f Comments: Method: Temporal Pulse [...] kg/m2 Body Surface Area Calculated 2.02 m2 00-Dwq-678375:04 Temperature 98.2 f Pulse 90 /min Comments: [...] kg/m2 Body Surface Area Calculated 2.09 m2 93-Tmx-200932:00 Temperature 98.6 f Comments: Method: Oral Pulse [...] Results Date Description Value Details :17 CALCIFEDIOL (39963) Comments: PATIENT WAS FASTINGPERFORMED BY: [email or web address] [employer] [place] [id number] Vitamin D, 25-Hydroxy 27.4 ng/mL (Abnormal) Range: 30.0-100.0 Comments: Vitamin D deficiency has been defined by the [place] of[place]icine and an Endocrine Society practice guideline as alevel of serum 25-OH vitamin D less than 20 ng/mL (1,2).The Endocrine Society went on to further define vitamin Dinsufficiency as a level between 21 and 29 ng/mL (2).1. IOM ([place] of [place]). 2010. Dietary reference intakes for calcium and D. [place]: The National Academies Press.2. Coy MF, Raya NC, Armida PARADA, et al. Evaluation, treatment, and prevention of vitamin D deficiency: an Endocrine Society clinical practice guideline. JCEM. 2010; 96(7):1911-30. :17 MICROALBUMIN: CREATININE RATIO Comments: PATIENT WAS FASTINGPERFORMED BY: [email or web address] [employer] [facility] [id number] (51878) AND (32052) Alb/Creat Ratio <5.2 {mg/g_creat} (Normal) Range: 0.0-30.0 Albumin, Urine <3.0 ug/mL (Normal) Creatinine, Urine 58.1 mg/dL (Normal) :17 URINALYSIS (41631) Comments: PATIENT WAS FASTINGPERFORMED BY: [facility]araTrinitas HospitalYuibqc9437 [facility] [id number] Microscopic Examination See below: (Normal) Comments: Microscopic was indicated and was performed. Nitrite, Urine Negative (Normal) Urobilinogen,Semi-Qn 0.2 mg/dL (Normal) Range: 0.2-1.0 Bilirubin Negative (Normal) Occult Blood Negative (Normal) Ketones Negative (Normal) Glucose Negative (Normal) Protein Negative (Normal) WBC Esterase Trace (Abnormal) Appearance Clear (Normal) Urine-Color Yellow (Normal) pH 6.0 (Normal) Range: 5.0-7.5 Specific Seminole 1.016 (Normal) Range: 1.005-1.030 :17 TSH (49855) Comments: PATIENT WAS FASTINGPERFORMED BY: [facility]araTrinitas HospitalLvblhn1412 [facility] [id number] TSH 1.550 {uIU/mL} (Normal) Range: 0.450-4.500 :17 CBC, Platelets & Auto Diff Comments: PATIENT WAS FASTINGPERFORMED BY: [facility]araTrinit[facility] HospitalQrpege9889 [facility] [id number] (71135) Immature Grans (Abs) 0.0 {x10E3/uL} (Normal) Range: [...] {x10E3/uL} (Normal) Range: 3.4-10.8 :17 Lipid Panel (47855) Comments: PATIENT WAS FASTINGPERFORMED BY: [employer] [facility] [id number] LDL/HDL Ratio 1.7 {ratio} (Normal) Range: 0.0-3.2 [...] Panel, Comprehensive Comments: PATIENT WAS FASTINGPERFORMED BY: [employer] [facility] [id number] (27556) ALT (SGPT) 16 [iU]/L (Normal) Range: 0-32 [...] Microscopic Examination Comments: PATIENT WAS FASTINGPERFORMED BY: [employer]6370 [facility] [id number] Bacteria Few (Normal) Mucus Threads Present (Normal) Epithelial Cells (non renal) 0-10 {/hpf} (Normal) Range: 0 - 10 RBC 0-2 {/hpf} (Normal) Range: 0 - 2 WBC 0-5 {/hpf} (Normal) Range: 0 - 5 32-Zye-855596:31 CALCIFEDIOL (74376) Comments: PATIENT NOT FASTINGPERFORMED BY: [employer]6370 [facility] [id number] Vitamin D, 25-Hydroxy 27.7 ng/mL (Abnormal) Range: 30.0-100.0 Comments: Vitamin D deficiency has been defined by the [place] of[place]icine and an Endocrine Society practice guideline as alevel of serum 25-OH vitamin D less than 20 ng/mL (1,2).The Endocrine Society went on to further define vitamin Dinsufficiency as a level between 21 and 29 ng/mL (2).1. IOM ([place]). 2010. Dietary reference intakes for calcium and D. [place]: The National Academies Press.2. Coy MF, Raya CLARK, Armida PARADA, et al. Evaluation, treatment, and prevention of vitamin D deficiency: an Endocrine Society clinical practice guideline. JCEM. 2010; 96(7):1911-30. 87-Sal-201719:31 VITAMIN B12 AND FOLATES Comments: PATIENT NOT FASTINGPERFORMED BY: [employer] Hjshbd5930 [facility] [id number] (60930) Folate (Folic Acid), Serum 18.9 ng/mL (Normal) Comments: A serum folate concentration of less than 3.1 ng/mL isconsidered to represent clinical deficiency. Vitamin B12 595 pg/mL (Normal) Range: 232-1245 :54 TSH (86159) Comments: PATIENT WAS FASTINGPERFORMED BY: [employer] Kwrsrj5664 [facility] [id number] TSH 1.360 {uIU/mL} (Normal) Range: 0.450-4.500 :54 CBC, Platelets & Auto Diff Comments: PATIENT WAS FASTINGPERFORMED BY: [employer] Ndsubb8587 [facility] [id number] (71882) Immature Grans (Abs) 0.0 {x10E3/uL} (Normal) Range: [...] 3.77-5.28 WBC 8.2 {x10E3/uL} (Normal) Range: 3.4-10.8 40-Map-60808:54 Metabolic Panel, Comprehensive Comments: PATIENT WAS FASTINGPERFORMED BY: LabCoTrinitas HospitalUgosjt2042 [facility] [id number] (32601) ALT (SGPT) 17 [iU]/L (Normal) Range: 0-32 [...] mg/dL (Abnormal) Range: 65-99 :54 LIPID PANEL (11778) Comments: PATIENT WAS FASTINGPERFORMED BY: [facility]araTrinit[facility] HospitalPhevrc5094 [facility] [id number] LDL/HDL Ratio 1.7 {ratio_units} (Normal) Range: 0.0-3.2 [...] for SGOT 48; PATIENT NOT FASTINGPERFORMED BY: [facility]araTrinitas HospitalTfsrmc6839 [facility] [id number] (32256) ALT (SGPT) 18 [iU]/L (Normal) Range: 0-32 [...] Glucose, Serum 94 mg/dL (Normal) Range: 65-99 7-Igy-821479:36 TSH (THYROID STIMULATING Comments: Jun 2017; PATIENT WAS FASTINGPERFORMED BY: [employer] [facility] [id number] HORMONE) (57092) TSH 1.270 {uIU/mL} (Normal) Range: 0.450-4.500 2-Kqg-247916:36 Metabolic Panel, Comprehensive Comments: Jun 2017; PATIENT WAS FASTINGPERFORMED BY: [employer] (P) [facility] [id number] (10329) ALT (SGPT) 24 [iU]/L (Normal) Range: 0-32 [...] Glucose, Serum 85 mg/dL (Normal) Range: 65-99 1-Jti-674091:36 Lipid Panel (03120) Comments: Jun 2017; PATIENT WAS FASTINGPERFORMED BY: [employer] [facility] [id number] LDL/HDL Ratio 1.8 {ratio_units} (Normal) Range: 0.0-3.2 Comments: LDL/HDL Ratio Men Women 1/2 Avg.Risk 1.0 1.5 Av g.Risk 3.6 3.2 2X Avg.Risk 6.2 5.0 3X Avg.Risk 8.0 6.1 LDL Cholesterol Calc 104 mg/dL (Abnormal) Range: 0-99 VLDL Cholesterol Jacob 28 mg/dL (Normal) Range: 5-40 HDL Cholesterol 59 mg/dL (Normal) Triglycerides 139 mg/dL (Normal) Range: 0-149 Cholesterol, Total 191 mg/dL (Normal) Range: 100-199 7-Kyd-994860:36 HGB A1C (39693) Comments: (Jun 2017); PATIENT WAS FASTINGPERFORMED BY: SHAPE70 [facility] [id number] Hemoglobin A1c 5.3 % (Normal) Range: 4.8-5.6 Comments: . Pre-diabetes: 5.7 - 6.4 Diabetes: >6.4 Glycemic control for adults with diabetes: <7.0 7-Nxm-526714:20 HGB A1C (42515) Comments: today; PATIENT NOT FASTINGPERFORMED BY: SHAPE70 [facility] [id number] Hemoglobin A1c 6.1 % (Abnormal) Range: 4.8-5.6 Comments: . Pre-diabetes: 5.7 - 6.4 Diabetes: >6.4 Glycemic control for adults with diabetes: <7.0 :22 LIPID PANEL (13978) Comments: REpeat in Mar; PATIENT WAS FASTINGPERFORMED BY: [facility]China[facility]6370 [facility] [id number] LDL/HDL Ratio 2.2 {ratio_units} (Normal) Range: 0.0-3.2 [...] (Abnormal) Range: 100-199 :22 T4, FREE (THYROXINE) (86713) Comments: PATIENT WAS FASTINGPERFORMED BY: [facility] [place] [address] [id number]; OV 12/14 T4,Free(Direct) 0.77 ng/dL (Abnormal) Range: 0.82-1.77 :22 T3, FREE (TRIDOTHYRONINE) (87076) Comments: PATIENT WAS FASTINGPERFORMED BY: [facility]6370 [facility] [id number] Triiodothyronine,Free,Serum 3.0 pg/mL (Normal) Range: 2.0-4.4 :22 TSH (THYROID STIMULATING Comments: PATIENT WAS FASTINGPERFORMED BY: [address] [id number] HORMONE) (12627) TSH 1.390 {uIU/mL} (Normal) Range: 0.450-4.500 :22 Metabolic Panel, Comprehensive Comments: PATIENT WAS FASTINGPERFORMED BY: [address] RoadDublin [place] [id number] (00648) ALT (SGPT) 14 [iU]/L (Normal) Range: 0-32 [...] mg/dL (Normal) Range: 65-99 :22 HGB A1C (90270) Comments: PATIENT WAS FASTINGPERFORMED BY: [facility]araTrinitas HospitalGyylaa1487 [facility] [id number] Hemoglobin A1c 5.9 % (Abnormal) Range: 4.8-5.6 Comments: . Pre-diabetes: 5.7 - 6.4 Diabetes: >6.4 Glycemic control for adults with diabetes: <7.0 :22 LIPID PANEL (76734) Comments: PATIENT WAS FASTINGPERFORMED BY: [employer] Skxzut2114 [facility] [id number] LDL/HDL Ratio 2.1 {ratio_units} (Normal) Range: 0.0-3.2 [...] 208 mg/dL (Abnormal) Range: 100-199 :22 CALCIFEDIOL (50338) Comments: PATIENT WAS FASTINGPERFORMED BY: [employer] Oaxvrh9686 [facility] [id number] Vitamin D, 25-Hydroxy 31.2 ng/mL (Normal) Range: 30.0-100.0 Comments: Vitamin D deficiency has been defined by the [place] of[place]icine and an Endocrine Society practice guideline as alevel of serum 25-OH vitamin D less than 20 ng/mL (1,2).The Endocrine Society went on to further define vitamin Dinsufficiency as a level between 21 and 29 ng/mL (2).1. IOM ([place]). 2010. Dietary reference intakes for calcium and D. [place]: The National Academies Press.2. Coy MF, Raya NC, Armida PARADA, et al. Evaluation, treatment, and prevention of vitamin D deficiency: an Endocrine Society clinical practice guideline. JCEM. 2010; 96(7):1911-30. 88-Dhj-813345:14 URINE RAMON CULTURE-IDENTIFICATN Comments: PATIENT NOT FASTINGPERFORMED BY: [employer] Jhupoa0950 [facility] [id number] Information: SRC:UC (41768) Result 1 MUG (Normal) Comments: Mixed urogenital flora2,000 Colonies/mL Urine Culture,Comprehensive Final report (Normal) 69-Who-24616:11 Urinalysis, Office (73506) UA - LEUKOCYTE ESTERASE Trace (Normal) UA - NITRITE Negative (Normal) URINE UROBILINGN SAUNDRA TIMED Normal mg/dL (Normal) UA - PROTEIN Negative mg/dL (Normal) UA - PH 6 (Abnormal) UA - BLOOD Negative (Normal) UA - SPECIFIC GRAVITY 1.020 (Normal) UA - KETONES Negative mg/dL (Normal) UA - BILIRUBIN Negative (Normal) UA - GLUCOSE Negative (Normal) 56-Hvx-165836:29 Renal function Panel (72549) Comments: PATIENT NOT FASTINGPERFORMED BY: [facility] [id number] Albumin, Serum 4.1 g/dL (Normal) Range: 3.5-5.5 [...] Glucose, Serum 90 mg/dL (Normal) Range: 65-99 74-Wed-04927:45 Comp. Metabolic Panel (14) Comments: PATIENT WAS FASTINGPERFORMED BY: [employer]6370 [facility] [id number] ALT (SGPT) 14 [iU]/L (Normal) Range: 0-32 [...] % (Abnormal) Comments: PATIENT WAS FASTINGPERFORMED BY: [facility] [id number] :45 Range: 4.8-5.6 Comments: . Pre-diabetes: 5.7 - 6.4 Diabetes: >6.4 Glycemic control for adults with diabetes: <7.0 :45 Lipid Panel Comments: PATIENT WAS FASTINGPERFORMED BY: SHAPE70 [facility] [id number] LDL Cholesterol Calc 110 mg/dL (Abnormal) Range: 0-99 VLDL Cholesterol Jacob 29 mg/dL (Normal) Range: 5-40 HDL Cholesterol 60 mg/dL (Normal) Triglycerides 144 mg/dL (Normal) Range: 0-149 Cholesterol, Total 199 mg/dL (Normal) Range: 100-199 :45 Microalbumin, Random Urine Comments: PATIENT WAS FASTINGPERFORMED BY: SHAPE70 [place] [id number] Microalbumin, Urine 15.2 ug/mL (Normal) :45 Microscopic Examination Comments: PATIENT WAS FASTINGPERFORMED BY: [employer] Hqllqh3537 [place] [facility] [id number] Bacteria Few (Normal) Mucus Threads Present (Normal) Crystal Type Amorphous Sediment (Normal) Crystals Present (Abnormal) Cast Type Hyaline casts (Normal) Casts Present {/lpf} (Abnormal) Epithelial Cells (non renal) >10 {/hpf} (Abnormal) Range: 0 - 10 RBC 3-10 {/hpf} (Abnormal) Range: 0 - 2 WBC 11-30 {/hpf} (Abnormal) Range: 0 - 5 :45 Urinalysis, Routine Comments: PATIENT WAS FASTINGPERFORMED BY: [employer]6370 [address] [facility] [id number] Microscopic Examination See below: Comments: Microscopic was indicated and was performed. (Normal) Nitrite, Urine Negative (Normal) Urobilinogen,Semi-Qn 1.0 mg/dL Range: 0.2-1.0 (Normal) Bilirubin Negative (Normal) Occult Blood Negative (Normal) Ketones Negative (Normal) Glucose Negative (Normal) Protein Negative (Normal) WBC Esterase 2+ (Abnormal) Appearance Cloudy (Abnormal) Urine-Color Yellow (Normal) pH 6.5 (Normal) Range: 5.0-7.5 Specific Seminole 1.019 (Normal) Range: 1.005-1.030 Vitamin D, 25-Hydroxy 41.6 ng/mL Comments: PATIENT WAS FASTINGPERFORMED BY: Metara Autnun3111 [facility] [id number] 78:45 (Normal) Range: 30.0-100.0 Comments: Vitamin D deficiency has been defined by the [place] of[place]icine and an Endocrine Society practice guideline as alevel of serum 25-OH vitamin D less than 20 ng/mL (1,2).The Endocrine Society went on to further define vitamin Dinsufficiency as a level between 21 and 29 ng/mL (2).1. IOM ([place] of [place]). 2010. Dietary reference intakes for calcium and D. [place]: The National Academies Press.2. Coy MF, Raya NC, Armida PARADA, et al. Evaluation, treatment, and prevention of vitamin D deficiency: an Endocrine Society clinical practice guideline. JCEM. 2010; 96(7):1911-30. BREAST BIOPSY (CHOOSE SITE) See Note (Normal) Comments: [facility] Hxkxungbwp1382 [address]. [place], [address] 610:30 Comments: Patient: KATHIA VALENTE : 1955 (61/F) Acct Num: [id number] Phys: Mckayla Napoles MD Unit Num: [id number] Loc: BIRAD Specimen: [id number] Received: 08/06/161443 Spec Type: BREAS T BX TISSUES TISSUES: COMMENT Immunohistochemistry ([id number]) supports the above diagnosis. GROSS DESCRIPTION Received is one container labeled with the patient's name and arelis gnated left breast. The specimen consists of multiple elongated fragments of gordon-yellow fibroadipose tissue that in aggregate measure 3 x 2.5 x 0.3 cm. The entire specimen is submitted in one casset te. / SJ:osbaldo 08/06/16 TC:5 CPT: 94348 HEADER OPERATION: Left stereotactic needle core biopsy PRE-OP DIAGNOSIS: Left microcalcifications TISSUE SUBMITTED: Left breast tissue ISCHEMIC TONY E: 2 minutes FIXATION TIME: 9 hours MICROSCOPIC DESCRIPTION Slides are reviewed. MICROSCOPIC DIAGNOSIS Left breast, stereotactic needle core biopsy: Fibrosis, associated benign histioc ytic proliferation, clustered microcalcifications and organizing hemorrhage. No evidence of malignancy. AM:osbaldo 08/07/16 Signed Rajat [facility] 08/08/16 <signature on file> IMMUNOHISTOCHEMISTRY See Note (Normal) Comments: [facility] Wuxfolbgbr3326 [address] [place], [address] ; another doc 60:00 Comments: Patient: KATHIA VALENTE : 1955 (61/F) Acct Num: [id number] Phys: Mckayla Napoles MD Unit Num: [id number] Loc: BIRAD Specimen: [id number] Received: 08/07/161122 Spec Type: IMMU NO TISSUES TISSUES: SPECIMEN INFORMATION: Tissue Source: Left breast tissue Clinical Info: Left microcalcifications Specimen Number: [id number] CPT code: 96413, 19613 x4 METHOD OLOGY: Deparaffinized sections of prefer/formalin-fixed [...] developed and their performance characteristics determined by [facility]. They may not have been cleared or approved by the U.S. Food and Drug A dministration. The FDA has determined that such clearance or approval is not necessary. INTERPRETATION: Left breast core biopsy: Benign breast tissue. AM:osbaldo 08/08/16 PHYSICIAN AND INSTITUTION [place] [address] Signed Rajat [facility] 08/08/16 <signature on file> :00 TSH (03747) Comments: PATIENT NOT FASTINGPERFORMED BY: Metara Hpsybd7278 [facility] [id number] TSH 0.646 {uIU/mL} (Normal) Range: 0.450-4.500 31-Jul-20169:00 T4, FREE (THYROXINE) (15613) Comments: PATIENT NOT FASTINGPERFORMED BY: Metara Faamed4723 [facility] [id number] T4,Free(Direct) 0.73 ng/dL (Abnormal) Range: 0.82-1.77 31-Jul-20169:00 T3, FREE (TRIDOTHYRONINE) (18471) Comments: PATIENT NOT FASTINGPERFORMED BY: Metara Cyyfcl4848 [facility] [id number] Triiodothyronine,Free,Serum 2.4 pg/mL (Normal) Range: 2.0-4.4 :46 HGB A1C (45095) Comments: PATIENT WAS FASTINGPERFORMED BY: [facility]China[facility] Hospital6370 [facility] [id number] Hemoglobin A1c 5.7 % (Abnormal) Range: 4.8-5.6 Comments: . Pre-diabetes: 5.7 - 6.4 Diabetes: >6.4 Glycemic control for adults with diabetes: <7.0 :46 Metabolic Panel, Basic (09907) Comments: PATIENT WAS FASTINGPERFORMED BY: AppChinaCitizens Memorial HealthcareZtqcnr9526 [facility] [id number] Calcium, Serum 9.2 mg/dL (Normal) Range: 8.7-10.2 [...] 92 mg/dL (Normal) Range: 65-99 :46 TSH (11503) Comments: PATIENT WAS FASTINGPERFORMED BY: [facility]6370 [facility] [id number] TSH 1.080 {uIU/mL} (Normal) Range: 0.450-4.500 :46 T4, FREE (THYROXINE) (71506) Comments: PATIENT WAS FASTINGPERFORMED BY: AppChinaDavid [place] 1859370 [facility] [id number] T4,Free(Direct) 0.77 ng/dL (Abnormal) Range: 0.82-1.77 :46 T3, FREE (TRIDOTHYRONINE) (46226) Comments: PATIENT WAS FASTINGPERFORMED BY: [facility] Zzyljl6301 [facility] [id number] Triiodothyronine,Free,Serum 2.5 pg/mL (Normal) Range: 2.0-4.4 :46 Lipid Panel (98254) Comments: PATIENT WAS FASTINGPERFORMED BY: [facility] Xvwshb5490 [facility] [id number] LDL/HDL Ratio 2.1 {ratio_units} (Normal) Range: 0.0-3.2 [...] 204 mg/dL (Abnormal) Range: 100-199 :46 CALCIFEDIOL (88433) Comments: PATIENT WAS FASTINGPERFORMED BY: [facility] Noykka4552 [facility] [id number]; OV 06/19 Vitamin D, 25-Hydroxy 26.0 ng/mL (Abnormal) Range: 30.0-100.0 Comments: Vitamin D deficiency has been defined by the [place] of[place]icine and an Endocrine Society practice guideline as alevel of serum 25-OH vitamin D less than 20 ng/mL (1,2).The Endocrine Society went on to further define vitamin Dinsufficiency as a level between 21 and 29 ng/mL (2).1. IOM ([place] of [place]). 2010. Dietary reference intakes for calcium and D. [place]: The National Academies Press.2. Coy MF, Raay NC, Armida PARADA, et al. Evaluation, treatment, and prevention of vitamin D deficiency: an Endocrine Society clinical practice guideline. JCEM. 2010; 96(7):1911-30. :38 METABOLIC PANEL, Comments: PATIENT WAS FASTINGPERFORMED BY: [facility] Mizlns3979 [facility] [id number] Information: [id number] COMPREHENSIVE (61859) ALT (SGPT) 14 [iU]/L (Normal) Range: 0-32 [...] mg/dL (Normal) Range: 65-99 :38 LIPID PANEL (27946) Comments: PATIENT WAS FASTINGPERFORMED BY: [employer] Pzeblg2201 [facility] [id number] LDL/HDL Ratio 2.3 {ratio_units} (Normal) Range: 0.0-3.2 [...] 202 mg/dL (Abnormal) Range: 100-199 :38 CALCIFIDIOL (45019) VIT D 25 Comments: PATIENT WAS FASTINGPERFORMED BY: [facility] Xauqmv0129 [facility] [id number]; [facility] Vitamin D, 25-Hydroxy 29.1 ng/mL (Abnormal) Range: 30.0-100.0 Comments: Vitamin D deficiency has been defined by the [place] ofProm[facility] Hospitalcine and an Endocrine Society practice guideline as alevel of serum 25-OH vitamin D less than 20 ng/mL (1,2).The Endocrine Society went on to further define vitamin Dinsufficiency as a level between 21 and 29 ng/mL (2).1. IOM ([place] of [place]). 2010. Dietary reference intakes for calcium and D. [place]: The National Academies Press.2. Coy MF, Raya NC, Armida PARADA, et al. Evaluation, treatment, and prevention of vitamin D deficiency: an Endocrine Society clinical practice guideline. JCEM. 2010; 96(7):1911-30. :38 HGB A1C (42109) Comments: PATIENT WAS FASTINGPERFORMED BY: [facility] Rdldjm5211 [facility] [id number]; [facility] 7-22 Hemoglobin A1c 6.0 % (Abnormal) Range: 4.8-5.6 Comments: . Pre-diabetes: 5.7 - 6.4 Diabetes: >6.4 Glycemic control for adults with diabetes: <7.0 95-Uyx-179025:08 PT (PROTHROMBIN TIME) (34575) Comments: PATIENT NOT FASTINGPERFORMED BY: [facility]6370 [facility] [id number] Prothrombin Time 10.3 {sec} (Normal) Range: 9.1-12.0 INR 1.0 (Normal) Range: 0.8-1.2 Comments: Reference interval is for non-anticoagulated patients. . Suggested INR therapeutic range for Vitamin K anta gonist therapy: Standard Dose (moderate intensity therapeutic range): 2.0 - 3.0 Higher intensity therapeutic range 2.5 - 3.5 05-Tps-822465:08 CBC, Platelets & Auto Comments: PATIENT NOT FASTINGPERFORMED BY: [facility]6370 [facility] [id number] Information: [id number] Diff (12158) Immature Grans (Abs) 0.0 {x10E3/uL} (Normal) Range: [...] 3.77-5.28 WBC 7.0 {x10E3/uL} (Normal) Range: 3.4-10.8 63-Giv-034838:08 Metabolic Panel, Comprehensive Comments: PATIENT NOT FASTINGPERFORMED BY: [facility] Ihztrg6071 [facility] [id number] (66908) ALT (SGPT) 11 [iU]/L (Normal) Range: 0-32 [...] Glucose, Serum 87 mg/dL (Normal) Range: 65-99 95-Rfn-09419:21 Urinalysis, Office (18293) UA - LEUKOCYTE ESTERASE Negative (Normal) UA - NITRITE Negative (Normal) URINE UROBILINGN SAUNDRA TIMED 2 mg/dL (Normal) UA - PROTEIN Negative mg/dL (Normal) UA - PH 6.0 (Normal) UA - BLOOD Negative (Normal) UA - SPECIFIC GRAVITY 1.025 (Normal) UA - KETONES Negative mg/dL (Normal) UA - BILIRUBIN Negative (Normal) UA - GLUCOSE Negative (Normal) :06 CALCIFIDIOL (02908) VIT D 25 Comments: PATIENT WAS FASTINGPERFORMED BY: AscletisTrinitas HospitalBsxuoa7635 [facility] [id number] Vitamin D, 25-Hydroxy 31.1 ng/mL (Normal) Range: 30.0-100.0 Comments: Vitamin D deficiency has been defined by the [place] ofPromedica Tol[facility] Hospitalcine and an Endocrine Society practice guideline as alevel of serum 25-OH vitamin D less than 20 ng/mL (1,2).The Endocrine Society went on to further define vitamin Dinsufficiency as a level between 21 and 29 ng/mL (2).1. IOM ([place] of [place]). 2010. Dietary reference intakes for calcium and D. [place]: The National Academies Press.2. Coy MF, Raya NC, Armida PARADA, et al. Evaluation, treatment, and prevention of vitamin D deficiency: an Endocrine Society clinical practice guideline. JCEM. 2010; 96(7):1911-30. :06 METABOLIC PANEL, Comments: PATIENT WAS FASTINGPERFORMED BY: MetaraTrinitas HospitalPezsqt7610 [facility] [id number] Information: [id number] COMPREHENSIVE (69466) ALT (SGPT) 17 [iU]/L (Normal) Range: 0-32 [...] Glucose, Serum 113 mg/dL (Abnormal) Range: 65-99 07-Ohr-61064:06 LIPID PANEL (20680) Comments: PATIENT WAS FASTINGPERFORMED BY: [facility]or[facility] TechnologiesTrans[facility] Hospital [id number]; apt. 3-21 LDL/HDL Ratio 2.3 {ratio_units} (Normal) [...] Cholesterol, Total 233 mg/dL (Abnormal) Range: 100-199 5-Nlx-823318:21 Upper Respiratory Culture Comments: PATIENT NOT FASTINGPERFORMED BY: SHAPE70 [employer] R&DTransylvania Regional Hospital [id number] Information: SRC:THRT [id number] Result 1 RRF (Normal) Comments: Routine respiratory samuel Upper Respiratory Culture Final report (Normal) :19 Rapid Strep Test, Office (35007) Rapid Strep Test, Office Negative (Normal) :18 Rapid Flu (97579 x 2) Influenza A Ag negetive A & B (Normal) :33 METABOLIC PANEL, Comments: PATIENT WAS FASTINGPERFORMED BY: [facility]Bar[facility] Hospital6370 [facility] [id number] Information: [id number] COMPREHENSIVE (17805) ALT (SGPT) 10 [iU]/L (Normal) Range: 0-32 [...] mg/dL (Normal) Range: 65-99 :33 LIPID PANEL (22161) Comments: PATIENT WAS FASTINGPERFORMED BY: MetaraAlbuquerque Indian Dental ClinicMafdsp5297 [facility] [id number]; will review at 05/16 appt LDL/HDL Ratio [...] 260 mg/dL (Abnormal) Range: 100-199 :33 CALCIFIDIOL (78655) VIT D 25 Comments: PATIENT WAS FASTINGPERFORMED BY: Metara Ntdtuh4697 [facility] [id number] Vitamin D, 25-Hydroxy 30.0 ng/mL (Normal) Range: 30.0-100.0 Comments: Vitamin D deficiency has been defined by the [place] of[place]icine and an Endocrine Society practice guideline as alevel of serum 25-OH vitamin D less than 20 ng/mL (1,2).The Endocrine Society went on to further define vitamin Dinsufficiency as a level between 21 and 29 ng/mL (2).1. IOM ([place] of [place]). 2010. Dietary reference intakes for calcium and D. [place]: The National Academies Press.2. Coy MF, Raya NC, Armida PARADA, et al. Evaluation, treatment, and prevention of vitamin D deficiency: an Endocrine Society clinical practice guideline. JCEM. 2010; 96(7):1911-30. :33 Hemoglobin Glyclated (HGB A1C) Comments: PATIENT WAS FASTINGPERFORMED BY: MetaraTrinitas HospitalPhnlmt5861 [facility] [id number] (95803) Hemoglobin A1c 5.5 % (Normal) Range: 4.8-5.6 Comments: . Increased risk for diabetes: 5.7 - 6.4 Diabetes: >6.4 Glycemic control for adults with diabetes: <7.0 :32 Comprehensive Metabolic Profil Comments: Test performed at:[facility] Echxplcjmq8[address] [place], [place] [id number] GAP 9 (Normal) Range: 5-15 CO2 26.0 [...] 70-110 :32 Hemoglobin A1c Comments: Test performed at:[facility] Lfwgjdruji5067 [place] [address] HGB A1C 5.6 % (Normal) Range: 4.2-6.3 :32 Lipid Profile Comments: Test performed at:[facility] Cjxvacivtf3136 [place] [address] VLDL 37 mg/dL (Normal) Range: [...] :32 Vitamin D,25 Hydroxy Comments: Test performed at:[facility] Hboyvudshn[address] [place] [address] Vitamin D 25-OH 28.4 ng/mL (Normal) Comments: Vitamin D 25(OH) Status Range Deficiency <20 ng/mL (50nmol/L) Insuffciency 20 - 30 ng/mL (50 - 75 nmol/L) Sufficiency 30 - 100 ng/mL (75 - 250 nmol/L) Toxicity >100 ng/mL (>250 nmol/L) :35 Basic Metabolic Profile (BMP) Comments: Test performed at:[facility] Xjqtzbqby[address] [place] [address] GAP 9 (Normal) Range: 5-15 CO2 [...] 7-18 GLU 87 mg/dL (Normal) Range: 70-110 68-Idt-952542:35 CBC-Complete Blood Cnt No Diff Comments: Test performed at:[facility] Vhgrgceaft84[address] [place] [address] MPV 10.8 fL (Normal) Range: [...] 4.2-5.4 WBC 11.2 K/mm3 (Abnormal) Range: 4.4-11.0 0-Fbk-364087:53 Rapid Flu (57398 x 2) Influenza A Ag negative a and b (Normal) 77-Wnr-081025:34 POTASSIUM SERUM (68002) Comments: PATIENT NOT FASTINGPERFORMED BY: [facility] Jbjhsj7491 [facility] [id number] Information: [id number] Potassium, Serum 3.9 mmol/L (Normal) Range: 3.5-5.2 3-Idv-616513:21 Basic Metabolic Profile (BMP) Comments: Test performed at:[facility] Ejpnkxexps3730 [place] [address] GAP 9 (Normal) Range: 5-15 [...] 7-18 GLU 80 mg/dL (Normal) Range: 70-110 7-Nfe-963127:21 CBC-Complete Blood Cnt No Diff Comments: Test performed at:[facility] Busokbljhm9074 [address] RobertsonE[address]est [place], [place] [id number] MPV 10.6 fL (Normal) Range: 6.2-12.0 PLT [...] (HGB A1C) Comments: PATIENT WAS FASTINGPERFORMED BY: Ascletis Ojiwjg1875 [facility] [id number] (12671) Hemoglobin A1c 5.9 % (Abnormal) Range: 4.8-5.6 Comments: . Increased risk for diabetes: 5.7 - 6.4 Diabetes: >6.4 Glycemic control for adults with diabetes: <7.0 :49 Metabolic Panel, Comments: PATIENT WAS FASTINGPERFORMED BY: AscletisAlbuquerque Indian Dental ClinicQncsob9131 [facility] [id number] Information: [id number] Comprehensive (91987) ALT (SGPT) 16 [iU]/L (Normal) Range: 0-32 [...] Glucose, Serum 89 mg/dL (Normal) Range: 65-99 02-Vhf-82574:49 Lipid Panel (73583) Comments: PATIENT WAS FASTINGPERFORMED BY: LabCoTrinitas HospitalKdtcso9636 [facility] [id number] LDL/HDL Ratio 1.6 {ratio_units} (Normal) Range: 0.0-3.2 [...] 213 mg/dL (Abnormal) Range: 100-199 :49 CALCIFIDIOL (86072) VIT D 25 Comments: PATIENT WAS FASTINGPERFORMED BY: [facility] Gjevjd2617 [facility] [id number] Vitamin D, 25-Hydroxy 45.5 ng/mL (Normal) Range: 30.0-100.0 Comments: Vitamin D deficiency has been defined by the [place] of[place]icine and an Endocrine Society practice guideline as alevel of serum 25-OH vitamin D less than 20 ng/mL (1,2).The Endocrine Society went on to further define vitamin Dinsufficiency as a level between 21 and 29 ng/mL (2).1. IOM ([place] of [place]). 2010. Dietary reference intakes for calcium and D. [place]: The National Academies Press.2. Coy MF, Raya NC, Armida PARADA, et al. Evaluation, treatment, and prevention of vitamin D deficiency: an Endocrine Society clinical practice guideline. JCEM. 2010; 96(7):1911-30. :08 HgA1C , Office (74400) HgA1C , Office 6.1 % (Normal) Range: 4.6 - 7.1 :08 Blood Glucose , Office (09171) Blood Glucose , Office 108 (Normal) :56 [...] CHOL 190 mg/dL (Normal) Comments: <200 mg/dL Zqxpkgmhh243-702 mg/dL Borderline>240 mg/dL High Risk :56 TSH [...] UCLAR Sl. Cloudy (Normal) UCOL Yellow (Normal) 76-Xtr-829229:30 RAMON CULTURE-OTHER (36800) Comments: PATIENT NOT FASTINGPERFORMED BY: YULIANA [facility] Xikgxs0348 [facility] [id number] Information: SRC:THRT [id number] Result 1 RRF (Normal) Comments: Routine respiratory samuel Upper Respiratory Culture Final report (Normal) :56 Rapid Strep Test, Office (70998) Rapid Strep Test, Office Negative (Normal) 65-Lgq-445457:14 EBV Panel (54224) Comments: PATIENT NOT FASTINGPERFORMED BY: LabCoTrinitas HospitalKjvqov0982 [facility] VicenteTrans[facility] Hospital [id number] Information: [id number] Interpretation: SPRCS (Normal) Comments: EBV Interpretation Chart [...] UCLAR Sl. Cloudy (Normal) UCOL Yellow (Normal) 36-Qta-783361:55 Microscopic Examination Comments: PERFORMED BY: [address] [id number] Bacteria Few (Normal) Mucus Threads Present (Normal) Epithelial Cells (non renal) 0-10 {/hpf} (Normal) Range: 0 - 10 RBC 0-2 {/hpf} (Normal) Range: 0 - 2 WBC 0-5 {/hpf} (Normal) Range: 0 - 5 :55 Urinalysis, Routine Comments: PERFORMED BY: [address] [id number] Microscopic Examination See below: (Normal) Appearance Clear (Normal) Urine-Color [place] (Normal) Comments: Unable to read or assay due to color interference. Specific [place] 1.018 (Normal) Range: 1.005-1.030 :55 Urine Culture,Comprehensive Comments: PERFORMED BY: [address] [id number] Result 1 MUG (Normal) Comments: Mixed urogenital flora1,000 Colonies/mL Urine Culture,Comprehensive Final report (Normal) 73-Flh-56632:09 Urinalysis, Office (96878) UA - LEUKOCYTE ESTERASE Negative (Normal) UA - NITRITE Positive (Normal) URINE UROBILINGN SAUNDRA TIMED Normal mg/dL (Normal) UA - PROTEIN Negative mg/dL (Normal) UA - PH 6 (Abnormal) UA - BLOOD Negative (Normal) UA - SPECIFIC GRAVITY 1.020 (Normal) UA - KETONES Negative mg/dL (Normal) UA - BILIRUBIN Negative (Normal) UA - GLUCOSE 100 (Abnormal) 2-Uor-962857:11 PREALB 28.9 mg/dL (Normal) Range: 20.0-40.0 7-Mbp-880137:11 PROEL tPROELN Comment (Normal) Comments: The SPE pattern appears essentially unremarkable. Evidenceof monoclonal protein is not apparent.Performed at: [address] [id number] Director: David Weaver MD, Phone: [phone] tPROELAG 1.2 (Normal) Range: 0.7-2.0 tPROELIN Comment (Normal) Comments: Protein electrophoresis scan will follow via computer,mail, or unit educator delivery.Scanned image report available in EMR tPROELGL 2.9 g/dL (Normal) Range: 2.0-4.5 tPROELGA 0.7 g/dL (Normal) Range: 0.5-1.6 tPROELMS (Normal) Comments: NOT OBSERVED tPROELBE 1.2 g/dL (Normal) Range: 0.6-1.3 tPROELAL2 0.8 g/dL (Normal) Range: 0.4-1.2 tPROELAL1 0.3 g/dL (Normal) Range: 0.1-0.4 tPROELALB 3.5 g/dL (Normal) Range: 3.2-5.6 $tPROELTP 6.4 g/dL (Normal) Range: 6.0-8.5 :25 HgA1C , Office (45213) HgA1C , Office 6.0 % (Normal) Range: [...] CHOL 232 mg/dL (Abnormal) Comments: <200 mg/dL Uclslfthw952-271 mg/dL Borderline>240 mg/dL High Risk :54 T4F [...] ng/mL (>250 nmol/L) :17 HgA1C , Office (65459) HgA1C , Office 5.8 % (Normal) Range: [...] CHOL 202 mg/dL (Abnormal) Comments: <200 mg/dL Ielzxallu628-014 mg/dL Borderline>240 mg/dL High Risk TRIG 124 [...] ol/L)Toxicity >100 ng/mL (250 nmol/L) :56 TSH (06809) Comments: copy to Dr. Damian Randle [facility]; PATIENT NOT FASTINGPERFORMED BY: [employer]6370 [employer] [place] [id number] TSH 0.201 {uIU/mL} (Abnormal) Range: 0.450-4.500 :56 T3, FREE (TRIDOTHYRONINE) (63907) Comments: PATIENT NOT FASTINGPERFORMED BY: Ascletisrp Gwczcf1904 [employer] [place] [id number] Triiodothyronine,Free,Serum 4.5 pg/mL (Abnormal) Range: 2.0-4.4 :56 T4, FREE (THYROXINE) Comments: PATIENT NOT FASTINGPERFORMED BY: [facility] Hqgmiv1422 [facility] [id number] Information: [id number] (67176) T4,Free(Direct) 0.22 ng/dL (Abnormal) Range: 0.82-1.77 4-Pps-664707:35 ABDOMEN/PELVIS WITH CONTRAST Radiology Report See Note [...] Lundberg M.D.January 28, 2013 at 5:14:08 PM [id number] Signed TT/TT If you are the referring physician and would like t o consult with theradiologist who provided this interpretation, please contact Christiana Solis M.D. at [phone]. If this radiologist is unavailable, youwill be directed to another radiologist to a ssist. If you are a patient with a question regarding this report, pleasecontact your referring physician directly. Professional Interpretation Provided By: [employer] Phone , Fax These documents contain legally [...] . GLU 90 mg/dL (Normal) Range: 70-110 72-Mqj-521591:31 Sed Rate Erythrocyte (27581) Comments: PATIENT NOT FASTINGPERFORMED BY: [facility] Jmukzp2746 [facility] [id number] Sedimentation Rate-Westergren 4 mm/h (Normal) Range: 0-40 68-Mid-813719:31 CBC, Platelets & Auto Comments: PATIENT NOT FASTINGPERFORMED BY: [facility] Jpvodx2979 [facility] [id number] Information: [id number] Diff (46461) Immature Grans (Abs) 0.0 {x10E3/uL} (Normal) Range: [...] 3.77-5.28 WBC 11.5 {x10E3/uL} (Abnormal) Range: 4.0-10.5 40-Sok-610662:31 Metabolic Panel, Comprehensive Comments: PATIENT NOT FASTINGPERFORMED BY: LabCoTrinitas HospitalXkvcij5373 [facility] [id number] (25189) ALT (SGPT) 20 [iU]/L (Normal) Range: 0-32 [...] Glucose, Serum 98 mg/dL (Normal) Range: 65-99 34-Vvu-428405:10 OVA & PARASITE DIR SMEAR Comments: PATIENT NOT FASTINGPERFORMED BY: LabBaraga [facility] Hospital6370 [facility] [id number] Information: SRC:TASNEEM [id number] (17787) Result 1 NOCP (Normal) Comments: No ova, [...] parvum,Cyclospora, or Mi crosporidia. TESTING PERFORMED AT [facility]. ORIGINAL REPORT ONFILE IN LAB CONTAINS ADDITIONAL TEST SITE INFORMATION. OVA/ PARASITES EXAM NO OVA, CYSTS, OR PARASITES FOUND. :25 STOB See Note (Normal) Comments: OCCULT BLOOD Negative : WBCST See Note (Normal) Comments: FECAL WBC LACTOFERRIN Negative: No Fecal WBC Lactoferrin present :16 Blood Glucose , Office (91336) Blood Glucose , Office 97 (Normal) Comments: [...] CHOL 164 mg/dL (Normal) Comments: <200 mg/dL Vwhenioim743-908 mg/dL Borderline>240 mg/dL High Risk HDL 60 [...] 250 nm ol/L)Toxicity >100 ng/mL (250 nmol/L)Effective 201204-Aug-201282-Zam-768750:38 HgA1C , Office (63582) HgA1C , Office 5.4 % (Normal) Range: 4.6 - 7.1 51-Lgi-613307:38 Blood Glucose , Office (12891) Blood Glucose , Office 106 (Normal) 40-Ofc-785279:10 HgA1C , Office (84019) HgA1C , Office 6.0 % (Normal) Range: 4.6 - 7.1 73-Vrg-162550:10 Blood Glucose , Office (99632) Blood Glucose , Office 106 (Normal) :58 [...] $ <=1 S VANCOMYCIN $ 1 S 13-Tzt-74851:14 Urinalysis, Office (10046) UA - BILIRUBIN Negative (Normal) UA - [...] mg/dL High Risk :37 HgA1C , Office (87466) HgA1C , Office 5.8 % (Normal) Range: 4.6 - 7.1 :37 Blood Glucose , Office (31347) Blood Glucose , Office 120 (Normal) 1-Gpi-587316:01 Pathology Report Comments: PERFORMED BY: [employer] [facility] Crowder Gbav12925 [facility] [id number] BY: ) [facility] Dept Of Gf[address] [place] [address] [id number] Clinical Inf ormation: [id number] See MATER Comments: Material submitted: .PART A: [...] IN TOTO IN B.XJW/JASPathologist provided ICD-9:701.9, 216.5CPT .350769, 477486 28-Jan-20129:19 CBCMD RBCM NORM C+C {NORMAL} (Normal) [...] D deficiency has been defined by the [place] of[place]icine and an Endocrine Society practice guideline as alevel of serum 25-OH vitamin D less than 20 ng/mL (1,2).The Endocrine Society went on to further define vitamin Dinsufficiency as a level between 21 and 29 ng/mL (2).1. IOM ([place] of [place]). 2010. Dietary reference intakes for calcium and D. [place]: The National Academies Press.2. Coy MF, Raya NC, Armida PARADA, et al. Evaluation, treatment, and prevention of vitamin D deficiency: an Endocrine Society clinical practice guideline. JCEM. 2010; 96(7): 1911-30.Performed at: [facility] [address] [id number] Director: Shahrzad Clifford MD, Phone: [phone] 32-Rvs-046164:33 Urinalysis, Office (61858) UA - BILIRUBIN Negative (Normal) UA - BLOOD Negative (Normal) UA - GLUCOSE Negative (Normal) UA - KETONES Negative mg/dL (Normal) UA - LEUKOCYTE ESTERASE Negative (Normal) UA - NITRITE Negative (Normal) UA - PH 6.0 (Normal) UA - PROTEIN Negative mg/dL (Normal) UA - SPECIFIC GRAVITY 1.025 (Normal) URINE UROBILINGN SAUNDRA TIMED Normal mg/dL (Normal) 90-Oxe-960624:06 HgA1C , Office (45713) HgA1C , Office 5.8 % (Normal) Range: [...] cells for the productionof interferon gamma.Performed at: [address] [id number] Director: Carlos A Stover MD, Phone: [phone] tQFTBMIT > 10.00 {IU/mL} (Normal) tQFTBNIL 0.05 [...] electrophoresis scan will follow via computer,mail, or unit educator delivery. tPROELAG 1.1 (Normal) Range: 0.7-2.0 tPROELGL [...] :27 TSH 1.31 {uIU/mL} (Normal) Range: 0.358-3.74 39-Mzd-529897:54 UNILAT LT DIAG DIGITAL & CAD Radiology [...] radiologist regarding this report, please call our 26P4cyhyvoh line @ Dictated on 09/05/11 1327 by Rosalba Dorsey MDranscribed on 09/05/11 1505 by ITS IMPORTSign by Ruperto Dorsey MD on 09/05/11 1506 Sign by: ____ Ruperto Dorsey MD 09-Fje-75099:00 BREAST UNILATERAL Radiology Report See Note (Normal) [...] radiologist regarding this report, please call our 06I4zojkodv line @ Dictated on 09/05/11 1130 by Willian JOSEPH,MengriJuliethranscribed on 09/06/11 1223 by ITS IMPORTSign by Ruperto Dorsey MD on 09/06/11 1224 Sign by: Ruperto Dorsey MD 29-Aug-20118:38 Rapid Strep Test, Office (56908) Rapid Strep Test, Negative (Normal) Office 29-Aug-20119:17 CULTURE, THROAT See Note (Normal) Comments: Penicillin is the drug of choice for Beta Streptococcalinfections. For Penicillin allergic patients, Erythromycinmay be used.COPY OF REPORT SENT TO [facility] 08/31/11 1055[facility] GROW TH 2+ ORGANISM 1: GROUP A BETA STREPTOCOCCUS 91-Nuy-964920:00 BILAT SCRN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 CORTISOL, 2 SPECIMEN ([id number])Indication: Abnormal CT of brain On: :53 Request Comments: 30 min post cortisyn CORTISOL FREE ([id number])Indication: Abnormal CT of brain On: 83-Vjc-431910:53 Request Comments: do cortisyn 250 mcq IV then check below METABOLIC PANEL, COMPREHENSIVE ([id number])Indication: Hypertension On: :32 Request LIPID PANEL (54968)Indication: Hypertension On: :32 Request T3, FREE (TRIDOTHYRONINE) (04793)Indication: Abnormal TSH On: :24 Request T4, TOTAL (69472)Indication: Abnormal TSH On: :24 Request TSH (54917)Indication: Abnormal TSH On: :24 Request Comments: 4 months T4, TOTAL (77144)Indication: Abnormal TSH On: :28 Request T4, FREE (THYROXINE) ([id number])Indication: Abnormal TSH On: 49-Rze-776568:28 Request TSH ([id number])Indication: Abnormal TSH On: 75-Jmh-533013:27 Request Comments: in six weeks VITAMIN B-12 BIND CAPACITY (23809)Indication: Diarrhea On: 3-Gdz-744697:44 Request SED RATE ERYTHROCYTE ([id number])Indication: Diarrhea On: :43 Request CBC, PLATELETS & AUTO DIFF ([id number]) On: 3-Ftn-182432:43 Request LIPID PANEL ([id number]) On: 7-Yyi-332642:43 Request METABOLIC PANEL, COMPREHENSIVE On: 3-Fgq-526586:43 Request ([id number]) RAMON CULTURE-STOOL ([id number])Indication: Diarrhea On: :37 Request C.Difficile, StoolIndication: Diarrhea On: :37 Request LEUKOCYTE COUNT, FECAL ([id number])Indication: Diarrhea On: 2-Hhj-453145:37 Request OVA & PARASITE DIR SMEAR ([id number])Indication: Diarrhea On: :37 Request Planned Encounters Medical; 3 Month FU - On: 05-Aug-2018 10:15 [facility] Ciesa SHEILA Kathia Patton SHEILA Kathia Dias Planned Procedures Flu Vaccine (Quadrivalent) On: 06-May-2018 Intent 57943Ex: Mimi Rice Comments: Lot #[id number]-L dltd, IMDose prefilled syringegiven by: SHARA Jamil reviewed and ABN signed SCREENING DIGITAL On: 08-Jul-2017 Intent TOMOSYNTHESIS OF BREAST (48697)By: Pooja SOSA Diana Ciros SHEILA Diana Flu Vaccine (Quadrivalent) On: 08-Jul-2017 Intent 21276Mt: Bhavna Leonard LPN Comments: Lot #[id number]/10/[id number]-L dltd, IMDose prefilled syringegiven by:SHARA Barber and ABN signed Toradol Injection, 30 mg On: 11-Dec-2016 Intent (J1885)By: Pooja SOSA DianaArun Patton CNP Diana Radiology - Shoulder - On: 11-Dec-2016 Intent RightBy: Kathia Patton CNP, CNP Diana MAMMOGRAM BREAST BILATERAL On: 19-Jun-2016 Intent SCREENING DIGITAL ([id number])By: Pooja SOSA Diana Cihersonmaggie SOSA Kathia Dias Flu Vaccine (Quadrivalent) On: 19-Jun-2016 Intent 60914Ln: Pooja SOSA Diana Comments: FLUlot: [id number]:02/22/17site:Lt deltoidroute:IMdose:.5mlDEMICK, MA Ivetteros SHEILA Kathai Dias IMMUNIZ ADMNIN, 1 VAC, On: 16-May-2015 Intent SNGL/COMBO (56862)By: Nataly Berger MD FLU VAC, SPLIT, >3 YEARS, On: 16-May-2015 Intent INTRAMUSC (69503)By: Nataly Berger MD MAMMOGRAM, SCREENING, BOTH On: 16-May-2015 Intent BREAST ([id number])By: Nataly Berger MD SPECIMEN HNDLNG/TRNSPRT, OFFC On: 02-Mar-2015 Intent > LAB ([id number])By: Pooja SOSA Diana CiesKathia sharma CNP Nuclear Stress Test/Stress On: 04-Oct-2014 Intent SPECT/TreadmillBy: Nataly Berger MD Echo CompleteBy: Jessica JOSEPH, On: 04-Oct-2014 Intent Nataly Kramer Pulse Oximetry (31156)By: On: 24-May-2014 Intent Arlene Gibson DO Comments: 97 MRI - Shoulder(s) - RightBy: On: 19-Jan-2014 Intent Luz Valdez DO Eprescribed prescriptions On: 21-Dec-2013 Intent (G8553)By: Luz Valdez DO Eprescribed prescriptions On: 03-Nov-2013 Intent (G8553)By: Nataly Berger MD CT - Brain/HeadBy: José Miguel MORILLO, On: 10-Aug-2013 Intent Luz IMMUNIZATION ADMIN (30067)By: On: 04-Jun-2013 Intent Nataly Berger MD FLU [...] Intent (J1885)By: Kathia Patton CNP Comments: Lot #[id number]-left hipDose- 30mg/mlgiven by: GABI Rasheed CNP, Mary E IV Infusion (59489)By: José Miguel On: 05-Dec-2012 Luz Chaudhari DO Comments: Normal Saline 1 liter, Lot # [id number], Exp. date 05/09 infusing in L AC without difficulty or c/o voiced. IV Needle placement On: 05-Dec-2012 Intent (04995)By: José Miguel MORILLO, Comments: IV initiated in: [...] SPLIT, >3 YEARS, On: 12-May-2012 Intent INTRAMUSC (12706)By: Jessica Comments: Lot:[id number]:6.30.13Dose:prefilledRoute:IMSite:L DltdGiven By:Nataly Hunter MD IMMUNIZ ADMNIN, 1 VAC, On: 12-May-2012 Intent SNGL/COMBO (59656)By: Nataly Berger MD Aerosol Treatment (78716)By: On: 29-Apr-2012 Intent Ciesa ELECTRICIAN CONSTRUCTOR SUPERVISOR, Diana Ciesa ELECTRICIAN CONSTRUCTOR SUPERVISOR, Diana MAMMOGRAM, SCREENING, BOTH On: 07-Aug-2011 Intent BREASTS (57267)By: Nataly Berger MD IMMUNIZ ADMNIN, 1 VAC, On: 17-May-2011 Intent SNGL/COMBO (72651)By: Nataly Berger MD FLU VAC, SPLIT, >3 YEARS, On: 17-May-2011 Intent INTRAMUSC (32019)By: Nataly Berger MD Holter Monitor (38815)By: On: 04-Sep-2010 Intent Nataly Berger MD FLU VAC, SPLIT, >3 YEARS, On: 08-Aug-2010 Intent INTRAMUSC (89548)By: Satinder Comments: Lot #[id number] pExp-4/11Site-L dltdDose0.5mlgiven by:Michelle boo LPN IMMUNIZ ADMNIN, 1 VAC, On: 08-Aug-2010 Intent SNGL/COMBO (69370)By: Michelle Rajan LPN MAMMOGRAM, SCREENING, BOTH On: 29-May-2010 Intent BREASTS (40552)By: Nataly Berger MD MAMMOGRAM, SCREENING, BOTH On: 02-May-2010 Intent BREASTS (89682)By: Nataly Berger MD Aerosol Treatment (66885)By: On: 10-Aug-2009 Intent Ciesa ELECTRICIAN CONSTRUCTOR SUPERVISOR, Diana Ciesa ELECTRICIAN CONSTRUCTOR SUPERVISOR, Diana Pulse Oximetry (03398)By: On: 10-Aug-2009 Intent Ciesa ELECTRICIAN CONSTRUCTOR SUPERVISOR, Diana Ciesa ELECTRICIAN CONSTRUCTOR SUPERVISOR, Diana Aerosol Treatment (65672)By: On: 10-Aug-2009 Intent Ciesa ELECTRICIAN CONSTRUCTOR SUPERVISOR, Diana Ciesa ELECTRICIAN CONSTRUCTOR SUPERVISOR, Diana SPECIMEN HNDLNG/TRNSPRT, OFFC On: 10-Aug-2009 Intent > LAB (91523)By: Bhargavi Mueller LPN TDAP VACCINE >7 IM (55007)By: On: 17-May-2009 Intent Nataly Berger MD Comments: Lot #: [id number] date: mount given: 0.5 mlRoute: IMSite given: left deltoidGiven by: Maggie Lua LPN MAMMOGRAM, SCREENING, BOTH On: 17-May-2009 Intent BREASTS (92178)By: Nataly Berger MD Pulse Oximetry (91568)By: On: 27-Oct-2008 Intent TAY Tracey EKG (79946)By: Alexy On: 27-Oct-2008 Intent TAY Bio Z (97681)By: Alexy On: 27-Oct-2008 Intent TAY Spirometry (73731)By: Arthur On: 06-Sep-2008 Arlene Chaudhari DO Comments: fair effort - improved obstruction CT - ChestBy: Arlene Gibson DO On: 06-Sep-2008 Intent A Radiology - ChestBy: Jessica On: 24-Aug-2008 Intent Nataly JOSEPH Pulse Oximetry (79893)By: On: 24-Aug-2008 Intent TAY Tracey Pulse Oximetry (21513)By: On: 17-Aug-2008 Intent Ciesa ELECTRICIAN CONSTRUCTOR SUPERVISOR, Diana Ciesa ELECTRICIAN CONSTRUCTOR SUPERVISOR, Diana Aerosol Treatment (26728)By: On: 17-Aug-2008 Intent Ciesa ELECTRICIAN CONSTRUCTOR SUPERVISOR, Diana Ciesa ELECTRICIAN CONSTRUCTOR SUPERVISOR, Diana Spirometry (75966)By: Vanessa On: 13-Aug-2008 Intent Enedina GONZALEZ Comments: done-aw Pulse Oximetry (50327)By: On: 13-Aug-2008 Intent Mast Enedina GONZALEZ Comments: 98% Inhaler Demo (79094)By: Arthur On: 11-Aug-2008 Intent Arlene MORILLO Spirometry (15078)By: Arthur On: 11-Aug-2008 Arlene Chaudhari DO Comments: good effort - mod obstruction Aerosol Treatment (05235)By: On: 11-Aug-2008 Intent Arlnee Gisbon DO Comments: done-AW Pulse Oximetry (77847)By: On: 11-Aug-2008 Intent Arlene Gibson DO Comments: 97% % after aerosol Solu- Medrol Injection, 125mg On: 11-Aug-2008 Intent (J2930)By: Arlene Gibson DO Comments: Lot #[id number]-left zdgYkht0ej/125mggiven by Keyla Vizcarra LPN MAMMOGRAM, SCREENING, BOTH On: 21-Apr-2008 Intent BREASTS (67740)By: Nataly Berger MD CT - Brain/HeadBy: Jessica On: 11-Mar-2008 Intent Nataly JOSEPH EEGBy: Nataly Berger MD On: 11-Mar-2008 Intent Echo CompleteBy: Jessica JOSEPH, On: 11-Mar-2008 Intent Nataly Kramer EKG (76036)By: Jessica JOSEPH, On: 11-Mar-2008 Intent Nataly Kramer Holter Moniter (39862)By: On: 11-Mar-2008 Intent Nataly Berger MD Pulse Oximetry (37289)By: On: 20-Nov-2007 Intent Kathia Patton CNP, CNP, Kathia Dias Aerosol Treatment (12598)By: On: 20-Nov-2007 Intent Kathia Patton CNP, CNP, Kathia Dias SPECIMEN HNDLNG/TRNSPRT, OFFC On: 20-Nov-2007 Intent > LAB ([id number])By: Kathia Patton CNP, CNP, Mary E EKG (80973)By: Jessica JOSEPH, On: 14-Oct-2007 Intent Nataly Kramer SPECIMEN HNDLNG/TRNSPRT, OFFC On: 08-Oct-2007 Intent > LAB (35008)By: Kathia Patton CNP, CNP, Mary E MAMMOGRAM, SCREENING, BOTH On: 06-Mar-2007 Intent BREASTS (84337)By: Nataly Berger MD Toradol Injection, 30 mg On: 01-May-2006 Intent (J1885)By: Nataly Berger MD Planned Medications INFUSION, NORMAL SALINE SOLUTION , 250 CC Ordered: 05-Dec-2012 Pending José Miguel DO, Luz INJECTION, KETOROLAC TROMETHAMINE, PER 15 MG Ordered: 16-Dec-2012 Pending Kathia Patton CNP, CNP, Mary E INJECTION, KETOROLAC TROMETHAMINE, PER 15 MG Ordered: 04-Jun-2013 Pending Nataly Berger MD INJECTION, KETOROLAC TROMETHAMINE, PER 15 MG Ordered: 04-Jun-2013 Pending Nataly Berger MD INJECTION, KETOROLAC TROMETHAMINE, PER 15 MG Ordered: 11-Dec-2016 Pending Katiha Patton CNP, CNP, Mary E Instructions Name [...] induced hyperlipemia) : DISCONTINUED - LIPID PANEL (20944) Indication: Mixed Hyperlipidemia (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) Hypertension : DISCONTINUED - MICROALBUMIN: CREATININE RATIO (42743) AND (43771) Indication: Hypertension Hypertension : DISCONTINUED - URINALYSIS (60801) Indication: Hypertension Vitamin D deficiency, unspecified : DISCONTINUED - CALCIFEDIOL (45190) Indication: Vitamin D deficiency, unspecified Impaired fasting glucose : DISCONTINUED - METABOLIC PANEL, COMPREHENSIVE (33931) Indication: Impaired fasting glucose Impaired fasting glucose : DISCONTINUED - GLUCOSE (32558) Indication: Impaired fasting glucose Impaired fasting glucose : DISCONTINUED - HGB A1C (14473) Indication: Impaired fasting glucose Hyperglyceridemia : Patient [...] issues: Seeing psychiatrist Dr. Em Domínguez in [place] put on nuvigil and belsomra at night, [...] Nutrition: balanced diet and supplemental vitamins. The sd dical issues the patient is following up [...] Procedure Results: she is getting pfts [facility] in next few weeks then h [...] treated levaquin twice. talk with Dr. signs radio communications mechanician treat doxycycline 1week. not help. main signs [...] powder see help ache in muscles[facility]: Fibromyalgia (729.1), Depression (311.), GENERAL [...] (401.1), Tension headache (307.81) [facility] [place]; a guarantor
--- OUTSIDE RECORDS SUMMARY | 2018-09-24 00:49 | XMS RPT_ITS | Continuity of Care Document ---
:1955 Author Organization [facility] Address [address] [place] [address] Phone Care Team Providers Name Role Phone Kathia Patton CNP Unavailable Андрей Williamson MD Unavailable Dr. Marvel Steiner Unavailable Alison Cain Unavailable Jaime Early Unavailable Mimi Rice Unavailable Unavailable Slarb [employer], Bhavna Unavailable Unavailable Unavailable Unavailable Problems Name Dates Details Allergic rhinitis (J30.9, 477.9) Status: Active Anxiety and depression (F41.9, 300.00) Comments: Klonipin for anxiety and panic as well as and Rexulti, and cymbalta, now exercisingSees Dr. 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 Dr. Alexander 8- continue current meds. having breast reduction and [...] was seeing wellness Dr Lynne Vieira at [facility] gone now, will get labs with next visit, TSH 1.Free T4 .77, on armor thyroid today labs stable continue armor thyroid Status: Active Impaired fasting glucose (R73.01, 790.21) Comments: prediabetes will repeat in 3 months 10-16 5.7, 1-17 5.9, 5-17 5.9 Status: Active Irritable bowel syndrome (K58.9, 564.1) Comments: colonoscopy 02-05 and Jun 10 2018 had biopsy. reviewed with patient specialist's note has chronic IBS and stress Following with Jatin Status: Active Migraine (G43.909, 346.90) Comments: improved [...] (obstructive sleep apnea) (G47.33, 327.23) Comments: on cpaparthur Status: Active Rash (R21, 782.1) 12-May-2012 Comments: ? fungal vs seborea dermatitis reji try diflucan and see if different Status: Active Restless legs (G25.81, 333.94) Comments: stable on topamax Status: Active Unspecified Diagnosis Status: Active Uses hearing aid (Z97.4, V45.89) Status: Active Vitamin D deficiency, unspecified (E55.9, 268.9) Comments: purchased d from here Status: Active Medications Name Dates Details Aczone 5 % External Gel Active qhs (5 %) Comments: Dr. Jack Trinidad 220 MG Oral Tablet Active as needed (220 MG) Comments: Medication taken as needed. [place] Thyroid 30 MG Oral Tablet 1 (one) Tablet qd and 2 on Saturday for 0 days Quantity: 114 {Tablet} Refills: 3 Ordered:16-Oct-2017 Kathia Patton CNP, CNP, Mary E Start : 16-Oct-2017 Active [place] Thyroid 30 MG Oral Tablet 1 (one) Tablet qd and 2 on Saturday for 0 days Quantity: 115 {Tablet} Refills: 3 Ordered:16-Oct-2017 Pooja SOSA, Kathia Vanegas [employer], Diana Start : 16-Oct-2017 Active Belsomra 20 [...] Quantity: 60 {Capsule} Refills: 0 Ordered:01-Apr-2017 Pooja [employer], Kathia Vanegas [facility], Kathia Dias Start : 01-Apr-2017 Active Fish Oil Burp-Less [...] days Quantity: 30 {Tablet} Refills: 0 Ordered:06-May-2018 Pooja SOSA, Kathia Vanegas CNP, Diana Start : 22-Jan-2018 Active Comments:neuro Spironolactone [...] for 0 days Refills: 0 Ordered:30-Mar-2011 Long [employer], Michelle L End : 30-Mar-2011 Inactive AUGMENTIN, [...] days Quantity: 21 {Capsule} Refills: 0 Ordered:18-Sep-2010 Adalid Rajan LPNn L Start : 11-Aug-2010 End : 18-Sep-2010 Inactive BENTYL, 20MG (Oral Tablet) 1 Tablet tid for 0 days Quantity: 60 {Tablet} Refills: 0 Ordered:16-Jan-2013 TAY Tracey Start : 05-Dec-2012 End : 16-Jan-2013 Inactive BIAXIN XL PAC, 500MG (Oral Tablet Extended Release 24 Hour) 2 (two) Tablet ER 24HR as directed for 0 days Quantity: 2 {Package(s)} Refills: 0 Ordered:14-Oct-2006 Zackery Omaira Start : 14-Oct-2006 End : 05-Dec-2006 Inactive CEFDINIR, 300MG (Oral Capsule) 1 Capsule bid for 10 days Quantity: 20 {Capsule} Refills: 0 Ordered:13-Mar-2011 Pooja [employer], Kathia SUNIstephenmaggie [employer], Diana Start : 13-Mar-2011 End : 23-Mar-2011 Inactive [...] days Quantity: 30 {Lozenge} Refills: 0 Ordered:16-Dec-2012 Ervin GABIBhargavi Start : 14-Oct-2012 End : 16-Dec-2012 Inactive [...] : 02-Mar-2015 End : 09-Mar-2015 Inactive DRISDOL, 16890ZNTZ (Oral Capsule) 1 q weekly (71947 UNIT) Inactive ESTRADIOL, 1MG (Oral Tablet) 1 [...] {Tablet} Refills: 0 Ordered:17-Dec-2012 Kathia Patton CNP, CNP Diana Start : 17-Dec-2012 End : 19-Dec-2012 Inactive [...] : 11-May-2011 End : 29-Aug-2011 Inactive ORTHO-NOVUM // (28), 0.5/0.75/1-35MG-MCG (Oral Tablet) 1 (one) Tablet QD for 0 days Quantity: 90 {Tablet} Refills: 3 Ordered:12-May-2012 TAY Tracey Start : 04-Feb-2012 End : 12-May-2012 Inactive PEPCID AC MAXIMUM STRENGTH, 20MG (Oral Tablet Chewable) 1 Tablet Chewable bid for 0 days Quantity: 28 {Tablet_Chewable} Refills: 0 Ordered:18-Sep-2010 Long [employer], Michelle L Start : 11-Aug-2010 End : [...] days Quantity: 10 {Tablet} Refills: 0 Ordered:14-Apr-2012 Ervin FARM PRODU[employer] SHIPPERBhargavi Davison Start : 20-Mar-2012 End : 14-Apr-2012 Inactive [...] Quantity: 30 {Capsule} Refills: 0 Ordered:28-Jan-2018 Slarb GABIBhavna Start : 16-Oct-2017 End : 28-Jan-2018 Inactive [...] days Quantity: 21 {Tablet} Refills: 0 Ordered:16-Apr-2012 Pooja SOSA, Kathia Vanegas CNP, Kathia Dias Start : 16-Apr-2012 End : 23-Apr-2012 Inactive [...] : 08-Jun-2014 End : 29-Jun-2014 Discontinued Ergocalciferol 97740 UNIT Oral Capsule 1 Capsule twice weekly [...] Quantity: 90 {Tablet} Refills: 3 Ordered:22-Oct-2016 Pooja [employer], Kathia Vanegas [employer], Diana Start : 19-Jun-2016 End : 22-Oct-2016 Discontinued [...] : 12-Nov-2006 Discontinued Comments:This order discontinued per [facility]. PREVACID, 30MG (Oral Capsule Delayed Release) Capsule [...] (Z68.39, V85.39) Status: Inactive as of 08-Jul-2017 Breast cancer screening (Z12.39, V76.10) Status: Inactive [...] Comments: better Status: Resolved as of 07-Nov-2010 Knee pain (M25.569, 719.46) Status: Inactive as [...] and large breasts. G cup. weight loss. plant changer purse. nsaids. ice it. good bra [...] Comments: Dr. early clear from infection. Dr. pressley will clear in 09-09 once on cpap. [...] 16-May-2015 Unspecified Diagnosis Status: Inactive as of 19-Oct-2009 Unspecified Diagnosis Status: Inactive as of 16-Jan-2013 Unspecified Diagnosis Status: Inactive as of 16-Jan-2013 Unspecified Diagnosis Status: Inactive as of 16-Jan-2013 Unspecified Diagnosis Status: Inactive as of 16-Jan-2013 Unspecified Diagnosis Status: Inactive as of 16-Jan-2013 Unspecified Diagnosis Status: Inactive as of 11-Oct-2014 [...] (CAD), BILAT Result: Comments: See Note; NOTES: [facility] Imaging Services [address] [place] [address] SCREENING MAMM (CAD), BILAT MR#: [id number] Acct: [id number] Name: KATHIA VALENTE Rep #: [id number] : 1955 F 62 From: Ruperto Dorsey MD PCP: Kathia Patton NP Status: REG CLI Study: SCREENING MAMM (CAD), BILVI Date of Exam: 08/05/17 Exam# [id number] Ordering Dr: Kathia Patton MAMMOGR APHY - [...] delay biopsy of a clinically suspicious abnormality. [id number] Electronically Signed: Ruperto Dorsey MD at 15:13 EST Tel [phone], Service support , CC: Kathia Patton NP Telephone Solicitor: Signed 25-Dec-2016 Cerv Spine 2 or 3 Views Result: Comments: See Note; NOTES: [facility] Imaging Services [address] [place] [address] Verdana 4d Cerv Spine 2 or 3 Views MR#: [id number] Acct: [id number] Name: KATHIA VALENTE p #: [id number] : 1955 F 61 From: Troy Cueto MD PCP: Kathia Patton Status: REG CLI Study: Cerv Spine 2 or 3 Views Date of Exam: 12/25/16 Exam# [id number] Ordering Dr: Alison Cain DO JUANI DY: [...] , CC: Kathia Patton; Alison Cain DO Telephone Solicitor: Signed 11-Dec-2016 Shoulder min 2 Views Result: Comments: See Note; NOTES: [facility] Imaging Services [address] [place] [address] Verdana 4d Shoulder min 2 Views MR#: [id number] Acct: [id number] Name: KATHIA VALENTE Rep # : [id number] : 1955 F 61 From: Sheyla Perez MD PCP: Kathia Patton Status: REG CLI Study: Shoulder min 2 Views Date of Exam: 12/11/16 Exam# [id number] Ordering Dr: Kathia Patton STUDY: X-RAY - [...] at 9:31 EDT Tel , Service support [phone], CC: Kathia Patton Telephone Solicitor: Signed 10-Aug-2016 Operative Report Result: Comments: See Note; NOTES: [facility] Medical Records Department [address] [place] [address] Operative Report 08/06/16 1625 MR#: [id number] Acct: [id number] Name: KATHIA VALENTE Rep #: [id number] : 1955 61 From: Mckayla Napoles MD PCP: Kathia Patton Status: REG CLI Y Location: [facility] Report of Operation Date of Procedure: 08/06/16 [...] at the head of the table. A police surgeon compression mammogram was then obtained in the [...] placed into the biopsy cavity and a police surgeon film revealed that it was properly deployed. [...] CC: Kathia Patton; Mckayla Napoles MD; Kathia Bowermaggie Signed 28-Jul-2016 Bilat Scrn Digital AND CAD Result: Comments: See Note; NOTES: [facility] Imaging Services [address] [place] [address] Verdana 4d Bilat Scrn Digital AND CAD MR#: [id number] Acct: [id number] Name: KATHIA VALENTE Rep #: [id number] : 1955 F 61 From: Ruperto Dorsey MD PCP: Nataly Berger MD Status: REG CLI Study: Bilat Scrn Digital AND CAD Date of Exam: 07/28/16 Exam# [id number] Ordering Dr: Kathia Patton MAMMOGRAPHY - BILATERAL [...] delay biopsy of a clinically suspicious abnormality. [id number] Electronically Signed: Ruperto Dorsey MD at 9:32 EST Tel [phone], Service support [phone], CC: Kathia Patton; Nataly Berger MD Telephone Solicitor: Signed 09-Aug-2015 Spirometry (74205) Comments: mild restriction Result: 23-May-2015 Bilat Scrn Digital AND CAD Result: Comments: See Note; NOTES: [facility] Imaging Services [address] [place] [address] Breast Imaging Report MR#: [id number] Acct: [id number] Name: KATHIA VALENTE Rep #: [id number] : 1955 F 60 From: Ruperto Dorsey MD PCP: Nataly Berger MD Status: REG CLI Study: Bilat Scrn Digital AND CAD Date of Exam: 05/23/15 Exam# [id number] Ordering Dr: Nataly Berger MD MAMMOGRAPHY - [...] Ruperto Dorsey MD at 13:10 EDT Tel [phone], Service support [phone], CC: Nataly Berger MD Telephone Solicitor: Signed 08-Oct-2014 Echocardiogram Complete Result: Comments: See Note; NOTES: [facility] Cardiovascular Services [address] [place] [address] Echo Complete 10/08/14912 MR#: [id number] Acct: [id number] Name: NICK VALENTE MCKENZIE Lopez Rep #: [id number] : 1955 59 From: Guilherme Cisse MD Attending Dr: Nataly Berger MD Status: REG CLI Ordering Dr: Nataly Berger MD Date: 10/08/14 Location: [facility] Sex: F C Admitted: Torres phipps This [...] Physician: Nataly Berger Performed By: Nicki Segovia [facility] 10/08/14 1525 Date Guilherme Cisse MD CC: Nataly Berger MD Date Dictated: 10/08/14 0913 Date Transcribed: 10/08/14 1525 Telephone Solicitor: Signed 08-Oct-2014 Nuclear Stress Test - Treadmil Result: Comments: See Note; NOTES: [facility] Imaging Services [address] [address] Nuclear Medicine Report MR#: [id number] Acct: [id number] Name: KATHIA VALENTE Rep #: [id number] : 1955 F 59 From: Mazin Jose MD PCP: Nataly Berger MD Status: REG CLI Study: Nuclear Stress Test - [facility] Date of Exam: 10/08/14 Exam# [id number] Ordering Dr: Nataly Berger MD EXERCISE MYOCARDIAL PERFUSION STRESS TEST REASON FOR EVALUATION: This is a 59-year-old lady with a history of chest pain. Baseline EKG demonstrates normal sinus rhythm with a rate of 78 beats pe r minute. Normal intervals are noted. MEDICATIONS: Klonopin, Lisinopril, Hydrochlorothiazide, Seroquel, [place] Thyroid, Maxalt, Symbicort. STRESS TEST: The patient exercised according to the [facility] protocol for a total duration of [...] axis, vertical long, and horizontal long axes. [place] d images were also obtained. PERFUSION SPECT [...] ejection fraction noted. CC: Nataly Berger MD Telephone Solicitor: PARADA Signed 01-Oct-2014 12 Lead Electrocardiogram Result: Comments: See Note; NOTES: [facility] Cardiovascular Services [address] [place] [address] 12 Lead EKG 09/30/141617 MR#: [id number] Acct: [id number] Name: KATHIA VALENTE Rep #: [id number] : 1955 59 From: Guilherme Cisse MD [...] Abnormal ECG Confirmed by GUILHERME CISSE ([id number]), editor map TAMARA MORAN ([id number]) on 10/01/2014 1: 16:07 PM Referred By: KAREEM Confirmed By:GUILHERME POWERS ON 10/01/14 1316 Date Guilherme Cisse MD CC: Nataly Berger MD Date Dictated: 09/30/141617 Date Transcribed: 09/30/141617 Telephone Solicitor: Signed 08-Jun-2014 Spirometry (29580) Comments: see scanned document of test done to see results reviewed today with patient Result: 08-Jun-2014 ELECTROCARDIOGRAM, COMPLETE (ECG) (47179) Comments: see scanned document of test done to see results reviewed today with patient Result: [MEASUREMENTS ANALYSIS] Date of Test: 06/08/2014 12:31:18; Heart Rate: 86; IN Interval: 146; QRS: 104; QT Interval: 360; Corrected QT Interval (QTc): 405; P Wave [place]: 38; QRS Wave [place]: -9; T Wave [place] : -1; Blood Pressure: 118/70 [ECG DIAGNOSTIC STATEMENTS] Date of Test: 06/08/2014 12:31:18; Summary: Sinus Rhythm WITHIN NORMAL LIMITS 24-May-2014 Spirometry (28518) Comments: good effort and curvve mild restriciton Result: 02-Feb-2014 Upper Ext Joint Only(Routine) Result: Comments: See Note; NOTES: [facility] Imaging Services [address] [place] [address] MRI Report MR#: [id number] Acct: [id number] Name: KATHIA VALENTE Rep #: [id number] DO B: 1955 F 58 From: Kevin Lee MD PCP: Nataly Berger MD Status: REG CLI Study: Upper Ext Joint Only(Routine) Date of Exam: 02/02/14 Exam# [id number] Ordering Dr: Luz Valdez DO STUDY : [...] at 14:02 EDT Tel , Service support [phone], CC: Nataly Berger MD; Luz Valdez DO Telephone Solicitor: Signed 10-Aug-2013 Brain/Head without Contrast Result: Comments: See Note; NOTES: [facility] Imaging Services [address] [place] [address] CAT Scan Report MR#: [id number] Acct: [id number] Name: KATHIA VALENTE Rep #: [id number] : 1955 F 58 From: Ruperto Dorsey MD PCP: Status: REG CLI Study: Brain/Head without Contrast Date of Exam: 08/10/13 Exam# [id number] Ordering Dr: Luz Valdez DO STUDY: CT [...] 2 at 16:06 EST , Service support [phone], CC: Luz Valdez DO Telephone Solicitor: Signed Immunization Name Dates Details Tdap (7 years and up) on: 17-May-2009 Comments: Lot #: [id number] date: mount given: 0.5 mlRoute: IMSite given: [...] smoker Vital Signs Date Test Result Details 16-Elh-646738:10 Temperature 97.2 f Comments: Method: Temporal Pulse 100 /min Comments: Pattern: Regular Respiration Rate 17 /min Comments: Pattern: Unlabored O2 SAT 91 % Comments: Room air BP Systolic 124 mm[Hg] Comments: Patient Position: Sitting; Cuff Location: Left Arm; Cuff Size: Standard BP Diastolic 78 mm[Hg] Comments: Patient Position: Sitting; Cuff Location: Left Arm; Cuff Size: Standard Weight 228.5 lb Height 63 in Body Mass Index Calculated 40.48 kg/m2 Body Surface Area Calculated 2.05 m2 :11 Temperature 98.2 f Comments: Method: Temporal Pulse [...] kg/m2 Body Surface Area Calculated 2.02 m2 24-Lpm-719861:30 Temperature 97.7 f Pulse 84 /min Comments: [...] kg/m2 Body Surface Area Calculated 2.02 m2 :04 Temperature 98.2 f Pulse 90 /min Comments: [...] kg/m2 Body Surface Area Calculated 2.06 m2 : Temperature 98.8 f Comments: Method: Oral Pulse [...] kg/m2 Body Surface Area Calculated 2.09 m2 :00 Temperature 98.6 f Comments: Method: Oral Pulse [...] 0.00 cm Results Date Description Value Details 29-Apr-20189:17 CALCIFEDIOL (13264) Comments: PATIENT WAS FASTINGPERFORMED BY: [facility] [facility] [id number] Vitamin D, 25-Hydroxy 27.4 ng/mL (Abnormal) Range: 30.0-100.0 Comments: Vitamin D deficiency has been defined by the [place] ofMedicine and an Endocrine Society practice guideline as alevel of serum 25-OH vitamin D less than 20 ng/mL (1,2).The Endocrine Society went on to further define vitamin Dinsufficiency as a level between 21 and 29 ng/mL (2).1. IOM ([place] of Medicine). 2010. Dietary reference intakes for calcium and D. [place]: The National Academies Press.2. Coy MF, Raya NC, Armida PARADA, et al. Evaluation, treatment, and prevention of vitamin D deficiency: an Endocrine Society clinical practice guideline. JCEM. 2010; 96(7):1911-30. :17 MICROALBUMIN: CREATININE RATIO Comments: PATIENT WAS FASTINGPERFORMED BY: [facility] [id number] (83280) AND (58255) Alb/Creat Ratio <5.2 {mg/g_creat} (Normal) Range: 0.0-30.0 Albumin, Urine <3.0 ug/mL (Normal) Creatinine, Urine 58.1 mg/dL (Normal) :17 URINALYSIS (39630) Comments: PATIENT WAS FASTINGPERFORMED BY: [employer]70 [facility] [id number] Microscopic Examination See below: (Normal) Comments: Microscopic was indicated and was performed. Nitrite, Urine Negative (Normal) Urobilinogen,Semi-Qn 0.2 mg/dL (Normal) Range: 0.2-1.0 Bilirubin Negative (Normal) Occult Blood Negative (Normal) Ketones Negative (Normal) Glucose Negative (Normal) Protein Negative (Normal) WBC Esterase Trace (Abnormal) Appearance Clear (Normal) Urine-Color Yellow (Normal) pH 6.0 (Normal) Range: 5.0-7.5 Specific [place] 1.016 (Normal) Range: 1.005-1.030 :17 TSH (79628) Comments: PATIENT WAS FASTINGPERFORMED BY: [employer] Uqhivy3038 [place] [id number] TSH 1.550 {uIU/mL} (Normal) Range: 0.450-4.500 :17 CBC, Platelets & Auto Diff Comments: PATIENT WAS FASTINGPERFORMED BY: [employer] Xhrtph5725 [place] [id number] (02813) Immature Grans (Abs) 0.0 {x10E3/uL} (Normal) Range: [...] 3.77-5.28 WBC 7.6 {x10E3/uL} (Normal) Range: 3.4-10.8 29-Apr-20189:17 Lipid Panel (94197) Comments: PATIENT WAS FASTINGPERFORMED BY: [facility] [facility] [id number] LDL/HDL Ratio 1.7 {ratio} (Normal) Range: 0.0-3.2 Comments: LDL/HDL Ratio Men Women 1/2 Avg.Risk 1.0 1.5 Av g.Risk 3.6 3.2 2X Avg.Risk 6.2 5.0 3X Avg.Risk 8.0 6.1 LDL Cholesterol Calc 111 mg/dL (Abnormal) Range: 0-99 VLDL Cholesterol Jacob 25 mg/dL (Normal) Range: 5-40 HDL Cholesterol 65 mg/dL (Normal) Triglycerides 126 mg/dL (Normal) Range: 0-149 Cholesterol, Total 201 mg/dL (Abnormal) Range: 100-199 29-Apr-20189:17 Metabolic Panel, Comprehensive Comments: PATIENT WAS FASTINGPERFORMED BY: [employer] ClinicWacfrk5776 [facility] [id number] (90749) ALT (SGPT) 16 [iU]/L (Normal) Range: 0-32 [...] Microscopic Examination Comments: PATIENT WAS FASTINGPERFORMED BY: [facility] [facility] [id number] Bacteria Few (Normal) Mucus Threads Present (Normal) Epithelial Cells (non renal) 0-10 {/hpf} (Normal) Range: 0 - 10 RBC 0-2 {/hpf} (Normal) Range: 0 - 2 WBC 0-5 {/hpf} (Normal) Range: 0 - 5 89-Eqc-239226:31 CALCIFEDIOL (11794) Comments: PATIENT NOT FASTINGPERFORMED BY: [employer] Trpmnt8176 [facility] [id number] Vitamin D, 25-Hydroxy 27.7 ng/mL (Abnormal) Range: 30.0-100.0 Comments: Vitamin D deficiency has been defined by the [place] of[facility] and an Endocrine Society practice guideline as alevel of serum 25-OH vitamin D less than 20 ng/mL (1,2).The Endocrine Society went on to further define vitamin Dinsufficiency as a level between 21 and 29 ng/mL (2).1. IOM ([place] of Medicine). 2010. Dietary reference intakes for calcium and D. [place]: The National Academies Press.2. Coy MF, Raya CLARK, Armida PARADA, et al. Evaluation, treatment, and prevention of vitamin D deficiency: an Endocrine Society clinical practice guideline. JCEM. 2010; 96(7):1911-30. 84-Nll-203461:31 VITAMIN B12 AND FOLATES Comments: PATIENT NOT FASTINGPERFORMED BY: [employer] Gphzfj1338 [facility] [id number] (15222) Folate (Folic Acid), Serum 18.9 ng/mL (Normal) Comments: A serum folate concentration of less than 3.1 ng/mL isconsidered to represent clinical deficiency. Vitamin B12 595 pg/mL (Normal) Range: 232-1245 :54 TSH (81080) Comments: PATIENT WAS FASTINGPERFORMED BY: [employer] Hrcuuj3759 [facility] [id number] TSH 1.360 {uIU/mL} (Normal) Range: 0.450-4.500 :54 CBC, Platelets & Auto Diff Comments: PATIENT WAS FASTINGPERFORMED BY: [employer] Bonzry1852 [facility] [id number] (14613) Immature Grans (Abs) 0.0 {x10E3/uL} (Normal) Range: [...] 3.77-5.28 WBC 8.2 {x10E3/uL} (Normal) Range: 3.4-10.8 13-Tpm-96368:54 Metabolic Panel, Comprehensive Comments: PATIENT WAS FASTINGPERFORMED BY: [employer] Ryfjro5193 [facility] [id number] (92195) ALT (SGPT) 17 [iU]/L (Normal) Range: 0-32 [...] mg/dL (Abnormal) Range: 65-99 :54 LIPID PANEL (63956) Comments: PATIENT WAS FASTINGPERFORMED BY: [facility] [id number] LDL/HDL Ratio 1.7 {ratio_units} (Normal) Range: 0.0-3.2 [...] for SGOT 48; PATIENT NOT FASTINGPERFORMED BY: [employer]70 [facility] [id number] (76132) ALT (SGPT) 18 [iU]/L (Normal) Range: 0-32 [...] Glucose, Serum 94 mg/dL (Normal) Range: 65-99 4-Qqr-847111:36 TSH (THYROID STIMULATING Comments: Jun 2017; PATIENT WAS FASTINGPERFORMED BY: [employer] Joyefl3028 [facility]oint[facility] [id number] HORMONE) (53818) TSH 1.270 {uIU/mL} (Normal) Range: 0.450-4.500 7-Vxx-100894:36 Metabolic Panel, Comprehensive Comments: Jun 2017; PATIENT WAS FASTINGPERFORMED BY: [employer] Gvjrtn4535 [place] [facility] HospitalQuanTemplateNov[facility] [id number] (10581) ALT (SGPT) 24 [iU]/L (Normal) Range: 0-32 [...] Glucose, Serum 85 mg/dL (Normal) Range: 65-99 2-Xeh-307770:36 Lipid Panel (26283) Comments: Jun 2017; PATIENT WAS FASTINGPERFORMED BY: [employer]UL[employer]NA [employer] Dirobc0096 [facility] [id number] LDL/HDL Ratio 1.8 {ratio_units} (Normal) Range: 0.0-3.2 Comments: LDL/HDL Ratio Men Women 1/2 Avg.Risk 1.0 1.5 Av g.Risk 3.6 3.2 2X Avg.Risk 6.2 5.0 3X Avg.Risk 8.0 6.1 LDL Cholesterol Calc 104 mg/dL (Abnormal) Range: 0-99 VLDL Cholesterol Jacob 28 mg/dL (Normal) Range: 5-40 HDL Cholesterol 59 mg/dL (Normal) Triglycerides 139 mg/dL (Normal) Range: 0-149 Cholesterol, Total 191 mg/dL (Normal) Range: 100-199 5-Wmg-670463:36 HGB A1C (61032) Comments: (Jun 2017); PATIENT WAS FASTINGPERFORMED BY: ForwardMetricsox RoadDublin [place] [id number] Hemoglobin A1c 5.3 % (Normal) Range: 4.8-5.6 Comments: . Pre-diabetes: 5.7 - 6.4 Diabetes: >6.4 Glycemic control for adults with diabetes: <7.0 :20 HGB A1C (94944) Comments: today; PATIENT NOT FASTINGPERFORMED BY: LabPut[facility] HospitalFiulca9701 [facility] [id number] Hemoglobin A1c 6.1 % (Abnormal) Range: 4.8-5.6 Comments: . Pre-diabetes: 5.7 - 6.4 Diabetes: >6.4 Glycemic control for adults with diabetes: <7.0 :22 LIPID PANEL (29376) Comments: REpeat in Mar; PATIENT WAS FASTINGPERFORMED BY: YULIANA [employer] Nefuvx2290 [facility] [id number] LDL/HDL Ratio 2.2 {ratio_units} (Normal) Range: 0.0-3.2 [...] (Abnormal) Range: 100-199 :22 T4, FREE (THYROXINE) (58524) Comments: PATIENT WAS FASTINGPERFORMED BY: [facility] Hcddfl1496 [facility] [id number]; OV 12/14 T4,Free(Direct) 0.77 ng/dL (Abnormal) Range: 0.82-1.77 :22 T3, FREE (TRIDOTHYRONINE) (36849) Comments: PATIENT WAS FASTINGPERFORMED BY: [facility] Cttnwv5539 [facility] [id number] Triiodothyronine,Free,Serum 3.0 pg/mL (Normal) Range: 2.0-4.4 :22 TSH (THYROID STIMULATING Comments: PATIENT WAS FASTINGPERFORMED BY: [facility]6370 [facility] [id number] HORMONE) (86281) TSH 1.390 {uIU/mL} (Normal) Range: 0.450-4.500 :22 Metabolic Panel, Comprehensive Comments: PATIENT WAS FASTINGPERFORMED BY: [facility]6370 [facility] [id number] (82983) ALT (SGPT) 14 [iU]/L (Normal) Range: 0-32 [...] mg/dL (Normal) Range: 65-99 :22 HGB A1C (36648) Comments: PATIENT WAS FASTINGPERFORMED BY: [facility]6370 [facility] [id number] Hemoglobin A1c 5.9 % (Abnormal) Range: 4.8-5.6 Comments: . Pre-diabetes: 5.7 - 6.4 Diabetes: >6.4 Glycemic control for adults with diabetes: <7.0 :22 LIPID PANEL (39585) Comments: PATIENT WAS FASTINGPERFORMED BY: [facility]6370 [facility] [id number] LDL/HDL Ratio 2.1 {ratio_units} (Normal) Range: 0.0-3.2 [...] 208 mg/dL (Abnormal) Range: 100-199 :22 CALCIFEDIOL (30420) Comments: PATIENT WAS FASTINGPERFORMED BY: [facility]6370 [facility] [id number] Vitamin D, 25-Hydroxy 31.2 ng/mL (Normal) Range: 30.0-100.0 Comments: Vitamin D deficiency has been defined by the [place] ofMedicine and an Endocrine Society practice guideline as alevel of serum 25-OH vitamin D less than 20 ng/mL (1,2).The Endocrine Society went on to further define vitamin Dinsufficiency as a level between 21 and 29 ng/mL (2).1. IOM ([place] of Medicine). 2010. Dietary reference intakes for calcium and D. [place]: The National Academies Press.2. Coy REYES, Raya CLARK, Armida PARADA, et al. Evaluation, treatment, and prevention of vitamin D deficiency: an Endocrine Society clinical practice guideline. JCEM. 2010; 96(7):1911-30. 48-Qdw-998876:14 URINE RAMON CULTURE-IDENTIFICATN Comments: PATIENT NOT FASTINGPERFORMED BY: [employer] [facility] [id number] Information: SRC:UC (17565) Result 1 MUG (Normal) Comments: Mixed urogenital flora2,000 Colonies/mL Urine Culture,Comprehensive Final report (Normal) 96-Jxz-35953:11 Urinalysis, Office (64687) UA - LEUKOCYTE ESTERASE Trace (Normal) UA - NITRITE Negative (Normal) URINE UROBILINGN SAUNDRA TIMED Normal mg/dL (Normal) UA - PROTEIN Negative mg/dL (Normal) UA - PH 6 (Abnormal) UA - BLOOD Negative (Normal) UA - SPECIFIC GRAVITY 1.020 (Normal) UA - KETONES Negative mg/dL (Normal) UA - BILIRUBIN Negative (Normal) UA - GLUCOSE Negative (Normal) 97-Jpd-409946:29 Renal function Panel (92013) Comments: PATIENT NOT FASTINGPERFORMED BY: [facility] [id number] Albumin, Serum 4.1 g/dL (Normal) Range: 3.5-5.5 [...] Glucose, Serum 90 mg/dL (Normal) Range: 65-99 :45 Comp. Metabolic Panel (14) Comments: PATIENT WAS FASTINGPERFORMED BY: AcceloWebDublin [place] [id number] ALT (SGPT) 14 [iU]/L (Normal) Range: 0-32 [...] % (Abnormal) Comments: PATIENT WAS FASTINGPERFORMED BY: YULIANA [facility] Lldqyn7085 [facility] [id number] :45 Range: 4.8-5.6 Comments: . Pre-diabetes: 5.7 - 6.4 Diabetes: >6.4 Glycemic control for adults with diabetes: <7.0 :45 Lipid Panel Comments: PATIENT WAS FASTINGPERFORMED BY: YULIANA [employer] Gztdgx4374 [facility] [id number] LDL Cholesterol Calc 110 mg/dL (Abnormal) Range: 0-99 VLDL Cholesterol Jacob 29 mg/dL (Normal) Range: 5-40 HDL Cholesterol 60 mg/dL (Normal) Triglycerides 144 mg/dL (Normal) Range: 0-149 Cholesterol, Total 199 mg/dL (Normal) Range: 100-199 :45 Microalbumin, Random Urine Comments: PATIENT WAS FASTINGPERFORMED BY: [facility] [id number] Microalbumin, Urine 15.2 ug/mL (Normal) :45 Microscopic Examination Comments: PATIENT WAS FASTINGPERFORMED BY: [employer] [facility]edaBonafideNov[facility] [id number] Bacteria Few (Normal) Mucus Threads Present (Normal) Crystal Type Amorphous Sediment (Normal) Crystals Present (Abnormal) Cast Type Hyaline casts (Normal) Casts Present {/lpf} (Abnormal) Epithelial Cells (non renal) >10 {/hpf} (Abnormal) Range: 0 - 10 RBC 3-10 {/hpf} (Abnormal) Range: 0 - 2 WBC 11-30 {/hpf} (Abnormal) Range: 0 - 5 :45 Urinalysis, Routine Comments: PATIENT WAS FASTINGPERFORMED BY: [facility] LabsNov[facility] [id number] Microscopic Examination See below: Comments: Microscopic was indicated and was performed. (Normal) Nitrite, Urine Negative (Normal) Urobilinogen,Semi-Qn 1.0 mg/dL Range: 0.2-1.0 (Normal) Bilirubin Negative (Normal) Occult Blood Negative (Normal) Ketones Negative (Normal) Glucose Negative (Normal) Protein Negative (Normal) WBC Esterase 2+ (Abnormal) Appearance Cloudy (Abnormal) Urine-Color Yellow (Normal) pH 6.5 (Normal) Range: 5.0-7.5 Specific [place] 1.019 (Normal) Range: 1.005-1.030 Vitamin D, 25-Hydroxy 41.6 ng/mL Comments: PATIENT WAS FASTINGPERFORMED BY: [employer]70 [facility] [facility] [id number] 78:45 (Normal) Range: 30.0-100.0 Comments: Vitamin D deficiency has been defined by the [place] of[place]icine and an Endocrine Society practice guideline as alevel of serum 25-OH vitamin D less than 20 ng/mL (1,2).The Endocrine Society went on to further define vitamin Dinsufficiency as a level between 21 and 29 ng/mL (2).1. IOM ([place] of Medicine). 2010. Dietary reference intakes for calcium and D. [place]: The National Academies Press.2. Coy MF, Raya CLARK, Armida PARADA, et al. Evaluation, treatment, and prevention of vitamin D deficiency: an Endocrine Society clinical practice guideline. JCEM. 2010; 96(7):1911-30. BREAST BIOPSY (CHOOSE SITE) See Note (Normal) Comments: [facility] [address] [place], [address] 610:30 Comments: Patient: KATHIA VALENTE : 1955 (61/F) Acct Num: [id number] Phys: Mckayla Napoles MD Unit Num: [id number] Loc: B[facility] Specimen: [id number] Received: 08/06/161443 Spec Type: BREAS T BX TISSUES TISSUES: COMMENT Immunohistochemistry ([id number]) supports the above diagnosis. GROSS DESCRIPTION Received is one container labeled with the patient's name and arelis gnated left breast. The specimen consists of multiple elongated fragments of gordon-yellow fibroadipose tissue that in aggregate measure 3 x 2.5 x 0.3 cm. The entire specimen is submitted in one casset te. / SJ:osbaldo 08/06/16 TC:5 CPT: 86945 HEADER OPERATION: Left stereotactic needle core biopsy PRE-OP DIAGNOSIS: Left microcalcifications TISSUE SUBMITTED: Left breast tissue ISCHEMIC TONY E: 2 minutes FIXATION TIME: 9 hours MICROSCOPIC DESCRIPTION Slides are reviewed. MICROSCOPIC DIAGNOSIS Left breast, stereotactic needle core biopsy: Fibrosis, associated benign histioc ytic proliferation, clustered microcalcifications and organizing hemorrhage. No evidence of malignancy. AM:osbaldo 08/07/16 Signed Rajat Anderson 08/08/16 <signature on file> IMMUNOHISTOCHEMISTRY See Note (Normal) Comments: [facility] [address] [place], [address] ; another doc 60:00 Comments: Patient: KATHIA VALENTE : 1955 (61/F) Acct Num: [id number] Phys: Mckayla Napoles MD Unit Num: [id number] Loc: B[facility]AD Specimen: [id number] Received: 08/07/161122 Spec Type: IMMU NO TISSUES TISSUES: SPECIMEN INFORMATION: Tissue Source: Left breast tissue Clinical Info: Left microcalcifications Specimen Number: [id number] CPT code: 79115, 23807 x4 METHOD OLOGY: Deparaffinized sections of prefer/formalin-fixed [...] developed and their performance characteristics determined by [facility] Laboratory. They may not have been cleared or approved by the U.S. Food and Drug A dministration. The FDA has determined that such clearance or approval is not necessary. INTERPRETATION: Left breast core biopsy: Benign breast tissue. AM:osbaldo 08/08/16 PHYSICIAN AND INSTITUTION [address] [address] [address]igned [address] [facility] 08/08/16 <signature on file> 31-Jul-20169:00 TSH (21801) Comments: PATIENT NOT FASTINGPERFORMED BY: [facility] Tddgws7919 [facility] [id number] TSH 0.646 {uIU/mL} (Normal) Range: 0.450-4.500 :00 T4, FREE (THYROXINE) (04355) Comments: PATIENT NOT FASTINGPERFORMED BY: NanoLumensCarrier ClinicOfhdzw4437 [facility] [id number] T4,Free(Direct) 0.73 ng/dL (Abnormal) Range: 0.82-1.77 :00 T3, FREE (TRIDOTHYRONINE) (78117) Comments: PATIENT NOT FASTINGPERFORMED BY: [facility] Qajsns4147 [facility] [id number] Triiodothyronine,Free,Serum 2.4 pg/mL (Normal) Range: 2.0-4.4 :46 HGB A1C (05934) Comments: PATIENT WAS FASTINGPERFORMED BY: [employer] Lpsfsj6026 [facility] [id number] Hemoglobin A1c 5.7 % (Abnormal) Range: 4.8-5.6 Comments: . Pre-diabetes: 5.7 - 6.4 Diabetes: >6.4 Glycemic control for adults with diabetes: <7.0 :46 Metabolic Panel, Basic (19273) Comments: PATIENT WAS FASTINGPERFORMED BY: [employer] Pikehn9017 [facility] [id number] Calcium, Serum 9.2 mg/dL (Normal) Range: 8.7-10.2 [...] 92 mg/dL (Normal) Range: 65-99 :46 TSH (01413) Comments: PATIENT WAS FASTINGPERFORMED BY: [place] 9216670 [facility] [id number] TSH 1.080 {uIU/mL} (Normal) Range: 0.450-4.500 :46 T4, FREE (THYROXINE) (80109) Comments: PATIENT WAS FASTINGPERFORMED BY: [place] 9216670 [facility] [id number] T4,Free(Direct) 0.77 ng/dL (Abnormal) Range: 0.82-1.77 :46 T3, FREE (TRIDOTHYRONINE) (86195) Comments: PATIENT WAS FASTINGPERFORMED BY: [place] 9216670 [facility] [id number] Triiodothyronine,Free,Serum 2.5 pg/mL (Normal) Range: 2.0-4.4 :46 Lipid Panel (08581) Comments: PATIENT WAS FASTINGPERFORMED BY: [place] 9216670 [facility] [id number] LDL/HDL Ratio 2.1 {ratio_units} (Normal) Range: 0.0-3.2 [...] 204 mg/dL (Abnormal) Range: 100-199 :46 CALCIFEDIOL (71236) Comments: PATIENT WAS FASTINGPERFORMED BY: [place] 9216670 [facility] [id number]; OV 06/19 Vitamin D, 25-Hydroxy 26.0 ng/mL (Abnormal) Range: 30.0-100.0 Comments: Vitamin D deficiency has been defined by the [place] of[place]icine and an Endocrine Society practice guideline as alevel of serum 25-OH vitamin D less than 20 ng/mL (1,2).The Endocrine Society went on to further define vitamin Dinsufficiency as a level between 21 and 29 ng/mL (2).1. IOM ([place] of Medicine). 2010. Dietary reference intakes for calcium and D. [place]: The National Academies Press.2. Coy MF, Raya CLARK, Armida PARADA, et al. Evaluation, treatment, and prevention of vitamin D deficiency: an Endocrine Society clinical practice guideline. JCEM. 2010; 96(7):1911-30. :38 METABOLIC PANEL, Comments: PATIENT WAS FASTINGPERFORMED BY: [facility] Jgdujq6648 [facility] [id number] Information: [id number] COMPREHENSIVE (86673) ALT (SGPT) 14 [iU]/L (Normal) Range: 0-32 [...] mg/dL (Normal) Range: 65-99 :38 LIPID PANEL (62768) Comments: PATIENT WAS FASTINGPERFORMED BY: [employer]6370 [facility] [id number] LDL/HDL Ratio 2.3 {ratio_units} (Normal) Range: 0.0-3.2 [...] 202 mg/dL (Abnormal) Range: 100-199 :38 CALCIFIDIOL (97285) VIT D 25 Comments: PATIENT WAS FASTINGPERFORMED BY: [employer]in6370 [facility] [id number]; [facility] Vitamin D, 25-Hydroxy 29.1 ng/mL (Abnormal) Range: 30.0-100.0 Comments: Vitamin D deficiency has been defined by the [place] of[place]icine and an Endocrine Society practice guideline as alevel of serum 25-OH vitamin D less than 20 ng/mL (1,2).The Endocrine Society went on to further define vitamin Dinsufficiency as a level between 21 and 29 ng/mL (2).1. IOM ([place] of Medicine). 2010. Dietary reference intakes for calcium and D. [place]: The National Academies Press.2. Coy REYES, Raya CLARK, Armida PARADA, et al. Evaluation, treatment, and prevention of vitamin D deficiency: an Endocrine Society clinical practice guideline. JCEM. 2010; 96(7):1911-30. :38 HGB A1C (64742) Comments: PATIENT WAS FASTINGPERFORMED BY: [facility] Jqswpt8826 [facility] [place] [id number]; [facility] 7-22 Hemoglobin A1c 6.0 % (Abnormal) Range: 4.8-5.6 Comments: . Pre-diabetes: 5.7 - 6.4 Diabetes: >6.4 Glycemic control for adults with diabetes: <7.0 :08 PT (PROTHROMBIN TIME) (14128) Comments: PATIENT NOT FASTINGPERFORMED BY: [facility] Pjhvfx8425 Ojdea [facility] [id number] Prothrombin Time 10.3 {sec} (Normal) Range: 9.1-12.0 INR 1.0 (Normal) Range: 0.8-1.2 Comments: Reference interval is for non-anticoagulated patients. . Suggested INR therapeutic range for Vitamin K anta gonist therapy: Standard Dose (moderate intensity therapeutic range): 2.0 - 3.0 Higher intensity therapeutic range 2.5 - 3.5 18-Lgg-575073:08 CBC, Platelets & Auto Comments: PATIENT NOT FASTINGPERFORMED BY: [facility] Pmxnvg7305 [facility] [place] [id number] Information: [id number] Diff (00737) Immature Grans (Abs) 0.0 {x10E3/uL} (Normal) Range: [...] 3.77-5.28 WBC 7.0 {x10E3/uL} (Normal) Range: 3.4-10.8 64-Ahb-255134:08 Metabolic Panel, Comprehensive Comments: PATIENT NOT FASTINGPERFORMED BY: [facility] Yiqpwz1006 [facility] [id number] (45167) ALT (SGPT) 11 [iU]/L (Normal) Range: 0-32 [...] Glucose, Serum 87 mg/dL (Normal) Range: 65-99 :21 Urinalysis, Office (34573) UA - LEUKOCYTE ESTERASE Negative (Normal) UA - NITRITE Negative (Normal) URINE UROBILINGN SAUNDRA TIMED 2 mg/dL (Normal) UA - PROTEIN Negative mg/dL (Normal) UA - PH 6.0 (Normal) UA - BLOOD Negative (Normal) UA - SPECIFIC GRAVITY 1.025 (Normal) UA - KETONES Negative mg/dL (Normal) UA - BILIRUBIN Negative (Normal) UA - GLUCOSE Negative (Normal) :06 CALCIFIDIOL (12598) VIT D 25 Comments: PATIENT WAS FASTINGPERFORMED BY: [employer]70 [employer] Man [facility] [id number] Vitamin D, 25-Hydroxy 31.1 ng/mL (Normal) Range: 30.0-100.0 Comments: Vitamin D deficiency has been defined by the [place] of[place]icine and an Endocrine Society practice guideline as alevel of serum 25-OH vitamin D less than 20 ng/mL (1,2).The Endocrine Society went on to further define vitamin Dinsufficiency as a level between 21 and 29 ng/mL (2).1. IOM ([place] of Medicine). 2010. Dietary reference intakes for calcium and D. [place]: The National Academies Press.2. Coy MF, Raya [place], Armida PARADA, et al. Evaluation, treatment, and prevention of vitamin D deficiency: an Endocrine Society clinical practice guideline. JCEM. 2010; 96(7):1911-30. :06 METABOLIC PANEL, Comments: PATIENT WAS FASTINGPERFORMED BY: [employer] LabBoxCast6370 [place] [facility] [id number] Information: [id number] COMPREHENSIVE (46700) ALT (SGPT) 17 [iU]/L (Normal) Range: 0-32 [...] Glucose, Serum 113 mg/dL (Abnormal) Range: 65-99 70-Iad-03670:06 LIPID PANEL (15987) Comments: PATIENT WAS FASTINGPERFORMED BY: LabCoCarrier ClinicHrdswv9324 [facility] [id number]; apt. 3-21 LDL/HDL Ratio 2.3 {ratio_units} (Normal) [...] Cholesterol, Total 233 mg/dL (Abnormal) Range: 100-199 0-Jci-319702:21 Upper Respiratory Culture Comments: PATIENT NOT FASTINGPERFORMED BY: NanoLumensPinon Health CenterThwfou0881 [facility] [id number] Information: SRC:THRT [id number] Result 1 RRF (Normal) Comments: Routine respiratory samuel Upper Respiratory Culture Final report (Normal) :19 Rapid Strep Test, Office (89196) Rapid Strep Test, Office Negative (Normal) :18 Rapid Flu (00234 x 2) Influenza A Ag negetive A & B (Normal) :33 METABOLIC PANEL, Comments: PATIENT WAS FASTINGPERFORMED BY: [employer] Smcygs7295 [facility] [id number] Information: [id number] COMPREHENSIVE (20707) ALT (SGPT) 10 [iU]/L (Normal) Range: 0-32 [...] mg/dL (Normal) Range: 65-99 :33 LIPID PANEL (38150) Comments: PATIENT WAS FASTINGPERFORMED BY: [employer] [facility] [id number]; will review at 05/16 appt LDL/HDL Ratio [...] 260 mg/dL (Abnormal) Range: 100-199 :33 CALCIFIDIOL (20458) VIT D 25 Comments: PATIENT WAS FASTINGPERFORMED BY: [employer]6370 [facility] [id number] Vitamin D, 25-Hydroxy 30.0 ng/mL (Normal) Range: 30.0-100.0 Comments: Vitamin D deficiency has been defined by the [place] of[place]icine and an Endocrine Society practice guideline as alevel of serum 25-OH vitamin D less than 20 ng/mL (1,2).The Endocrine Society went on to further define vitamin Dinsufficiency as a level between 21 and 29 ng/mL (2).1. IOM ([place] of Medicine). 2010. Dietary reference intakes for calcium and D. [place]: The National Academies Press.2. Coy MF, Raya [place], Armida PARADA, et al. Evaluation, treatment, and prevention of vitamin D deficiency: an Endocrine Society clinical practice guideline. JCEM. 2010; 96(7):1911-30. :33 Hemoglobin Glyclated (HGB A1C) Comments: PATIENT WAS FASTINGPERFORMED BY: LabCoCarrier ClinicHbfmap3649 [facility] [id number] (20285) Hemoglobin A1c 5.5 % (Normal) Range: 4.8-5.6 Comments: . Increased risk for diabetes: 5.7 - 6.4 Diabetes: >6.4 Glycemic control for adults with diabetes: <7.0 :32 Comprehensive Metabolic Profil Comments: Test performed at:[facility] N[address]wrkhz[address] [place] [address] GAP 9 (Normal) Range: 5-15 CO2 26.0 [...] 70-110 :32 Hemoglobin A1c Comments: Test performed at:[facility] Phmieckafa[address] [place] [address] HGB A1C 5.6 % (Normal) Range: 4.2-6.3 :32 Lipid Profile Comments: Test performed at:[facility] Je[address]ixxhdr[address] [place] [address] VLDL 37 mg/dL (Normal) Range: 5-40 [...] :32 Vitamin D,25 Hydroxy Comments: Test performed at:[facility] Zeuxlisgdz[address] [place] [address] Vitamin D 25-OH 28.4 ng/mL (Normal) Comments: Vitamin D 25(OH) Status Range Deficiency <20 ng/mL (50nmol/L) Insuffciency 20 - 30 ng/mL (50 - 75 nmol/L) Sufficiency 30 - 100 ng/mL (75 - 250 nmol/L) Toxicity >100 ng/mL (>250 nmol/L) :35 Basic Metabolic Profile (BMP) Comments: Test performed at:[facility] [address]wkcpp[address] [place] [address] GAP 9 (Normal) Range: 5-15 CO2 [...] 7-18 GLU 87 mg/dL (Normal) Range: 70-110 67-Anl-710057:35 CBC-Complete Blood Cnt No Diff Comments: Test performed at:[facility] Jagibrfueb0852 [facility] HospitalEarnest [place], [place] [address](389) MPV 10.8 fL (Normal) Range: 6.2-12.0 PLT [...] 4.2-5.4 WBC 11.2 K/mm3 (Abnormal) Range: 4.4-11.0 8-Cvp-620932:53 Rapid Flu (44384 x 2) Influenza A Ag negative a and b (Normal) 45-Hqf-390447:34 POTASSIUM SERUM (97112) Comments: PATIENT NOT FASTINGPERFORMED BY: LabCoCarrier ClinicWfhxeo0544 [facility] [id number] Information: [id number] Potassium, Serum 3.9 mmol/L (Normal) Range: 3.5-5.2 8-Qdk-426338:21 Basic Metabolic Profile (BMP) Comments: Test performed at:[facility] [address]axhoc[address] [place] [address] GAP 9 (Normal) Range: 5-15 [...] 7-18 GLU 80 mg/dL (Normal) Range: 70-110 6-Jxb-981917:21 CBC-Complete Blood Cnt No Diff Comments: Test performed at:[facility] Pq[address]cjqkox[address] [place] [address] MPV 10.6 fL (Normal) Range: 6.2-12.0 PLT [...] (HGB A1C) Comments: PATIENT WAS FASTINGPERFORMED BY: [facility] Wfjmny4569 [facility] [id number] (70499) Hemoglobin A1c 5.9 % (Abnormal) Range: 4.8-5.6 Comments: . Increased risk for diabetes: 5.7 - 6.4 Diabetes: >6.4 Glycemic control for adults with diabetes: <7.0 :49 Metabolic Panel, Comments: PATIENT WAS FASTINGPERFORMED BY: [facility]70 [facility] [id number] Information: [id number] Comprehensive (92634) ALT (SGPT) 16 [iU]/L (Normal) Range: 0-32 [...] Glucose, Serum 89 mg/dL (Normal) Range: 65-99 :49 Lipid Panel (57990) Comments: PATIENT WAS FASTINGPERFORMED BY: [employer] Aultic3376 [facility] [id number] LDL/HDL Ratio 1.6 {ratio_units} (Normal) Range: 0.0-3.2 [...] 213 mg/dL (Abnormal) Range: 100-199 :49 CALCIFIDIOL (45893) VIT D 25 Comments: PATIENT WAS FASTINGPERFORMED BY: LabCoCarrier ClinicHsnyrv0861 [facility] [id number] Vitamin D, 25-Hydroxy 45.5 ng/mL (Normal) Range: 30.0-100.0 Comments: Vitamin D deficiency has been defined by the [place] ofMedicine and an Endocrine Society practice guideline as alevel of serum 25-OH vitamin D less than 20 ng/mL (1,2).The Endocrine Society went on to further define vitamin Dinsufficiency as a level between 21 and 29 ng/mL (2).1. IOM ([place] of Medicine). 2010. Dietary reference intakes for calcium and D. [place]: The National Academies Press.2. Coy MF, Raya NC, Armida PARADA, et al. Evaluation, treatment, and prevention of vitamin D deficiency: an Endocrine Society clinical practice guideline. JCEM. 2010; 96(7):1911-30. :08 HgA1C , Office (14262) HgA1C , Office 6.1 % (Normal) Range: 4.6 - 7.1 :08 Blood Glucose , Office (70314) Blood Glucose , Office 108 (Normal) :56 [...] CHOL 190 mg/dL (Normal) Comments: <200 mg/dL Vgheqbbej912-109 mg/dL Borderline>240 mg/dL High Risk :56 TSH [...] UCLAR Sl. Cloudy (Normal) UCOL Yellow (Normal) 42-Prc-658774:30 RAMON CULTURE-OTHER (80313) Comments: PATIENT NOT FASTINGPERFORMED BY: [facility]6370 [facility] [id number] Information: SRC:THRT [id number] Result 1 RRF (Normal) Comments: Routine respiratory samuel Upper Respiratory Culture Final report (Normal) :56 Rapid Strep Test, Office (44936) Rapid Strep Test, Office Negative (Normal) 70-Tcp-762633:14 EBV Panel (80128) Comments: PATIENT NOT FASTINGPERFORMED BY: [facility]6370 [facility] [id number] Information: [id number] Interpretation: SPRCS (Normal) Comments: EBV Interpretation Chart [...] UCLAR Sl. Cloudy (Normal) UCOL Yellow (Normal) :55 Microscopic Examination Comments: PERFORMED BY: [facility] [id number] Bacteria Few (Normal) Mucus Threads Present (Normal) Epithelial Cells (non renal) 0-10 {/hpf} (Normal) Range: 0 - 10 RBC 0-2 {/hpf} (Normal) Range: 0 - 2 WBC 0-5 {/hpf} (Normal) Range: 0 - 5 :55 Urinalysis, Routine Comments: PERFORMED BY: [facility] [id number] Microscopic Examination See below: (Normal) Appearance Clear (Normal) Urine-Color [place] (Normal) Comments: Unable to read or assay due to color interference. Specific [place] 1.018 (Normal) Range: 1.005-1.030 :55 Urine Culture,Comprehensive Comments: PERFORMED BY: [facility] [id number] Result 1 MUG (Normal) Comments: Mixed urogenital flora1,000 Colonies/mL Urine Culture,Comprehensive Final report (Normal) :09 Urinalysis, Office (49846) UA - LEUKOCYTE ESTERASE Negative (Normal) UA - NITRITE Positive (Normal) URINE UROBILINGN SAUNDRA TIMED Normal mg/dL (Normal) UA - PROTEIN Negative mg/dL (Normal) UA - PH 6 (Abnormal) UA - BLOOD Negative (Normal) UA - SPECIFIC GRAVITY 1.020 (Normal) UA - KETONES Negative mg/dL (Normal) UA - BILIRUBIN Negative (Normal) UA - GLUCOSE 100 (Abnormal) 8-Ddb-939027:11 PREALB 28.9 mg/dL (Normal) Range: 20.0-40.0 8-Oyj-941241:11 PROEL tPROELN Comment (Normal) Comments: The SPE pattern appears essentially unremarkable. Evidenceof monoclonal protein is not apparent.Performed at: [address] [id number] Director: David Weaver MD, Phone: [phone] tPROELAG 1.2 (Normal) Range: 0.7-2.0 tPROELIN Comment (Normal) Comments: Protein electrophoresis scan will follow via computer,mail, or track equipment operator delivery.Scanned image report available in EMR tPROELGL 2.9 g/dL (Normal) Range: 2.0-4.5 tPROELGA 0.7 g/dL (Normal) Range: 0.5-1.6 tPROELMS (Normal) Comments: NOT OBSERVED tPROELBE 1.2 g/dL (Normal) Range: 0.6-1.3 tPROELAL2 0.8 g/dL (Normal) Range: 0.4-1.2 tPROELAL1 0.3 g/dL (Normal) Range: 0.1-0.4 tPROELALB 3.5 g/dL (Normal) Range: 3.2-5.6 $tPROELTP 6.4 g/dL (Normal) Range: 6.0-8.5 :25 HgA1C , Office (20093) HgA1C , Office 6.0 % (Normal) Range: [...] CHOL 232 mg/dL (Abnormal) Comments: <200 mg/dL Vpoycmbhm381-490 mg/dL Borderline>240 mg/dL High Risk :54 T4F [...] ng/mL (>250 nmol/L) :17 HgA1C , Office (58299) HgA1C , Office 5.8 % (Normal) Range: [...] 4.2-5.4 WBC 7.6 {k/mm3} (Normal) Range: 4.4-11.0 :19 CMP GAP 8 (Normal) Range: 5-15 CO2 [...] CHOL 202 mg/dL (Abnormal) Comments: <200 mg/dL Uwpadxglw767-988 mg/dL Borderline>240 mg/dL High Risk TRIG 124 [...] ol/L)Toxicity >100 ng/mL (250 nmol/L) :56 TSH (39516) Comments: copy to Dr. Damian Randle [facility]; PATIENT NOT FASTINGPERFORMED BY: [employer]6370 [facility]Nov[facility] [id number] TSH 0.201 {uIU/mL} (Abnormal) Range: 0.450-4.500 :56 T3, FREE (TRIDOTHYRONINE) (61286) Comments: PATIENT NOT FASTINGPERFORMED BY: [facility]icsCarrier ClinicMgjiuh8434 [facility] [id number] Triiodothyronine,Free,Serum 4.5 pg/mL (Abnormal) Range: 2.0-4.4 :56 T4, FREE (THYROXINE) Comments: PATIENT NOT FASTINGPERFORMED BY: [employer] Sdrtie2005 [facility] [id number] Information: [id number] (93189) T4,Free(Direct) 0.22 ng/dL (Abnormal) Range: 0.82-1.77 1-Qxc-827875:35 ABDOMEN/PELVIS WITH CONTRAST Radiology Report See Note [...] Lundberg M.D.January 28, 2013 at 5:14:08 PM [id number] Signed TT/TT If you are the referring physician and would like t o consult with theradiologist who provided this interpretation, please contact Christiana Solis M.D. at [phone]. If this radiologist is unavailable, youwill be directed to another radiologist to a ssist. If you are a patient with a question regarding this report, pleasecontact your referring physician directly. Professional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 pain, acute, generalized On: :33 Request OVA & PARASITE DIR SMEAR ([id number])Indication: Diarrhea On: :51 Request OCCULT BLOOD FECES SCREEN (43221)Indication: Diarrhea On: :51 Request LEUKOCYTE COUNT, FECAL (80742)Indication: Diarrhea On: :51 Request C-DIFFICILE, STOOL (62873)Indication: Diarrhea On: :51 Request RAMON CULTURE-STOOL (78431)Indication: Diarrhea On: :51 Request TSH ([id number])Indication: Depression (311.) On: :33 Request T3, FREE (TRIDOTHYRONINE) (11737)Indication: Depression (311.) On: : Request T4, FREE (THYROXINE) (01317)Indication: Depression (311.) On: :33 Request CALCIFIDIOL (32681) VIT D 25Indication: Vitamin D deficiency, unspecified On: : Request URINALYSIS, W/ MICRO (00584)Indication: Hypertension On: : Request METABOLIC PANEL, COMPREHENSIVE (96798)Indication: Hypertension On: : Request LIPID PANEL (13781)Indication: Hypertension On: : Request CBC WITH MANUAL DIFF (86695)Indication: Hypertension On: : Request Rapid Flu (82499 x 2)Indication: Flu-like symptoms On: :11 Request CALCIFIDIOL (38535) VIT D 25Indication: Vitamin D deficiency, unspecified On: 66-Cvh-724444:00 Request T4, FREE (THYROXINE) (71388)Indication: Hypothyroidism, unspecified On: :59 Request TSH (99284)Indication: Hypothyroidism, unspecified On: :59 Request MICROALBUMIN: CREATININE RATIO (27556) AND (56736)Indication: Hypertension On: :59 Request METABOLIC PANEL, COMPREHENSIVE (83393)Indication: Hypertension On: :59 Request LIPID PANEL (67756)Indication: Hypertension On: :59 Request CBC WITH MANUAL DIFF ([id number])Indication: Hypertension On: :59 Request T4, FREE (THYROXINE) (18966)Indication: Abnormal TSH On: : Request T3, FREE (TRIDOTHYRONINE) (59627)Indication: Abnormal TSH On: :32 Request TSH ([id number])Indication: Abnormal TSH On: : Request METABOLIC PANEL, COMPREHENSIVE (83505)Indication: Hypertension On: 46-Zch-052699:32 Request LIPID PANEL (37214)Indication: Hypertension On: 89-Vpm-159164:32 Request CALCIFIDIOL (93010) VIT D 25Indication: Vitamin D deficiency, unspecified On: 08-Yqo-203579:57 Request T4, FREE (THYROXINE) (30749)Indication: Abnormal TSH On: :07 Request T3, FREE (TRIDOTHYRONINE) (24145)Indication: Abnormal TSH On: : Request TSH ([id number])Indication: Abnormal TSH On: : Request CBC with manual diff ([id number])Indication: Hypertension On: : Request CBC WITH MANUAL DIFF (29542)Indication: Hypertension On: 25-Zrm-266804:52 Request RAMON CULTURE-OTHER (58368)Indication: Pharyngitis, acute On: :32 Request Comments: throat T4, FREE (THYROXINE) (12766)Indication: Abnormal TSH On: :42 Request T3, FREE (TRIDOTHYRONINE) (40550)Indication: Abnormal TSH On: 29-Uug-426805:42 Request TSH ([id number])Indication: Abnormal TSH On: 42-Gkx-371580:42 Request CALCIFIDIOL (40803) VIT D 25Indication: Vitamin D deficiency, unspecified On: 03-Ahh-669491:42 Request METABOLIC PANEL, COMPREHENSIVE (57946)Indication: Hypertension On: 67-Nlf-325109:42 Request LIPID PANEL (70400)Indication: Hypertension On: :42 Request CBC WITH MANUAL DIFF ([id number])Indication: Hypertension On: :42 Request RAMON CULTURE-OTHER (40082)Indication: Pharyngitis, acute On: :12 Request Rapid Strep Test, Office (50289)Indication: Pharyngitis, acute On: :12 Request MICROALBUMIN: CREATININE RATIO (91586) AND (04977)Indication: Hypertension On: 32-Vva-088606:18 Request HUMAN PAPILVS, NUCLEIC ACID AMPL PROBE (71894)Indication: Well woman exam On: 5-Qoq-847157:09 Request NEISSERIA (03970) (THIN PREP OBTAINED)Indication: Well woman exam On: 8-Eqe-240769:09 Request CHLAMYDIA (93238) (thin prep obtained)Indication: Well woman exam On: 9-Opu-012748:09 Request thin prep (82524) (std testing)Indication: Well woman exam On: 1-Xlz-966117:09 Request ESTRADIOL (87531)Indication: Well woman exam On: 8-Cug-206629:53 Request GONADOTROPIN-FSH (82974)Indication: Well woman exam On: 1-Kju-897248:53 Request TSH (09727)Indication: Abnormal TSH On: 8-Kwm-153656:01 Request T4, FREE (THYROXINE) (30221)Indication: Abnormal TSH On: : Request T3, FREE (TRIDOTHYRONINE) (67279)Indication: Abnormal TSH On: 2-Vgt-623992:01 Request CALCIFIDIOL (52895) VIT D 25Indication: Vitamin D deficiency, unspecified On: 5-Kcg-386743:00 Request MICROALBUMIN: CREATININE RATIO (00866) AND (03550)Indication: Hypertension On: 4-Brx-058703:59 Request METABOLIC PANEL, COMPREHENSIVE (02938)Indication: Hypertension On: 6-Caa-443797:59 Request LIPID PANEL (22425)Indication: Hypertension On: :59 Request CBC WITH MANUAL DIFF (04735)Indication: Hypertension On: 7-Nuo-644473:59 Request Glucose (27739)Indication: Abnormal blood chemistry On: 56-Bzt-166897:38 Request RAMON CULTURE-OTHER (35876)Indication: Pharyngitis, acute On: 40-Hnp-23177:32 Request TSH (48840)Indication: Abnormal TSH On: 68-Vpm-954322:33 Request T3, FREE (TRIDOTHYRONINE) (97306)Indication: Abnormal TSH On: 83-Vcb-603724:33 Request Comments: 4 weeks METABOLIC PANEL, COMPREHENSIVE (77772)Indication: Hypertension On: 34-Jir-957743:32 Request MICROALBUMIN: CREATININE RATIO (39109) AND ([id number])Indication: Hypertension On: 14-Cic-122343:32 Request LIPID PANEL (71950)Indication: Hypertension On: 91-Cwb-956554:32 Request CBC WITH MANUAL DIFF (42470)Indication: Hypertension On: 57-Epd-966313:32 Request Comments: in three months (approximately) LDH (LD) (LACTATE DEHYDROGENASE) (54782)Indication: Leukocytosis, unspecified type On: 15-Ppk-998198:30 Request RAMON CULTURE-BLOOD (39374)Indication: Leukocytosis, unspecified type On: :29 Request URINE RAMON CULTURE-SAUNDRA COL COUNT (49013)Indication: Leukocytosis, unspecified type On: :29 Request OVA & PARASITE DIR SMEAR (71624)Indication: Diarrhea On: : Request LEUKOCYTE COUNT, FECAL (68488)Indication: Diarrhea On: : Request C.Difficile, Stool (08329)Indication: Diarrhea On: : Request RAMON CULTURE-STOOL (18209)Indication: Diarrhea On: :28 Request Thin prep Pap (30847)Indication: Well woman exam On: 45-Sjv-171588:33 Request CBC with manual diff (02774)Indication: Leukocytosis, unspecified type On: 91-Rqs-499706:41 Request CBC (Auto) (52853)Indication: Hypertension On: 54-Ord-914400:02 Request Lipid Panel (45144)Indication: Hypertension On: 09-Vfm-613509:02 Request Metabolic Panel, Comprehensive (52298)Indication: Hypertension On: 31-Jcs-450175:02 Request CALCIFIDIOL (63958) VIT D 25 On: 57-Bny-522503:01 Request CALCIFIDIOL (93657) VIT D 25 On: 58-Btq-489267:56 Request Comments: 2 months Potassium Serum (95049) On: 51-Jfd-941531:56 Request Comments: now Metabolic Panel, Basic (72803)Indication: Hypertension On: 2-Fmf-272881:31 Request Comments: 2 weeks CALCIFIDIOL (83120) VIT D 25 On: 9-Dju-311065:31 Request RAMON CULTURE-OTHER (06730)Indication: Pharyngitis, acute On: 60-Kdm-227764:26 Request EB ANTIBODY VIRAL CAPSID (72790) N1Tzgvlcsdjl: Fatigue On: 89-Qez-664004:40 Request EB ANTIBODY NUCLR ANTIGN (55260)Indication: Fatigue On: 49-Wjq-328754:40 Request EB ANTIBODY EARLY ANTIGN (84188)Indication: Fatigue On: 52-Coj-328577:40 Request TSH ([id number])Indication: Fatigue On: 87-Wzi-947340:40 Request METABOLIC PANEL, COMPREHENSIVE (76683)Indication: Fatigue On: 60-Tcs-105157:40 Request CBC WITH MANUAL DIFF ([id number])Indication: Fatigue On: 64-Vgt-537917:40 Request CBC, Platelets & Auto Diff (17278)Indication: Bronchitis, acute On: 67-Akp-343517:07 Request Metabolic Panel, Comprehensive (23443)Indication: Bronchitis, acute On: 02-Hbw-010007:07 Request Thin prep Pap ([id number])Indication: Well woman exam On: 20-Eoo-612130:26 Request METABOLIC PANEL, COMPREHENSIVE (74335)Indication: syncope On: 22-Nrm-815132:35 Request CBC WITH MANUAL DIFF ([id number])Indication: syncope On: 30-Yhv-529081:35 Request URINALYSIS (21506)Indication: Abnormal blood chemistry On: 24-Vud-374229:02 Request HEPATIC FUNCTION PANEL (47800)Indication: Abnormal blood chemistry On: 67-Gce-450353:02 Request RAMON CULTURE-OTHER (98725)Indication: Pharyngitis, acute On: 15-Gei-18392:51 Request METABOLIC PANEL, COMPREHENSIVE (52911)Indication: Hypertension On: 64-Mep-075444:05 Request CBC WITH MANUAL DIFF ([id number])Indication: Hypertension On: 25-Omd-895147:05 Request LIPID PANEL (54795)Indication: Hypertension On: 70-Jkp-195540:05 Request INFLUENZA IMMUNOASSY DIRECT OPTICAL OBSERV (31800)Indication: Pharyngitis, acute On: 19-Vrb-70486:40 Request RAMON CULTURE-OTHER (79605)Indication: Pharyngitis, acute On: 83-Bso-35503:29 Request TSH (95178)Indication: Depression (311.) On: 12-Waw-539564:16 Request T4, FREE (THYROXINE) (57611)Indication: Depression (311.) On: 25-Avc-212784:16 Request T3, FREE (TRIDOTHYRONINE) (73275)Indication: Depression (311.) On: 02-Fut-181547:16 Request Comments: copy Dr. martin, 6 w TSH (58906)Indication: Hypothyroidism, unspecified On: 0-Jnc-655688:46 Request T4, FREE (THYROXINE) (24891)Indication: Hypothyroidism, unspecified On: 9-Fzf-284571:46 Request T3, FREE (TRIDOTHYRONINE) (00937)Indication: Hypothyroidism, unspecified On: 8-Zeg-789807:46 Request OCCULT BLOOD FECES SCREEN- card done in office (50723)Indication: Well woman exam On: 7-Baa-024684:20 Request Thin prep Pap (43947)Indication: Well woman exam On: 6-Dvw-987012:20 Request ESTRADIOL (26576)Indication: Irregular menstrual cycle On: :36 Request GONADOTROPIN-FSH (06471)Indication: Irregular menstrual cycle On: :36 Request GONADOTROPIN-LH (31735)Indication: Irregular menstrual cycle On: :36 Request CORTISOL, 3 SPECIMEN (03724)Indication: Abnormal CT of brain On: 33-Cjm-233084:53 Request Comments: 60 min post cortisyn CORTISOL, 2 SPECIMEN (90993)Indication: Abnormal CT of brain On: 78-Enq-700992:53 Request Comments: 30 min post cortisyn CORTISOL FREE (92221)Indication: Abnormal CT of brain On: 12-Psy-862325:53 Request Comments: do cortisyn 250 mcq IV then check below METABOLIC PANEL, COMPREHENSIVE (32462)Indication: Hypertension On: :32 Request LIPID PANEL (86948)Indication: Hypertension On: 15-Kgj-269558:32 Request T3, FREE (TRIDOTHYRONINE) (18759)Indication: Abnormal TSH On: 04-Evw-447281:24 Request T4, TOTAL (39651)Indication: Abnormal TSH On: 83-Qrm-179399:24 Request TSH (58174)Indication: Abnormal TSH On: 97-Rwi-866500:24 Request Comments: 4 months T4, TOTAL (37407)Indication: Abnormal TSH On: 59-Ctq-098324:28 Request T4, FREE (THYROXINE) ([id number])Indication: Abnormal TSH On: 60-Uzy-528024:28 Request TSH ([id number])Indication: Abnormal TSH On: 01-Fuj-123045:27 Request Comments: in six weeks VITAMIN B-12 BIND CAPACITY (64568)Indication: Diarrhea On: :44 Request SED RATE ERYTHROCYTE ([id number])Indication: Diarrhea On: :43 Request CBC, PLATELETS & AUTO DIFF (70732) On: :43 Request LIPID PANEL (32049) On: :43 Request METABOLIC PANEL, COMPREHENSIVE On: :43 Request (27064) RAMON CULTURE-STOOL (62391)Indication: Diarrhea On: :37 Request C.Difficile, StoolIndication: Diarrhea On: :37 Request LEUKOCYTE COUNT, FECAL (79190)Indication: Diarrhea On: :37 Request OVA & PARASITE DIR SMEAR (01398)Indication: Diarrhea On: :37 Request Planned Encounters Medical; 3 Month FU - On: 04-Nov-2018 10:30 [facility] Kathia Patton CNP, CNP, Mary E Planned Procedures Flu Vaccine (Quadrivalent) On: 06-May-2018 Intent 40935Xk: Mmii Rice Comments: Lot #[id number]/30/19Site-L dltd, IMDose prefilled syringegiven by: SHARA Jamil reviewed and ABN signed SCREENING DIGITAL On: 08-Jul-2017 Intent TOMOSYNTHESIS OF BREAST (71709)By: Kathia Patton CNP, CNP, Mary E Flu Vaccine (Quadrivalent) On: 08-Jul-2017 Intent 35245Bc: Bhavna Leonard LPN Comments: Lot #[id number]/10/18ite-L dltd, IMDose prefilled syringegiven by:SHARA Barber and ABN signed Toradol Injection, 30 mg On: 11-Dec-2016 Intent (J1885)By: Kathia Patton CNP, CNP, Mary E Radiology - Shoulder - On: 11-Dec-2016 Intent RightBy: Kathia Patton CNP, CNP, Mary E MAMMOGRAM BREAST BILATERAL On: 19-Jun-2016 Intent SCREENING DIGITAL (26927)By: Kathia Patton CNP, CNP, Mary E Flu Vaccine (Quadrivalent) On: 19-Jun-2016 Intent 57114Ue: Kathia Patton CNP Comments: FLUlot: [id number]:02/22/17site:Lt deltoidroute:IMdose:.5mlDEMICK, MA Kathia Patton CNP IMMUNIZ ADMNIN, 1 VAC, On: 16-May-2015 Intent SNGL/COMBO (74039)By: Nataly Berger MD FLU VAC, SPLIT, >3 YEARS, On: 16-May-2015 Intent INTRAMUSC (58346)By: Nataly Berger MD MAMMOGRAM, SCREENING, BOTH On: 16-May-2015 Intent BREAST (31547)By: Nataly Berger MD SPECIMEN HNDLNG/TRNSPRT, OFFC On: 02-Mar-2015 Intent > LAB (09787)By: Kathia Patton CNP, CNP, Mary E Nuclear Stress Test/Stress On: 04-Oct-2014 Intent SPECT/TreadmillBy: Nataly Berger MD Echo CompleteBy: Jessica JOSEPH, On: 04-Oct-2014 Intent Nataly Kramer Pulse Oximetry (54844)By: On: 24-May-2014 Intent Arlene Gibson DO Comments: 97 MRI - Shoulder(s) - RightBy: On: 19-Jan-2014 Intent Luz Valdez DO Eprescribed prescriptions On: 21-Dec-2013 Intent (G8553)By: Luz Valdez DO Eprescribed prescriptions On: 03-Nov-2013 Intent (G8553)By: Nataly Berger MD CT - Brain/HeadBy: José Miguel MORILLO, On: 10-Aug-2013 Intent Luz IMMUNIZATION ADMIN (09472)By: On: 04-Jun-2013 Intent Nataly Berger MD FLU [...] Intent (J1885)By: Kathia Patton CNP Comments: Lot #[id number]-3/14Site-left hipDose- 30mg/mlgiven by: GABI Rasheed CNP, Mary E IV Infusion (81473)By: José Miguel On: 05-Dec-2012 Intent Luz MORILLO Comments: Normal Saline 1 liter, Lot # [id number], Exp. date 05/09 infusing in L AC without difficulty or c/o voiced. IV Needle placement On: 05-Dec-2012 Intent (39031)By: José Miguel MORILLO, Comments: IV initiated in: [...] SPLIT, >3 YEARS, On: 12-May-2012 Intent INTRAMUSC (18263)By: Jessica Comments: Lot:[id number]:6.30.13Dose:prefilledRoute:IMSite:L DltdGiven By:Nataly Hunter MD IMMUNBRYAN ADMNIN, 1 VAC, On: 12-May-2012 Intent SNGL/COMBO (34815)By: Nataly Berger MD Aerosol Treatment (35892)By: On: 29-Apr-2012 Intent Kathia Patton CNP, CNP, Mary E MAMMOGRAM, SCREENING, BOTH On: 07-Aug-2011 Intent BREASTS (74088)By: Bonezzi MD, Nataly M IMMUNIZ ADMNIN, 1 VAC, On: 17-May-2011 Intent SNGL/COMBO (31915)By: Nataly Berger MD FLU VAC, SPLIT, >3 YEARS, On: 17-May-2011 Intent INTRAMUSC (13823)By: Nataly Berger MD Holter Monitor (19576)By: On: 04-Sep-2010 Intent Nataly Berger MD FLU VAC, SPLIT, >3 YEARS, On: 08-Aug-2010 Intent INTRAMUSC (15427)By: Satinder Comments: Lot #[id number] pExp-/Site-L dltdDose0.5mlgiven by:Michelle boo LPN IMMUNIZ ADMNIN, 1 VAC, On: 08-Aug-2010 Intent SNGL/COMBO (93165)By: Michelle Rajan LPN MAMMOGRAM, SCREENING, BOTH On: 29-May-2010 Intent BREASTS (20128)By: Nataly Berger MD MAMMOGRAM, SCREENING, BOTH On: 02-May-2010 Intent BREASTS (43712)By: Nataly Berger MD Aerosol Treatment (06806)By: On: 10-Aug-2009 Intent Cihersona DIE MAKER ELECTRONIC, Diana Ciesa DIE MAKER ELECTRONIC, Diana Pulse Oximetry (26505)By: On: 10-Aug-2009 Intent Ciesa DIE MAKER ELECTRONIC, Diana Ciesa DIE MAKER ELECTRONIC, Diana Aerosol Treatment (83581)By: On: 10-Aug-2009 Intent Ciesa DIE MAKER ELECTRONIC, Diana Ciesa DIE MAKER ELECTRONIC, Diana SPECIMEN HNDLNG/TRNSPRT, OFFC On: 10-Aug-2009 Intent > LAB (40810)By: Bhargvai Mueller LPN TDAP VACCINE >7 IM (11945)By: On: 17-May-2009 Intent Nataly Berger MD Comments: Lot #: [id number] date: mount given: 0.5 mlRoute: IMSite given: left deltoidGiven by: Maggie Lua LPN MAMMOGRAM, SCREENING, BOTH On: 17-May-2009 Intent BREASTS (45255)By: Nataly Berger MD Pulse Oximetry (91774)By: On: 27-Oct-2008 Intent TAY Tracey EKG (74939)By: Alexy, On: 27-Oct-2008 Intent TAY Bio Z (69927)By: Alexy On: 27-Oct-2008 Intent TAY Spirometry (88861)By: Arthur On: 06-Sep-2008 Arlene Chaudhari DO Comments: fair effort - improved obstruction CT - ChestBy: Arlene Gibson DO On: 06-Sep-2008 Intent A Radiology - ChestBy: Jessica On: 24-Aug-2008 Intent Nataly JOSEPH Pulse Oximetry (00409)By: On: 24-Aug-2008 Intent TAY Tracey Pulse Oximetry (49113)By: On: 17-Aug-2008 Intent Ciesa DIE MAKER ELECTRONIC, Diana Ciesa DIE MAKER ELECTRONIC, Diana Aerosol Treatment (70910)By: On: 17-Aug-2008 Intent Ciesa DIE MAKER ELECTRONIC, Diana Ciesa DIE MAKER ELECTRONIC, Diana Spirometry (46154)By: Vanessa On: 13-Aug-2008 Enedina Chaudhari RN Comments: done-aw Pulse Oximetry (36583)By: On: 13-Aug-2008 Enedina Chavira RN Comments: 98% Inhaler Demo (48979)By: Arthur On: 11-Aug-2008 Arlene Chaudhari DO Spirometry (82090)By: Arthur On: 11-Aug-2008 Arlene Chaudhari DO Comments: good effort - mod obstruction Aerosol Treatment (03471)By: On: 11-Aug-2008 Intent Arlene Gibson DO Comments: done-AW Pulse Oximetry (62253)By: On: 11-Aug-2008 Intent Arlene Gibson DO Comments: 97% yyfojs92% after aerosol Solu- Medrol Injection, 125mg On: 11-Aug-2008 Intent (J2930)By: Arleen Gibson DO Comments: Lot #[id number]-left sroTjmq4lc/125mggiven by Keyla Vizcarra LPN MAMMOGRAM, SCREENING, BOTH On: 21-Apr-2008 Intent BREASTS (95494)By: Nataly Berger MD CT - Brain/HeadBy: Jessica On: 11-Mar-2008 Nataly Chaudhari MD EEGBy: Nataly Berger MD On: 11-Mar-2008 Intent Echo CompleteBy: Jessica JOSEPH, On: 11-Mar-2008 Intent Nataly Kramer EKG (55786)By: Jessica JOSEPH, On: 11-Mar-2008 Intent Nataly Kramer Holter Moniter (77376)By: On: 11-Mar-2008 Intent Nataly Berger MD Pulse Oximetry (27009)By: On: 20-Nov-2007 Intent Ciesmaggie SOSA, Diana Ciesa DIE MAKER ELECTRONIC, Diana Aerosol Treatment (16714)By: On: 20-Nov-2007 Intent Ciesa DIE MAKER ELECTRONIC, Diana Ciesa DIE MAKER ELECTRONIC, Diana SPECIMEN HNDLNG/TRNSPRT, OFFC On: 20-Nov-2007 Intent > LAB (20556)By: Pooja SOSA, Diana Ciesa DIE MAKER ELECTRONIC, Diana EKG (90388)By: Jessica JOSEPH, On: 14-Oct-2007 Intent Nataly Kramer SPECIMEN HNDLNG/TRNSPRT, OFFC On: 08-Oct-2007 Intent > LAB (31124)By: Pooja SOSA, Kathia Bowera SHEILA, Diana MAMMOGRAM, SCREENING, BOTH On: 06-Mar-2007 Intent BREASTS (95540)By: Nataly Berger MD Toradol Injection, 30 mg On: 01-May-2006 Intent (J1885)By: Nataly Berger MD Planned Medications INFUSION, NORMAL SALINE SOLUTION , 250 CC Ordered: 05-Dec-2012 Pending Luz Valdez DO INJECTION, KETOROLAC TROMETHAMINE, PER 15 MG Ordered: 16-Dec-2012 Pending Kathia Patton CNP, CNP, Mary E INJECTION, KETOROLAC TROMETHAMINE, PER 15 MG Ordered: 04-Jun-2013 Pending Nataly Berger MD INJECTION, KETOROLAC TROMETHAMINE, PER 15 MG Ordered: 04-Jun-2013 Pending Nataly Berger MD INJECTION, KETOROLAC TROMETHAMINE, PER 15 MG Ordered: 11-Dec-2016 Pending Kathia Patton CNP E Ciros SOSA, Diana Instructions Name Dates Details Nonsmoker : How to access health information online Indication: Nonsmoker Nonsmoker : How to access health information online - Detail Indication: Nonsmoker Nonsmoker : Patient Instructions Indication: Nonsmoker Nonsmoker : How to access [...] induced hyperlipemia) : DISCONTINUED - LIPID PANEL (73829) Indication: Mixed Hyperlipidemia (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) Hypertension : DISCONTINUED - MICROALBUMIN: CREATININE RATIO (33099) AND (40005) Indication: Hypertension Hypertension : DISCONTINUED - URINALYSIS (45952) Indication: Hypertension Vitamin D deficiency, unspecified : DISCONTINUED - CALCIFEDIOL (79856) Indication: Vitamin D deficiency, unspecified Impaired fasting glucose : DISCONTINUED - METABOLIC PANEL, COMPREHENSIVE (41062) Indication: Impaired fasting glucose Impaired fasting glucose : DISCONTINUED - GLUCOSE (15797) Indication: Impaired fasting glucose Impaired fasting glucose : DISCONTINUED - HGB A1C (60978) Indication: Impaired fasting glucose Hyperglyceridemia : Patient [...] diagnosis and treatment Indication: Pharyngitis, acute Encounters Office Visit On: 05-Aug-2018 10:06 Encounter Reason: Follow up for chronic medical issues - The patient feels well with minor complaints, has good energy level and is sleeping poorly. Patient has been compliant with instructions. Current medication use: n End: 05-Aug-2018 10:51 o side effects, compliant with dosing regimen and considered effective by patient. Patient sleeps 5 (5-7) hours per night. Impact of disease: emotional impact- moderate. Nutrition: balanced diet and supp lemental vitamins. The medical issues the patient is following up for include asthma, blood sugar issues, cardiac issues, depression, fibromyalgia, high blood pressure, high cholesterol, hypothyroid and other (obesity, IBS, CJ, vitamin d def., Fahr's syndrome, RLS). Note for Follow up for chronic medical issues: Joined cross fit., [ADDITIONAL REASON] Irritable Bowel Syndrome - Symptoms include abdominal pain, abdominal cramping, abdominal bloating, constipation and diarrhea. Encounter Diagnosis: Nonsmoker, BMI 40.0-44.9, adult, Anxiety and depression, Hypertension, Irritable bowel syndrome, Asthma, Vitamin D deficiency, unspecified [facility] Annotation/Addendum On: 19-Jun-2018 11:07 [facility] [...] issues: Seeing psychiatrist Dr. Em Domínguez in [place] put on nuvigil and belsomra at night, [...] Problem - Note for Shoulder problem: Saw Aishwaryaarturoroverto given exercises Encounter Diagnosis: End: 29-Jan-2017 11:19 [...] in past treated by [facility], in past [place] scraped skin and found fungal Encounter Diagnosis: [...] albumin [facility] Office Visit On: 16-Dec-2013 13:38 Encounter Reason: Headache - The last [...] Procedure Results: she is getting [facility] few weeks then h [...] use of medications. Note for Bronchitis: since 08-04 most of mucous gone. on prednisone, levaquine [...] treated levaquin twice. talk with Dr. signs landscape contractor treat doxycycline 1week. not help. main signs and symptoms headache bandlike sensitive to light sore throat and tired. doing since , no fevers. not sleep well. has had [...] Results: frustuated and confused because still fatigue, shewman took off afternoon cytomel, on 12.5 mcg in am, synthyroid 100 mcq in am, try creatinine powder see help ache [facility] muscles[facility]: Fibromyalgia (729.1), Depression (311.), GENERAL SYMPTOMS; [...] (401.1), Tension headache (307.81) [facility] Payers Medical [facility]; a guarantor
--- OUTSIDE RECORDS SUMMARY | 2018-09-24 00:50 | XMS RPT_ITS ---
:1955 Author Organization OHIP Care Team Providers Name Role Phone MAIA CHAVIRA MD Attending Unavailable PHYSICIAN, NONE Primary Care Unavailable JULIETH CONWAY Attending Unavailable PHYSICIAN, NONE Primary Care Unavailable Kathia Patton Attending Unavailable Kathia Patton Referring Unavailable Kathia Patton Consulting Unavailable TYRESE ALEXANDER () Attending Unavailable TYRESE ALEXANDER () Referring Unavailable TYRESE ALEXANDER) Referring Unavailable Maia Chavira Attending Unavailable Kathia Patton Primary Care Unavailable PROBLEMS PROBLEMS DATE TYPE CONDITION / CODE ATTENDING STATUS SOURCE 05/30/2018 Admitting Encounter for ED Active [facility] Diagnosis screening for human JULIETH COSBY papillomavirus (HPV) Repository / Z11.51(ICD-10) 05/14/2018 Admitting Encounter for CAIT JOSEPH, [facility] Diagnosis screening for MAIA Skinner malignant neoplasm Repository of cervix / Z12.4(ICD-10) 05/08/2018 Active Polyarthritis, NA Active [facility] unspecified / [facility] M13.0(ICD-10) [facility] Repository 12/26/2010 Active Vitamin D NA Active [facility] deficiency, [facility] unspecified / [facility] E55.9(ICD-10) Repository 05/08/2018 Active Fibromyalgia / NA Active [facility] M79.7(ICD-10) [facility] Repository PROCEDURES PROCEDURES No Procedure Records FoundRESULTS RESULTS SCREENING MAMM (CAD), Observed: 08/08/2018 Status: F Source: [place] BILAT 10:08 AM [facility] REPOSITORY [facility] Imaging Services [address] [address] SCREENING MAMM (CAD), BILAT MR#: [id number] Acct: [id number] Name: KATHIA HERNANDEZ Rep #: [id number] : 1955 F 63 From: Ruperto Dorsey MD PCP: Kathia Patton NP Status: REG CLI Study: SCREENING MAMM (CAD), BILAT Date of Exam: 08/08/18 Exam# [id number] Ordering Dr: Maia Chavira MD MAMMOGRAPHY - BILATERAL SCREENING REASON FOR EXAM: Female, 63 years old. Routine annual screening examination. PERTINENT HISTORY: Sister with breast cancer. History of bilateral breast reduction surgery. Prior left stereotactic breast biopsy. TECHNIQUE: Digital bilateral breast danielle (3D mammographic acquisition) in the CC and MLO projections. 2-D mediolateral oblique (MLO) and craniocaudad (CC) views of both breasts were obtained. CAD: Full Field Digital Mammography with Computer Added Detection was performed. COMPARISON: Comparison is made with prior study dated August 05, 2017 and July 28, 2016. FINDINGS: Breast Composition: There are scattered areas of fibroglandular density. Stable 2 cm x 1.4 cm fat-containing nodule in the retroareolar region of the left breast. Stable macrocalcifications in the left breast. These are most likely represent postoperative changes. No other significant abnormalities are identified. There has been no significant change since the prior study. BI/SCREENING MAMM (CAD), BILAT IMPRESSION: Stable bilateral screening mammogram. Yearly follow-up mammogram recommended. (A) ASSESSMENT CATEGORY: BIRADS Category 2: Benign. A letter regarding these results will be sent to the patient by the facility within 30 days. Approximately 10% of breast cancers are not detected by mammography. A normal mammogram should not delay biopsy of a clinically suspicious abnormality. [id number] Electronically Signed: Ruperto Dorsey MD at 11:29 EST Tel [phone], Service support , CC: Kathia Patton NP; Maia Chavira MD Computer Recycling Worker: Signed CORPORATE STAFF ACCOUNTANT CYTOLOGY REPORT Observed: 05/30/2018 Status: F Source: [facility] 11:01 [facility] REPOSITORY . Pathology Reports Accession: Collected Date/Time: Received Date/Time: Pathologist: [id number] 05/30/2018 11:01 EDT 05/30/2018 18:00 EDT Continuous Improvement Director Cytology Report SPECIMEN: Specimen Description: Liquid Prep w/ HPV Specimen: Cervical/Endocervical Screening or Diagnostic: Screening RELEVANT HISTORY: LMP: 01-28-12 [id number] SPECIMEN ADEQUACY: SATISFACTORY FOR EVALUATION ENDOCERVICAL/TRANSFORMATIONAL ZONE COMPONENT PRESENT INTERPRETATION/RESULTS: NEGATIVE FOR INTRAEPITHELIAL LESION OR MALIGNANCY ADJUNCTIVE TESTING: HIGH RISK HPV DNA TESTING ORDERED, REPORT TO FOLLOW UNDER SEPARATE COVER Electronically Signed by Pathology report verified by [facility]. Screened by: Electronically signed by Mckayla TROTTER (ASCP) Sign-Out Date: 06/05/2018 15:21 Performing Lab: [facility], [address] [place] [address] Disclaimer The Pap test is a screening test for cervical cancer. As evidenced by published data, it is subject to both inherent false negative and false positive results. Your patient's results should be interpreted in context with pertinent clinical history including gynecological examination. Performed By: #### GYCR #### [place] [address] HPV Collected: 05/30/2018 Status: F Source: [facility] 11:01 [facility] REPOSITORY Order Comment: Order placed by AP_HPV_ORDER rule from [id number] TYPE CODE TESTS RESULT OUT OF RANGE REFERENCE UNITS LAB BFHPV(LOINC ) HPV Cervix Source LAB HPVINT(LOIN See Interp HPVN C) Unknown HPV Interp Result Comment: High Risk HPV Typing is Positive: High Risk HPV Types detected, other than HPV 16 or HPV 18. Specimen is positive for the DNA of any one of, or combination of, the following high risk HPV types: 31, 33, 35, 39, 45, 51, 52, 56, 58, 59, 66, 68. HPV types 16 and 18 DNA were undetectable or below the pre- set threshold. The ashley High-Risk HPV DNA Test is not intended for use as a screening device for Pap normal women under age 30 and is not intended to substitute for regular Pap screening. The ashley High-Risk HPV DNA Test is designed to augment existing methods for the detection of cervical disease and should be used in conjunction with clinical information derived from other diagnostic and screening tests, physical examinations and full medical history in accordance with appropriate patient management procedures. NOTE: A negative result does not preclude the presence of HPV infection because results depend on adequate specimen collection, absence of inhibitors and sufficient DNA to be detected. See Inter HPVO Performed By: #### HPV #### [place] [address] CORPORATE STAFF ACCOUNTANT CYTOLOGY REPORT Observed: 05/14/2018 Status: F Source: [facility] 11:55 AM [facility] REPOSITORY . Pathology Reports Accession: Collected Date/Time: Received Date/Time: Pathologist: [id number] 05/14/2018 11:55 EDT 05/14/2018 18:00 EDT MD CARLA GAMBOA Continuous Improvement Director Cytology Report SPECIMEN: Specimen Description: Liquid Prep w/ HPV Specimen: Cervical/Endocervical Screening or Diagnostic: Screening RELEVANT HISTORY: LMP: 01-28-12 [id number] SPECIMEN ADEQUACY: Specimen processed and examined, but unsatisfactory for evaluation of epithelial abnormality because of Scant Cellularity. INTERPRETATION/RESULTS: UNSATISFACTORY SPECIMEN. COMMENT: COMMENT: HPV TESTING CANCELLED DUE TO UNSATISFACTORY SPECIMEN, SCANT CELLULARITY. Electronically Signed by Pathology report verified by [facility] Screened by: KK Electronically signed by CARLA GAMBOA MD Sign-Out Date: 05/23/2018 10:43 Performing Lab: [place] [address] [place] Disclaimer The Pap test is a screening test for cervical cancer. As evidenced by published data, it is subject to both inherent false negative and false positive results. Your patient's results should be interpreted in context with pertinent clinical history including gynecological examination. Performed By: #### GYCR #### [place] [address] SED RATE WESTERGREN Collected: 05/08/2018 Status: F Source: [facility] 3:15 PM [facility] REPOSITORY TYPE CODE TESTS RESULT OUT OF REFERENCE UNITS RANGE LAB WSR 0-20 mm/hr Sed Rate Westergren 10 Performed By: #### WSR, VITD, CK, CMP, CRP #### [facility] [address] [place], [place] [address] VITAMIN D 25 HYDROXY Collected: 05/08/2018 Status: F Source: [place] 3:15 PM [facility] REPOSITORY TYPE CODE TESTS RESULT OUT OF REFERENCE UNITS RANGE LAB VITD 31.0-80.0 ng/mL Low Vitamin D 25 24.2 Hydroxy Result Comment: Classification of 25 [place] Vitamin D status: Insufficiency/Moderate Deficiency: < or = 30 ng/mL Sufficiency/Optimal Levels: 31 to 80 ng/mL Toxicity: > 100 ng/mL Test performed by chemiluminescent immunoassay. Performed By: #### WSR, VITD, CK, CMP, CRP #### [facility] [address] [place], [place] [address] CK Collected: 05/08/2018 Status: F Source: [facility] 3:15 PM [facility] REPOSITORY TYPE CODE TESTS RESULT OUT OF RANGE REFERENCE UNITS LAB CK 42-196 U/L CK 75 Result Comment: Please note the updated, gender-specific reference range for this test (effective 08/09/2016). Performed By: #### WSR, VITD, CK, CMP, CRP #### [facility] [address] [place], [place] [address] COMP METABOLIC PANEL Collected: 05/08/2018 Status: F Source: [place] 3:15 PM [facility] REPOSITORY TYPE CODE TESTS RESULT OUT OF REFERENCE UNITS RANGE LAB TP 6.3-8.0 g/dL Protein, Total 7.4 LAB ALB 3.9-4.9 g/dL Albumin 4.4 LAB CA 8.5-10.2 mg/dL Calcium, High Total 10.3 LAB TBIL 0.2-1.3 mg/dL Low Bilirubin, Total <0.2 LAB ALKP 32-117 U/L Alkaline Phosphatase 77 LAB AST 13-35 U/L AST 23 LAB GLU 74-99 mg/dL Glucose 78 Result Comment: The [place] Diabetes Association (ADA) provides guidance for cutoff values for fasting glucose and random glucose. The ADA defines fasting as no caloric intake for at least 8 hours. Fas ting plasma glucose results between 100 to 125 mg/dL indicate increased risk for diabetes (prediabetes). Fasting plasma glucose results greater than or equal to 126 mg/dL meet the criteria for diagnosis of diabetes. In the absence of unequivocal hyperglycemia, results should be confirmed by repeat testing. In a patient with classic symptoms of hyperglycemia or hyperglycemic crisis, random plasma glucose results greater than or equal to 200 mg/dL meet the criteria for diagnosis of diabetes. Reference: Standards of Medical Care in Diabetes 2016, [place] Diabetes Association. Diabetes Care. 2016.39(Suppl 1). LAB BUN 7-21 mg/dL BUN High 28 LAB CRET 0.58-0.96 mg/dL Creatinine High 1.09 LAB NA 136-144 mmol/L Sodium 140 LAB K 3.7-5.1 mmol/L Potassium 4.1 LAB CL 97-105 mmol/L Chloride 102 LAB CO2 22-30 mmol/L CO2 23 LAB AGAP 9-18 mmol/L Anion Gap 15 LAB ALT 7-38 U/L ALT 19 LAB GFRAA eGFR- Amer. >60 LAB GFRNAA . eGFR-All Other Races 51 Result Comment: eGFR (Estimated GFR) Units of measure: mL/min/1.73 meters squared eGFR is derived from the reexpressed MDRD Study equation using the following parameters: serum creatinine, age, gender and race. The creatinine assay has been calibrated to be traceable to IDMS. An eGFR <60 mL/min/1.73m2 for >3 months is consistent with chronic kidney disease. Refer to KDOQI guidelines for clinical interpretation. In patients with unstable renal function, e.g. those with acute kidney injury, the eGFR may not accurately reflect actual GFR. Performed By: #### WSR, VITD, CK, CMP, CRP #### [facility] [address] [place], [place] [address] C-REACTIVE PROTEIN Collected: 05/08/2018 Status: F Source: [facility] 3:15 PM [facility] REPOSITORY TYPE CODE TESTS RESULT OUT OF REFERENCE UNITS RANGE LAB CRP <0.9 mg/dL C-Reactive 0.5 Protein Performed By: #### WSR, VITD, CK, CMP, CRP #### [facility] [address] [place], [place] [address] PROGRESS Observed: 05/08/2018 Status: COMPLETED Source: [place] 3:06 PM [facility] REPOSITORY HNO ID: [id number] Author: Shyanne Napier Rt Service: (none) Author Type: (none) Type: Progress Notes Filed: 05/09/2018 3:39 PM Note Text: Patient has been identified by name and date of . Scanner ? [place] [id number] Sites Scanned: Lumbar spine and Left hip Shyanne Napier Rt BD DXA - AXIAL Observed: 05/08/2018 Status: F Source: [facility] 3:06 PM [facility] REPOSITORY * * *Final Report* * * DATE OF EXAM: May 08 2018 3:06PM M5B 0804 - BD DXA - AXIAL SKELETON -NB / PROCEDURE REASON: multiple diagnoses * * * * Physician Interpretation * * * * Bone Density Report: Dual Energy X-ray Absorptiometry DXA Model: A50 [employer] (S/N: [id number]) SITE SCANNED: Lumbar spine, left hip Date Scanned: 05/08/2018 3:06 PM RESULT: Lumbar spine (L1-L4): 1.340 g/cm2, T-score 1.3, Z-score 2.6 Lumbar spine: 2009: 1.307 g/cm2 Lumbar spine change: Stable bone mass Left Femoral Neck: 1.124 g/cm2, T-score 0.6, Z-score 1.9 Left Femoral Neck: 2009: 1.153 g/cm2 Left Femoral Neck Change: Stable bone mass Left Total Hip: 1.203 g/cm2, T-score 1.6, Z-score 2.5 Left Total Hip: 2009: 1.188 g/cm2 Left Total Hip change: Stable bone mass IMPRESSION: THE LOWEST T-SCORE IS 0.6 DIAGNOSIS: Normal bone density Spine: Stable bone mass in spine. Hip: Stable bone mass in hip. FRACTURE RISK: Not increased RISK FACTORS: This patient is a 63 years Female. MENSTRUAL STATUS: She reports menstrual status of post-menopausal, menopause at age 52 The patient reports the following risk factors associated with low bone mass or increased fracture risk: - no exercise - Vitamin D deficiency - asthma The patient reports the following: - vitamin D intake RECOMMENDATIONS: Based on the patient age, bone density and risk factors: - the patient does not need therapy for osteoporosis prevention other than calcium at 9236-2608 mg/day, vitamin D at 800-1000 IU/day (some patients may require higher doses of vitamin D) and a weight bearing exercise program such as walking. LIMITATIONS: - None. FOLLOW-UP: Unless a medical condition intervenes that might result in rapid bone loss, a follow up DXA is recommended to be performed in [address] Tyrese Alexander Computer Recycling Worker: [id number] Transcribe Date/Time: May 08 2018 3:08P Dictated by : BRIDGETT AGUILA MD This examination was interpreted and the report reviewed and electronically signed by: BRIDGETT AGUILA MD on May 09 2018 3:38PM EST [id number] 0.6 PROGRESS Observed: 05/08/2018 Status: COMPLETED Source: [place] 2:20 PM [facility] REPOSITORY HNO ID: [id number] Author: Tyrese Courtney) Catherine Service: (none) Author Type: Physician Type: Progress Notes Filed: 05/08/2018 10:30 PM Note Text: RHEUMATOLOGY CLINIC: This is a(n) 63 year old female who presents today for a(n) a follow-up of osteoarthritis, fibromyalgia. LaSt seen March 2016 HPI: ACTIVE PROBLEM LIST Myalgia and Myositis, Unspecified Unspecified Polyarthropathy Or Polyarthritis, Multiple Sites Other Malaise and Fatigue Lumbago Pain in Joint, Lower Leg Depressive Disorder, Not Elsewhere Classified Obesity, Unspecified Enthesopathy of Hip Region Abdominal Pain, Right Lower Quadrant Esophageal Reflux Cervicalgia Nonspecific Abnormal Results of Thyroid Function Study Unspecified Vitamin D Deficiency Asthma Vitamin D Deficiency Anxiety Depression, Major Abnormal Mammogram, Unspecified Crp Elevated Elevated Sed Rate Ibs (Irritable Bowel Syndrome) The patient is a 63 yo woman with fibromyalgia, OA- here for f/u- she was last seen by me in March 2016. She has noted increased achiness- She is treated with Rexulti and CYmbalta for depression- by Dr. Acevedo She uses a CPAP- gets 6 hours of good sleep with that - she sees Dr. Aleksey Dillard in [place] for her CJ. She is stressed- her mother has demential and CHF- has been in senior living which is a mile away from her- the patient does the laundry. Her sister who has POA won't pay for the laundry service at the [place]- she was seeing her 7 days per week- now 3 days per week. One sister lives in [place] and another in [place]- her brother is concrete mixer loader truck mounted - he is trying to get housing. 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 She is not exercising- She has tapes for exercise- did not do it over the summer- was achy and tired. She has a recumbent bike. She has had some abdominal pain intermittently associated with stress. She sees her web solutions architect next week- is current on mammogram, PAP- sees GI next months- last colonoscopy was 2012- was normal. She takes Aleve some days- discussed Mobic She is high risk- her father of colon cancer at age 57. She is overdue for Bone Mineral Density - she had last one in 2009-will get one in [place]. REVIEW OF SYSTEMS: May 08, 2018 CONSTITUTIONAL: Fever: No Fatigue: Yes Pain: No EYES: Pain: No Redness: No Loss of vision: No Dryness: Yes EAR, NOSE, MOUTH, THROAT: Nose bleeds: No Hearing loss: No Sores in mouth: No Swallowing problems: No Dry mouth: Yes CARDIOVASCULAR: Chest pain: No Swelling in the feet or legs: No RESPIRATORY: Shortness of breath: No Pain with breathing: No Chronic cough: No Coughing up blood: No , GASTROINTESTINAL: Heartburn: No Nausea: Yes Diarrhea: No Blood in the stool or black stool: No Abdominal pain: Yes GENITOURINARY: Blood in urine: No Pain or burning on urination: No] MUSCULOSKELETAL: Joint pain: Yes Joint swelling: No Morning stiffness in joints: Yes Muscle weakness: Yes Back pain: Yes SKIN: Rashes: Yes Sun sensitive rashes: No Color changes of hands or feet in the cold: No Hair loss: No Nail changes: No NEUROLOGICAL: Headaches: Yes Dizziness: Yes Numbness or tingling: Yes Memory loss: Yes Seizures: No HEMATOLOGIC/LYMPHATIC: Swollen glands: Yes Anemia: No ALLERGIES/IMMUNOLOGIC: Allergies (other than medications): Yes Increased susceptibility to infection: No KNOWN MEDICAL CONDITIONS: Diabetes: No Thyroid disease: No High blood pressure: Yes PROMIS? (Patient-Reported Outcomes Measurement Information System) is a set of person-centered measures that evaluates and monitors physical, social, and emotional health. It can be used with the general population and with individuals living with chronic conditions. May 08, 2018 PROMIS 10: PHYSICAL AND MENTAL HEALTH: Global Physical Health T Score: 34.9 Global Physical Health Percentile: 6.55 Global Mental Health T Score: 36.3 Global Mental Health Percentile: 8.53 PROMIS PAIN, FATIGUE, FUNCTIONAL STATUS: PROMIS Pain Interference T Score: 62.64 PROMIS Pain Interference Percentile: 10.38 PROMIS Fatigue T Score: 55.71 PROMIS Fatigue Percentile: 28.43 PROMIS Functional Status T Score: 36.98 PROMIS Functional Status Percentile: 9.68 RAPID 3: DISEASE ACTIVITY: Weighed Score Levels: 0 - 1: Near Remission 1.3 - 2.0: Low Severity 2.3 - 4.0: Moderate Severity 4.3 - 10.0: High Severity SCORES: RAPID 3 Functional Status Subscore: 2.7 RAPID 3 Pain Tolerance Subscore: 6.5 RAPID 3 Global Estimate Subscore: 6 RAPID 3 Cumulative Score: 15.2 RAPID 3 Weighed Score: 5.1 Surgical History REMOVAL GALLBLADDER HAND/FINGER SURGERY UNLISTED Social History Alcohol Use: Yes Drug Use: Status: No Smoking: Currently: Passive Smokeless: No Sexual Activity: Status: Not Asked ALLERGIES: Bupropion/diethylpropion, Amoxicillin Current Outpatient Prescriptions: armodafinil (NUVIGIL) 150 mg tab rOPINIRole (REQUIP) 1 mg tablet Take 1 mg by mouth daily at bedtime. suvorexant (BELSOMRA) 20 mg tab Take by mouth as needed. DULoxetine (CYMBALTA) 30 mg capsule Take 30 mg by mouth once daily. spironolactone (ALDACTONE) 50 mg tablet Take 50 mg by mouth twice daily. Dapsone (ACZONE) 5 % gel Apply to affected area. ARMOUR THYROID 30 mg tablet TAKE 1 TABLET ONCE DAILY DULoxetine (CYMBALTA) 60 mg capsule Take 60 mg by mouth once daily. 2 tabs daily brexpiprazole (REXULTI) 1 mg tab Take 1 mg by mouth once daily. topiramate (TOPAMAX) 100 mg tablet Take 100 mg by mouth. 100 mg in am 200 mg at night CPAP daily at bedtime. budesonide-formoterol (SYMBICORT) 160-4.5 mcg/actuation inhaler Inhale 2 Puffs as instructed twice daily. albuterol HFA (PROAIR HFA) 90 mcg/actuation inhaler Inhale 2 Puffs as instructed as needed. naproxen sodium (ALEVE) 220 mg ORAL tablet Take 1 tablet by mouth twice daily with meals. (Patient taking differently: Take 220 mg by mouth as needed.) clonazePAM (KLONOPIN) 1 mg ORAL tablet take 1 in the am and 2 in the pm rizatriptan benzoate(MAXALT 10 MG TAB) as needed IMODIUM ADVANCED 2 MG-125 MG TAB as necessary No current facility-administered medications for this visit. PHYSICAL EXAM: BP 124/60 (BP Site: Left Arm, BP Position: Sitting, BP Cuff Size: Large Adult) Pulse 86 Temp 36.9 ?C (98.4 ?F) (Temporal Artery) Ht 160 cm (5' 3) Wt 102.2 kg (225 lb 4.8 oz) LMP 01/02/2012 BMI 39.91 kg/m? SKIN: no skin lesions. HEAD: No significant findings. EYES: PERRLA, EOMI EARS: External ears normal. NOSE/SINUSES: Nares normal. Septum midline. OROPHARYNX: Lips, mucosa, and tongue normal. Teeth and gums normal. Oropharynx normal. NECK: Supple, full range of motion, no lymphadenopathy, normal thyroid, no carotid bruits and no JVD LUNGS: Normal breath sounds, Clear to auscultation, No wheezes, No crackles. s/p reduction mammoplasty. HEART:Normal PMI, Regular rate and rhythm, Normal heart sounds, S1 and S2 and No murmurs. ABDOMEN: Soft,non tenderness, No palpable masses, Normal bowel sounds, No abdominal bruits and No hepatosplenomegaly. EXTREMITIES:Extremities normal, No deformities, No skin discoloration, No edema and Normal pulses bilaterally. NEURO: Awake, alert and oriented x 3, Cranial nerves II-XII grossly intact, Reflexes symmetrical, Normal gait and No involuntary motions. SPINE EXAM: The cervical spine has diffuse tenderness- with spasm. full ROM. The Lumbar spine has diffuse mod tenderness on palpation over: L1, L2, L3, L4, L5, S1, right lumbar paraspinals and left lumbar paraspinals. JOINT EXAM: 0 = Absent 1 = Present Pain = Tenderness on palpation SHOULDER: -Left: healed left shoulder arthroscopy surgery- and Right: Pain-0; Swelling-0 ELBOW:Left: Pain-0; Swelling-0 and Right: Pain-0; Swelling-0 WRIST:Left: Pain-1; Swelling-0 and Right: Pain-1; Swelling-0 HIP:Decreased ext rot right hip- marked right troch tenderness- Left: no trochanteric tenderness. KNEE:pat-fem crep - no synovitis Left: Pain-0; Swelling-0 and Right: Pain-0; Swelling-0 ANKLE:Left: Pain-0; Swelling-0 and Right: Pain-0; Swelling-0 MTP's- hallux valgus IMPRESSION: (M79.7) Fibromyalgia (primary encounter diagnosis)- symptoms stable- discussed exercise, sleep. (E55.9) Vitamin D deficiency- will get Bone Mineral Density and Vitamin D today. (M13.0) Polyarthropathy or polyarthritis of multiple sites- no change- discussed exercise. PLAN: Office Visit on 05/08/18 -DXA-AXIAL SKELETON -VITAMIN D 25 HYDROXY -COMP METABOLIC PANEL -SED RATE WESTERGREN -C-REACTIVE PROTEIN (CRP) -CK CREATINE KINASE -armodafinil (NUVIGIL) 150 mg tab -rOPINIRole (REQUIP) 1 mg tablet -suvorexant (BELSOMRA) 20 mg tab -DULoxetine (CYMBALTA) 30 mg capsule She will call if she takes Mobic regularly- standing order placed- if she continues, then will need labs. RTC 1 year- earlier PRN Due for Bone Mineral Density She had recent labs with Kathia Patton, QUALITY ASSURANCE INTERN - Apr 4- was told that she was dehydrated, had elevated cholesterol ( 201) and CBC was normal. She is following for her depression with Dr. Acevedo. 1.) Follow up appointment 6- 12 months 2.) Continue with present medications 3.) Patient to call with any symptoms, questions or concerns before the follow up. 4.) Medication side effects discussed. Tyrese Alexander MD CNOV Observed: 05/08/2018 Status: COMPLETED Source: [place] 1:40 PM [facility] REPOSITORY Office Visit ([facility]) KATHIA HERNANDEZ ([id number]) 1955 F Date Time Provider Department 05/08/18 1:40 PM TYRESE ALEXANDER) [facility] During your visit today, we recorded the following information about you: Temperature Pulse Blood pressure Weight 98.4 degrees 86/minute 124/60 102.2 kg Height 1.6 m Tyrese Alexander MD 05/08/2018 10:30 PM Signed RHEUMATOLOGY CLINIC: This is a(n) 63 year old female who presents today for a(n) a follow-up of osteoarthritis, fibromyalgia. La[facility] seen March 2016 HPI: ACTIVE PROBLEM LIST Myalgia and Myositis, Unspecified Unspecified Polyarthropathy Or Polyarthritis, Multiple Sites Other Malaise and Fatigue Lumbago Pain in Joint, Lower Leg Depressive Disorder, Not Elsewhere Classified Obesity, Unspecified Enthesopathy of Hip Region Abdominal Pain, Right Lower Quadrant Esophageal Reflux Cervicalgia Nonspecific Abnormal Results of Thyroid Function Study Unspecified Vitamin D Deficiency Asthma Vitamin D Deficiency Anxiety Depression, Major Abnormal Mammogram, Unspecified Crp Elevated Elevated Sed Rate Ibs (Irritable Bowel Syndrome) The patient is a 63 yo woman with fibromyalgia, OA- here for f/u- she was last seen by me in March 2016. She has noted increased achiness- She is treated with Rexulti and CYmbalta for depression- by Dr. Acevedo She uses a CPAP- gets 6 hours of good sleep with that - she sees Dr. Aleksey Dillard in [place] for her CJ. She is stressed- her mother has demential and CHF- has been in senior living which is a mile away from her- the patient does the laundry. Her sister who has POA won't pay for the laundry service at the [place]- she was seeing her 7 days per week- now 3 days per week. One sister lives in [place] and another in [place]- her brother is concrete mixer loader truck mounted - he is trying to get housing. 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 She is not exercising- She has tapes for exercise- did not do it over the summer- was achy and tired. She has a recumbent bike. She has had some abdominal pain intermittently associated with stress. She sees her web solutions architect next week- is current on mammogram, PAP- sees GI next months- last colonoscopy was 2012- was normal. She takes Aleve some days- discussed Mobic She is high risk- her father of colon cancer at age 57. She is overdue for Bone Mineral Density - she had last one in 2009-will get one in [place]. REVIEW OF SYSTEMS: May 08, 2018 CONSTITUTIONAL: Fever: No Fatigue: Yes Pain: No EYES: Pain: No Redness: No Loss of vision: No Dryness: Yes EAR, NOSE, MOUTH, THROAT: Nose bleeds: No Hearing loss: No Sores in mouth: No Swallowing problems: No Dry mouth: Yes CARDIOVASCULAR: Chest pain: No Swelling in the feet or legs: No RESPIRATORY: Shortness of breath: No Pain with breathing: No Chronic cough: No Coughing up blood: No , GASTROINTESTINAL: Heartburn: No Nausea: Yes Diarrhea: No Blood in the stool or black stool: No Abdominal pain: Yes GENITOURINARY: Blood in urine: No Pain or burning on urination: No] MUSCULOSKELETAL: Joint pain: Yes Joint swelling: No Morning stiffness in joints: Yes Muscle weakness: Yes Back pain: Yes SKIN: Rashes: Yes Sun sensitive rashes: No Color changes of hands or feet in the cold: No Hair loss: No Nail changes: No NEUROLOGICAL: Headaches: Yes Dizziness: Yes Numbness or tingling: Yes Memory loss: Yes Seizures: No HEMATOLOGIC/LYMPHATIC: Swollen glands: Yes Anemia: No ALLERGIES/IMMUNOLOGIC: Allergies (other than medications): Yes Increased susceptibility to infection: No KNOWN MEDICAL CONDITIONS: Diabetes: No Thyroid disease: No High blood pressure: Yes PROMIS? (Patient-Reported Outcomes Measurement Information System) is a set of person-centered measures that evaluates and monitors physical, social, and emotional health. It can be used with the general population and with individuals living with chronic conditions. May 08, 2018 PROMIS 10: PHYSICAL AND MENTAL HEALTH: Global Physical Health T Score: 34.9 Global Physical Health Percentile: 6.55 Global Mental Health T Score: 36.3 Global Mental Health Percentile: 8.53 PROMIS PAIN, FATIGUE, FUNCTIONAL STATUS: PROMIS Pain Interference T Score: 62.64 PROMIS Pain Interference Percentile: 10.38 PROMIS Fatigue T Score: 55.71 PROMIS Fatigue Percentile: 28.43 PROMIS Functional Status T Score: 36.98 PROMIS Functional Status Percentile: 9.68 RAPID 3: DISEASE ACTIVITY: Weighed Score Levels: 0 - 1: Near Remission 1.3 - 2.0: Low Severity 2.3 - 4.0: Moderate Severity 4.3 - 10.0: High Severity SCORES: RAPID 3 Functional Status Subscore: 2.7 RAPID 3 Pain Tolerance Subscore: 6.5 RAPID 3 Global Estimate Subscore: 6 RAPID 3 Cumulative Score: 15.2 RAPID 3 Weighed Score: 5.1 Surgical History REMOVAL GALLBLADDER HAND/FINGER SURGERY UNLISTED Social History Alcohol Use: Yes Drug Use: Status: No Smoking: Currently: Passive Smokeless: No Sexual Activity: Status: Not Asked ALLERGIES: Bupropion/diethylpropion, Amoxicillin Current Outpatient Prescriptions: armodafinil (NUVIGIL) 150 mg tab rOPINIRole (REQUIP) 1 mg tablet Take 1 mg by mouth daily at bedtime. suvorexant (BELSOMRA) 20 mg tab Take by mouth as needed. DULoxetine (CYMBALTA) 30 mg capsule Take 30 mg by mouth once daily. spironolactone (ALDACTONE) 50 mg tablet Take 50 mg by mouth twice daily. Dapsone (ACZONE) 5 % gel Apply to affected area. ARMOUR THYROID 30 mg tablet TAKE 1 TABLET ONCE DAILY DULoxetine (CYMBALTA) 60 mg capsule Take 60 mg by mouth once daily. 2 tabs daily brexpiprazole (REXULTI) 1 mg tab Take 1 mg by mouth once daily. topiramate (TOPAMAX) 100 mg tablet Take 100 mg by mouth. 100 mg in am 200 mg at night CPAP daily at bedtime. budesonide-formoterol (SYMBICORT) 160-4.5 mcg/actuation inhaler Inhale 2 Puffs as instructed twice daily. albuterol HFA (PROAIR HFA) 90 mcg/actuation inhaler Inhale 2 Puffs as instructed as needed. naproxen sodium (ALEVE) 220 mg ORAL tablet Take 1 tablet by mouth twice daily with meals. (Patient taking differently: Take 220 mg by mouth as needed.) clonazePAM (KLONOPIN) 1 mg ORAL tablet take 1 in the am and 2 in the pm rizatriptan benzoate(MAXALT 10 MG TAB) as needed IMODIUM ADVANCED 2 MG-125 MG TAB as necessary No current facility-administered medications for this visit. PHYSICAL EXAM: BP 124/60 (BP Site: Left Arm, BP Position: Sitting, BP Cuff Size: Large Adult) Pulse 86 Temp 36.9 ?C (98.4 ?F) (Temporal Artery) Ht 160 cm (5' 3) Wt 102.2 kg (225 lb 4.8 oz) LMP 01/02/2012 BMI 39.91 kg/m? SKIN: no skin lesions. HEAD: No significant findings. EYES: PERRLA, EOMI EARS: External ears normal. NOSE/SINUSES: Nares normal. Septum midline. OROPHARYNX: Lips, mucosa, and tongue normal. Teeth and gums normal. Oropharynx normal. NECK: Supple, full range of motion, no lymphadenopathy, normal thyroid, no carotid bruits and no JVD LUNGS: Normal breath sounds, Clear to auscultation, No wheezes, No crackles. s/p reduction mammoplasty. HEART:Normal PMI, Regular rate and rhythm, Normal heart sounds, S1 and S2 and No murmurs. ABDOMEN: Soft,non tenderness, No palpable masses, Normal bowel sounds, No abdominal bruits and No hepatosplenomegaly. EXTREMITIES:Extremities normal, No deformities, No skin discoloration, No edema and Normal pulses bilaterally. NEURO: Awake, alert and oriented x 3, Cranial nerves II-XII grossly intact, Reflexes symmetrical, Normal gait and No involuntary motions. SPINE EXAM: The cervical spine has diffuse tenderness- with spasm. full ROM. The Lumbar spine has diffuse mod tenderness on palpation over: L1, L2, L3, L4, L5, S1, right lumbar paraspinals and left lumbar paraspinals. JOINT EXAM: 0 = Absent 1 = Present Pain = Tenderness on palpation SHOULDER: -Left: healed left shoulder arthroscopy surgery- and Right: Pain-0; Swelling-0 ELBOW:Left: Pain-0; Swelling-0 and Right: Pain-0; Swelling-0 WRIST:Left: Pain-1; Swelling-0 and Right: Pain-1; Swelling-0 HIP:Decreased ext rot right hip- marked right troch tenderness- Left: no trochanteric tenderness. KNEE:pat-fem crep - no synovitis Left: Pain-0; Swelling-0 and Right: Pain-0; Swelling-0 ANKLE:Left: Pain-0; Swelling-0 and Right: Pain-0; Swelling-0 MTP's- hallux valgus IMPRESSION: (M79.7) Fibromyalgia (primary encounter diagnosis)- symptoms stable- discussed exercise, sleep. (E55.9) Vitamin D deficiency- will get Bone Mineral Density and Vitamin D today. (M13.0) Polyarthropathy or polyarthritis of multiple sites- no change- discussed exercise. PLAN: Office Visit on 05/08/18 -DXA-AXIAL SKELETON -VITAMIN D 25 HYDROXY -COMP METABOLIC PANEL -SED RATE WESTERGREN -C-REACTIVE PROTEIN (CRP) -CK CREATINE KINASE -armodafinil (NUVIGIL) 150 mg tab -rOPINIRole (REQUIP) 1 mg tablet -suvorexant (BELSOMRA) 20 mg tab -DULoxetine (CYMBALTA) 30 mg capsule She will call if she takes Mobic regularly- standing order placed- if she continues, then will need labs. RTC 1 year- earlier PRN Due for Bone Mineral Density She had recent labs with Kathia Patton CNP - Apr 29- was told that she was dehydrated, had elevated cholesterol ( 201) and CBC was normal. She is following for her depression with Dr. Acevedo. 1.) Follow up appointment 6- 12 months 2.) Continue with present medications 3.) Patient to call with any symptoms, questions or concerns before the follow up. 4.) Medication side effects discussed. MD Tyrese Esquivel MD 05/08/2018 2:48 PM Addendum BONE MINERAL DENSITY PATIENT INSTRUCTIONS Bone mineral density testing measures the amount of calcium in certain parts of your bones. This information determines how strong your bones are. The test is used to detect osteoporosis, a disease in which the bone's mineral content and density are low, increasing a person's risk of fractures. The lumbar spine (lower back) and the hip are the skeletal sites usually examined. For the test, remember that: 1. You cannot take this test if you are . 2. Eat a normal diet on the day of the test. 3. Take your medications as you normally would. 4. DO NOT take calcium supplements (such as Tums) for 24 hours before the test. 5. On the day of the test, leave valuables (jewelry or credit cards) at home. 6. The test should be performed prior to oral, rectal or IV contrast studies, or at least 7 days after any of these studies. For the test, you may be asked to wear a hospital gown. You will lie on your back, on a padded table, in a comfortable position. Generally, you can resume your usual activities immediately. Referring Provider: SELF [[id number]] Allergies As of Date: 05/08/2018 Noted Allergy Reaction GRASS POLLEN 04/09/2016 12 - Shortness of Breath AUGMENTIN (AMOXICILLIN-POT CLAVUL*09/06/2011 11 - Vomiting BACTRIM (SULFAMETHOXAZOLE-TRIMETH*03/26/2005 BIAXIN (CLARITHROMYCIN) 01/01/2007 Comments: very severe headaches DUST 09/23/2008 DUST MITES 09/23/2008 RAGWEED 04/27/2008 VICODIN (HYDROCODONE-ACETAMINOPHE*05/18/2010 Comments: Makes patient very hyper WELLBUTRIN (BUPROPION HCL) 09/02/2006 4 - Hives Date Reviewed: 05/08/2018 Reviewed by: Nadine Murphy - Fully Assessed Primary Visit Diagnosis:Fibromyalgia [M79.7] Other Visit Diagnoses:Vitamin D deficiency [E55.9] Polyarthropathy or polyarthritis of multiple sites [M13.0] Order(s):VITAMIN D 25 HYDROXY [SQVITD] Order #: [id number] FUTURE COMP METABOLIC PANEL [SQCMP] Order #: [id number] FUTURE SED RATE WESTERGREN [SQWSR] Order #: [id number] STANDING C-REACTIVE PROTEIN (CRP) [SQCRP] Order #: [id number] FUTURE CK CREATINE KINASE [SQCK] Order #: [id number] FUTURE DXA-AXIAL SKELETON [1469865] Order #: [id number] FUTURE meloxicam (MOBIC) 7.5 mg tabletTake 1 tablet by mouth once daily.Disp: 90 tabletRfl: 1 BASIC METABOLIC PNL [SQBMP] Order #: [id number] STANDING CBC [SQCBC] Order #: [id number] STANDING Prescriptions as of 05/08/2018 Sig: ARMODAFINIL 150 MG TABLET ROPINIROLE 1 MG TABLET Take 1 mg by mouth daily at b* SUVOREXANT 20 MG TABLET Take by mouth as needed. DULOXETINE 30 MG CAPSULE,MILADYS* Take 30 mg by mouth once chandrakant* SPIRONOLACTONE 50 MG TABLET Take 50 mg by mouth twice bonilla* DAPSONE 5 % TOPICAL GEL Apply to affected area. ARMOUR THYROID 30 MG TABLET TAKE 1 TABLET ONCE DAILY DULOXETINE 60 MG CAPSULE,MILADYS* Take 60 mg by mouth once chandrakant* BREXPIPRAZOLE 1 MG TABLET Take 1 mg by mouth once daily. TOPIRAMATE 100 MG TABLET Take 100 mg by mouth. 100 mg * CPAP daily at bedtime. BUDESONIDE-FORMOTEROL HFA 160* Inhale 2 Puffs as instructed * ALBUTEROL SULFATE HFA 90 MCG/* Inhale 2 Puffs as instructed * NAPROXEN SODIUM 220 MG TABLET Take 1 tablet by mouth twice * Patient taking differently: Take 220 mg by mouth as neede* CLONAZEPAM 1 MG TABLET take 1 in the am and 2 in the* MAXALT 10 MG TABLET as needed IMODIUM ADVANCED 2 MG-125 MG * as necessary MELOXICAM 7.5 MG TABLET Take 1 tablet by mouth once d* Problem List As Of Date 05/08/2018 Noted Resolved MYALGIA AND MYOSITIS NOS [XEC7912] INVALID FOR* Polyarthropathy or polyarthritis of multiple si*INVALID FOR* OTHER MALAISE AND FATIGUE [R53.81, R53.83] INVALID FOR* LUMBAGO [M54.5] INVALID FOR* JOINT PAIN-L/LEG [M25.569] INVALID FOR* PSORIATIC ARTHROPATHY [L40.50] INVALID FOR*04/04/2009 DEPRESSIVE DISORDER NEC [F32.9] INVALID FOR* OBESITY NOS [E66.9] INVALID FOR* ENTHESOPATHY OF HIP [M76.899] INVALID FOR* ABDOMINAL PAIN RLQ [R10.31] INVALID FOR* ESOPHAGEAL REFLUX [K21.9] INVALID FOR* CERVICALGIA [M54.2] INVALID FOR* HYPOTHYROIDISM NOS [E03.9] INVALID FOR*10/29/2007 ABNORMAL THYROID FUNCT STUDY [R94.6] INVALID FOR* VITAMIN D DEFICIENCY NOS [E55.9] INVALID FOR* Asthma [J45.909] INVALID FOR* Vitamin D deficiency [E55.9] Anxiety [F41.9] INVALID FOR* Depression, major [F32.9] INVALID FOR* Priority: Moderate Class: Chronic Abnormal mammogram, unspecified [R92.8] INVALID FOR* CRP elevated [R79.82] INVALID FOR* Elevated sed rate [R70.0] INVALID FOR* IBS (irritable bowel syndrome) [K58.9] INVALID FOR* Other instructions from your clinician: BONE MINERAL DENSITY PATIENT INSTRUCTIONS Bone mineral density testing measures the amount of calcium in certain parts of your bones. This information determines how strong your bones are. The test is used to detect osteoporosis, a disease in which the bone's mineral content and density are low, increasing a person's risk of fractures. The lumbar spine (lower back) and the hip are the skeletal sites usually examined. For the test, remember that: 1. You cannot take this test if you are . 2. Eat a normal diet on the day of the test. 3. Take your medications as you normally would. 4. DO NOT take calcium supplements (such as Tums) for 24 hours before the test. 5. On the day of the test, leave valuables (jewelry or credit cards) at home. 6. The test should be performed prior to oral, rectal or IV contrast studies, or at least 7 days after any of these studies. For the test, you may be asked to wear a hospital gown. You will lie on your back, on a padded table, in a comfortable position. Generally, you can resume your usual activities immediately. Prescriptions ordered this encounter Disp Refills Start End MELOXICAM 7.5 MG TABLET 90 t* 1 05/08/2018 Route: ORAL Sig: Take 1 tablet by mouth once daily. Medications Discontinued During This Encounter ergocalciferol, vitamin D2, (DRISDOL* 10/19/2016 05/08/2018 Class: Med Update Route: ORAL Sig: Take 1 capsule by mouth twice a week. Disc: Reason for discontinue is not on file. GABAPENTIN (NEURONTIN ORAL) 05/08/2018 Class: Historical Med Route: ORAL Sig: Take by mouth. Disc: Reason for discontinue is not on file. LISINOPRIL-HYDROCHLOROTHIAZIDE 10 MG* 0 11/29/2008 05/08/2018 Class: Historical Med Route: ORAL Sig: Take one(1) tablet daily in the morning. Disc: Reason for discontinue is not on file. Magnesium 500 mg ORAL Tab 0 10/08/2011 05/08/2018 Class: Med Update Route: ORAL Sig: Take 1 tablet by mouth once daily. On hold Disc: Reason for discontinue is not on file. omega-3 acid ethyl esters (LOVAZA) 1* 360 * 3 08/04/2014 05/08/2018 Route: ORAL Sig: Take 2 capsules by mouth twice daily. take with meals Disc: Reason for discontinue is not on file. cyclobenzaprine (FLEXERIL) 10 mg tab* 90 t* 1 04/09/2016 05/08/2018 Route: ORAL Sig: Take 0.5 tablets by mouth daily at bedtime. Disc: Reason for discontinue is not on file. Disposition: Return in about 1 year (around 05/08/2019). Follow-up and Disposition History Recorded Encounter Status:Closed by TYRESE ALEXANDER MD on 05/08/18 ALLERGIES ALLERGIES DATE TYPE / NAME / CODE REACTION SEVERITY SOURCE CODE 04/09/2016 DRUG GRASS POLLEN SHORTNESS OF High [facility] INGREDI/41 [facility] [id number]([facility]) 10/27/2013 Drug bupropion Hives Unknown [place] Allergy/41 HCl/[id number](RXNOR [facility] [id number]([facility]) Repository 10/27/2013 Drug hydrocodone Other Unknown [place] Allergy/41 bitartrate/[id number] Community [id number]([facility](RXNORM) [facility]) Repository 10/27/2013 Drug acetaminophen/D62301 Other Unknown [place] Allergy/41 1605(RXNORM) Community [id number]([facility]) Repository 10/27/2013 Drug clarithromycin/F0060 Vomiting Unknown [place] Allergy/41 38726(RXNORM) Community [id number]([facility]) Repository 09/06/2011 DRUG/67561 AMOXICILLIN-POT Vomiting [facility] 1003(SNOME CLAVULANATE [facility] D [facility]) Repository 05/18/2010 DRUG/42108 HYDROCODONE-ACETAMIN [facility] 1003(SNOME OPHEN [facility] D CT) Repository 09/23/2008 Environ/42 DUST [facility] [id number]([facility] [place] [facility]) Repository 09/23/2008 Environ/42 DUST MITES [facility] [id number]([facility] [place] [facility]) Repository 04/27/2008 Environ/42 RAGWEED [facility] [id number]([facility] [place] [facility]) Repository 01/01/2007 DRUG CLARITHROMYCIN [address] [id number](SN Repository O[facility]) 09/02/2006 DRUG BUPROPION HCL HIVES [address] [id number](SN Repository OMED [facility]) 03/26/2005 DRUG/47237 SULFAMETHOXAZOLE-TRI [facility] 1003(SNOME METHOPRIM [facility] D [facility]) Repository ENCOUNTERS ENCOUNTERS ADMIT/DISCHARGE ACCOUNT NUMBER ADMITTING ENCOUNTER LOCATION SOURCE CLASS 08/08/2018 [id number] Ambulatory [facility] ding:[facility]BI Repository 08/05/2018 7501 Ambulatory Building:[facility] Repository 05/30/2018/06/03/20 [id number] Ambulatory MANNIE Gerber [address] [place] [address] ding:[facility] Repository 05/14/2018/05/18/20 [id number] Ambulatory BBuilding:DR Gerber 18 [facility] Repository 05/08/2018/05/12/20 [id number] Ambulatory [address] Repository 05/08/2018/05/08/20 [id number] Ambulatory [address] Repository 05/08/2018/05/08/20 [id number] Ambulatory [address] Repository PAYERS PAYERS ENCOUNTER GUARANTOR PAYER SUBSCRIBER SOURCE 08/08/2018 KATHIA Lopez Primary KATHIA Fisher [id number] Insurance:MEDICAL GASSERDOB: [facility] [id number] [facility] [address] Number: Repository [address], [place] [id number] [address]Oiv: (330) Date:[phone] (PN) [address], [place] [phone]: 08/08/2018 [facility]LF [facility] Number: Effective Repository Date:2018-05-15 08/05/2018 [facility] Primary [facility] GasserDOB: Insurance:Medical GasserDOB: Repository [facility] [id number] Elver Rodriguez Number: 7 El[address] [id number] [address], [place] [address]Cnt: (330) Date:9831-75-75Njdb [address]Ujb: (HP) Name:[phone] (HP) [address], [place] [id number]: 08/05/2018 Secondary [facility] Insurance:ReferralsPo GasserDOB: Repository licy Number: [id number] Effective Date: - Elver Rodriguez 0312-39-33Ppky Name:[address], [place] [address]Sqm: ~(3 30 (HP) 08/05/2018 Tertiary [facility] Insurance:Medical GasserDOB: Repository [facility] [id number] Number: 7 Elver Rodriguez [id number], [place] Date:2004-08-26 [address]Qey: [id number] ~(3 Name:[address] (HP) [address], [place] [id number]: 05/30/2018 [facility] GASSERDOB: Insurance:MEDICAL GASSERDOB: Foundation [address] [id number] Repository ELVER RODRIGUEZ # Number: 7 E[address] [id number] [address], [place] [address]Rcf: (330) Date:2018-05-30 [address]Dld: (HP) [id number] [phone] Name:[address] (HP)Tel: [phone]) [address], [place] [phone] (WP) [address]NT: 05/14/2018 KATHIA Jessica [facility] Jessica [facility] GASSERDOB: Insurance:MEDICAL GASSERDOB: Foundation [id number] ANTONITO 6018[facility] [id number] Repository ELVER JENNIFER # Number: 7 [facility] [place] [id number] [address], [place] [address]Wbd: (601) Date:2018-05-14 [address]Ygb: () [id number] [phone] Name:[address] ()Tel: (001) [address], [place] [address] (WP) [address]QM:
== END ==
PROVIDERS: Family Provider Nurse Practitioner; PCP Nurse Practitioner; Visit Provider Obstetrics & Gynecology Gynecology
DX: Z12.31 Encounter for screening mammogram for malignant neoplasm of breast (principal)
CPT/HCPCS: 77063; 77067

== ENCOUNTER → 2019-08-28 10:54 | Outpatient (CLI) | payer OTHER, SELFPAY ==
--- NOTE | 2019-08-28 10:56 | RAD_ITS ---
STUDY: X-RAY - RIGHT KNEE REASON FOR EXAM: Female, 64 years old. knee pain, no known trauma TECHNIQUE: 4 view(s) of the knee. COMPARISON: None. FINDINGS: There is subtle linear lucency just below the cortex of the medial femoral condyle. Normal visualized proximal tibia and fibula. Normal proximal tibiofibular articulation. Normal medial femorotibial compartment. Normal lateral femorotibial compartment. Normal patellofemoral articulation. There is a soft tissue prominence in the suprapatellar region suggesting a slight volume joint effusion. The soft tissue structures are unremarkable. RAD/Knee 4 or More Views IMPRESSION: Possible osteochondral injury of the medial femoral condyle. Trace joint effusion. MRI may better characterize, if clinically appropriate. Electronically Signed: Linus Carter MD ([place]) at 14:47 EST , Service support ,
== END ==
PROVIDERS: Family Provider Nurse Practitioner; PCP Nurse Practitioner; Referring Provider Nurse Practitioner; Visit Provider Nurse Practitioner
DX: M25.561 Pain in right knee (principal)
CPT/HCPCS: 73564

== ENCOUNTER → 2020-03-24 | Outpatient (CLI) | payer OTHER, SELFPAY ==
--- NOTE | 2020-03-24 15:28 | BI_ITS ---
MAMMOGRAPHY - BILATERAL SCREENING REASON FOR EXAM: Female, 65 years old. Routine annual screening examination. PERTINENT HISTORY: Sister with breast cancer. Prior bilateral breast reduction surgery. TECHNIQUE: Digital bilateral breast marla (3D mammographic acquisition) in the CC and MLO projections. 2-D mediolateral oblique (MLO) and craniocaudad (CC) views of both breasts were obtained. CAD: Full Field Digital Mammography with Computer Added Detection was performed. COMPARISON: Comparison is made with prior examination dated 08/08/2018 and 08/05/2017. FINDINGS: Breast Composition: There are scattered areas of fibroglandular density. There are no dominant masses or suspicious calcifications. Stable 2 cm x 1.4 cm fat-containing nodule in the retroareolar region of the left breast. Stable microcalcifications in the upper central portion of the left breast most likely similar to prior breast reduction surgery. No other significant abnormalities are identified. There has been no significant change since the prior study. BI/SCREEN MAMM (CAD) W/MARLA BILAT IMPRESSION: Stable bilateral screening mammogram. Yearly follow-up mammogram recommended. (A) ASSESSMENT CATEGORY: BIRADS Category 2: Benign. A letter regarding these results will be sent to the patient by the facility within 30 days. Approximately 10% of breast cancers are not detected by mammography. A normal mammogram should not delay biopsy of a clinically suspicious abnormality. [id number] Electronically Signed: Ruperto Dorsey, at 16:10 EDT , Service support ,
== END | disposition home or self-care (01) ==
LOC: OPBI 15:20
PROVIDERS: PCP Nurse Practitioner; Referring Provider Nurse Practitioner; Visit Provider Nurse Practitioner
DX: Z12.31 Encounter for screening mammogram for malignant neoplasm of breast (principal)
CPT/HCPCS: 77063; 77067

== ENCOUNTER → 2020-04-07 | Outpatient (CLI) | payer OTHER, SELFPAY ==
--- NOTE | 2020-04-07 14:57 | EKG12_ITS ---
Test Reason : PRE-OP Blood Pressure : / mmHG Vent. Rate : 086 BPM Atrial Rate : 086 BPM P-R Int : 144 ms QRS Dur : 084 ms QT Int : 370 ms P-R-T Axes : 049 -28 036 degrees QTc Int : 442 ms Normal sinus rhythm Normal ECG Confirmed by CARLA CISSE ([id number]), visual effects editor FOSTER SANTIAGO ([id number]) on 04/11/2020 2:00:36 PM Referred By: Maxwell Rosa Confirmed By:CARLA CISSE
[2020-04-07 15:57] LABS: Absolute Lymphocyte Count 2.84 X10^3/uL (0.83-4.51); Absolute Neutrophil Count 5.7 X10^3/uL (2.0-7.7); Basophil# 0.05 X10^3/uL; Basophil% 0.5 % (0-1); Eosinophil# 0.13 X10^3/uL; Eosinophils% 1.4 % (0-5); Hematocrit 43.5 % (37-47); Hemoglobin 13.8 g/dL (12.0-15.0); Lymphocyte # 2.84 X10^3/ul (4.0); Lymphocyte % 30.2 % (19-41); Mean Corp Hgb Conc 31.7 g/dL (32-36); Mean Corpuscular Hgb 29.4 pg (27.0-32.0); Mean Corpuscular Volume 92.6 fL (81-99); Mean Platelet Vol. 10.9 fl (6.2-12.0); Monocyte# 0.66 X10^3/uL; NRBC Flagged by Analyzer 0 % (0-5); Neutrophil % 60.6 % (47-70); Platelet Count 305 K/mm3 (150-450); RBC Distribution Width CV 13.7 % (11.6-14.6); White Blood Count 9.4 K/mm3 (4.4-11.0)
[2020-04-07 16:25] LABS: Anion Gap 5 (5-15); BUN 20 mg/dL (7-18); BUN/Creat Ratio 21.7 RATIO (10-20); Calcium,Total 8.8 mg/dL (8.5-10.1); Chloride 111 mmol/L (98-107); Creatinine, Serum 0.92 mg/dL (0.55-1.02); EST Glomerular Filtration Rate 65 mL/min (>60); Est Glom Filt Rate - Afr Amer 79 mL/min (>60); Glucose 98 mg/dL (74-106); Potassium 3.7 mmol/L (3.5-5.1); Sodium Level 141 mmol/L (136-145)
== END | disposition home or self-care (01) ==
LOC: LAB 14:48
PROVIDERS: PCP Nurse Practitioner; Referring Provider Physician Assistant; Visit Provider Physician Assistant
DX: Z01.818 Encounter for other preprocedural examination (principal)
CPT/HCPCS: 36415; 80048; 85025; 93005

== ENCOUNTER → 2020-04-12 | Outpatient (CLI) | payer OTHER, SELFPAY | END | disposition home or self-care (01) | LOC: MTDU 17:34 | PROVIDERS: PCP Nurse Practitioner; Referring Provider Physician Assistant; Visit Provider Physician Assistant | DX: Z11.59 Encounter for screening for other viral diseases (principal) | CPT/HCPCS: 87635; 94799; U0003 ==

== ENCOUNTER → 2020-08-01 | Outpatient (CLI) | payer OTHER, SELFPAY ==
[2020-08-08 12:27] LABS: Fats, Neutral NORMAL
[2020-08-08 12:28] LABS: Fats, Total NORMAL
== END | disposition home or self-care (01) ==
PROVIDERS: PCP Nurse Practitioner; Referring Provider Internal Medicine Gastroenterology; Visit Provider Internal Medicine Gastroenterology
DX: R19.7 Diarrhea, unspecified (principal)
CPT/HCPCS: 82705

== ENCOUNTER → 2020-08-16 07:51 | Outpatient (CLI) | payer OTHER, SELFPAY ==
[2020-08-16 09:48] LABS: Hematocrit 46.3 % (37-47); Hemoglobin 14.5 g/dL (12.0-15.0); Mean Corp Hgb Conc 31.3 g/dL (32-36); Mean Corpuscular Hgb 28.9 pg (27.0-32.0); Mean Corpuscular Volume 92.4 fL (81-99); Mean Platelet Vol. 10.3 fl (6.2-12.0); Platelet Count 299 K/mm3 (150-450); RBC Distribution Width CV 13.4 % (11.6-14.6); RBC Distribution Width SD 45.2 fl (35.1-43.9); Red Blood Count 5.01 M/mm3 (4.2-5.4); White Blood Count 7.3 K/mm3 (4.4-11.0)
[2020-08-16 10:04] LABS: Anion Gap 6 (5-15); Chloride 112 mmol/L (98-107); Potassium 3.6 mmol/L (3.5-5.1); Sodium Level 143 mmol/L (136-145)
== END ==
PROVIDERS: Dermatology; PCP Nurse Practitioner; Referring Provider Internal Medicine Pulmonary Disease; Visit Provider Internal Medicine Pulmonary Disease
DX: L68.9 Hypertrichosis, unspecified (principal); L57.0 Actinic keratosis; B36.8 Other specified superficial mycoses; L30.8 Other specified dermatitis; L70.0 Acne vulgaris; Z79.899 Other long term (current) drug therapy; G47.33 Obstructive sleep apnea (adult) (pediatric); J45.909 Unspecified asthma, uncomplicated
CPT/HCPCS: 36415; 80051; 85027

== ENCOUNTER → 2020-11-10 10:31 | Outpatient (CLI) | payer OTHER, SELFPAY ==
--- NOTE | 2020-11-10 10:40 | CT_ITS ---
STUDY: CT BRAIN WITHOUT CONTRAST REASON FOR EXAM: Female, 65 years old. CLOSED HEAD INJURY/TRAUMA RADIATION DOSAGE (If Supplied By Facility): CTDIvol = ( 44.99 ) mGy, DLP = ( 728.62 ) mGycm TECHNIQUE: Transaxial CT imaging of the brain was performed without administration of intravenous contrast material. Individualized dose optimization techniques were used for this CT. COMPARISON: Comparison is made with prior study dated 08/10/2013. FINDINGS: Normal soft tissue structures. Normal calvarium. Normal size ventricles and extra-axial spaces for the patient''s age. Once again, there is evidence of periventricular calcific deposits as well as in the basal ganglia. The patient is known to have Fahrs disease. Calcification There are small punctate calcifications of the bilateral basal ganglia. The differential diagnostic considerations includes: Fahrs disease, or endocrine disorders (hyperparathyroidism, hypoparathyroidism, pseudohypoparathyroidism). The incidental discovery of basal ganglia calcifications in a patient less than 50 years of age merits investigation. Normal brainstem. Stable dense calcifications in the right and left cerebellar hemispheres There is no intracranial hemorrhage. There are no findings of an acute ischemic infarction. Normal visualized paranasal sinuses. CT/Brain/Head without Contrast IMPRESSION: Stable examination with calcification of the basal ganglia as well as within the cerebellar hemispheres and at the level of the dukes-white matter junction in keeping with known Fahr''s disease. Electronically Signed: Ruperto Dorsey MD at 10:55 EDT , Service support ,
== END ==
PROVIDERS: PCP Nurse Practitioner; Referring Provider Internal Medicine; Visit Provider Internal Medicine
DX: S09.90XA Unspecified injury of head, initial encounter (principal)
CPT/HCPCS: 70450

== ENCOUNTER 2021-11-10 07:34 | Emergency (ER) | payer OTHER, SELFPAY ==
[2021-11-10 07:35] VITALS: BP 142/84; PULSE 95; RESP 18; TEMP 36.3; O2SAT 98; BMI 37.0
--- NOTE | 2021-11-10 07:58 | EX.ED.GENINJ ---
HPI History of Present Illness Chief Complaint: Nausea/Vomiting/Diarrhea Narrative Narrative: Patient presents with nausea vomiting and diarrhea for the past 3 days she has multiple episodes of watery diarrhea about 10-20 a day. She has intermittent abdominal cramping. She does not know of any sick contacts. No recent antibiotics. No fevers or chills. She has no back pain. She has no shortness of breath. No travel history [facility] Medical History (Updated 11/10/21 @ 08:[address] Bandar Ramires MD) Anxiety Hypertension Hypothyroid Migraine Home Medications Levomefolate/Algal Oil [Deplin-Algal Oil 15 Mg Capsule] 1 ea PO 10/27/13 [History Last Taken Unknown] Lisinopril/Hydrochlorothiazide [Zestoretic 20/12.5 Tablet] 1 tab PO DAILY 10/27/13 [History Last Taken Unknown] cholecalciferol (vitamin D3) 10,000 unit PO 10/27/13 [History Last Taken Unknown] clonazepam 1 mg PO TID PRN PRN 10/27/13 [History Last Taken Unknown] duloxetine 60 mg PO DAILY 10/27/13 [History Last Taken Unknown] estradiol [Estrace] 2 mg PO DAILY 10/27/13 [History Last Taken Unknown] omega-3 acid ethyl esters 2 g PO BID 10/27/13 [History Last Taken Unknown] rizatriptan 10 mg PO 10/27/13 [History Last Taken Unknown] thyroid (pork) [Austell Thyroid] 30 mg PO DAILY 10/27/13 [History Last Taken Unknown] topiramate 25 mg PO BID 10/27/13 [History Last Taken Unknown] ondansetron 4 mg PO Q8H #10 tab 11/10/21 [Rx Last Taken Unknown] potassium chloride 40 meq PO DAILY #10 tab 11/10/21 [Rx Last Taken Unknown] Allergy/AdvReac Type Severity Reaction Status Date / Time bupropion HCl Allergy Hives Verified 11/10/21 07:36 [From Wellbutrin] acetaminophen [From Vicodin] AdvReac Other Verified 11/10/21 07:36 clarithromycin [From Biaxin] AdvReac Vomiting Verified 11/10/21 07:36 hydrocodone bitartrate AdvReac Other Verified 11/10/21 07:36 [From Vicodin] sulfamethoxazole AdvReac Vomiting Verified 11/10/21 07:37 [From Bactrim] trimethoprim [From Bactrim] AdvReac Vomiting Verified 11/10/21 07:37 Social History Smoking Status: Unknown if ever smoked ROS ROS ED ROS Narrative Past medical history: Reviewed Medications: Reviewed Social history: Noncontributory Review of systems: All systems negative except as indicated General: No fever. She does feel lightheaded and weak Eyes: No visual changes ENT: No upper airway congestion, normal voice Neck: No neck pain Cardiovascular: No chest pain Respiratory: No shortness of breath or cough Gastrointestinal: As in HPI Genitourinary: No dysuria Musculoskeletal: Denies myalgias no difficulty with ambulation Skin: No rash Neurological: No memory loss, confusion or any focal weakness Psych: No recent behavioral changes Hematologic: No easy bleeding or easy bruising EXAM Physical Exam Narrative Exam Narrative: Physical exam General: Patient is relatively comfortable in bed. She does not appear acutely ill. Head: Normocephalic, Atraumatic Eyes: Conjunctiva not pale ENT: Somewhat dry mucous membranes Neck: Supple, Nontender, No lymphadenopathy Cardiovascular: Regular rate, Regular rhythm Respiratory: No distress, CTA bilaterally Abdomen: Soft, currently there is no tenderness. Back: Nontender, Normal Inspection. Negative for: CVA tenderness Extremities: Nontender, No edema Skin: Normal color, No rash Neurological: Alert, Normal Strength, Normal Sensation Psychological: Normal affect Const Vital Signs: 11/10/21 07:35 Temperature 97.4 F L Temperature Source Temporal Pulse Rate 95 Respiratory Rate 18 Blood Pressure 142/84 H Blood Pressure Mean 103 Pulse Ox 98 Oxygen Delivery Method Room Air MDM MDM MDM Narrative Medical decision making narrative: Patient is found to be slightly hypokalemic. Otherwise we hydrated her. I will replace her potassium. This is likely gastroenteritis, it is going around this town quite a bit. I believe she is stable for discharge if anything changes she is to return. Lab Data Labs: Laboratory Results - last 24 hr 11/10/21 11/10/21 08:05 08:05 WBC 6.3 RBC 4.94 Hgb 14.5 Hct 43.1 MCV 87.2 MCH 29.4 MCHC 33.6 RDW Std Deviation 42.8 RDW Coeff of Alen 13.4 Plt Count 236 MPV 9.8 Immature Gran % (Auto) 0.500 Neut % (Auto) 49.8 Lymph % (Auto) 36.5 [place] % (Auto) 11.8 H Eos % (Auto) 1.1 Baso % (Auto) 0.3 Absolute Neuts (auto) 3.2 Absolute Lymphs (auto) 2.31 Nucleated RBC % 0 Sodium 139 Potassium 2.9 L Chloride 113 H Carbon Dioxide 21.0 Anion Gap 5 BUN 15 Creatinine 0.82 Estim Creat Clear Calc 57.33 Est GFR (MDRD) Af Amer 90 Est GFR (MDRD) Non-Af 75 BUN/Creatinine Ratio 18.3 Glucose 112 H Calcium 8.3 L Total Bilirubin 0.30 AST 90 H ALT 123 H Alkaline Phosphatase 129 H Total Protein 6.9 Albumin 3.4 Globulin 3.5 Albumin/Globulin Ratio 1.0 Lipase 67 L Discharge Plan Triage Chief Complaint: Nausea/Vomiting/Diarrhea ED Provider: Bandar Ramires Dx/Rx/DC Orders Clinical Impression: Diarrhea, Gastroenteritis Instructions: ED Gastroenteritis, Noninfectious Prescriptions: New potassium chloride 20 mEq tablet extended release 40 meq PO DAILY Qty: 10 RF: 0 ondansetron 4 mg tablet,disintegrating 4 mg PO Q8H Qty: 10 RF: 0 No Action rizatriptan 10 MG tablet 10 mg PO RF: 0 clonazepam 1 MG tablet 1 mg PO TID PRN PRN (Reason: Moderate Pain) RF: 0 topiramate 25 MG tablet 25 mg PO BID RF: 0 estradiol [Estrace] 2 MG tablet 2 mg PO DAILY RF: 0 duloxetine 60 MG capsule 60 mg PO DAILY RF: 0 omega-3 acid ethyl esters 1 GM capsule 2 g PO BID RF: 0 cholecalciferol (vitamin D3) 10,000 UNIT capsule 10,000 unit PO RF: 0 thyroid (pork) [Austell Thyroid] 30 MG tablet 30 mg PO DAILY RF: 0 Levomefolate/Algal Oil [Deplin-Algal Oil 15 Mg Capsule] 1 EACH capsule 1 ea PO RF: 0 Lisinopril/Hydrochlorothiazide [Zestoretic 20/12.5 Tablet] 1 TABLET tablet 1 tab PO DAILY RF: 0 Primary Care Provider: Kathia Patton NP Referrals: Kathia Patton [employer]ER, [employer]ULT [employer] TEACHER-C [Primary Care Provider] - 2 Days Disposition Disposition: Home, Self Care
[2021-11-10] MEDS: Ondansetron 4 MG/2 ML Vial IV (08:10)
[2021-11-10] MEDS: 0.9% Normal Saline 1,000 ML 1000 ML IV (08:10)
[2021-11-10] MEDS: Dicyclomine 20 MG/2 ML Vial IM (08:12)
[2021-11-10 08:14] LABS: Absolute Lymphocyte Count 2.31 X10^3/uL (0.83-4.51); Absolute Neutrophil Count 3.2 X10^3/uL (2.0-7.7); Basophil# 0.02 X10^3/uL; Basophil% 0.3 % (0-1); Eosinophil# 0.07 X10^3/uL; Eosinophils% 1.1 % (0-5); Hematocrit 43.1 % (37-47); Hemoglobin 14.5 g/dL (12.0-15.0); Lymphocyte # 2.31 X10^3/ul (0.83-4.51); Lymphocyte % 36.5 % (19-41); Mean Corp Hgb Conc 33.6 g/dL (32-36); Mean Corpuscular Hgb 29.4 pg (27.0-32.0); Mean Corpuscular Volume 87.2 fL (81-99); Mean Platelet Vol. 9.8 fl (6.2-12.0); Monocyte# 0.75 X10^3/uL; Monocyte% 11.8 % (0-10); NRBC Flagged by Analyzer 0 % (0-5); Neutrophil # 3.15 X10^3/uL (2.7-7.7); Neutrophil % 49.8 % (47-70); Platelet Count 236 K/mm3 (150-450); RBC Distribution Width CV 13.4 % (11.6-14.6); RBC Distribution Width SD 42.8 fl (35.1-43.9); Red Blood Count 4.94 M/mm3 (4.2-5.4); White Blood Count 6.3 K/mm3 (4.4-11.0)
[2021-11-10 08:30] LABS: AST(SGOT) 90 U/L (15-37); Alanine Aminotransfer ALT/SGPT 123 U/L (13-56); Albumin, Serum 3.4 g/dL (3.2-5.0); Alkaline Phosphatase 129 U/L (45-117); Anion Gap 5 (5-15); BUN 15 mg/dL (7-18); BUN/Creat Ratio 18.3 RATIO (10-20); Calcium,Total 8.3 mg/dL (8.5-10.1); Chloride 113 mmol/L (98-107); Creatinine, Serum 0.82 mg/dL (0.55-1.02); EST Glomerular Filtration Rate 75 mL/min (>60); Est Glom Filt Rate - Afr Amer 90 mL/min (>60); Estimated Creatinine Clearance 57.33 ml/min; Globulin 3.5 g/dL (2.2-4.2); Glucose 112 mg/dL (74-106); Lipase 67 U/L (73-393); Potassium 2.9 mmol/L (3.5-5.1); Protein, Total 6.9 g/dL (6.4-8.2); Sodium Level 139 mmol/L (136-145)
[2021-11-10] MEDS: Potassium Chloride Oral Tablet 20 MEQ 40 MEQ PO (09:38)
== END 2021-11-10 09:42 | disposition home or self-care (01) ==
PROVIDERS: Emergency Provider Emergency Medicine; PCP Nurse Practitioner; Visit Provider Emergency Medicine
DX: K52.9 Noninfective gastroenteritis and colitis, unspecified (principal); E87.6 Hypokalemia; I10 Essential (primary) hypertension; E03.9 Hypothyroidism, unspecified; F41.9 Anxiety disorder, unspecified; Z79.890 Hormone replacement therapy; Z79.899 Other long term (current) drug therapy
CPT/HCPCS: 80053; 83690; 85025; 96361; 96372; 96374; 99283; A4216; J2405

== ENCOUNTER → 2022-04-10 | Outpatient (CLI) | payer MEDICARE, OTHER, SELFPAY ==
[2022-04-10 11:28] LABS: ALB/GLOB Ratio 1.1 RATIO (0.9-2.4); AST(SGOT) 20 U/L (15-37); Alanine Aminotransfer ALT/SGPT 40 U/L (13-56); Albumin, Serum 3.6 g/dL (3.2-5.0); Alkaline Phosphatase 68 U/L (45-117); Anion Gap 7 (5-15); BUN 14 mg/dL (7-18); BUN/Creat Ratio 17.2 RATIO (10-20); CPK Total, Creatine Kinase 57 U/L (26-192); Calcium,Total 8.6 mg/dL (8.5-10.1); Chloride 110 mmol/L (98-107); Creatinine, Serum 0.82 mg/dL (0.55-1.02); EST Glomerular Filtration Rate 75 mL/min (>60); Est Glom Filt Rate - Afr Amer 90 mL/min (>60); Globulin 3.4 g/dL (2.2-4.2); Glucose 105 mg/dL (74-106); Potassium 4.1 mmol/L (3.5-5.1); Sodium Level 143 mmol/L (136-145); Troponin-I HS 4 pg/mL (3.0-54.0)
== END | disposition home or self-care (01) ==
PROVIDERS: PCP Nurse Practitioner; Referring Provider Nurse Practitioner Family; Visit Provider Nurse Practitioner Family
DX: R07.9 Chest pain, unspecified (principal)
CPT/HCPCS: 80053; 82550; 84484

== ENCOUNTER → 2022-05-15 | Outpatient (CLI) | payer MEDICARE, OTHER, SELFPAY ==
--- NOTE | 2022-05-15 09:36 | EKG12_ITS ---
Test Reason : CP Blood Pressure : / mmHG Vent. Rate : 068 BPM Atrial Rate : 068 BPM P-R Int : 000 ms QRS Dur : 082 ms QT Int : 376 ms P-R-T Axes : 000 -26 037 degrees QTc Int : 399 ms Sinus rhythm Leftward axis Abnormal ECG Confirmed by CONNIE JOSEPH, EARNEST ([id number]), editor dictionary GARO MONIQUE ([id number]) on 05/16/2022 11:11:28 AM Referred By: Ese Cam Confirmed By:EARNEST ROSALES MD
== END | disposition home or self-care (01) ==
LOC: PSN 09:30
PROVIDERS: PCP Nurse Practitioner Family; Referring Provider Nurse Practitioner Family; Visit Provider Nurse Practitioner Family
DX: R94.31 Abnormal electrocardiogram [ECG] [EKG] (principal); R07.9 Chest pain, unspecified
CPT/HCPCS: 93005

== ENCOUNTER → 2022-05-24 | Outpatient (CLI) | payer MEDICARE, OTHER, SELFPAY ==
--- NOTE | 2022-05-24 06:31 | ECHOD_ITS ---
Reason For Study: CHEST PRESSURE Procedure This was a 2D Doppler, Color Flow transthoracic echocardiogram. Exam performed in department. Left Ventricle Normal LV size. The estimated ejection fraction is 65 %. No evidence for diastolic dysfunction. No regional wall motion abnormalities noted. Right Ventricle Normal RV size. Normal systolic function. Atria The left and right atria are normal. Normal right atrium. No doppler evidence for ASD. Mitral Valve There is no mitral valve stenosis. No mitral valve insufficiency. Tricuspid Valve There is no tricuspid stenosis. Trivial tricuspid valve insufficiency. Unable to estimate RV systolic pressure due to insufficient tricuspid regurgitant envelope. Aortic Valve Trisinus/trileaflet aortic valve. There is no aortic stenosis. No aortic valve insufficiency. Pulmonic Valve There is no pulmonic valvular stenosis. No pulmonic valve insufficiency. Great Vessels Normal aortic root. Pericardium/Pleural No pericardial effusion. MMode/2D Measurements & Calculations LVIDd: 4.9 cm IVSd: 0.76 cm Ao root diam: 3.1 cm LVIDs: 3.1 cm LVPWd: 0.88 cm RVDd: 1.8 cm FS: 35.9 % LAV(MOD-bp): 50.0 ml LA A4 area: 18.5 cm2 LA dimension(2D): 3.3 cm LAV(MOD-bp) Indexed: 25.4 ml/m2 LAV(MOD-sp2): 49.1 ml LAV(MOD-sp4): 49.1 ml RA A4 area: 10.3 cm2 Time Measurements MV dec time: 0.29 sec Doppler Measurements & Calculations MV E max urabn: 71.3 cm/sec Lat Peak E' Urban: 14.4 cm/sec Med Peak E' Urban: 10.0 cm/sec MV A max urban: 67.6 cm/sec E/E' lat: 5.0 E/E' med: 7.1 MV E/A: 1.1 MV dec slope: 250.4 cm/sec2 Ao V2 max: 148.7 cm/sec LV V1 max: 104.6 cm/sec Ao max P.9 mmHg LV V1 max P.4 mmHg Ao V2 mean: 104.1 cm/sec LV V1 mean P.5 mmHg Ao mean P.0 mmHg LV V1 mean: 74.7 cm/sec Ao V2 VTI: 32.6 cm LV V1 VTI: 24.0 cm PA V2 max: 101.1 cm/sec ECHO/Echo Complete Interpretation Summary No evidence for diastolic dysfunction. The estimated ejection fraction is 65 %. Ordering Physician: Ese Cam Referring Physician: Ese Cam Performed By: Apurva Tyler RDCS, RVT
--- NOTE | 2022-05-24 14:09 | STRESSREP_ITS ---
Stress Test Report Date: 05/24/2022 Procedure: Pharmacologic stress nuclear imaging study Indications: Chest pain Consent: Per the patient Procedure: The patient underwent pharmacologic (Regadenoson) evaluation with a peak heart rate of 97 beats per minute (62%predicted maximal heart rate) and a peak blood pressure of 108/70 mmHg. The baseline ECG demonstrated normal sinus rhythm. EKG during lexiscan infusion revealed no significant ischemic changes. EKG post infusion revealed no significant ischemic changes [There were no cardiac dysrhythmias pretest, during pharmacologic infusion, or recovery]. [There was no complaint of chest discomfort during pharmacologic infusion or recovery]. The examination was discontinued secondary to completion of protocol. Impression: 1. Lexiscan stress test test is negative for Lexiscan infusion induced EKG changes of ischemia. 2. Lexiscan stress test test is negative for Lexiscan infusion induced chest pain. 3. Results of the nuclear portion of the test is as below Myocardial perfusion imaging study: Technique: The patient was injected with 11.3 millicuries of technetium 99m Cardiolite and subsequently rest SPECT Cardiolite nuclear imaging was obtained in the horizontal long, vertical long, and short axis views. The patient underwent pharmacologic [Regadenoson 0.4mg] evaluation. Please see above for details. The patient was injected with 33.9 millicuries of technetium 99m Cardiolite and subsequently stress SPECT Cardiolite nuclear imaging was obtained in the horizontal long, vertical long, and short axis views. A gated Cardiolite study at peak stress was obtained. Interpretation: Rest and stress SPECT Cardiolite nuclear imaging status post realignment, normalization, and attenuation correction demonstrate no evidence of significant ischemia or infarction. Gated images reveal no significant regional wall motion abnormalities. The reported LVEF is greater than 70%. Impression: 1. There is no evidence of significant ischemia or infarction. 2. Estimated ejection fraction is greater than 70%. This note was generated with [employer] software. It may contain incorrect words, spelling, and punctuation that were not noted in checking the note before signing.
== END | disposition home or self-care (01) ==
LOC: CVS 06:25
PROVIDERS: PCP Nurse Practitioner Family; Referring Provider Nurse Practitioner Family; Visit Provider Nurse Practitioner Family
DX: R07.9 Chest pain, unspecified (principal)
CPT/HCPCS: 78452; 93017; 93306; A9500; A4216

== ENCOUNTER → 2022-06-12 | Outpatient (CLI) | payer MEDICARE, OTHER, SELFPAY ==
--- NOTE | 2022-06-12 13:39 | BI_ITS ---
MAMMOGRAPHY - BILATERAL SCREENING REASON FOR EXAM: Female, 67 years old. Routine annual screening examination. PERTINENT HISTORY: Sister with breast cancer. History of prior bilateral breast reduction surgery. Prior left stereotactic breast biopsy. TECHNIQUE: Digital bilateral breast marla (3D mammographic acquisition) in the CC and MLO projections. 2-D mediolateral oblique (MLO) and craniocaudad (CC) views of both breasts were obtained. CAD: Full Field Digital Mammography with Computer Added Detection was performed. COMPARISON: Comparison is made with prior examination of 03/24/2020 and 08/08/2008. FINDINGS: Breast Composition: There are scattered areas of fibroglandular density. There are no dominant masses or suspicious calcifications. Stable 2 cm x 1.4 cm in the mid depth retroareolar region of the left breast. Stable calcifications within a nodule in the slightly upper central portion of the left breast and keep with calcifying fibroadenoma. No other significant abnormalities are identified. There has been no significant change since the prior study. BI/SCRN MAMM (CAD)W/MARLA BILAT IMPRESSION: Stable bilateral screening mammogram. Yearly follow-up mammogram recommended. (A) ASSESSMENT CATEGORY: BIRADS Category 2: Benign. A letter regarding these results will be sent to the patient by the facility within 30 days. Approximately 10% of breast cancers are not detected by mammography. A normal mammogram should not delay biopsy of a clinically suspicious abnormality. [id number] Electronically Signed: Ruperto Dorsey MD at 14:33 EDT ,
[2022-06-12 14:36] LABS: T4 Free Direct 0.87 ng/dL (0.76-1.46); Thyroid Stim Hormone (TSH) 0.57 uIU/mL (0.358-3.74)
== END | disposition home or self-care (01) ==
PROVIDERS: PCP Nurse Practitioner Family; Referring Provider Obstetrics & Gynecology Gynecology; Visit Provider Obstetrics & Gynecology Gynecology
DX: Z12.31 Encounter for screening mammogram for malignant neoplasm of breast (principal); R87.810 Cervical high risk human papillomavirus (HPV) DNA test positive; F41.9 Anxiety disorder, unspecified; Z80.3 Family history of malignant neoplasm of breast
CPT/HCPCS: 36415; 77063; 77067; 84439; 84443

== ENCOUNTER → 2022-08-08 | Outpatient (CLI) | payer MEDICARE, OTHER, SELFPAY ==
--- NOTE | 2022-08-08 11:22 | CT_ITS ---
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 This CT exam was performed using one or more of the following dose reduction techniques: automated exposure control, adjustment of the mA and/or kV according to patient size, and/or use of iterative reconstruction technique. This report was created using [employer] report generation technology. RADIATION DOSE: CTDIvol = 44.99 mGy, DLP = 748.30 mGy-cm COMPARISON: CT head without contrast 11/10/2020. FINDINGS: BRAIN AND EXTRA-AXIAL SPACES: Symmetrical calcifications of the dentate nuclei, both mesial globus pallidus, portions of both caudate head nuclei and both thalami. There are also multiple calcifications in the subcortical white matter of both cerebral hemispheres and along the bilateral centrum semiovale. 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 They are unchanged. No intra- or extra-axial hemorrhage. No evidence of acute infarct. No intracranial mass or mass effect. There is preservation of the dukes/white matter interface. Posterior fossa structures are unremarkable. Ventricles are appropriate for age. No hydrocephalus. Basal cisterns are patent. BONES/JOINTS: Unremarkable. No discrete lytic or blastic abnormalities. SINUSES: Unremarkable as visualized. Clear. MASTOID AIR CELLS: Unremarkable. Clear. ORBITS: Visualized globes, extraocular muscles, optic nerves and retrobulbar fat appear unremarkable. CT/Brain/Head without Contrast IMPRESSION: 1. No acute findings in the head/brain. 2. Near symmetrical calcifications of the dentate nuclei, portions of both caudate head nuclei, both thalami, the subcortical white matter of both cerebral hemispheres and along the bilateral centrum semiovale are unchanged. They are secondary to known Fahr''s disease. 3. No interval change when compared to 11/10/2020. Electronically Signed: Farhat Martinez MD at 11:58 EST ,
== END | disposition home or self-care (01) ==
LOC: CT 11:21
PROVIDERS: PCP Nurse Practitioner Family; Visit Provider Nurse Practitioner Family
DX: G23.8 Other specified degenerative diseases of basal ganglia (principal)
CPT/HCPCS: 70450

== ENCOUNTER 2022-08-13 12:30 | Emergency (ER) | payer MEDICARE, OTHER, SELFPAY ==
[2022-08-13 12:32] VITALS: BP 147/91; PULSE 111; RESP 14; TEMP 36.2; BMI 36.0
--- NOTE | 2022-08-13 15:34 | EX.ED.DYSGE1 ---
HPI History of Present Illness Chief Complaint: Anxiety Informant: patient Onset/Context/Timing Onset: Days Context: Gradual Onset Narrative Narrative: Patient presents secondary to anxiety and tremor. Patient has a history of anxiety but recently been well controlled on her medication. She states over the last several days she had increasing anxiety and a tremor. She has clonazepam to use as needed and did take a dose this morning without significant improvement. She does note that she stopped taking Rexulti 9 or 10 days ago under direction of her psychiatrist. It was not tapered. She is not sure if this is related to her current symptoms. She states she is having trouble sleeping and does not have much interest in food. She denies suicidal or homicidal ideation. [facility] Medical History Anxiety DUC (generalized anxiety disorder) Hypertension Hypothyroid Migraine Panic disorder Home Medications cholecalciferol (vitamin D3) 250 mcg (10,000 unit) capsule 10,000 unit PO 10/27/13 [History Last Taken Unknown] clonazepam 1 mg tablet 1 mg PO TID PRN PRN Moderate Pain 10/27/13 [History Last Taken Unknown] ondansetron 4 mg disintegrating tablet 4 mg PO Q8H #10 tabs 11/10/21 [Rx Last Taken Unknown] potassium chloride 20 mEq tablet,extended release 40 meq PO DAILY #10 tabs 11/10/21 [Rx Last Taken Unknown] amoxicillin 875 mg-potassium clavulanate 125 mg tablet 1 tab PO BID #20 tabs 01/31/22 [Rx Last Taken Unknown] benzonatate 200 mg capsule 200 mg PO TID PRN cough #30 caps 01/31/22 [Rx Last Taken Unknown] duloxetine 30 mg capsule,delayed release 30 mg PO DAILY 08/06/22 [History Last Taken Unknown] duloxetine 60 mg capsule,delayed release 120 mg PO DAILY 08/06/22 [History Last Taken Unknown] levothyroxine 25 mcg tablet ea PO 08/06/22 [History Last Taken Unknown] lisinopril 5 mg tablet tablet PO 08/06/22 [History Last Taken Unknown] Allergy/AdvReac Type Severity Reaction Status Date / Time bupropion HCl Allergy Hives Verified 08/13/22 12:32 [From Wellbutrin] acetaminophen [From Vicodin] AdvReac Other Verified 08/13/22 12:32 clarithromycin [From Biaxin] AdvReac Vomiting Verified 08/13/22 12:32 hydrocodone bitartrate AdvReac Other Verified 08/13/22 12:32 [From Vicodin] sulfamethoxazole AdvReac Vomiting Verified 08/13/22 12:32 [From Bactrim] trimethoprim [From Bactrim] AdvReac Vomiting Verified 08/13/22 12:32 Family History Other CVA (cerebral vascular accident) Diabetes Heart disease Hypertension Surgical History H/O right knee surgery H/O shoulder surgery History of cholecystectomy Hx of breast reduction, elective Social History Smoking Status: Never smoker alcohol intake: current details: rarely substance use type: does not use ROS ROS ED Constitutional Constitutional ED: Denies chills or fever(s) Eyes Eyes: Denies change in vision or discharge from eye(s) ENT ENT ED: Denies discharge from eye(s), rhinorrhea or sore throat Cardiovascular Cardiovascular: Denies chest pain or palpitations Respiratory/Chest Respiratory/Chest: Denies cough or dyspnea Gastrointestinal Gastrointestinal: Reports other Details: Decreased interest in food. ; Denies abdominal pain, diarrhea, nausea or vomiting Genitourinary Genitourinary ED: Denies difficulty urinating or dysuria Musculoskeletal Musculoskeletal: Denies back pain or extremity pain Integumentary Denies Abrasions or rash Neurologic Neurologic: Reports other Details: Tremor ; Denies headache(s) or weakness Psychiatric Psychiatric: Reports anxiety and other Details: Difficulty sleeping. ; Denies suicidal ideation or suicidal thoughts Endocrine Endocrinology: Denies polydipsia or polyuria Allergic/Immunologic Allergic/Immunologic ED: Denies lip swelling or urticaria EXAM Physical Exam Const Vital Signs: 08/13/22 12:32 Temperature 97.2 F L Temperature Source Temporal Pulse Rate 111 H Respiratory Rate 14 Blood Pressure 147/91 H Blood Pressure Mean 109 Positive well nourished and well developed General Appearance ED: well developed HEENT Reports normocephalic and head/scalp atraumatic Eyes PERRL and EOMs intact bilaterally Neck supple Chest Wall inspection of chest normal and palpation of chest normal Resp normal respiratory effort and clear to auscultation bilaterally Cardio regular rate and regular rhythm GI normal to inspection, nondistended, normoactive bowel sounds Palpation: soft Back/Spine no CVA tenderness Extremity normal to inspection Neuro oriented x3 and no sensory deficits noted Sensorium / Orientation: alert Motor Exam: strength 5/5 throughout Psych Psych Narrative: Patient with anxiety. She makes good eye contact. She denies suicidal homicidal ideation. Mood & Affect: anxious Skin no rashes or lesions noted MDM MDM MDM Narrative Medical decision making narrative: Reviewed drug information on Rexulti which she recently stopped. It is noted that 40% of people who stopped the medication will have withdrawal symptoms, and all of her symptoms/complaints are known withdrawal symptoms. Patient states that she was previously on 2 mg tab daily. I recommended she restart this for the next 3 or 4 days. I then recommend she take a dose every other day for a week before tapering to once every 3 days. She is to follow-up with her psychiatrist. I offered to have social work speak with the patient but she states she is comfortable with this plan. She will be given a dose of Vistaril here to help with anxiety and will restart her Rexulti when she gets home. Discharge Plan Triage Chief Complaint: Anxiety ED Provider: Kendra Devine Dx/Rx/DC Orders Clinical Impression: Anxiety, Drug withdrawal Instructions: ED Anxiety Reaction Prescriptions: No Action amoxicillin-pot clavulanate 875-125 mg tablet 1 tab PO BID Qty: 20 0RF benzonatate 200 mg capsule 200 mg PO TID PRN (Reason: cough) Qty: 30 0RF duloxetine 30 mg capsule,delayed release(DR/EC) 30 mg PO DAILY levothyroxine 25 mcg tablet PO Label Comments: TAKE 1 TABLET BY MOUTH DAILY lisinopril 5 mg tablet PO clonazepam 1 MG tablet 1 mg PO TID PRN PRN (Reason: Moderate Pain) cholecalciferol (vitamin D3) 10,000 UNIT capsule 10,000 unit PO duloxetine 60 mg capsule,delayed release(DR/EC) 120 mg PO DAILY potassium chloride 20 mEq tablet extended release 40 meq PO DAILY Qty: 10 0RF ondansetron 4 mg tablet,disintegrating 4 mg PO Q8H Qty: 10 0RF Primary Care Provider: Ese Cam Referrals: Ese Cam NP-C [Primary Care Provider] - Activity Restrictions/Additional Instructions: As discussed, your symptoms are all consistent with withdrawal from Rexulti. Please restart this medication at your previous dose for the next 5 days. Then taper to 1 tab every other day for a week. Then taper to 1 tab every 3 days, etc. Please follow-up with your psychiatrist. Disposition Disposition: Home, Self Care
[2022-08-13] MEDS: hydrOXYzine 50 MG/ML Vial 25 MG IM (15:35)
[2022-08-13 15:36] VITALS: RESP 18; O2SAT 100
== END 2022-08-13 15:51 | disposition home or self-care (01) ==
LOC: ED 15:48
PROVIDERS: Emergency Provider Emergency Medicine; PCP Nurse Practitioner Family; Visit Provider Emergency Medicine
DX: F41.9 Anxiety disorder, unspecified (principal); F19.939 Other psychoactive substance use, unspecified with withdrawal, unspecified; I10 Essential (primary) hypertension; R25.1 Tremor, unspecified; Z79.899 Other long term (current) drug therapy
CPT/HCPCS: 96372; 99282

== ENCOUNTER 2022-08-23 12:39 | Emergency (ER) | payer MEDICARE, OTHER, SELFPAY ==
[2022-08-23 12:40] VITALS: BP 123/106; PULSE 100; RESP 18; TEMP 36.6; O2SAT 99; BMI 36.1
--- NOTE | 2022-08-23 13:04 | EDS_ITS ---
HPI History of Present Illness Chief Complaint: Anxiety Narrative Narrative: Patient is being seen for tremors and anxiety. She was seen recently and thought was that she was withdrawing from?Rexult[employer]. She continues to have similar symptoms tremors and anxiety. No suicidal ideations. No fevers chills cough or congestion. No headache. No seizure-like activity. [facility] Medical History Anxiety DUC (generalized anxiety disorder) Hypertension Hypothyroid Migraine Panic disorder Home Medications cholecalciferol (vitamin D3) 250 mcg (10,000 unit) capsule 10,000 unit PO 10/27/13 [History Last Taken Unknown] clonazepam 1 mg tablet 1 mg PO TID PRN PRN Moderate Pain 10/27/13 [History Last Taken Unknown] ondansetron 4 mg disintegrating tablet 4 mg PO Q8H #10 tabs 11/10/21 [Rx Last Taken Unknown] potassium chloride 20 mEq tablet,extended release 40 meq PO DAILY #10 tabs 11/10/21 [Rx Last Taken Unknown] amoxicillin 875 mg-potassium clavulanate 125 mg tablet 1 tab PO BID #20 tabs 01/31/22 [Rx Last Taken Unknown] benzonatate 200 mg capsule 200 mg PO TID PRN cough #30 caps 01/31/22 [Rx Last Taken Unknown] duloxetine 30 mg capsule,delayed release 30 mg PO DAILY 08/06/22 [History Last Taken Unknown] duloxetine 60 mg capsule,delayed release 120 mg PO DAILY 08/06/22 [History Last Taken Unknown] levothyroxine 25 mcg tablet ea PO 08/06/22 [History Last Taken Unknown] lisinopril 5 mg tablet tablet PO 08/06/22 [History Last Taken Unknown] Allergy/AdvReac Type Severity Reaction Status Date / Time bupropion HCl Allergy Hives Verified 08/23/22 12:40 [From Wellbutrin] acetaminophen [From Vicodin] AdvReac Other Verified 08/23/22 12:40 clarithromycin [From Biaxin] AdvReac Vomiting Verified 08/23/22 12:40 hydrocodone bitartrate AdvReac Other Verified 08/23/22 12:40 [From Vicodin] sulfamethoxazole AdvReac Vomiting Verified 08/23/22 12:40 [From Bactrim] trimethoprim [From Bactrim] AdvReac Vomiting Verified 08/23/22 12:40 Family History Other CVA (cerebral vascular accident) Diabetes Heart disease Hypertension Surgical History H/O right knee surgery H/O shoulder surgery History of cholecystectomy Hx of breast reduction, elective Social History Smoking Status: Never smoker alcohol intake: current details: rarely substance use type: does not use ROS ROS ED ROS Narrative Past medical history: Reviewed Medications: Reviewed Social history: Noncontributory Review of systems: All systems negative except as indicated General: No fever Eyes: No visual changes ENT: No upper airway congestion, normal voice Neck: No neck pain Cardiovascular: No chest pain Respiratory: No shortness of breath or cough Gastrointestinal: No abdominal pain, nausea vomiting or diarrhea Genitourinary: No dysuria Musculoskeletal: Denies myalgias no difficulty with ambulation Skin: No rash Neurological: No memory loss, confusion or any focal weakness. She claims to have some tremors Psych: Anxiety as in HPI Hematologic: No easy bleeding or easy bruising EXAM Physical Exam Narrative Exam Narrative: Physical exam General: Well nourished, Well developed, No Acute Distress she does appear anxious Head: Normocephalic, Atraumatic Eyes: Conjunctiva not pale ENT: Moist mucous membranes Neck: Supple, Nontender, No lymphadenopathy Cardiovascular: Regular rate, Regular rhythm Respiratory: No distress, CTA bilaterally Abdomen: Soft, Nontender, Nondistended Back: Nontender, Normal Inspection. Negative for: CVA tenderness Extremities: Nontender, No edema Skin: Normal color, No rash Neurological: Alert, Normal Strength, Normal Sensation. There is no tremor present despite the fact that she feels like she has a tremor. Psychological: Anxious appearing Const Vital Signs: 08/23/22 12:40 Temperature 97.8 F Temperature Source Temporal Pulse Rate 100 Respiratory Rate 18 Blood Pressure 123/106 H Blood Pressure Mean 111 Pulse Ox 99 Oxygen Delivery Method Room Air MDM MDM MDM Narrative Medical decision making narrative: Patient's work-up is unremarkable. I did consider thyroid problem or electrolyte abnormalities however these tests were negative. She appears well. I will discharge her in stable condition, she is on Xanax, she can talk to her doctor about medication changes. Lab Data Labs: Laboratory Results - last 24 hr 08/23/22 08/23/22 13:05 13:05 WBC 7.8 RBC 4.99 Hgb 14.5 Hct 44.0 MCV 88.2 MCH 29.1 MCHC 33.0 RDW Std Deviation 45.3 H RDW Coeff of Alen 14.1 Plt Count 265 MPV 10.8 Immature Gran % (Auto) 0.300 Neut % (Auto) 57.6 Lymph % (Auto) 32.2 Gentry % (Auto) 8.6 Eos % (Auto) 1.0 Baso % (Auto) 0.3 Absolute Neuts (auto) 4.5 Absolute Lymphs (auto) 2.50 Nucleated RBC % 0 Sodium 141 Potassium 4.1 Chloride 108 H Carbon Dioxide 29.0 Anion Gap 4 L BUN 10 Creatinine 0.93 Estim Creat Clear Calc 49.89 Est GFR (MDRD) Af Amer 78 Est GFR (MDRD) Non-Af 64 BUN/Creatinine Ratio 10.8 Glucose 107 H Calcium 9.1 Total Bilirubin 0.60 AST 29 ALT 42 Alkaline Phosphatase 79 Total Protein 7.1 Albumin 3.6 Globulin 3.5 Albumin/Globulin Ratio 1.0 TSH 1.44 Discharge Plan Triage Chief Complaint: Anxiety ED Provider: aBndar Ramires Dx/Rx/DC Orders Clinical Impression: Anxiety, Medication withdrawal Instructions: Anxiety Disorders Tx, Anxiety Disorders Medicine Prescriptions: No Action amoxicillin-pot clavulanate 875-125 mg tablet 1 tab PO BID Qty: 20 0RF benzonatate 200 mg capsule 200 mg PO TID PRN (Reason: cough) Qty: 30 0RF duloxetine 30 mg capsule,delayed release(DR/EC) 30 mg PO DAILY levothyroxine 25 mcg tablet PO Label Comments: TAKE 1 TABLET BY MOUTH DAILY lisinopril 5 mg tablet PO clonazepam 1 MG tablet 1 mg PO TID PRN PRN (Reason: Moderate Pain) cholecalciferol (vitamin D3) 10,000 UNIT capsule 10,000 unit PO duloxetine 60 mg capsule,delayed release(DR/EC) 120 mg PO DAILY potassium chloride 20 mEq tablet extended release 40 meq PO DAILY Qty: 10 0RF ondansetron 4 mg tablet,disintegrating 4 mg PO Q8H Qty: 10 0RF Primary Care Provider: Ese Cam Referrals: Ese Cam, LAUNDRY TUB MAKER-C [Primary Care Provider] - 3-5 Days Disposition Disposition: Home, Self Care
[2022-08-23 13:20] LABS: Absolute Neutrophil Count 4.5 X10^3/uL (2.0-7.7); Basophil# 0.02 X10^3/uL; Basophil% 0.3 % (0-1); Eosinophil# 0.08 X10^3/uL; Hemoglobin 14.5 g/dL (12.0-15.0); Lymphocyte % 32.2 % (19-41); Mean Corpuscular Hgb 29.1 pg (27.0-32.0); Mean Corpuscular Volume 88.2 fL (81-99); Mean Platelet Vol. 10.8 fl (6.2-12.0); Monocyte# 0.67 X10^3/uL; Monocyte% 8.6 % (0-10); NRBC Flagged by Analyzer 0 % (0-5); Neutrophil # 4.48 X10^3/uL (2.7-7.7); Neutrophil % 57.6 % (47-70); Platelet Count 265 K/mm3 (150-450); RBC Distribution Width CV 14.1 % (11.6-14.6); RBC Distribution Width SD 45.3 fl (35.1-43.9); Red Blood Count 4.99 M/mm3 (4.2-5.4); White Blood Count 7.8 K/mm3 (4.4-11.0)
[2022-08-23] MEDS: LORazepam 2 MG/ML Syringe 1 MG IV (13:21)
[2022-08-23 13:43] LABS: AST(SGOT) 29 U/L (15-37); Alanine Aminotransfer ALT/SGPT 42 U/L (13-56); Albumin, Serum 3.6 g/dL (3.2-5.0); Alkaline Phosphatase 79 U/L (45-117); Anion Gap 4 (5-15); BUN 10 mg/dL (7-18); BUN/Creat Ratio 10.8 RATIO (10-20); Calcium,Total 9.1 mg/dL (8.5-10.1); Chloride 108 mmol/L (98-107); Creatinine, Serum 0.93 mg/dL (0.55-1.02); EST Glomerular Filtration Rate 64 mL/min (>60); Est Glom Filt Rate - Afr Amer 78 mL/min (>60); Estimated Creatinine Clearance 49.89 ml/min; Globulin 3.5 g/dL (2.2-4.2); Glucose 107 mg/dL (74-106); Potassium 4.1 mmol/L (3.5-5.1); Protein, Total 7.1 g/dL (6.4-8.2); Sodium Level 141 mmol/L (136-145); Thyroid Stim Hormone (TSH) 1.44 uIU/mL (0.358-3.74)
[2022-08-23 14:28] VITALS: BP 124/68; PULSE 71; RESP 15; O2SAT 96
== END 2022-08-23 14:29 | disposition home or self-care (01) ==
PROVIDERS: Emergency Provider Emergency Medicine; PCP Nurse Practitioner Family; Visit Provider Emergency Medicine
DX: F41.9 Anxiety disorder, unspecified (principal); F19.230 Other psychoactive substance dependence with withdrawal, uncomplicated; R25.1 Tremor, unspecified; I10 Essential (primary) hypertension
CPT/HCPCS: 80053; 84443; 85025; 96374; 99283

== ENCOUNTER 2022-08-29 12:41 | Outpatient (RCR) | payer MEDICARE, OTHER, SELFPAY ==
--- NOTE | 2022-08-29 13:59 | HP.PTEVAL_ITS ---
Patient's Visit Information NHI HERNANDEZ is a 67 year old F referred to Physical Therapy by JOYA Duque with a diagnosis of Fahr's Diseasee. Date of Evaluation: 08/29/22 Physical Therapist: Ashley Mayo DPT - Visit Plan Plan: Patient does not currently need PT- her ROM, strength, proprioception and functional mobility fall in functional ranges. Encouraged more movement throughout her archana - Subjective Patient reports she is experiencing tremors in her hands and arms with shakiness all over. She feels that her body is 5 steps behind her brain signals. It has been going on since April. They did a CT Scan they have been unable to find things. She does have calcium deposit in her brain but nothing has changed. She does not have pain. She feels that she is slowed down. She has not had any falls-does not use a cane or walker. She does lose her balance or walks into thomason. She has no dizziness or vision issues- but does have very high levels of anxiety. She feels that this has gradually getting worse. She is agoraphobic and doesn't like to drive a car. She is retired- and if she does not have an apt she stays at home. They have not come up with any reasons for her tremors. She does not know what her goals are for therapy. She wants the tremors to go away. No headaches. She was unaware that she was referred to therapy until she got the call. She sits or lays down for most of her day. She does watch TV but most of the time she doesn't do anything but rest. She feels that she is shaking from the inside out. She feels like her mobility is the same just slower. She has been retired for 22 years. She stopped going out in April. PMHx/Meds: no change since ED visit in Jul 2022. - Objective Posture: fair throughout tx session. Gait: no deviation noted- good arm swing, trunk rotation and stephany. HR/TR: able without UE A. Balance: see FGA and CATSIB. ROM: WFL in all planes. Observation: no tremors in LE. Strength: WFL in lower extremities and core. Coordination: WFL in LE. Flex: HS: mild, Elizabeth lawrence: moderate - Balance/Special Test Scores Functional Gait Assessment Score: 30 % Disability: 0 CATSIB Score (Max score 120 seconds): 90 Lower Extremity Functional Score: 56 TUG Test Time Seconds: 7.4 - Rehabilitation Potential Physical Therapy Diagnosis: Patient presents with functional mobility- she has ROM, strength, proprioception and functional mobility falling in functional ranges. - Anticipated Interventions Thank you for the opportunity to evaluate your patient. For Medicare and Medicare HMO plans, please review the plan of care and approve it. It will need to be FAXED BACK to us at [phone] for Medicare purposes. For Medicare only, by signing this I certify the plan of care. Please let me know if there are questions or concerns regarding this plan of care. Physician Signature: Date:
--- NOTE | 2022-11-19 07:24 | HP.PTDCSUM ---
It has been my pleasure to treat [facility] HERNANDEZ referred by JOYA Duque, with the diagnosis of Fahr's Diseasee for a total of 1 visit(s). Discharge Date: 08/29/22 Please see the following information for a summary of their discharge status. Plan: Patient does not currently need PT- her ROM, strength, proprioception and functional mobility fall in functional ranges. Encouraged more movement throughout her archana If there are questions or concerns regarding this patient's physical therapy, please feel free to call me at [phone]. Thank you for the referral of this patient. Sincerely, Ashley Mayo, DPT Balance/Gait/Functional tests - Balance/Special Test Scores Functional Gait Assessment Score: 30 % Disability: 0 CATSIB Score (Max score 120 seconds): 90 Lower Extremity Functional Score: 56 TUG Test Time Seconds: 7.4 Tug Test: <10 sec.=free mobile
== END 2022-08-29 19:00 | disposition home or self-care (01) ==
LOC: PT 12:41
PROVIDERS: PCP Nurse Practitioner Family; Referring Provider Nurse Practitioner Family; Visit Provider Nurse Practitioner Family
DX: G23.8 Other specified degenerative diseases of basal ganglia (principal); R26.89 Other abnormalities of gait and mobility
CPT/HCPCS: 97162

== ENCOUNTER 2022-09-03 08:00 | Outpatient (RCR) | payer MEDICARE, OTHER, SELFPAY ==
--- NOTE | 2022-09-03 09:00 | BH.SGPN.GN ---
Behaviors/Verbalizations/Mental Status: []Pt alert and oriented, neatly dressed and groomed. Eye contact avoidant. Motor activity appropriate. Speech within normal limits. Affect constricted, mood anxious. thoughts linear, logical, no signs of hallucinations or delusions. Reviewed pt?s symptom tracker, no risk for suicidal ideation, plan, or intent as of 09/03/22. Pt's scores are within her baseline. Client Response/Progress/Benefit: []Pt's first day of IOP tx. Pt was highly anxious and declined to share during session. Pt sat very still and stared at the floor. Pt did introduce herself to the group and peers offered her words of encouragement. Therapist also offered encouragement and reminded pt that each day she comes to IOP her anxiety will reduce. Pt appeared to benefit from attending IOP today instead of avoiding. Pt will continue IOP tx to prevent decompensation, improve daily functioning, and reduce avoidance. Narrative Note: []
--- NOTE | 2022-09-03 10:10 | BH.SGPN.GN ---
Behaviors/Verbalizations/Mental Status: []Eye contact is good. Motor activity is appropriate. Appearance is casual and grooming tended to. Speech is Appropriate. Mood is anxious, dysthymic. Affect is constricted. Thoughts are linear and logical. No evidence of psychosis. Client Response/Progress/Benefit: []Client receptive of session, engaged throughout AEB taking notes and listening attentively to others. Appeared to connect with group topic of cognitive distortions and the impact of thought patterns on mental health, coping behaviors, and relationships. Client appeared to connect with distortion of disqualifying the positives AEB client nodding head in agreeing with peers comments about having difficulty accepting compliments. Client appeared to benefit from gaining insight on distorted thinking patterns and how this impacts overall mental health. Progress noted in client report of improved insight into her own distorted thinking patterns. Will continue IOP tx to improve daily functioning, decrease avoidance of anxious things, and prevent decompensation.
--- NOTE | 2022-09-03 11:10 | BH.SGPN.GN ---
Behaviors/Verbalizations/Mental Status: []Eye contact is fair to good. Motor activity is appropriate. Appearance is casual. Speech is soft, limited input provided. Mood is anxious and depressed. Affect is constricted. Thoughts are linear and logical. No evidence of psychosis. Client Response/Progress/Benefit: []Pt first day in IOP tx, reports feeling anxious about group setting; however, did well to remain an attentive participant in the group activity. Activity involved working with peers to answer questions related to psychoeducation on cognitive distortions. Questions were posed in the fashion of Jeopardy and the categories included; Identifying the Cognitive Distortion, Ways to reframe cognitive distortions, Examples of cognitive distortions, and other areas related to cognitive distortions. This was an engaging way to help reinforce psychoeducation and to help client retain the information through examples and practicing. Pt was engaged in the game and at times challenged herself to work on collaborating with the group to determine the answers. Identified one take away from the group as ?beginning to develop skills for improving reframing practice?. Benefited from rehearsing ways to challenge/reframe cognitive distortions and by gaining increased insight into examples/definitions of 10 most common cognitive distortions. Will continue in [facility] to maintain gains and prevent decompensation. Narrative Note: [] Behaviors/Verbalizations/Mental Status: []Eye contact is fair to good. Motor activity is appropriate. Appearance is casual. Speech is soft, limited input provided. Mood is anxious and depressed. Affect is constricted. Thoughts are linear and logical. No evidence of psychosis. Client Response/Progress/Benefit: []Pt first day in IOP tx, reports feeling anxious about group setting; however, did well to remain an attentive participant in the group activity. Activity involved working with peers to answer questions related to psychoeducation on cognitive distortions. Questions were posed in the fashion of Jeopardy and the categories included; Identifying the Cognitive Distortion, Ways to reframe cognitive distortions, Examples of cognitive distortions, and other areas related to cognitive distortions. This was an engaging way to help reinforce psychoeducation and to help client retain the information through examples and practicing. Pt was engaged in the game and at times challenged herself to work on collaborating with the group to determine the answers. Identified one take away from the group as ?beginning to develop skills for improving reframing practice?. Benefited from rehearsing ways to challenge/reframe cognitive distortions and by gaining increased insight into examples/definitions of 10 most common cognitive distortions. Will continue in IOP to maintain gains and prevent decompensation. Narrative Note: []
--- NOTE | 2022-09-05 09:21 | BH.MDN ---
Multi-Disciplinary Note - Note 30-min Individual Time Started:: 08:25 Date: 09/05/22 Purpose of session/treatment goals addressed:: To gather information on pt's current stressors, symptoms, triggers, and tx goals. Another goal was to build rapport and provide emotional support. Eye Contact:: Good Motor Activity:: Restless - fidgeting and tremors due to FAHR's disease. Speech:: Soft Mood:: Anxious, Depressed Affect:: Flat Thoughts:: Linear, Logical, No evidence of hallucinations/delusions noted Staff Interventions:: motivational interviewing, psychoeducation on: - anxiety and depression, rapport building, strengths perspective, treatment planning, goal setting Client Response:: Pt responded well to session, open to meeting with therapist. Pt reports feeling anxious about being in treatment, but she knows it is what she needs. Pt described her anxiety as debilitating and prevents pt from functioning. Pt also has FAHR's disease, which causes tremors and impacts motor skills. Pt shared anxiety often increases with this disease. Pt reports her FAHR's disease keeps pt from taking care of herself like she used to which triggers depression and worthlessness. Pt commented on how she cannot clean, get ready, or cook like she wants to or used to. Pt shared she spends most of her day in bed unless she has an appointment. Pt has four close supports that pt shared are encouraging her to get mental health treatment. Pt willing to ask her one friend to help pt grocery shop as one of pt's goals is to eat something other than a slice of bread in the morning. Pt's treatment goals are to reduce anxiety and depression, get back to cooking, get back to cleaning more consistently, and reduce isolating in her bedroom. Pt receptive to goal setting and psychoeducation on why opposite action is effective for depression and anxiety. Risks/Concerns:: Pt denies any active suicidal ideations, plan, or intent. Progress Toward Goals/Plan:: Pt's second day of IOP tx so no changes in symptoms yet. Pt reports being at IOP makes her anxious, but she wants to get better. Pt's anxiety has been preventing pt from leaving her house and functioning at her baseline. Pt endorses a depressed mood, lack of energy and motivation, worthlessness, and isolation. Pt also has FAHR's disease which impacts her mental health symptoms and functioning as well. Pt will continue IOP tx to prevent decompensation, improve daily functioning, and increase healthy coping skills. Time Stopped:: 09:00
--- NOTE | 2022-09-05 09:22 | BH.MTP ---
Master Treatment Plan - Patient Information Program Physician:: Dr. Junie Rich Primary Therapist:: Cass BECERRA - Psychiatric Diagnoses Psychiatric Diagnoses:: Major depressive disorder, recurrent, severe without psychosis F 33.2; Generalized anxiety disorder; Panic disorder Diagnosis Code(s):: F 33.2 - Estimated LOS Estimated LOS (in weeks):: 6 Problem/Goal #1 - Problem/Goal #1 Stated Goal:: Pt will decrease depressive symptoms, hopelessness, lack motivation, isolation, and improve self-care. Description of Barriers: Pt's medical diagnosis makes it hard for pt to engage in self-care activities that pt used to take pride in such as doing her hair. Pt also struggles with poor concentration and tremors because of this. Pt has some supports, but pt often isolates and withdraws from people. Pt's anxiety is keeping pt from leaving her home and pt reports her depression is medication resistant. Functional Impact: Pt is a 67-year-old female with a history of panic disorder, MDD, and DUC. Pt was referred to [facility] tx by her outpatient therapist at [facility] due to worsening anxiety and depression with no benefit from traditional outpatient counseling. Pt currently endorses decompensations since February of 2022 with no known trigger. Pt reports constant anxiety day and night which results pt isolating in her home and laying in bed all day. At admission, pt endorses increased sleep, lack of motivation, lack of energy, hopelessness, worthlessness, anhedonia, isolative behaviors, thoughts of , and avoidance. Pt shared her anxiety is so severe, she is not leaving her home unless she has an appointment that day. Pt reports that her symptoms are impacting her ability to take care of herself, complete ADLs, and keep pt from socializing. Pt has FAHR's disease which causes tremors and can exacerbate anxiety symptoms. Pt's medication condition also exacerbates pt's depression and lack of motivation to practice self-care. Goal Relevant Strengths/Supports: Pt has several close friends who are supports for pt and regularly check-in with pt. Pt has outpatient counseling and psychiatry. Pt is motivated to get better and reduce anxiety. - Objectives Objective #1 Stated Objective: Pt will learn and utilize 2-3 healthy coping strategies to better manage depressive symptoms and reduce isolation as shown by a decrease of DMS-5 symptoms for depression and SI. Interventions: Through group and individual sessions, therapist will help pt identify triggers and warning signs of depression and guilt including emotional, physical, and behavioral changes. Therapist will teach pt various coping skills to manage symptoms and give pt tangible resources to use to regulate emotions. Therapist will use cognitive restructuring techniques and help pt gain awareness of negative thoughts that reinforce guilt and depression. Therapist will provide psychoeducation on maintenance cycles and help pt learn ways to break unhealthy maintenance cycles. Therapist will help pt incorporate behavioral activation and assist pt in setting SMART goals. Discharge Criteria: Pt will have met this goal when can report learning and using at least 2 coping skills to manage depressive symptoms and reduce isolation. Additionally, pt will have met this goal when pt's DSM-5 scores for depression decrease. Target Date: 10/15/22 Review Date: 09/24/22 Status: open Objective #2 Stated Objective: Pt will reduce anhedonia and improve mood through setting and accomplishing 2-3 behavioral activation goals a week. Interventions: Through group and individual sessions, pt will learn how to set small SMART goals to promote mood stability. Therapist will provide education on maintenance cycles for depression and help pt learn how to break unhealthy maintenance cycles Discharge Criteria: Pt will have accomplished this goal when can report accomplishing at least two behavioral activation goal a week. Target Date: 10/15/22 Review Date: 09/24/22 Status: open Problem/Goal #2 - Problem/Goal #2 Stated Goal:: Pt will reduce anxiety, avoidance, and rumination while increasing ability to function on daily basis Description of Barriers: Pt's medical diagnosis makes it hard for pt to engage in self-care activities that pt used to take pride in such as doing her hair. Pt also struggles with poor concentration and tremors because of this. Pt has some supports, but pt often isolates and withdraws from people. Pt's anxiety is keeping pt from leaving her home and pt reports her depression is medication resistant. Functional Impact: Pt is a 67-year-old female with a history of panic disorder, MDD, and DUC. Pt was referred to [facility] tx by her outpatient therapist at [facility] due to worsening anxiety and depression with no benefit from traditional outpatient counseling. Pt currently endorses decompensations since February of 2022 with no known trigger. Pt reports constant anxiety day and night which results pt isolating in her home and laying in bed all day. At admission, pt endorses increased sleep, lack of motivation, lack of energy, hopelessness, worthlessness, anhedonia, isolative behaviors, thoughts of , and avoidance. Pt shared her anxiety is so severe, she is not leaving her home unless she has an appointment that day. Pt reports that her symptoms are impacting her ability to take care of herself, complete ADLs, and keep pt from socializing. Pt has FAHR's disease which causes tremors and can exacerbate anxiety symptoms. Pt's medication condition also exacerbates pt's depression and lack of motivation to practice self-care. Goal Relevant Strengths/Supports: Pt has several close friends who are supports for pt and regularly check-in with pt. Pt has outpatient counseling and psychiatry. Pt is motivated to get better and reduce anxiety. - Objectives Objective #1 Stated Objective: Pt will identify 2-3 anxiety triggers and 2 coping skills to use when feeling anxious to manage anxiety as shown by decreasing DSM-5 scores for anxiety. Interventions: Therapist will provide education on anxiety, avoidance behaviors, and maintenance cycles. Therapist will help pt explore personal symptoms and warning signs of anxiety. Therapist will teach pt coping skills to improve emotional regulation, mindfulness, and distress tolerance to help pt cope with anxiety in the moment. Discharge Criteria: Pt will have accomplished this goal when can identify at least 2 triggers and report using 2 coping skills to manage anxiety. Additionally, pt will have accomplished this goal when DSM-5 scores show a reduction for anxiety. Target Date: 10/15/22 Review Date: 09/24/22 Status: open Objective #2 Stated Objective: Pt will reduce avoidance behaviors that reinforce anxiety by setting 1-2 small exposure goals a week to increase socialization, increase mastery, and reduce anxiety over time. Interventions: Through group and individual sessions, pt will learn about the benefits of setting exposure goals to overcome anxiety-producing situations. Therapist will help pt set SMART goals and challenge barriers. Therapist will use cognitive restructuring techniques and help pt gain awareness of negative thoughts that reinforce avoidance behaviors and fear of judgement. Therapist will help pt incorporate mindfulness, opposite action, and self-talk strategies to manage anxiety. Discharge Criteria: Pt will have accomplished this goal when can report accomplishing at least one small exposure goal a week. Additionally, pt will be able to report decreased avoidance behaviors. Target Date: 10/15/22 Review Date: 09/24/22 Status: open
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
--- NOTE | 2022-09-05 10:10 | BH.SGPN.GN ---
Behaviors/Verbalizations/Mental Status: []Eye contact is fair. Motor activity is appropriate. Appearance is casual. Speech is Appropriate. Mood is anxious. Affect is constricted. Thoughts are linear and logical. No evidence of psychosis. Client Response/Progress/Benefit: []Pt was mostly a passive participant in group discussion. Attentive during psychoeducation on different types of anxiety disorders. Along with peers provided insight on the definition of anxiety as well as the impact of anxiety which include; not functioning, isolating at home, lack of personal growth, and avoidance. Pt identified her physical symptoms of anxiety which were gastrointestinal issues, feeling ?frozen? and numbness. ?Pt identified personal safety behaviors as avoidance of places and people and withdrawing from support. Benefited from increased insight and awareness from group discussions. Pt is to continue IOP to prevent decompensation, improve daily functioning, and reduce isolation. Narrative Note: []
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
[2022-09-05 11:00] VITALS: BP 140/91; PULSE 81
--- NOTE | 2022-09-05 11:10 | BH.SGPN.GN ---
Behaviors/Verbalizations/Mental Status: []Client alert and oriented, casually dressed and groomed. Eye contact fair. Motor activity appropriate. Speech within normal limits. Affect constricted, mood anxious and dysthymic. Thoughts linear, logical, no signs of hallucinations or delusions. Client Response/Progress/Benefit: []Client was a active participant in group discussion AEB providing contributions throughout group and listening attentively to others. Client able to connect how current safety behaviors are reinforcing anxiety. Attentive during psychoeducation on anxiety management skills. The group practiced belly breathing and chair yoga in session. Engaged and attentive during group brainstorm of healthy anxiety reduction skills. Appeared to benefit from practicing in the moment coping skills and increasing repertoire of anxiety management skills. Client will continue IOP tx to improve daily functioning, decrease avoidance of anxious things, and prevent decompensation.
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
--- NOTE | 2022-09-05 12:37 | BH.DR.ITP ---
Initial Treatment Plan Patient Information Visit Information: ADMISSION DATE: EXPECTED LOS: 4-6 weeks Problems/Symptoms Problem #1:: Depression Symptom:: Sadness, hopelessness, worthlessness, low motivation, anhedonia, fatigue, biological disruption of appetite and weight, decreased concentration, passive thoughts of , recent suicidal ideation Problem #2:: Anxiety Symptom:: Worry, rumination, panic attacks, avoidance
--- NOTE | 2022-09-10 09:00 | BH.SGPN.GN ---
Behaviors/Verbalizations/Mental Status: [] Eye contact is good. Motor activity is appropriate. Appearance is casual. Speech is Appropriate. Mood is anxious. Affect is congruent. Thoughts are linear and logical. No evidence of psychosis. Reviewed daily check in sheet and no reports of suicidal ideations or intent. Client Response/Progress/Benefit: [] Pt was an active participant in group discussion. Attentive. Emotion for today is tired. Daily symptom tracker notes 4/5 for anxiety and 3/5 for depression. Mental health wins included cleaning my house this weekend noting improved motivation and energy. Pt had been laying in bed all day. She also reports that she went to the grocery store and shopped. Completing shopping has been a significant obstacle due to her anxiety in the past several months. She utilized anxiety management skills prior to and during her shopping and is proud of herself. Limited sleep last night. Progress noted per pt report. Benefited from group support, encouragment, and feedback. Will continue in IOP to improve functioning, prevent decompensation, and to stabilize anxiety. Narrative Note: []
--- NOTE | 2022-09-10 10:06 | BH.SGPN.GN ---
Behaviors/Verbalizations/Mental Status: []Pt alert and oriented, casually dressed and groomed. Eye contact good. Motor activity appropriate. Speech within normal limits. Affect congruent, mood anxious, dysthymic. Thoughts linear, logical, no signs of hallucinations or delusions. Client Response/Progress/Benefit: []Pt was an active participant in group discussions, this is progress compared with last week. Participated with peers in experiential activity. Pt participated in an interactive discussion with peers in which they worked together to define what coping skills are. Group then identified unhealthy coping skills which included; isolating, not asking for help, procrastination, and lashing out on others or self. Group discussed what barriers commonly make using healthier coping skills more difficult. Pt displayed insight that she struggles with not asking for help when she first recognizes she is struggling which has been a barrier to choosing healthier coping skills in the past. Benefited from increased awareness and education the benefits of having a healthy coping repertoire and consequences of unhealthy coping on mental health and relationships. Will continue IOP tx to further promote engaging in activities she enjoys, improve self-talk, and improve self-care. ?? Narrative Note: []
--- NOTE | 2022-09-10 11:10 | BH.SGPN.GN ---
Behaviors/Verbalizations/Mental Status: []Client alert and oriented, casually dressed and groomed. Eye contact good. Motor activity appropriate. Speech within normal limits, quiet. Affect constricted, mood anxious. Thoughts linear, logical, no signs of hallucinations or delusions Client Response/Progress/Benefit: []Client responded well to session, taking notes and contributing. Group discussed the different categories of coping skills which included distraction, emotional release, grounding, self-love, and thought challenging. Client participated in creating a coping skills ?menu? from the five categories of coping skills. Client's coping skill menu included: spending time with people, deep breathing, exercise, doing make-up, and seeking support. Client reported some of these skills are new and others are skills she wants to use more often. Appeared to benefit from increasing repertoire of healthy coping skills. Will continue tx to continue using healthy coping skills, decrease anxiety, and prevent decompensation.
--- NOTE | 2022-09-12 09:00 | BH.SGPN.GN ---
Behaviors/Verbalizations/Mental Status: []Pt alert and oriented, neatly dressed and groomed. Eye contact good. Motor activity appropriate. Speech WNL. Mood anxious and optimistic, affect full. Thoughts linear, logical, no signs of hallucinations or delusions. Reviewed pt's symptom tracker, no risk factors noted for 09/12/22. Denies any active SI. Client Response/Progress/Benefit: []Pt responded well to session, attentive and more vocal than previous sessions. Pt reports feeling overwhelmed this morning as pt has an upcoming appointment for her FARH's disease to address her tremors. Pt stated despite this stress, pt has been implementing a lot of skills discussed in IOP. Pt shared she accomplished her goal of cleaning around her house and pt went grocery shopping with a friend. Pt also had a positive experience at OT this week and may be getting some assisted devices to help pt manage her tremors. Pt appeared to benefit from reflecting on her application of coping skills and progress since last week. Pt will continue IOP tx to promote mood stability, reduce avoidance, and increase motivation. Narrative Note: []
--- NOTE | 2022-09-12 10:10 | BH.SGPN.GN ---
Behaviors/Verbalizations/Mental Status: []Client alert and oriented, casually dressed and groomed. Eye contact good. Motor activity appropriate. Speech within normal limits. Affect congruent, mood depressed and anxious. Thoughts linear, logical, no signs of hallucinations or delusions. Client Response/Progress/Benefit: []Client was an active participant in group discussions and activity. Attentive during psychoeducation. Client along with peers were able to identify several negatives on the picture given to the group. Client and peers also identified positives in the picture and made the connection that finding positives is much more difficult. Interactive discussion on the definition of perspective, how perspective is formed, and why perspective is important in treatment. Client along with peers also identified that perspective can either motivate and encourage treatment or become a barrier to receiving help. Client shared currently she has a more negative perspective towards life. Client stated current perspective has been impacted by her mental health history, as well as ongoing physical health concerns. Will continue in IOP to encourage use of healthy coping, increase anxiety management skills, and prevent decompensation. Narrative Note: []
--- NOTE | 2022-09-12 11:10 | BH.SGPN.GN ---
Behaviors/Verbalizations/Mental Status: []Pt alert and oriented, casually dressed and groomed. Eye contact good. Motor activity appropriate. Speech within normal limits. Affect congruent, mood anxious. Thoughts linear, logical, no signs of hallucinations or delusions. Client Response/Progress/Benefit: []Pt was attentive and contributed in larger group discussion. Pt completed strengths exploration worksheet. Pt able to acknowledge how these strengths are helping pt and can continue to help pt in mental health journey. Reflected on how her empathy, fairness, and modesty have helped pt in the past and continue to help pt with her mental health. Pt worked with group to identify strategies that can help increase utilization of personal strengths. Benefited from identifying personal strengths and strategies for enhancing use of identified strengths. Pt to continue IOP tx to improve confidence, decrease avoidance behaviors, and prevent decompensation.
--- NOTE | 2022-09-14 09:00 | BH.SGPN.GN ---
Behaviors/Verbalizations/Mental Status: []Eye contact fair to good, casually dressed, motor activity appropriate, speech normal rate and tone, mood anxious, congruent affect, thoughts linear and intact, no evidence of delusions or hallucinations. Reviewed pt's symptom tracker, reports of suicidal ideation within pt baseline and pt denies any active plan, or intent as of this date 09/14/22. Future oriented. Client Response/Progress/Benefit: []Pt responded well to session, attentive and willing to process with group. Pt reports feeling anxious this morning as she has had worsening physical health sx this morning. Shared this is also her stressor as she struggles with tremors which makes completing some of her self-care activities more difficult. Did well to identify what is in her control in this situation and noted plans to meet with a neurologist next month. Pt did well to identify current mental health wins which included following through with occupational therapy homework and is starting to see improvements in her hand strength as a result. Pt shared an additional win as plans to meet up with a friend for lunch today. Progress in improved skill application. Appeared to benefit from group?discussion and supportive environment. Recommended continued IOP tx to continue to improve consistency of healthy skill application, promote mood stability and anxiety management, as well as prevent decompensation. Narrative Note: []
--- NOTE | 2022-09-14 10:10 | BH.SGPN.GN ---
Behaviors/Verbalizations/Mental Status: []Client alert and oriented, casually dressed and groomed. Eye contact fair. Motor activity appropriate. Speech within normal limits, quiet. Affect constricted, mood anxious. Thoughts linear, logical, no signs of hallucinations or delusions. Client Response/Progress/Benefit: []Pt passive participant AEB limited contributions throughout group discussion, however to appear to listen attentively to others and take notes. Pt appeared to be attentive during psychoeducation about acceptance. Pt listened as group identified common barriers to acceptance to include: fear of relapse, anxious thoughts, fear of stigma, and fear of being vulnerable. Pt worked with small group to identify benefits of acceptance. Pt seemed to benefit from increased awareness of the benefits of being able to accept things out of her control. Pt to continue IOP to continue use of healthy skills to manage anxious thoughts, increase confidence, and prevent decompensation.
--- NOTE | 2022-09-14 11:10 | BH.SGPN.GN ---
Behaviors/Verbalizations/Mental Status: []Pt alert and oriented, neatly dressed and groomed. Eye contact good. Motor activity appropriate. Speech within normal limits. Affect constricted, mood dysthymic and anxious. Thoughts linear, logical, no signs of hallucinations or delusions. Client Response/Progress/Benefit: []Pt responded well to session, engaged and providing examples. Pt engaged as group continued discussion on acceptance and how lack of acceptance can impact mental health. Pt and peers identified what makes acceptance challenging and pt completed a self-reflection exercise on what is hard to accept in pt's life. Pt shared it is hard to accept the unknowns in her medical condition and her mental health. Pt also identified how further lack of acceptance could lead to more harm for pt including: not getting better and self-sabotage. Group identified strategies to increase acceptance and pt selected setting more realistic goals to help pt increase acceptance. Pt appeared to benefit from gaining insight and strategies to increase acceptance. Pt will continue IOP tx to promote mood stability, reduce isolation and avoidance, and reduce negative thinking patterns. Narrative Note: []
--- NOTE | 2022-09-14 14:29 | BH.MDN ---
Multi-Disciplinary Note - Note 45-min Individual Time Started:: 08:30 Date: 09/14/22 Eye Contact:: Good Motor Activity:: Appropriate Speech:: Soft, Other - delayed response Mood:: Euthymic Affect:: Constricted Thoughts:: Linear, Logical, No evidence of hallucinations/delusions noted Staff Interventions:: thought challenging, psychoeducation on: - maintenance cycles for depression and anxiety., CBT techniques, strengths perspective, goal setting - goal to clean off her table and the papers off her desk. Client Response:: Pt responded well to session, open to meeting with therapist. Pt shared she followed through with her goals from last session and felt good about it. Pt also has plans to have lunch with an old friend today but pt is having urges to cancel. Pt reflected that if she canceled her anxiety would be driving my bus. Pt receptive to psychoeducation on maintenance cycles for depression and anxiety. Pt learned how to break maintenance cycles by changing thinking patterns or engaging in different behaviors. Pt set a goal for the weekend to go to her lunch date and clean two things at home. Pt was also encouraged to begin an accomplishment log as a way to combat negative self-talk and minimizing her positives. Pt also asked for a copy of the group topic notes to reduce the stress of note taking during group. Risks/Concerns:: Pt denies any active suicidal ideations, plan, or intent as of 09/14/22. Pt is future oriented. Progress Toward Goals/Plan:: Pt is making progress towards her tx goals AEB pt's self-report of accomplishing her goal from last session which was to clean and to go grocery shopping. Pt also has plans to get lunch with a friend today and she plans to go despite feeling anxious. Pt continues to endorse a depressed mood, ruminations, negative core beliefs, avoidance, lack of motivation, and issues with sleep. Pt has been following up with her OT appointments. Pt will continue IOP tx to promote mood stability, reduce negative thinking patterns, and improve daily functioning. Time Stopped:: 09:15
--- NOTE | 2022-09-17 09:00 | BH.SGPN.GN ---
Behaviors/Verbalizations/Mental Status: []Pt alert and oriented, neatly dressed and groomed. Eye contact good. Motor activity appropriate. Speech within normal limits. Affect congruent, mood calm. Thoughts linear, logical, no signs of hallucinations or delusions. Reviewed pt?s symptom tracker, no risk for suicidal ideation, plan, or intent as of 09/17/22 Client Response/Progress/Benefit: []Pt responded well to session, attentive and engaged. Pt reports feeling lost this morning as pt feels she does not have enough support. Pt did go to lunch with an old friend last week which was positive and pt got encouraging texts from another friend. Pt wanted to cancel her lunch date, so pt is proud of herself for going and happy that it went well. Pt also used opposite action this weekend by going grocery shopping alone which is something pt has not been able to do. Pt appeared to benefit from reflecting on her application of healthy coping skills and follow through with her goals. Pt will continue IOP tx to promote use of healthy coping skills, reduce avoidance, and increase self-confidence. Narrative Note: []
--- NOTE | 2022-09-17 10:10 | BH.SGPN.GN ---
Behaviors/Verbalizations/Mental Status: []Eye contact is good. Motor activity is appropriate. Appearance is casual. Speech is Appropriate. Mood is euthymic. Affect is congruent. Thoughts are linear and logical. No evidence of psychosis. Client Response/Progress/Benefit: [] Client was an active participant during interactive group discussions. Attentive during psychoeducation on the six types of boundaries (physical, emotional, intellectual, sexual, time, and material) AEB note-taking. Client along with peers contributed to interactive discussion on defining what a boundary is in mental health. Group identified challenges to setting boundaries which included; fear of other's response, not knowing how to set a boundary, fear of rejection, fear of disappointing the other person, historic patterns, etc. Group identified the benefits to setting boundaries such as to help maintain identity, increased control, minimize negative influences, and increased confidence . Group and client discussed the mental health benefits to establishing boundaries at work, school, and home. Client benefited from increased awareness and insight on the importance/benefit to setting health boundaries. Will continue in IOP to decrease symptoms of anxiety, improve overall functioning, and prevent decompensation. Narrative Note: []
--- NOTE | 2022-09-17 11:15 | BH.SGPN.GN ---
Behaviors/Verbalizations/Mental Status: [] Client alert and oriented, casually dressed and appropriately groomed. Eye contact good. Motor activity WNL. Speech within normal limits. Affect congruent, mood euthymic. Thoughts linear and intact. no signs of delusions or hallucinations. Client Response/Progress/Benefit: [] Client responded well to session AEB listening attentively to peers, providing input, as well as taking notes throughout. Client contributed throughout psychoeducation on different boundary setting styles with reporting connecting most with a combination of either being rigid or porous of boundary setting. Indicated that they are overly porous with a group of people their lives, but tend to be using Rigid style with everyone else. Participated in group discussion brainstorming various strategies for improving healthy boundary setting. Client reports wanting to start understanding hardest part of boundaries is consistently upholding them. Seemed to benefit from increased awareness of how different boundary styles can impact mental health. Will continue IOP tx to increase minimize symptoms of anxious, increase self worth, and improve overall functioning. Narrative Note: []
--- NOTE | 2022-09-19 10:46 | BH.MDN ---
Multi-Disciplinary Note - Note 45-min Individual Time Started:: 08:30 Date: 09/19/22 Purpose of session/treatment goals addressed:: To review progress and homework from last session. Another goal was to work on goal #1 of pt's treatment plan. Eye Contact:: Good Motor Activity:: Appropriate Appearance:: Neat Speech:: Appropriate Mood:: Euthymic Affect:: Full Thoughts:: Linear, Logical, No evidence of hallucinations/delusions noted Staff Interventions:: thought challenging, psychoeducation on: - cognitive distortions, CBT techniques, goal setting Client Response:: Pt responded well to session, open to meeting with therapist. Pt reports she followed through with her treatment goals from last session and shared she is proud of herself. Pt cleaned her table off, organized her papers, and went to [employer] alone to grocery shop. Pt also has been keeping an accomplishment log and has kept track of her wins. Pt wants to focus on self-care this week and pt learned about the different areas of self-care. Pt identified physical self-care, psychological self-care, and spiritual self-care. Pt wants to focus on continuing to clean her house one room at a time, asking her friend to take her to [place], and getting back into coloring. Pt responded well to positive feedback from therapist and pt shared her supports have made comments on her progress so far as well. Pt also reviewed the different cognitive distortions and pt was encouraged to work on combating the should and must statements. Risks/Concerns:: Pt denies any suicidal ideations, plan, or intent as of 09/19/22. Pt is future oriented and more hopeful per her report. Progress Toward Goals/Plan:: Pt continues to make progress towards her tx goals AEB pts report of her supports commenting on her improved affect and mood. Pt also acknowledges that she has accomplished her goals consistently and she feels less anxious in group. Pt continues to experience severe anxiety, but she is working on reducing avoidance. Pt also endorses low appetite, negative thinking patterns, a depressed mood, and ruminations. Pt continues to be receptive to goal setting and has several self-care goals for next week. Pt will continue IOP tx to promote use of healthy coping skills, reduce negative thinking patterns, and increase self-confidence. Time Stopped:: 09:15
--- NOTE | 2022-09-21 09:10 | BH.SGPN.GN ---
Behaviors/Verbalizations/Mental Status: [] Eye contact is good. Motor activity is appropriate. Appearance is casual. Speech is Appropriate. Mood is anxious. Affect is congruent. Thoughts are linear and logical. No evidence of psychosis. Reviewed daily check in sheet and no reports of suicidal ideations or intent. Client Response/Progress/Benefit: [] Pt participated at times during the group discussion. Attentive. Daily symptom tracker notes 4/5 for anxiety and 2/5 for depression and self-harm urges. Shared that she continues with occupational therapy however her tremors appeared to have increased. Reports that she is frustrated and discussion how her tremors impact her mental health. Has appointment with neurologist in the upcoming weeks. Emotion for today is lost. She was able to identify mental health wins and overall reports that her mental health has improved since starting IOP. Utilizing skills and benefits from group support, routine, and structure. Will continue in IOP to prevent decompensation, improve functioning, and increase support. Narrative Note: []
--- NOTE | 2022-09-21 10:15 | BH.SGPN.GN ---
Behaviors/Verbalizations/Mental Status: []pt alert and oriented, casually dressed and groomed. Eye contact good. Motor activity appropriate. Speech within normal limits. Affect constricted, mood interested and anxious. Thoughts linear, logical, no signs of hallucinations or delusions.? Client Response/Progress/Benefit: []Pt responded well to session AEB contributing to discussion, taking notes, and listening attentively to others. Group discussed the benefits of managed anger and anger as a secondary emotion. Pt shared anger is hard for her to express because pt was always told ?anger is bad.??Pt shared perspective on negatives from acting out in anger as damaged relationships and physical exhaustion.? Pt completed worksheet on anger triggers and personal warning signs of anger. Pt identified their biggest triggers as ?people that don?t communicate? and not feeling supported. ?Appeared to benefit from increased knowledge of the anger cycle as well as personal triggers. Will continue IOP tx to prevent decompensation, increase ability to manage anxiety, and improve daily functioning.? Narrative Note: []
--- NOTE | 2022-09-21 11:10 | BH.SGPN.GN ---
Behaviors/Verbalizations/Mental Status: []Client alert and oriented, casually dressed and groomed. Eye contact fair. Motor activity appropriate. Speech within normal limits. Affect constricted, mood anxious. Thoughts linear, logical, no signs of hallucinations or delusions. Client Response/Progress/Benefit: []Pt was engaged throughout AEB contributing to group discussion and self-reflection. Group finished processing cues to anger worksheet. Pt contributed as group brainstormed healthy coping skills for better managing anger which included: music, walking/exercise, changing the environment, communicating with supports, and journaling. Pt reported she would like to work on skill of using humor as a way to manage anger responses. Pt appeared to benefit from identifying different techniques to manage anger as well as gaining awareness of potential consequences of unmanaged anger. Will continue IOP tx to decrease anxiety, continue use of healthy coping skills, and prevent decompensation.
--- NOTE | 2022-09-24 09:05 | BH.SGPN.GN ---
Behaviors/Verbalizations/Mental Status: [] Eye contact is good. Motor activity is appropriate. Appearance is casual. Speech is Appropriate. Mood is anxious. Affect is congruent. Thoughts are linear and logical. No evidence of psychosis. Reviewed daily check in sheet and no reports of suicidal ideations or intent. Client Response/Progress/Benefit: [] Pt participated at times during the group discussions. Attentive. Emotion for today is frustrated. Daily symptom tracker notes 4/5 for anxiety and 3/5 for depression. Shared that she experienced migraines all weekend which led to increased isolation and fatigue. Admits that this impacted her overall mental health however was able to utilize some skills and complete tasks, which helped. Appears motivated today to work on increasing her self-care. She shared some strategies for this week and why she believes this will be helpful for her mental health. Benefited from group support, encouragement, and feedback. Will continue in IOP to prevent decompensation, improve functioning, and increase healthy coping skills. Narrative Note: []
--- NOTE | 2022-09-24 10:20 | BH.SGPN.GN ---
Behaviors/Verbalizations/Mental Status: []Client alert and oriented, casually dressed and groomed. Eye contact good. Motor activity appropriate. Speech within normal limits. Affect congruent, mood anxious, depressed. Thoughts linear, logical, no signs of hallucinations or delusions. Client Response/Progress/Benefit: []Client receptive to session AEB providing input, listening attentively to others, and taking notes. Worked with group to brainstorm the positive and negative aspects of stress on physical and mental health. Group did well to identify the benefits of stress as well as the impact of distress on performance, relationships, and mental health. Client identified their personal top stressors as: lack of support, completing activities of daily living, and prioritizing self-care. Client reports when the stress overflows client reacts by isolating, giving up, and panic. Client seemed to benefit from increased awareness of current stressors and impact stress has on mental health. Recommended to continue IOP tx to stabilize moods, continue to promote consistent self-care, and prevent decompensation. Narrative Note: []
--- NOTE | 2022-09-24 11:20 | BH.SGPN.GN ---
Behaviors/Verbalizations/Mental Status: []Pt alert and oriented, casually dressed and groomed. Eye contact good. Motor activity appropriate. Speech within normal limits. Affect congruent, mood depressed, anxious. Thoughts linear, logical, no signs of hallucinations or delusions. Client Response/Progress/Benefit: [] Pt engaged participant AEB listening attentively to others and contributing to discussion. Attentive during psychoeducation on the 4 A's of Coping with Stress (Avoid, Alter, Adapt, Accept). Participated in experiential activity in which group members had to utilize stress management skills in the moment. Pt was more passive during activity when the group was struggling with accomplishing the task however responded well to encouragement and direction provided by peers. Pt engaged in review of the 4 A?s and picked wanting to work on altering her approach to self-care by finding self-care activities that are less demanding she can easily engage in as well as using opposite action. Benefited from processing in the moment stress management strategies and identifying new ways to cope with stress. Will continue in IOP tx to prevent decompensation, increase healthy coping skills, and improve application of self-care activities. Narrative Note: []
== END 2022-09-25 23:59 ==
LOC: BHIOP 08:00
PROVIDERS: PCP Nurse Practitioner Family; Visit Provider Psychiatry & Neurology Psychiatry
DX: F33.2 Major depressive disorder, recurrent severe without psychotic features (principal); F41.1 Generalized anxiety disorder; M79.7 Fibromyalgia; E03.9 Hypothyroidism, unspecified; I10 Essential (primary) hypertension; Z79.899 Other long term (current) drug therapy; G23.8 Other specified degenerative diseases of basal ganglia
CPT/HCPCS: S9480; 90832; 90834; 90853

== ENCOUNTER → 2022-09-03 | Outpatient (CLI) | payer MEDICARE, OTHER, SELFPAY | END | disposition home or self-care (01) | LOC: PSN 12:24 | PROVIDERS: PCP Nurse Practitioner Family; Referring Provider Nurse Practitioner Family; Visit Provider Nurse Practitioner Family | DX: I49.9 Cardiac arrhythmia, unspecified (principal); G23.8 Other specified degenerative diseases of basal ganglia; F33.2 Major depressive disorder, recurrent severe without psychotic features; F41.1 Generalized anxiety disorder; M79.7 Fibromyalgia; E03.9 Hypothyroidism, unspecified; I10 Essential (primary) hypertension; Z79.899 Other long term (current) drug therapy | CPT/HCPCS: 93005; S9480; 90853 ==

== ENCOUNTER 2022-09-25 14:00 | Outpatient (RCR) | payer MEDICARE, OTHER, SELFPAY ==
--- NOTE | 2022-08-29 14:48 | HP.OTEVAL ---
Patient's Visit Information NHI HERNANDEZ is a 67 year old F, referred to Occupational Therapy by Ese Cam, JOYA, with a diagnosis of Tremors, Fahrs syndrome. Date of Evaluation: 08/29/22 Occupational Therapist: Cyndi Hancock, OTR/Ailyn, CHT - Subjective This 67 year old female was seen for OT eval with dx of Fahr's syndrome balance disorder and tremors. pt states the end of Mar. or early Apr. she noticed decrease in her ability to bath herself. Pt states she feels like she is shaking from the inside out, states she does have anxiety issues and tremors tend to get worse with the anxiety. pt states she has not noticed if tremors are worse when she is tired. pt retired 22 years ago. states she use to anna but does not have interest. Does like to make stain glass but has increase tremors and is unable to cut glass. Pt states she was seeing Neurologist for her headaches but unfortunately due to missed apt. pt was notified she was no longer a pt. there. Pt states her family is working on getting her a new Neurologist at this time. Pt states she would like to increase her speed of her body and decrease her tremors to become more IND. with ADLs and IADLs. - ADLs Fasteners: Tie shoes, Buttons Comments: using slip on shoes Eating: Bring food to mouth Comments: difficulty with tremors Grooming: [place] teeth Comments: pt states she can perform cleaning but feels slower at the tasks. Miscellaneous: Use cell phone, Handle money (change), Hold change, Write, Use computer keyboard, Operate aerosol cans, Anna/knit/needlework Comments: pt lives in [facility] alone ( no family to assist). lives with cat. has basement ( vasiliy litter is there) pt goes up and down without trouble. laundry is on first floor -. pt has walk in shower and tub shower combination. pt will use both. pt denies use of adaptive equipment. pt states she did have cleaning lady come into her home last month as cleaning is more difficult. - ROM ROM Comments: pt demo ROM WNL of UB - Strength Shoulder: shoulder flexion right 8.8# left 7.5# Elbow: Biceps right 10# left 12# triceps right 13# left 12.5# Assistant Accounting Manager: Right 30# left 20# Lateral Pinch: right 8# left 8# Tripod Pinch: right 4# left 6# Strength Comments: pt demo with generalized weakness - Sensation Sensation Comments: pt states tingling in am when she wakes up. - Nine Hole Peg Right: 27.15 seconds Left: 25.72 seconds - Quick DASH-Disab of Arm,Shoulder& Hand Quick DASH Score: 38.6350 - Goals Goal:: pt will demo a increase in BUE fit2 testing by 10# indicating increase in pts functional strength for ADLs and IADLs by d/c. pt will demo a increase in bilateral quality assurance tech strength by 10# to increase pts IND with IADLs by d/c Goal:: pt will demo legible writing for listing of groceries etc. writing name and sentences with use of ad. pen/ ad. quality assurance tech etc. by d/c. pt will demo a decrease in 9 hold peg test by 5 sec. indicating increase in FMS for manipulation of buttons/coins etc by d/c Goal:: Pt will demo understanding of using Ad. eq. to increase safety with daily tasks by d/c - Rehabilitation General Assessment: Pt demo with a decrease in BUE strength, tremors and slow reaction with daily tasks. pt would benefit from skilled OT services 2x week for 4 weeks to assist pt in use of Ad. eq. and increasing pts ind. with daily tasks. pt agrees to POC. Rehabilitation Potential: Good - Anticipated Interventions A/AAROM/PROM, Strengthening, Orthoses, Ergonomic Education, Fine Motor Coord/Eduardo, Neuro Reeducation, Education re assistive Equipment, Education re Diagnosis, Home Program - Visit Plan Frequency: 2x /Week Duration: 4 Weeks TEXT: Thank you for the opportunity to evaluate your patient. For Medicare and Medicare HMO plans, please review the plan of care and approve it. It will need to be FAXED BACK to us at [phone] for Medicare purposes. Please let me know if there are questions or concerns regarding this plan of care. Physician Signature: Date:
--- NOTE | 2022-09-25 14:27 | HP.OTDCSUM_ITS ---
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 Please see the following information for a summary of their discharge status. % Improvement: 60 Objective/Function: right advisory application developer strength 55# this is increase from 30# left advisory application developer strength 45# this is increase from 20#. right lateral pinch 10# this is increase 8#. left lateral pinch 10# increase from 8#. right tripod pinch 8# increase from 4# left 8# increase from 6#. pt demo a increase in functional advisory application developer and pinch strength from initial eval. Patient Goals: Improve Fine Motor Skills, Be More Independent in ADLS Goal:: pt will demo a increase in BUE fit2 testing by 10# indicating increase in pts functional strength for ADLs and IADLs by d/c. pt will demo a increase in bilateral advisory application developer strength by 10# to increase pts IND with IADLs by d/c Goal:: pt will demo legible writing for listing of groceries etc. writing name and sentences with use of ad. pen/ ad. advisory application developer etc. by d/c. pt will demo a decrease in 9 hold peg test by 5 sec. indicating increase in FMS for manipulation of buttons/coins etc by d/c Goal:: Pt will demo understanding of using Ad. eq. to increase safety with daily tasks by d/c Plan: D/C Discharge Comments: pt met OT goals and will cont. her HEP. therapist ed. pt on ad. eq. and live scribe pen for writing if her writing continues to challenging. pt agrees with HEP and D.C If there are questions or concerns regarding this patient's occupational therapy, please fell free to call me at [phone]. Thank you for the referral of this patient. Sincerely, Cyndi Hancock, OTR/L, CHT
== END 2022-09-25 19:00 | disposition home or self-care (01) ==
LOC: OT 14:00
PROVIDERS: PCP Nurse Practitioner Family; Referring Provider Nurse Practitioner Family; Visit Provider Nurse Practitioner Family
DX: G23.8 Other specified degenerative diseases of basal ganglia (principal); R26.89 Other abnormalities of gait and mobility; R25.1 Tremor, unspecified
CPT/HCPCS: 97110; 97166; 97530

== ENCOUNTER 2022-09-26 07:32 | Outpatient (RCR) | payer MEDICARE, OTHER, SELFPAY ==
[2022-09-26 00:40] VITALS: BP 140/91; PULSE 81
--- NOTE | 2022-09-26 09:07 | BH.SGPN.GN ---
Behaviors/Verbalizations/Mental Status: []Eye contact good, casually dressed, motor activity appropriate, speech normal rate and tone, mood dysthymic and anxious, congruent affect, thoughts linear and intact, no evidence of delusions or hallucinations. Reviewed pt's symptom tracker, reports of suicidal ideation as 1/5 which is within pt baseline, denies plan, or intent as of this date. Future oriented. Client Response/Progress/Benefit: []Pt responded well to session, attentive and willing to process with group. Pt reports feeling overwhelmed this morning. Attributes this to ongoing stress related to multiple upcoming medical appointments. Shared trying to use positive self-talk to remind herself of the importance of these appointments. Pt did well to identify current mental health wins which included reaching all her physical therapy goals to be successfully discharged from the program. Pt shared an additional win as using opposite action to go to the drugstore and complete a few errands. Pt receptive of supportive feedback provided by the group. Appeared to benefit from group?discussion and supportive environment. Recommended continued IOP tx to continue to improve consistency of healthy skill application, promote mood stability and anxiety management, as well as prevent decompensation. Narrative Note: []
--- NOTE | 2022-09-26 10:10 | BH.SGPN.GN ---
Behaviors/Verbalizations/Mental Status: [] Client alert and oriented, casually dressed and groomed. Eye contact good. Motor activity appropriate. Speech within normal limits. Affect constricted, mood euthymic and anxious. Thoughts linear, logical, no signs of hallucinations or delusions. Client Response/Progress/Benefit: []Client responded well to session AEB participating in discussion, taking notes throughout, and listening attentively to others. Client was attentive throughout group activity identifying famous individuals and how they overcame failure to be successful. Client helped group identify how fear of failure can impact mental health and relationships. Client with group identified how fear of failure leads to self-sabotage, not trying, and procrastination. Client participated in experiential activity, working with group members to problem solve. Appeared to benefit from increased knowledge of fear of failure. Will continue IOP tx to improve self-confidence, reduce anxious thinking patterns, and prevent decompensation. Narrative Note: []
--- NOTE | 2022-09-26 11:10 | BH.SGPN.GN ---
Behaviors/Verbalizations/Mental Status: [] Client alert and oriented, casually dressed and groomed. Eye contact good. Motor activity appropriate. Speech within normal limits. Affect constricted, mood euthymic and anxious. Thoughts linear, logical, no signs of hallucinations or delusions. Client Response/Progress/Benefit: [ ] Client responded well to session, engaged in the experiential activity and attentive throughout group processing. Client reported fear of failure has kept client from working on her mental health. Client completed fear of failure worksheet and was able to identify thoughts and behaviors that reinforce personal fear of failure including past experiences, lack of supports, and not being good enough. Client participated in small group discussion regarding strategies to overcome fear of failure. Identified wanting to work on practicing self compassion and passive self talk Appeared to benefit from increased knowledge of strategies to combat fear of failure and gaining self-awareness. Client will continue IOP tx to reduce anxiety and avoidance. Narrative Note: []
--- NOTE | 2022-09-26 11:57 | BH.TPR ---
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 Pt contributes well during individual sessions and she is becoming more engaged during group sessions. Pt applies coping skills outside of IOP and reports overall mood is improved. Pt is consistent with her goals and reports improving functioning at home. Status of Current Problems and Symptoms: Pt continues to struggle with severe anxiety, ruminations, avoidance, and negative self-talk. Pt is working on facing things that make pt anxious using goal setting, so it is not surprising that pt's anxiety has slightly increased from admission. 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 Pt is working on getting back into hobbies she enjoys, but she is also hard on herself for not functioning like she used to. Problem #1 Problem Name:: Depression, hopelessness, lack of motivation, isolation, lack self-care Status of Goals:: Objective 1- in progress. Pt?s DSM-5 scores for depression decreased by 12% since admission and SI has decreased by 50%. Pt has been utilizing opposite action, SMART goals, and reaching out to supports to manage depression. Objective 2- complete with ongoing work encouraged. Pt reports increased functioning at home AEB report of cleaning more, eating more regularly, and being consistent with appointments. Team Recommendations:: Treatment tx encourages pt to continue working on this tx goal as pt has made progress, but she can continue to reduce intensity of depressive symptoms. Pt also can benefit from challenging distortions and giving herself credit more consistently. Pt is also working on reaching out to supports and returning to hobbies pt enjoys. Problem #2 Problem Name:: Anxiety, avoidance, and rumination Status of Goals:: Objective 1- in progress. Pt?s DSM-5 scores for anxiety have slightly increased since admission, which could be due to increased engagement in things that make pt anxious. Pt has been sharing more in group and she has been going to the grocery store alone. Objective 2- in progress. Pt is working on getting back to [employer], going to the grocery store, and sharing consistently in group. Pt is doing well with these goals and reports being proud of herself when pt accomplishes these. Team Recommendations:: Treatment tx encourages pt to continue working on this treatment goal to further reduce avoidance, increase self-confidence and mastery, and gain healthy support. Pt is also encouraged to return to old social activities like attending [employer] once a week.
--- NOTE | 2022-09-26 12:11 | PCM.BH.PN_ITS ---
Progress Note Progress Note: And history of Present Illness/Interim History: The patient is a 67-year-old female with a history of depression, anxiety, and Fahr's disease who is seen in follow-up at the [facility] behavioral health IOP program. I last saw the patient 3 weeks ago and at that time no medication changes were made. The patient feels she is doing well in the IOP program and learning valuable skills to help manage her mental health symptoms. She feels in the last week or so her symptoms have improved and she is doing much better. I did call the patient's psychiatrist in [place] but they never called back and the patient states that she is switching to Dr. Carias here in [place] and has actually seen him one time. No medication changes were made at that time. The patient has an appointment with a neurologist coming up next week. Her mood she described as less depressed. She still is anxious but again this is less than before. She has occasional passive thoughts of but not as much as before. She has occasional hopelessness. She denies suicidal ideation, homicidal ideation, plan for suicide, hallucinations or delusions. Even though she is still anxious she is now able to leave the house and able to drive herself now. She has some anhedonia still mostly due to the fact that she cannot do her stained-glass which was her favorite hobby. She still lies in bed and thinks a lot of she has no appointments to go to. She has lost 2 or 3 more pounds but feels her weight loss is desired by her and so does not want to do anything about this yet. Current Psychiatric Medications: [] Cymbalta 150 mg p.o. daily (on this 8 to 10 years after NormOxysight testing showed her to be a high metabolizer of Cymbalta); Xanax 1 mg p.o. twice daily x2 months; the plan is by her outpatient doctors for her to restart her Klonopin when she runs out of Xanax. I discussed with the patient that she should take only the amount of Klonopin absolutely necessary and no more than 1 mg twice a day. Mental Status Examination: [] The patient is a 67-year-old female who appears normal for stated age and is casually dressed and groomed with good hygiene. She is cooperative during the interview with no response latency today and no hand fidgeting. She is ambulatory with a normal gait. Eye contact is good and speech is normal rate and rhythm and fluent with no pressure. Mood is depressed. Affect is constricted but brighter than initial appointment. Thought process is goal-directed and organized. Thought content: There is evidence of occasional passive thoughts of . There is no evidence of suicidal ideation, plan for suicide, homicidal ideation, hallucinations or delusions. Reality testing is intact. Intelligence is average. Judgment is intact. Insight is improving but limited. Impulsivity is low. Diagnoses: [] 1. Major depressive disorder, recurrent, severe without psychosis 2. Generalized anxiety disorder 3. Panic disorder 4. 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 5. Fibromyalgia 6. Primary support and health issues Plan: [] The patient will continue the IOP program at [facility] as the structure, support, education and group therapy will hopefully prevent worsening of the patient's symptoms which could require hospitalization. The patient felt safe during the interview and if it anytime she does not feel safe she will let us know or go to the emergency room. The risks, options, possible complications and side effects of the medications were discussed with the patient and she understands and accepts these. Discussed again the risk of falling, dependence and possible dementia with the use of long-term Klonopin in older patients. Discussed the recommendation that she wean slowly off of the Klonopin. The patient does not want to add Remeron as she does not want to gain weight. She is seeing a neurologist soon so no propranolol was tried for tremor. The patient will continue to follow-up with her outpatient providers medical and psychiatric and I will see the patient in follow-up while in the IOP program. The GeneSight testing results will be requested from Dr. Carias in case medication changes are warranted.
--- NOTE | 2022-09-27 09:00 | BH.SGPN.GN ---
Behaviors/Verbalizations/Mental Status: [] Client alert and oriented, casually dressed and groomed. Eye contact good. Motor activity appropriate. Speech within normal limits. Affect congruent, mood anxious and euthymic. Thoughts linear, logical, no signs of hallucinations or delusions. Reviewed client?s symptom tracker, no risk for suicidal ideation, plan, or intent as of 09/27/22 Client Response/Progress/Benefit: [] Client responded well to session, offering ideas to peers and providing encouragement. Client reports feeling overwhelmed this morning as client shared that she has a lot of appts to go to and is struggling to implement self-care. Client's wins this morning include her reporting that she has been proactive when faced with stressors instead of procrastinating and indicated taking her car in when tire light showed up. Client also shared how she now is able to go to the store on her own and manage anxiety. Group members shared ways to consistently implement self care with client. Client appeared to benefit from reflecting on her growth and input from group members. Client will continue IOP tx to increase use of healthy thought patters, decrease isolaton and prevent decompensation. Narrative Note: []
--- NOTE | 2022-09-27 10:10 | BH.SGPN.GN ---
Behaviors/Verbalizations/Mental Status: []Eye contact is good. Motor activity is appropriate. Appearance is neat. Speech is Appropriate. Mood is euthymic and anxious. Affect is congruent. Thoughts are linear and logical. No evidence of psychosis. Client Response/Progress/Benefit: []Pt was an active participant in group discussions and activities. Attentive during psychoeducation. Pt engaged during interactive discussion in which the group defined self-care and discussed its benefits. ?Worked with peers in a small group to identify myths related to self-care which included; Self-care is expensive, self-care is selfish, not everyone deserves self-care, self-care means a person is weak, and self-care takes up too much time. Pt participated in small groups where they worked to bust these self-care myths. Pt did well to relate experiential activity to the topic of self-care and its benefit to mental health. Benefited from increased awareness of self-care, its benefits, and the consequences of not utilizing self-care strategies. Pt made a lot of connections in group sharing that she has ?always? struggled with self-care. Will continue in IOP to improve mood stability, reduce isolative behaviors, and increase self-confidence. ? Narrative Note: []
--- NOTE | 2022-09-27 11:10 | BH.SGPN.GN ---
Behaviors/Verbalizations/Mental Status: []Pt alert and oriented, casually dressed and groomed. Eye contact good. Motor activity appropriate. Speech within normal limits. Affect constricted, mood anxious and depressed. Thoughts linear, logical, no signs of hallucinations or delusions. Client Response/Progress/Benefit: []Pt engaged participant AEB completing self-assessment worksheet and providing input throughout discussion. Participated in group discussion on the various areas of self-care. Pt completed worksheet identifying current self-care practices and what self-care activities pt wants to start using. Pt selected social and physical self-care to begin practicing more consistently. Pt plans to do this by challenging herself to keep her medical appointments and to plan more hangouts with supports. Appeared to benefit from completing the self-care evaluation and gaining insights into current self-care practices, as well as identifying areas in which he would like to improve upon. Will continue IOP tx to improve mood stability, reduce avoidance, and increase self-confidence. Narrative Note: []
--- NOTE | 2022-09-27 13:41 | BH.MDN ---
Multi-Disciplinary Note - Note 45-min Individual Time Started:: 12:10 Date: 09/27/22 Purpose of session/treatment goals addressed:: To work on goal #1 of pt's tx plan. Another goal was to help pt overcome her fear of not being perfect by practicing freeform art in session. Eye Contact:: Good Motor Activity:: Appropriate Appearance:: Neat Speech:: Soft Mood:: Anxious, Depressed Affect:: Constricted Thoughts:: Linear, Logical, No evidence of hallucinations/delusions noted Staff Interventions:: thought challenging, CBT techniques, mindfulness skills - practiced the 5-senses in session, strengths perspective, goal setting Client Response:: Pt responded well to session, open to meeting with therapist. Pt reports feeling low today because pt did not accomplish my goals. Pt did not complete the specific goals she set, but after processing, pt recognized that she still did many positive things since last session. Pt went to the grocery store, cooked for herself, wrote in her accomplishment log, and put all her groceries away. Pt also has been sharing more in group. Pt admits to being highly self-critical which leads to minimization of her wins and avoidance of her hobbies. Pt wants to get back into the art she used to enjoy, but pt has not because of fear of not being good. Pt receptive to practicing freeform art with therapist. Pt took a random shape drawn by therapist and turned it into art. Pt reported benefitting from this as it reminded pt she does not have to be perfect to enjoy something. Pt also practiced the 5-senses in session and was encouraged to practice this over the weekend. Pt is hoping that practicing grounding skills will help her manage anxiety and be able to return to orthodox. Pt will work on her previous goals for next week. Risks/Concerns:: Pt denies any suicidal ideations, plan, or intent as of 09/27/22. Pt is future oriented. Progress Toward Goals/Plan:: Pt continues to make progress towards her tx goals AEB pt's report of working on her goals and her high engagement in group. Pt is highly self-critical which reinforces negative thinking and minimization of accomplishments. Pt continues to report lack of appetite, isolative behaviors, lack of motivation, ruminations, negative self-talk, avoidance, and anxiety. Pt is doing more outside her house, but pt is still unable to function at her baseline. Pt will continue IOP tx to promote mood stability, reduce avoidance, and improve daily functioning. Time Stopped:: 12:50
--- NOTE | 2022-10-01 09:05 | BH.SGPN.GN ---
Behaviors/Verbalizations/Mental Status: []Eye contact good, casually dressed, motor activity appropriate, speech normal rate and tone, mood depressed and anxious, congruent affect, thoughts linear and intact, no evidence of delusions or hallucinations. Reviewed pt's symptom tracker, suicidal ideation within baseline, pt denies plan, or intent as of this date. Future oriented. Client Response/Progress/Benefit: []Pt responded well to session, attentive and willing to process with group. Pt reports feeling just okay this morning. Pt initially struggled to identify wins, but with encouragement did well to identify current mental health wins from the weekend. This included connecting with her best friend about her mental health over the phone, whom was very supportive. Pt additionally reached out to her sister and shared that this had been a positive conversation as they had not connected in two weeks. Ongoing depression and anxiety remain primary stressors for pt, though she does report more consistent skill application. Appeared to benefit from group?discussion and supportive environment. Recommended continued IOP tx to continue to improve healthy skills, promote mood stability and anxiety management, as well as prevent decompensation. Narrative Note: []
--- NOTE | 2022-10-01 10:10 | BH.SGPN.GN ---
Behaviors/Verbalizations/Mental Status: [] Client alert and oriented, neatly dressed and groomed. Eye contact normal. Motor activity appropriate. Speech within normal limits. Affect congruent, mood euthymic and anxious. Thoughts linear, logical, no signs of hallucinations or delusions. Client Response/Progress/Benefit: [] Client was an active participant AEB contributing to discussion, taking notes, and engaging in group activity. Connected with the topic of pitfalls and listened to group discussion on barriers that prevent from choosing a healthier path to mental wellness. Group worked together to identify examples of personal pitfalls which included; being in denial, emotional outbursts, and procrastination. Client identified anxiety has been a constant pitfall for her. Client benefited from group as client learned to better identify potential barriers to improving mental health symptoms. Client will continue IOP tx to increase healthy coping skills, minimizing negative thinking patterns, and increase self worth. Narrative Note: []
--- NOTE | 2022-10-01 11:10 | BH.SGPN.GN ---
Behaviors/Verbalizations/Mental Status: [] Client alert and oriented, casually dressed and groomed. Eye contact good. Motor activity appropriate. Speech within normal limits. Affect congruent, mood euthymic and anxious. Thoughts linear, logical, no signs of hallucinations or delusions. Client Response/Progress/Benefit: [] Client receptive of session, engaged throughout AEB actively listening and contributing to discussion, as well as taking notes. Client participated in the experiential activity and did well to communicate ideas with peers and manage emotions of anxiety and stress that she experienced during activity. Client and group processed how the emotions and perspective of the group impacted the activity. Group worked together to identify different coping skills to help manage pitfalls. Client identified pitfalls they struggle with and shared wanting to work on strategies of being consistent with counseling, self care, and implementing coping skills to overcome them. Benefited from identifying personal pitfalls and strategies to overcome these pitfalls. Will continue IOP tx to prevent decompensation, improve self-care and emotion regulation, and increase the use of healthy coping skills. Narrative Note: []
--- NOTE | 2022-10-02 09:05 | BH.SGPN.GN ---
Behaviors/Verbalizations/Mental Status: []Pt alert and oriented, neatly dressed and groomed. Eye contact good. Motor activity appropriate. Speech within normal limits. Affect constricted, mood anxious. Thoughts linear, logical, no signs of hallucinations or delusions. Reviewed pt?s symptom tracker, no risk for suicidal ideation, plan, or intent as of 10/02/22 Client Response/Progress/Benefit: []Pt responded well to session, attentive and engaged. Pt reports feeling anxious this morning as pt has an upcoming medical appointment tomorrow. Pt is worried about what her neurologist will say about her current symptoms. Pt encouraged to practice mindfulness skills and self-care which pt was receptive to. Pt's mental health wins today were that pt went to [facility] by herself and she worked on her bills. Pt continues to make progress on reducing avoidance due to anxiety. Pt will continue IOP tx to prevent decompensation, increase anxiety management skills, and improve self-confidence. Narrative Note: []
--- NOTE | 2022-10-02 10:15 | BH.SGPN.GN ---
Behaviors/Verbalizations/Mental Status: []Pt alert and oriented, neatly dressed and groomed. Eye contact good. Motor activity appropriate. Speech within normal limits. Affect constricted, mood dysthymic and anxious. Thoughts linear, logical, no signs of hallucinations or delusions. Client Response/Progress/Benefit: []Pt was an active participant in group discussions and experiential activity. Attentive during psychoeducation. Pt provided input during discussion on types of social supports which included; family, friends, PCP, mental health providers, support groups, pets, ourselves, community classes, etc. Pt along with the group identified mental health benefits of social support which patient and group identified as; it can help with emotional release, help one to feel heard, validation, distraction, they can encourage us, provide motivation, provide accountability, and boost our mood. Pt also identified personal barriers to obtaining support which included; unrealistic expectations, not knowing how to ask for help, and feeling like a burden. Benefited from increased awareness of mental health benefits of social support and obstacles that prevent one from utilizing support. Will continue in IOP to improve daily functioning, reduce negative thinking, and improve mood stability. Narrative Note: []
--- NOTE | 2022-10-02 11:10 | BH.SGPN.GN ---
Behaviors/Verbalizations/Mental Status: []Pt alert and oriented, casually dressed and groomed. Eye contact good. Motor activity appropriate. Speech within normal limits. Affect congruent, mood anxious and depressed. Thoughts linear, logical, no signs of hallucinations or delusions. Client Response/Progress/Benefit: []Pt was an active participant throughout AEB contributing to discussion, providing personal examples, and taking notes.? Pt provided input during discussion on the types of support our supports can provide. Pt able to identify current support system and barriers that get in the way of using supports by drawing out their own support net. Personal barriers included isolation, not reaching out for help, and miscommunication. Pt reported after identifying what type of supports they receive; they gained awareness that they could benefit from more informational supports. Pt identified steps to achieve this by reaching out to local resources to gain information on services available. Pt seemed to benefit from identifying the type of support pt needs to work on improving. Pt recommended to continue IOP tx to prevent decompensation, improve overall functioning, and reduce isolation. Narrative Note: []
--- NOTE | 2022-10-02 15:31 | BH.MDN_ITS ---
Multi-Disciplinary Note - Note 45-min Individual Time Started:: 08:10 Date: 10/02/22 Purpose of session/treatment goals addressed:: To work on goal #1 of pt's tx plan. Eye Contact:: Good Motor Activity:: Slowed Appearance:: Neat Speech:: Soft Mood:: Anxious, Dysthymic Affect:: Flat Thoughts:: Linear, Logical, No evidence of hallucinations/delusions noted Staff Interventions:: thought challenging, psychoeducation on: - self- compassion, CBT techniques, strengths perspective, goal setting Client Response:: Pt responded well to session, open to meeting with therapist. Pt reports she did some positive things recently, but pt does not feel she deserves credit for them. Pt is able to acknowledge accomplishments with help from therapist, but on her own, pt utilizing a lot of distortions. Pt receptive to reviewing opposite action and how this helps break depressive maintenance cycles. Pt also receptive to learning about self-compassion. Pt learned about the three components of self-compassion and together with therapist, practiced thought challenging with these components. Pt receptive to reviewing the self- compassion components for homework. Risks/Concerns:: Pt denies any suicidal ideations, plan, or intent as of 10/02/22. Progress Toward Goals/Plan:: Pt continues to make progress on her tx goals AEB pt's consistent engagement and self-report of following through with her goals. Pt has difficulty giving herself any credit and often minimizing her accomplishments. Pt's biggest stressor right now is her neurology appointment tomorrow. Pt continues to endorse a depressed mood, anxiety with avoidance, ruminations, isolative behaviors, and lack of motivation. Pt will continue IOP tx to promote use of healthy coping skills, combat distortions, and improve daily functioning. Time Stopped:: 09:00
--- NOTE | 2022-10-05 09:10 | BH.SGPN.GN ---
Behaviors/Verbalizations/Mental Status: []Eye contact good, neat and casually dressed, motor activity appropriate, speech normal rate and tone, mood dysthymic and anxious, congruent affect, thoughts linear and intact, no evidence of delusions or hallucinations. Reviewed pt's symptom tracker, pt denies suicidal ideation, plan, or intent as of this date. Future oriented. Client Response/Progress/Benefit: []Pt responded well to session, attentive and willing to process with group. Pt reports feeling tired this morning. Pt did well to identify wins, which included spending time cleaning her home with a friend, as well as reaching out to her sister for support following receiving difficult medical information. Pt reports that this is her stressor as well, noting that at a recent neurology appointment she had been informed that she may have Parkinson?s Disease. Noted trying to focus on being present and not think about this possibility too much until she knows for sure what the results are. Appeared to benefit from group?discussion and supportive environment. Progress noted in increased encouragement of peers and self-report of improved skill application. Recommended continued IOP tx to continue to improve consistent use of healthy skills, promote mood stability, as well as prevent decompensation. Narrative Note: []
--- NOTE | 2022-10-05 10:10 | BH.SGPN.GN ---
Behaviors/Verbalizations/Mental Status: [] Client alert and oriented, casually dressed and groomed. Eye contact good. Motor activity appropriate. Speech within normal limits. Affect congruent, mood euthymic. Thoughts linear, logical, no signs of hallucinations or delusions. Client Response/Progress/Benefit: [] Client responded well to session, contributing to discussion and engaged during the activity. Attentive during discussion on the quote and shared Isolation has led to less change for her. Group identified the benefits of change which included: personal growth, improved relationships, more confidence, and progress towards goals. Worked with the group to identify barriers to change, which included: uncomfortable emotions such as anxiety, lack of motivation, others's opinions, and negative thinking. Client participated along with group in activity where they identified and discussed the emotions related to change. Benefited from increased awareness and understanding of emotions, benefits, and barriers related to change. Will continue IOP tx to continue to challenge anxious thinking pattern, increase self confidence, and prevent decompensation. Narrative Note: []
--- NOTE | 2022-10-05 11:10 | BH.SGPN.GN ---
Behaviors/Verbalizations/Mental Status: [ ] Client alert and oriented, casually dressed and groomed. Eye contact good. Motor activity appropriate. Speech within normal limits. Affect congruent, mood euthymic. Thoughts linear, logical, no signs of hallucinations or delusions. Client Response/Progress/Benefit: [] Client responded well to session, attentive. Did well to process activity and work with group to relate the strategies used to overcome barriers in the activity to managing change in own life. Client identified she would like to focus on creating a larger support network. Identified being in the contemplation stage. Client stated her goal is to call 2 supports this week. Appeared to benefit from identifying a small goal to work towards. Client will continue IOP tx to prevent decompensation, gain healthy coping skills, and increase positive self talk. Narrative Note: []
--- NOTE | 2022-10-10 09:00 | BH.SGPN.GN ---
Behaviors/Verbalizations/Mental Status: [] Eye contact is good. Motor activity is appropriate. Appearance is casual. Speech is Appropriate. Mood is anxious/depressed. Affect is congruent. Thoughts are linear and logical. No evidence of psychosis. Reviewed daily check in sheet and no reports of suicidal ideations or intent. Client Response/Progress/Benefit: [] Pt participated at times during the group discussion. Attentive. Daily symptom tracker notes 3/5 for anxiety and 2/5 for depression. Mental health wins include ?going to the store? which she highlighted is mental health win due to her social anxiety, isolation, and fears regarding her health. Shared with the group that her neurologist suspects that she might have Parkinson?s and how this has impacted her mental health leading to fear, anxiety, anger, and depression. Educated herself on Parkinson and is working through acceptance. She has been receiving a significant amount of support from her family and friends which has been helpful. Also believes that new medication is helping with tremors. Benefited from group support, encouragement, and feedback. Group attempted to empathize with her current situation. Will continue in IOP to prevent decompensation, increase health coping, and improve functioning. Narrative Note: []
--- NOTE | 2022-10-10 10:14 | BH.SGPN.GN ---
Behaviors/Verbalizations/Mental Status: [] Client alert and oriented, neatly dressed and groomed. Eye contact good. Motor activity appropriate. Speech normal. Affect congruent, mood euthymic. Thoughts linear, logical, no signs of hallucinations or delusions. Client Response/Progress/Benefit: [] Client was an engaged participant AEB client listening attentively to others and participating throughout. Attentive during psychoeducation on communication styles. Assisted group with identifying barriers of effective communication which included: assuming, shutting down, dominating the conversation, and getting emotional. Client identified they most often use passive communication with her indicating that she feels like a doormat a lot. Client reports being passive impacts her by issues not being resolved and self esteem getting negatively affected. Client shared that she can be assertive with people that she trusts and sees the benefit vs being passive. Benefited from increased awareness of different communication barriers, styles, and the importance of communicating effectively to improve mental wellness. Will continue IOP tx to challenge cognitive distortions, increase self-awareness, and improve daily functioning. Narrative Note: []
--- NOTE | 2022-10-10 14:04 | BH.MDN ---
Multi-Disciplinary Note - Note 45-min Individual Time Started:: 11:50 Date: 10/10/22 Purpose of session/treatment goals addressed:: To process current stressors, provide emotional support and validation on recent medical news, and identify ways to improve acceptance and coping. Eye Contact:: Good Motor Activity:: Slowed Appearance:: Neat Speech:: Soft Mood:: Depressed Affect:: Constricted - tearful Thoughts:: Linear, Logical, No evidence of hallucinations/delusions noted Staff Interventions:: CBT techniques, strengths perspective, goal setting, other - emotional support and validation. Discussed acceptance Client Response:: Pt responded well to session, open to meeting with therapist. Pt was tearful and shared that she might have Parkinson's Disease. Pt reported the doctors still need to gather more information, but it seems likely. 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 Pt shared she is having difficulty accepting this diagnosis and she feels angry, sad, and anxious. Pt understands that there are different stages and that it might not be worst case scenario. After processing and gaining emotional support, pt was receptive to learning about acceptance and thought challenging. Pt open to exploring support groups if she does have Parkinson's as well as contacting her PCP for additional resources. Pt receptive to returning to keeping track of her wins to help combat her distortions. Risks/Concerns:: Pt denies any suicidal ideations, plan, or intent as of 10/10/22. Pt does endorse increased depressive symptoms since getting news that she may have Parkinson's Disease. Progress Toward Goals/Plan:: Despite recent stressors and increased depressive symptoms due to stressor, pt is responding better than she would have in the past per her report. Pt isolated and was tearful throughout the week/weekend, but pt is still getting out of her house, attending IOP, and reaching out to supports. Pt is receptive to thought challenging and engaged in tx. Pt currently endorses grief, a depressed mood, lack of motivation, anhedonia, crying spells, and loss of appetite. Pt is struggling with negative thinking, but she is willing to use her skills. Pt will continue IOP tx to prevent further decompensation, combat distortions, and help pt cope with medical issues. Time Stopped:: 12:35
--- NOTE | 2022-10-11 09:00 | BH.SGPN.GN ---
Behaviors/Verbalizations/Mental Status: [] Eye contact is good. Motor activity is appropriate. Appearance is casual. Speech is Appropriate. Mood is anxious. Affect is congruent. Thoughts are linear and logical. No evidence of psychosis. Reviewed daily check in sheet and no reports of suicidal ideations or intent. Client Response/Progress/Benefit: [] Pt participated at times during the group discussion. Attentive. Daily symptom tracker notes 4/5 for anxiety and 3/5 for depression. Emotion for today is anxious. [facility] was following up with responsibilities and phone calls. Majority of the time pt discussed the struggles of accepting the fear of the unknown regarding her medical issues. Fearful of possible dx of Parkinson's and how that will impact the rest of her life. Group brought up radical acceptance and a discussion was had regarding the strategies which was beneficial. Will continue in IOP to prevent decompensation, increase healthy coping, and improve functioning. Narrative Note: []
--- NOTE | 2022-10-11 10:10 | BH.SGPN.GN ---
Behaviors/Verbalizations/Mental Status: []Client alert and oriented, casually dressed and groomed. Eye contact good. Motor activity appropriate. Speech within normal limits. Affect congruent, mood anxious. Thoughts linear, logical, no signs of hallucinations or delusions Client Response/Progress/Benefit: []Client responded well to session AEB providing input when prompted, taking notes, and listening attentively to others. Client was engaged throughout group discussion defining fixed mindset and what it can look like. Group identified several aspects of fixed mindset which included; negative outlook, difficulties taking criticism, absolute thinking, and unrealistic expectations of self/others. Group discussed how fixed mindset affects mental health and why we use fixed thoughts. Client participated in experiential activity encouraging clients to find solutions to a seemingly impossible task. Client identified personal fixed thoughts in session which included ?I?m broken?, ?I?m unlovable?, and ?This is just how things are?. Client gained insight to how these fixed thoughts impact motivation, self-care and urges to isolate, and keep client stuck in unhealthy cycles. Client appeared to benefit from increased knowledge of fixed mindset and self-awareness of personal fixed thoughts. Will continue IOP treatment to reduce depression, increase healthy thought patterns, and to prevent decompensation. Narrative Note: []
--- NOTE | 2022-10-11 11:10 | BH.SGPN.GN ---
Behaviors/Verbalizations/Mental Status: []Pt alert and oriented, neatly dressed and groomed. Eye contact good. Motor activity appropriate. Speech within normal limits. Affect constricted, mood anxious. Thoughts linear, logical, no signs of hallucinations or delusions. Client Response/Progress/Benefit: []Pt engaged during activity and discussion AEB providing some input, connecting with peers, as well as taking notes throughout. Pt did well to engage as group worked on identifying characteristics and benefits of adopting a growth mindset. Worked with fellow participants in reframing the example fixed thoughts into growth mindset thoughts. Reframed personal fixed thought of ?I?m not good enough or doing enough? with growth mindset thought of ?I?m doing the best I can right now.? Benefitted from discussing benefits of growth mindset and brainstorming strategies for prompting growth-mindset. Pt selected ?living in the [place]ukes? as the coping skill pt wants to work on this week. Pt is coping with medical stressors, but she has remained engaged in tx. Pt will continue IOP tx to reinforce healthy coping skills, reduce negative thinking, and improve daily functioning. Narrative Note: []
--- NOTE | 2022-10-17 09:00 | BH.SGPN.GN ---
Behaviors/Verbalizations/Mental Status: []Pt alert and oriented, neatly dressed and groomed. Eye contact good. Motor activity appropriate. Speech within normal limits. Affect congruent, mood stressed. Thoughts linear, logical, no signs of hallucinations or delusions. Reviewed pt?s symptom tracker, no risk for suicidal ideation, plan, or intent as of 10/17/22 Client Response/Progress/Benefit: []Pt responded well to session, attentive and providing supportive statements. Pt reports feeling discombobulated this morning due to recently being sick and dizzy. Despite recent stressors, pt has been coping much better and she identified several healthy coping skills. Pt used self-care by taking baths and working on her taxes this weekend. Pt also socialized last night and was able to return to IOP today after missing two days. Pt can identify areas of growth even though she shared she wants to disqualify the positives. Pt appeared to benefit from reflecting on her gains. Pt will continue IOP tx to promote mood stability, combat distortions, and increase self-compassion. Narrative Note: []
--- NOTE | 2022-10-17 10:15 | BH.SGPN.GN ---
Behaviors/Verbalizations/Mental Status: [] Eye contact is good. Motor activity is appropriate. Appearance is casual. Speech is Appropriate. Mood is anxious. Affect is congruent. Thoughts are linear and logical. No evidence of psychosis. Client Response/Progress/Benefit: [] Pt participated at times during group discussion. This group was very heavy on psychoeducation and pt was attentive AEB by note-taking, providing input when appropriate, and asking questions. Participated in interactive discussion in which peers attempted to define and give examples of automatic negative thoughts and cognitive distortions. Therapist presented and reviewed ten common cognitive distortions (All or Nothing thinking, mental filter, jumping to conclusions, emotional reasoning, labeling, overgeneralization, disqualifying the positives, catastrophizing, shoulds, and personalization). Benefited from increased understanding of cognitive distortions and how they impact automatic negative thoughts. Will continue in IOP to prevent decompensation, increase healthy coping, and improve functioning. Narrative Note: []
--- NOTE | 2022-10-17 11:10 | BH.SGPN.GN ---
Behaviors/Verbalizations/Mental Status: []Eye contact is good. Motor activity is appropriate. Appearance is casual. Speech is WNL. Mood is euthymic. Affect is congruent. Thoughts are linear and logical. No evidence of psychosis. Client Response/Progress/Benefit: []Pt engaged participant AEB providing input during small group discussion and engaging in activity. Activity involved working with peers to answer questions related to psychoeducation on cognitive distortions and practicing reframing distorted thoughts. Pt collaborated with the group to determine the answers. Identified cognitive distortion struggles with the most as shoulds and musts. Benefited from rehearsing ways to challenge/reframe cognitive distortions and by gaining increased insight into examples/definitions of 10 most common cognitive distortions. Will continue in IOP to continue use of healthy coping, continue to decrease avoidance of anxious symptoms, and prevent decompensation.
--- NOTE | 2022-10-17 12:27 | PCM.BH.PN ---
Progress Note Progress Note: And history of Present Illness/Interim History: The patient is a 67-year-old female with a history of depression, anxiety and Fahr's disease who is seen in follow-up at the [facility] behavioral health IOP program. I last saw the patient several weeks ago. The patient saw her neurologist since that talk and the patient was told she either has Parkinson's disease or Fahr's disease as a source of her tremor. She was started on carbidopa?levodopa medication and this has helped her tremor. 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 The patient feels her mood is slowly becoming less depressed. Her anxiety is slowly improving also but she is still a little anxious about an upcoming MRI on October 31, 2022 to help with her neurological diagnosis. The [employer]ap[employer] results were also reviewed with the patient and discussion was again had about weaning the Cymbalta. The patient denies passive thoughts of now. She denies suicidal ideation, homicidal ideation, plan for suicide, hallucinations or delusions. Current Psychiatric Medications: [] Cymbalta 150 mg p.o. daily (on this 8 to 10 years and no dose change for years); Klonopin 2 mg p.o. every morning (by outpatient provider). Carbidopa?levodopa was added for possible Parkinson's tremor. By neurologist. Mental Status Examination: [] Patient is a 67-year-old female who appears normal for stated age and is casually dressed and groomed with good hygiene. She is cooperative during the interview with no response latency. She is ambulatory with a normal gait and has no psychomotor agitation or retardation. Eye contact is good and speech is normal rate and rhythm and fluent with no pressure. Mood is mildly anxious.. Affect is approaching full and normal. Thought process is goal-directed and organized. Thought content: The patient is looking forward to finally getting a diagnosis for what is causing her tremor. She is nervous about the diagnosis but looks forward to at least having a plan to deal with this. There is no evidence of passive thoughts of , suicidal ideation, plan for suicide, homicidal ideation, hallucinations or delusions. Reality testing is intact. Intelligence is average. Judgment is intact. Insight is fair. Impulsivity is low. Patient does have a tremor which is worse with intention bilaterally. Diagnoses: [] 1. Major depressive disorder, recurrent, severe without psychosis 2. Generalized anxiety disorder 3. Panic disorder 4. Fahr's disease 5. Rule out Parkinson's disease (rule out exacerbation of depression and anxiety secondary to #4 or 5). 6. Fibromyalgia 7. Primary support and health issues Plan: [] The patient will continue the IOP program at [facility] as the structure, support, education and group therapy will hopefully prevent worsening of the patient's symptoms. She felt safe during the interview and if it anytime she does not feel safe she will let us know or go to the emergency room. The risk, options, possible complications and side effects of the medications were again discussed with the patient and she understands and accepts these. The patient will consider weaning off of the Klonopin for the reasons discussed in the prior to appointments. In addition she wishes to slowly wean the Cymbalta as she has been on it for many years and is given the option of changing over to Trental X (40 Oxy 10) as she has been on the Cymbalta many years. She agrees to decrease her Cymbalta to 120 mg p.o. daily when she starts the Trental X 5 mg p.o. daily. I will see her in 2 weeks or as needed and we will continue slowly weaning the Cymbalta and increasing the Trental X if needed. She will continue to follow-up with her outpatient providers and I will see the patient in follow-up while in the IOP program.
--- NOTE | 2022-10-19 11:26 | BH.MDN ---
Multi-Disciplinary Note - Note 60-min Individual Time Started:: 09:20 Date: 10/19/22 Eye Contact:: Good Motor Activity:: Appropriate Appearance:: Neat Speech:: Appropriate Mood:: Euthymic, Anxious Affect:: Congruent - smiling and joking Thoughts:: Linear, Logical, No evidence of hallucinations/delusions noted Staff Interventions:: thought challenging, discharge planning, strengths perspective, other - began working on pt's maintenance plan. Client Response:: Pt responded well to session, open to meeting with therapist. Pt reports she is doing better than she was last week. Pt stated I noticed I'm smiling and laughing more in group. Pt shared numerous mental health wins since last session including going to the store alone, cleaning her condo, following up with all her appointments, and starting her taxes. Pt also has plans to hangout with a friend uziel and she made goals for this weekend. Pt is still anxious and uncertain about her potential Parkinson's diagnosis, but pt is less overwhelmed by this now. Pt is more hopeful and shared her new medication has reduced tremors. Now that pt's tremors have decreased, pt is receptive to getting back to art. Discussed potentially joining an art class which pt was receptive to. Also discussed other social groups/hobbies pt could engage in and pt was open to exploring these. Pt is anxious about meeting friends and identified strategies to help with this. Pt receptive to starting work on her maintenance plan. Pt identified self-care activities she can do daily, weekly, and monthly. Pt encouraged to complete the self-care section for homework. Risks/Concerns:: Pt denies any suicidal ideations or thoughts of . Progress Toward Goals/Plan:: Pt continues to make progress on her tx goals AEB pt's self-report of improved functioning, increased laughter, and increased accept of her physical health since last session. Pt continues to struggle with negative thinking patterns and pt still isolates, but this is less frequent than before. Pt will continue IOP tx for two more weeks to help pt as she attempts to join a social group in the community and to complete her maintenance plan. Time Stopped:: 10:20
--- NOTE | 2022-10-22 09:05 | BH.SGPN.GN ---
Behaviors/Verbalizations/Mental Status: [] Eye contact is good. Motor activity is appropriate. Appearance is casual. Speech is Appropriate. Mood is anxious. Affect is congruent. Thoughts are linear and logical. No evidence of psychosis. Reviewed daily check in sheet and no reports of suicidal ideations or intent. Client Response/Progress/Benefit: [] Pt was an active participant in group discussion. Attentive. Daily symptom tracker notes 5 for depression and /5 for anxiety. Mental health wins include completing responsibilities and being social this past weekend. Significant progress since noted since [facility] admission as pt was not leaving the house and was very isolative. She reports a panic attack while in [employer] over the weekend due to the high crowds. She utilizes skills and was able to proceed and complete her shopping. Pt viewed having the panic attack as a set-back and was ruminating on possible regression. Group was able to reframe and point out her ability to manage her anxiety and work though it. When asked how she would have handled a panic attack in [employer] 3 months ago she stated I would have left my cart and walked right out. Insight that her weekends are more challenging due to increased free-time to think about her struggles (tremors, medical issues, possible Parkinson's). Insight and awareness of utilizing cognitive distortions frequently which she is working on. Benefited from group support, encouragement, and feedback. Will continue in [facility] to maintain gains, prevent decompensation, and to increase healthy coping skills. Narrative Note: []
--- NOTE | 2022-10-22 10:15 | BH.SGPN.GN ---
Behaviors/Verbalizations/Mental Status: []Client alert and oriented, casually dressed and groomed. Eye contact good. Motor activity appropriate. Speech within normal limits. Affect congruent, mood anxious and dysthymic. Thoughts linear, logical, no signs of hallucinations or delusions. Client Response/Progress/Benefit: []Client responded well to session AEB sharing and listening attentively to others. Client participated in group discussion defining anxiety and common characteristics. Group discussed the impacts of anxiety, its benefits, as well as when it becomes unhealthy. Clinician provided psychoeducation on anxiety diagnoses and the anxiety triangle of physical symptoms, safety behaviors, and common anxious thoughts. Client identified her own physical sx to include stomach aches, sweating, and spacing out and safety behaviors as isolation, reassurance seeking, and shutting down. Client appeared to benefit from increased knowledge of anxiety diagnoses and causes, as well as improved self-awareness of anxiety symptoms. Will continue IOP treatment to increase consistency of healthy coping skills, promote mood stability, and prevent decompensation. Narrative Note: []
--- NOTE | 2022-10-22 11:10 | BH.SGPN.GN ---
Behaviors/Verbalizations/Mental Status: []Pt alert and oriented, neatly dressed and groomed. Eye contact good. Motor activity appropriate. Speech within normal limits. Affect congruent, mood euthymic. Thoughts linear, logical, no signs of hallucinations or delusions. Client Response/Progress/Benefit: []Pt was an active participant in group discussion AEB? providing contributions throughout group and listening attentively to others. Pt able to connect how current safety behaviors are reinforcing anxiety. Attentive during psychoeducation on anxiety management skills. The group practiced gentle stretching and thought challenging during session. Engaged and attentive during group brainstorm of healthy anxiety reduction skills. Appeared to benefit from practicing in the moment coping skills and increasing repertoire of anxiety management skills. Pt selected wanting to work on creating a pros and cons list to reduce safety behaviors. Pt will continue IOP tx to further improve mood stability and increase self-confidence. Narrative Note: []
--- NOTE | 2022-10-23 09:00 | BH.SGPN.GN ---
Behaviors/Verbalizations/Mental Status: []Pt alert and oriented, neatly dressed and groomed. Eye contact good. Motor activity appropriate. Speech within normal limits. Affect congruent, mood euthymic and stressed. Thoughts linear, logical, no signs of hallucinations or delusions. Reviewed pt?s symptom tracker, no risk for suicidal ideation, plan, or intent as of 10/23/22 Client Response/Progress/Benefit: []Pt responded well to session, attentive and providing supportive feedback. Pt reports feeling concerned this morning due to lingering medical uncertainties, but pt had many positives this morning. Pt shared over the weekend she finished her taxes and yesterday after group she cleaned out her fridge. Pt has been more social and consistent with her exposure goals as well. Pt shared she proud of herself for what she has accomplished and she attempting to combat her distorted thinking patterns that say I'm not doing enough. Pt appeared to benefit from reflecting on her personal growth. Pt will continue IOP tx to promote gains and help pt manage anxiety. Narrative Note: []
--- NOTE | 2022-10-23 10:12 | BH.SGPN.GN ---
Behaviors/Verbalizations/Mental Status: []Pt alert and oriented, casually dressed and groomed. Eye contact good. Motor activity appropriate. Speech within normal limits. Affect congruent, mood anxious and dysthymic. Thoughts linear, logical, no signs of hallucinations or delusions. Client Response/Progress/Benefit: []Pt participated in group discussion. Group worked together to identify benefits of healthy relationships which included improves mental health, encouragement, increased resilience, reduced stress, connection, someone to celebrate with, and support during challenges. Group identified factors that lead to unhealthy relationships which included trauma, lack of communication, difference in values, and lack of trust. Pt shared connecting with lack of communication and different values as challenges to relationships. Did well to provide encouragement as well as ask for support when needed during the activity. Benefited from increased insight and awareness of benefits of healthy relationships and factors that contribute to unhealthy relationships. Will continue in IOP to prevent returning to isolative behaviors, improve thought challenging, and promote mood stability. ? Narrative Note: []
--- NOTE | 2022-10-23 11:10 | BH.SGPN.GN ---
Behaviors/Verbalizations/Mental Status: [] Client alert and oriented, casually dressed and groomed. Eye contact good. Motor activity appropriate. Speech within normal limits. Affect congruent, mood euthymic. Thoughts linear, logical, no signs of hallucinations or delusions. Client Response/Progress/Benefit: [] Client responded well to session, engaged and taking notes. Worked with group to identify characteristics of healthy and unhealthy relationships. Attentive during psychoeducation about characteristics of healthy, unhealthy, and abusive relationships. Client stated within relationships she does well with being respectful towards others. Client reported an area she would like to improve on is being more communicative within certain relationships. Appeared to benefit from identifying area wants to work on to build healthier relationships. Pt recommended to continue IOP tx to challenge anxious thoughts, continue use of healthy coping skills, and prevent decompensation.
== END 2022-10-23 23:59 ==
LOC: BHIOP 07:32
PROVIDERS: PCP Nurse Practitioner Family; Visit Provider Psychiatry & Neurology Psychiatry
DX: F33.2 Major depressive disorder, recurrent severe without psychotic features (principal); F41.1 Generalized anxiety disorder; G23.8 Other specified degenerative diseases of basal ganglia; M79.7 Fibromyalgia; Z79.899 Other long term (current) drug therapy
CPT/HCPCS: S9480; 90834; 90837; 90853

== ENCOUNTER 2022-10-24 06:44 | Outpatient (RCR) | payer MEDICARE, OTHER, SELFPAY ==
[2022-10-24 00:27] VITALS: BP 140/91; PULSE 81
--- NOTE | 2022-10-24 12:49 | PCM.BH.PN_ITS ---
Progress Note Progress Note: And history of Present Illness/Interim History: The patient is a 67-year-old female with a history of depression, anxiety, Fahr's disease and rule out Parkinson's disease who is seen in follow-up at the [facility] behavioral health IOP program. I last saw the patient 1 week ago and at that t kiera we decided to start weaning her Cymbalta and changing her to a different antidepressant. We met today briefly to discuss the use of Effexor XR since the Trental X that I prescribed for her was too expensive. Based on the [employer] testing the patient metabolizes the Effexor normally. She has been taking the Effexor Exar for 1 week now and is tolerating it well. She also had decreased her Cymbalta to 120 mg for 1 week now and has tolerated this well. She feels more motivated since changing the medications and has less fatigue. She still is depressed but feels significantly better so far with changing the medications. She denies passive thoughts of , suicidal ideation, homicidal ideation, hallucinations or delusions. Current Psychiatric Medications: [] Cymbalta 120 mg p.o. daily (decreased 6 days ago; on this for 10 years); Effexor XR 37.5 mg p.o. daily (x6 days now); Klonopin 2 mg every morning by outpatient provider; no. Mental Status Examination: [] The patient is a 67-year-old female who appears normal for stated age and is casually dressed and groomed with good hygiene. She is cooperative and pleasant during the interview. She has no psychomotor agitation or retardation and is ambulatory with a normal gait. Eye contact is good and speech is normal rate and rhythm and fluent with no pressure. Mood is mildly depressed. Affect is mildly constricted and approaching full and normal. Thought process is goal-directed and organized. Thought content: The patient is hopeful for the future. There is no evidence of passive thoughts of , suicidal ideation, plan for suicide, homicidal ideation, hallucinations or delusions. Reality testing is intact. Intelligence is average. Judgment is intact. Insight is fair to good. Impulsivity is low. Diagnoses: [] 1. Major depressive disorder, recurrent, severe without psychosis 2. Generalized anxiety disordr 3. Panic disorder 4. Fahr's disease 5. Rule out Parkinson's disease (rule out worsening of depression and anxiety secondary to #4 or 5) 6. Fibromyalgia 7. Primary support and health issues Plan: [] The patient will continue the IOP program at [facility] and may be discharged soon if she continues to improve. She felt safe during the interview and if it anytime she does not feel safe she will let us know or go to the emergency room. The risk, options, possible complications and side effects of the medications and the weaning and changing over the medications were again discussed with the patient and she understands and accepts these. Again encouraged the slow weaning off of the Klonopin as discussed in prior appointments. The patient will decrease the Cymbalta to 60 mg in 1 week around October 31, 2022. In 1 week on October 31 she will also increase her Effexor XR to 75 mg p.o. daily. On November 14 if the patient continues to do well she will decrease the Cymbalta to every other day for 2 weeks and then stop it. She will continue to follow-up with her outpatient providers and I will see the patient in follow-up while she is in the IOP program.
--- NOTE | 2022-10-26 10:20 | BH.SGPN.GN ---
Behaviors/Verbalizations/Mental Status: []Client alert and oriented, casually dressed and groomed. Eye contact good. Motor activity appropriate. Speech within normal limits. Affect congruent, mood euthymic. Thoughts linear, logical, no signs of hallucinations or delusions. Client Response/Progress/Benefit: []Client receptive to session AEB contributing to discussion, as well listening attentively to others, and taking notes. Worked with group to brainstorm the positive and negative aspects of stress on physical and mental health. Group did well to identify the benefits of stress as well as the impact of distress on performance, relationships, and mental health. Client identified their personal top stressors as: being aware/following gut instincts, not enough social support, anxiety, and isolation. Client reports when the stress overflows client reacts with shutting down. Client seemed to benefit from increased awareness of current stressors and impact stress has on mental health. Recommended to continue IOP tx to continue use of healthy coping skills, increase confidence, and prevent decompensation.
--- NOTE | 2022-10-26 10:31 | BH.MDN_ITS ---
Multi-Disciplinary Note - Note 60-min Individual Time Started:: 08:50 Date: 10/26/22 Purpose of session/treatment goals addressed:: To practice coping skills in the moment and to work on pt's maintenance plan. Eye Contact:: Good Motor Activity:: Appropriate Appearance:: Neat Speech:: Appropriate Mood:: Euthymic Affect:: Congruent Thoughts:: Linear, Logical, No evidence of hallucinations/delusions noted Staff Interventions:: thought challenging, CBT techniques, discharge planning, strengths perspective, goal setting Client Response:: Pt responded well to session, open to meeting with therapist. Pt reports she is anxious to leave [facility], but pt also sees the progress she has made. Pt recognizes that she is isolating much less and her depression is resolving. Pt is still anxious, especially about her unknown medical issues, but pt is doing much better with accepting current reality. Pt is still grieving the potential that she has Parkinson's Disease, but pt is not googling and she is challenging her perspective on this. Pt receptive to working on her maintenance plan and focused on the self-care section. Pt reviewed what she identified already and discussed other ideas. Pt wants to work on increasing her social supports and pt is open to exploring the [employer] and [employer]. Pt has already gone to visit [employer] and feels like this could be a good fit. Discussed pt challenging her expectations when creating new supports to relieve pt of the pressure of finding rights immediately. Risks/Concerns:: Pt denies any suicidal ideations, plan, or intent. No thoughts of . Progress Toward Goals/Plan:: Pt continues to make progress and is scheduled to discharge from [facility] next week. Pt continues to report anxiety and mild depressive symptoms. Pt reports benefitting from the medication change and pt feels like her anxiety is more manageable than it was six weeks ago. Pt plans to call and schedule an appointment with her outpatient therapist, PCP, and explore additional supports for next week. Pt can benefit from one more week of IOP tx to reinforce healthy coping skills and further improve self-confidence in gains. Time Stopped:: 09:45
--- NOTE | 2022-10-26 11:15 | BH.SGPN.GN ---
Behaviors/Verbalizations/Mental Status: []Pt alert and oriented, neatly dressed and groomed. Eye contact good. Motor activity appropriate. Speech within normal limits. Affect congruent, mood euthymic. Thoughts linear, logical, no signs of hallucinations or delusions. Client Response/Progress/Benefit: []?Pt engaged participant AEB listening attentively to others and contributing to discussion. Attentive during psychoeducation on the 4 A's of Coping with Stress (Avoid, Alter, Adapt, Accept). Participated in experiential activity in which group members had to utilize stress management skills in the moment. Pt was encouraging others and providing direction to group. Pt engaged in review of the 4 A?s and picked wanting to work on adapting a new perspective to help pt set more realistic expectations. Benefited from processing in the moment stress management strategies and identifying new ways to cope with stress. Will continue in IOP tx to promote mood stability, increase self-confidence, and improve anxiety management skills. Narrative Note: []
--- NOTE | 2022-10-29 09:03 | BH.SGPN.GN ---
Behaviors/Verbalizations/Mental Status: []Eye contact is good. Motor activity is appropriate. Appearance is casual. Speech is Appropriate. Mood is anxious and dysthymic. Affect is congruent. Thoughts are linear and logical. No evidence of psychosis. Reviewed daily check in sheet and no reports of suicidal ideations or intent. Client Response/Progress/Benefit: []Pt was an active participant in group discussion. Attentive. Pt reported mental health positive as challenging herself to complete several errands, including going to the grocery story which is anxiety producing for her. Shared, however, struggling with loneliness as her supports were unavailable and she often does not know what to do with free time. Pt noted trying to color and go for several walks, but continued to struggle with thoughts of loneliness. Group was supportive and provided encouragement and suggestions for things to do, which was beneficial. Will continue in IOP to continue to improve consistent use of healthy coping, promote mood stability, and prevent decompensation. Narrative Note: []
--- NOTE | 2022-10-29 09:16 | BH.IGGP_ITS ---
Aftercare Plan - Demographics Treatment End Date:: 11/01/22 Psychiatrist:: Junie Rich Psychiatrist Office #:: [phone] [facility] Therapist:: Cass Covarrubias Therapist Phone #:: [phone] - Plan Details Progress/Aftercare Plan Details:: Kathia has responded well to treatment as evidenced by Kathia consistently attending IOP sessions and her reduction of DSM-5 scores since admission. Kathia was always attentive and receptive to learning during group and individual sessions. Kathia actively applied coping skills outside of IOP and reports overall her mood is improved and she is functioning better than she was several months ago. Kathia was consistent with her goals and homework which likely contributed to her reduction of symptoms. Kathia?s overall symptom reduction is 47% since admission with anger decreasing by 50%, depression decreasing by 50%, suicidal ideations decreasing by 100%, and anxiety decreasing by 50%. Kathia has increased self-confidence in her ability to manage a nxiety, depression, and negative thinking. Strategies for Success:: 1. Opposite action! Continue to challenge yourself to not let anxiety or depression drive your bus. 2. Set small goals each day and break down bigger stressors. 3. Continue to ask for help and advocate for yourself. 4. Challenge distorted thoughts. Remember that something can be overwhelming AND you can cope with it. 5. Keep challenging yourself to reach out to people (both old and new supports). 6. Self-care! this means the fun and not so fun stuff. 7. Keep using your calming skills when anxious. 8. Keep a routine throughout the week- for yourself and plans with friends. 9. Give yourself credit and write them down! 10. Continue working on your fear ladder! 11. Be creative! - Appointments Appointments/Referrals to Other Services:: 1. Dr. Carias 12/06/22 2. [facility] 11/06/22 3. [facility] aftercare 11/15/22 at 2:00pm - Medications Home Medications: Home Medications cholecalciferol (vitamin D3) 250 mcg (10,000 unit) capsule 10,000 unit PO QWEEK 10/27/13 duloxetine 60 mg capsule,delayed release 120 mg PO DAILY 08/06/22 levothyroxine 25 mcg tablet 25 mcg PO DAILY 08/06/22 lisinopril 5 mg tablet 5 mg PO DAILY 08/06/22 albuterol sulfate 90 mcg/actuation aerosol inhaler 2 puff inhalation PRN PRN Wheezing 09/05/22 alprazolam 1 mg tablet 1 mg PO BID PRN PRN Anxiety 09/05/22 budesonide 180 mcg/actuation breath activated powder inhaler (Pulmicort Flexhaler) 1 inh inhalation DAILY 09/05/22 venlafaxine 75 mg capsule,extended release 24 hr (Effexor XR) 75 mg PO DAILY 30 days #30 caps 10/24/22
--- NOTE | 2022-10-29 10:15 | BH.SGPN.GN ---
Behaviors/Verbalizations/Mental Status: []Pt alert and oriented, neatly dressed and groomed. Eye contact good. Motor activity appropriate. Speech within normal limits. Affect congruent, mood euthymic. Thoughts linear, logical, no signs of hallucinations or delusions. Client Response/Progress/Benefit: []Pt participated at times during the group discussions. Participated during interactive discussion on defining conflict (internal/external) and possible benefits to conflict. Attentive during psychoeducation on conflict styles and engaged during small group activity in which peers identified the benefits and consequences to each conflict style. Pt identified that their primary conflict style used to be accommodating which led to her needs not getting met. Client stated she is moving towards being more collaborating with her conflict style. Benefited from increased awareness of the impact of conflict styles in mental health. Will continue in IOP to reinforce healthy coping skills and prevent decompensation.
--- NOTE | 2022-10-29 11:10 | BH.SGPN.GN ---
Behaviors/Verbalizations/Mental Status: []Pt alert and oriented, neatly dressed and groomed. Eye contact good. Motor activity appropriate. Speech within normal limits. Affect congruent, mood euthymic. Thoughts linear, logical, no signs of hallucinations or delusions. Client Response/Progress/Benefit: []Pt engaged in session AEB contributing to discussion and engaging in activity. Pt did well to review current conflict style and its impact on mental health. Attentive and taking notes during discussion on strategies for more effectively managing conflict in personal life.? Pt participated in activity and did well to talk through choices with peers. Pt given handout on fair fighting rules and identified that they want to work on taking turns while speaking and practicing active listening. Appeared to benefit from gaining strategies to help pt better manage conflict. Will continue IOP tx to reinforce healthy coping skills and establish aftercare. Narrative Note: []
--- NOTE | 2022-10-29 14:34 | BH.MDN ---
Multi-Disciplinary Note - Note 30-min Individual Time Started:: 12:10 Date: 10/29/22 Purpose of session/treatment goals addressed:: To address current stressors and discuss strategies to help cope with these stressors. Another goal was to discuss discharge and aftercare. Eye Contact:: Good Motor Activity:: Appropriate Appearance:: Neat Speech:: Appropriate Mood:: Euthymic, Anxious Affect:: Full Thoughts:: Linear, Logical, No evidence of hallucinations/delusions noted Staff Interventions:: discharge planning, strengths perspective Client Response:: Pt responded well to session, open to meeting with therapist. Pt reports feeling bittersweet about leaving [facility]. Pt has enjoyed the routine, structure, education, and support. Discussed what pt can do to fill her time once she discharges and pt is receptive to going to [facility]. Pt also wants to participate in [facility] aftercare group to maintain gains. Pt reflected on her progress while in [facility] and pt shared the biggest progress is in the reduction of her suicidal thoughts. Pt shared she has not had SI since she started IOP. Pt also reports belief that her depression has significantly decreased and she has more confidence in managing her anxiety. Pt is consistently getting out of the house and she is functioning much better at home per her report. Pt is considering starting a social club at her condo and joining the [facility]. Pt is encouraged to continuing working on goals and maintaining a routine. Risks/Concerns:: Pt denies any suicidal ideations or thoughts of . Progress Toward Goals/Plan:: Pt is scheduled to discharge from [facility] tx this Saturday10/31/22. Pt reports progress in significant reduction of suicidal ideations and depression. Pt also reports increased ability to manage her anxiety and worry. Pt has an appointment with her PCP tomorrow and pt reports she is following up with her other medical providers. Pt can benefit from one more IOP day to reinforce healthy coping skills and establish aftercare. Time Stopped:: 12:35
--- NOTE | 2022-11-02 09:00 | BH.SGPN.GN ---
Behaviors/Verbalizations/Mental Status: []Pt alert and oriented, neatly dressed and groomed. Eye contact good. Motor activity appropriate. Speech within normal limits. Affect congruent, mood euthymic. Thoughts linear, logical, no signs of hallucinations or delusions. Reviewed pt?s symptom tracker, no risk for suicidal ideation, plan, or intent as of 11/02/22 Client Response/Progress/Benefit: []Pt responded well to session, providing supportive statements. Pt reports feeling anxious and motivated this morning as it is pt's last day of IOP tx. Pt shared her mental health wins today which were accomplishing some cleaning goals at home, getting back into stained glass, and surviving her recent MRI by managing her anxiety. Pt continues to process and cope with her medical issues and appointments, but pt shared overall she is much better than she was six weeks ago. Pt appeared to benefit from reflecting on her personal growth. Pt will discharge from IOP tx today as pt has made significant progress and no longer meets criteria for IOP level of care. Narrative Note: []
--- NOTE | 2022-11-02 10:10 | BH.SGPN.GN ---
Behaviors/Verbalizations/Mental Status: [] Eye contact is good. Motor activity is appropriate. Appearance is casual. Speech is Appropriate. Mood is euthymic. Affect is full. Thoughts are linear and logical. No evidence of psychosis. Client Response/Progress/Benefit: [] Pt was an active participant in group discussions. Attentive during psychoeducation. Participated during interactive discussions in which peers attempted to define crisis. Group also worked together to identify unhealthy responses to crisis which included; isolation, self-harm, over-sleeping, impulsive activities, over-sharing, and lashing out. Pt identified her top 3 warning signs that she is in crisis which were 1.Isolating/Avoiding others 2.Loss of interest 3. Not taking care of myself. Benefited from increased understanding of crisis and awareness of personal warning signs to crisis. Pt will be discharged from [facility] today. Narrative Note: []
--- NOTE | 2022-11-02 11:10 | BH.SGPN.GN ---
Behaviors/Verbalizations/Mental Status: []Pt alert and oriented, casually dressed and appropriately groomed. Eye contact good. Motor activity appropriate. Speech within normal limits. Affect congruent, mood anxious and euthymic. Thoughts linear, logical, no signs of hallucinations or delusions. Client Response/Progress/Benefit: []Pt responded well to session as evidenced by listening attentively to others and providing strategies during discussion.? Pt identified personal warning signs for crisis and gained further awareness of earliest warning signs. Pt created a crisis action plan to help better manage warning signs for crisis. Pt able to create action plan for warning sign of loss of interest. Pt's action plan included: scheduling time specifically for engaging in an activity she enjoys, make things a game, opposite action, and healthy distractions. Pt appeared to benefit from creating a crisis action plan and increasing self-awareness. Pt will d/c from program today and continue with individual outpatient tx to maintain gains, promote ongoing mood stability and healthy coping skill application. Narrative Note: []
--- NOTE | 2022-11-02 14:22 | BH.DS_ITS ---
Discharge Summary - Demographics Date of Admission:: 09/03/22 Discharge Date: 11/02/22 Presenting Problems at Admission:: Pt is a 67-year-old female with a history of panic disorder, MDD, and DUC. Pt was referred to [facility] tx by her outpatient therapist at [facility] due to worsening anxiety and depression with no benefit from traditional outpatient counseling. Pt currently endorses decompensations since February of 2022 with no known trigger. Pt reports constant anxiety day and night which results pt isolating in her home and laying in bed all day. At admission, pt endorses increased sleep, lack of motivation, lack of energy, hopelessness, worthlessness, anhedonia, isolative behaviors, thoughts of , and avoidance. Pt shared her anxiety is so severe, she is not leaving her home unless she has an appointment that day. Pt reports that her symptoms are impacting her ability to take care of herself, complete ADLs, and keep pt from socializing. Pt has FAHR's disease which causes tremors and can exacerbate anxiety symptoms. Pt's medication condition also exacerbates pt's depression and lack of motivation to practice self-care. Discharge Diagnoses:: Major depressive disorder, recurrent, severe without psychosis F 33.2; Generalized anxiety disorder; Panic disorder Reason for Discharge:: Pt has accomplished her tx goals AEB pt's reduction of DSM-5 scores, self-report of improve functioning and mood, and reduced isolation. Pt will continue with outpatient counseling, psychiatry, and [facility] aftercare. - Treatment Progress During Treatment & Response: Pt has responded well to treatment as evidenced by Pt consistently attending IOP sessions and her reduction of DSM-5 scores since admission. Pt was always attentive and receptive to learning during group and individual sessions. Pt actively applied coping skills outside of IOP and reports overall her mood is improved and she is functioning better than she was several months ago. Pt was consistent with her goals and homework which likely contributed to her reduction of symptoms. Pt?s overall symptom reduction is 47% since admission with anger decreasing by 50%, depression decreasing by 50%, suicidal ideations decreasing by 100%, and anxiety decreasing by 50%. Pt has increased self-confidence in her ability to manage anxiety, depression, and negative thinking. Issues Still to be Addressed:: Core beliefs and negative self-talk, ongoing anxiety and depression management, building social connections, acceptance and processing loss of functioning, and daily goal setting. Discharge Recommendations/Instructions:: Pt will follow up with Dr. Carias for psychiatry and pt has an appointment on 12/06/22. Pt will continue with [facility] for individual counseling and her next appointment is 11/06/22. Pt plans to do IOP aftercare starting 11/15/22. Pt will continue to follow up with her neurologist and medical team. Discharge Handout: Complete Discharge Handout with client on aftercare options and continuity of care.
== END 2022-11-02 12:25 | disposition home or self-care (01) ==
LOC: BHIOP 06:44
PROVIDERS: PCP Nurse Practitioner Family; Visit Provider Psychiatry & Neurology Psychiatry
DX: F33.2 Major depressive disorder, recurrent severe without psychotic features (principal); F41.1 Generalized anxiety disorder; G23.8 Other specified degenerative diseases of basal ganglia; M79.7 Fibromyalgia; Z79.899 Other long term (current) drug therapy
CPT/HCPCS: S9480; 90832; 90837; 90853

== ENCOUNTER 2022-11-15 12:00 | Outpatient (RCR) | payer MEDICARE, OTHER, SELFPAY ==
--- NOTE | 2022-11-15 14:00 | BH.SGPN.GN ---
Behaviors/Verbalizations/Mental Status: []Pt alert and oriented, neatly dressed and groomed. Eye contact good. Motor activity appropriate. Speech within normal limits. Affect congruent, mood euthymic. Thoughts linear, logical, no signs of hallucinations or delusions. Client Response/Progress/Benefit: []Pt responded well to session, pt reports she has been consistent with medications and seeing her outpatient therapist. Pt is continuing to taper down from her Cymbalta and feels this is going well. Pt reports she has been using deep breathing, setting boundaries, making shorter to-do lists, and self-compassion to promote mood stability. Pt engaged well during the discussion of the components of self-compassion. Pt connected with the benefits of self-compassion and participated in the activity of reframing a recent setback using self-compassion. Pt used self-compassion to combat negative self-talk and assisted peers in identifying examples of the three components of self-compassion.?Pt appeared to benefit from practicing self-compassion and connecting with peers. ?Will continue aftercare to promote mood stability and reinforce healthy coping skills.? Narrative Note: []
--- NOTE | 2022-11-15 15:47 | BH.MTP ---
Master Treatment Plan - Patient Information Program Physician:: Dr. Junie Rich Primary Therapist:: Cass BECERRA - Psychiatric Diagnoses Psychiatric Diagnoses:: Major depressive disorder, recurrent, severe without psychosis F 33.2; Generalized anxiety disorder; Panic disorder Diagnosis Code(s):: F 33.2 - Estimated LOS Estimated LOS (in weeks):: 8 Problem/Goal #1 - Problem/Goal #1 Stated Goal:: client will maintain or see a reduction in symptoms AEB client score on the DSM 5 cross-cutting measure and improve client's daily functioning. - Objectives Objective #1 Stated Objective: Client will continue to consistently apply healthy coping skills to maintain progress made in IOP tx. Interventions: Through group therapy, client will review warning signs and triggers as well as healthy coping skills learned in IOP tx to successfully maintain gains while transitioning into outpatient therapy. Discharge Criteria: Client will have accomplished this goal when client's score on the DSM-5 cross-cutting measure has maintained or reduced over a 8 week period. Target Date: 01/10/23 Review Date: 12/13/22 Status: open Objective #2 Stated Objective: Client will learn and utilize 2-3 maintenance strategies to prevent decompensation from original IOP DSM-5 scores. Interventions: Through group therapy, client will be provided with education on healthy maintenance behaviors, relapse prevention techniques, and healthy coping strategies. Discharge Criteria: Client will have accomplished this goal when can report using at least 2 maintenance skills to prevent decompensation compared to original IOP DSM-5 scores Target Date: 01/10/23 Review Date: 12/13/22 Status: open
--- NOTE | 2022-11-22 14:00 | BH.SGPN.GN ---
Behaviors/Verbalizations/Mental Status: []Pt alert and oriented, neatly dressed and groomed. Eye contact good. Motor activity appropriate. Speech within normal limits. Affect congruent, mood euthymic and anxious. Thoughts linear, logical, no signs of hallucinations or delusions. Client Response/Progress/Benefit: []Pt responded well to session, attentive and engaged. Pt reports she has been seeing her therapist, she completed her homework, and taking her medications.. Pt reports using opposite action, practicing willingness, and she went to [employer] for the first time. Pt also went to a bible study group last night which pt has not done in a long time due to anxiety. Pt continue to struggle with lack of social support which triggers anxiety and crying spells. Pt participated in discussion of personal values and why knowing these can be helpful to one's mental health. The group also discussed what could happen if one does not live according to their values. Pt identified her top two values as friendships/relationships and mental health. Pt set a goal to go to [employer] again to seek out new friendships. Pt will continue IOP aftercare to promote mood stability and gains made in IOP. Narrative Note: []
== END 2022-11-23 23:59 ==
LOC: BHOG 12:00
PROVIDERS: PCP Nurse Practitioner Family; Visit Provider Psychiatry & Neurology Psychiatry
DX: F33.2 Major depressive disorder, recurrent severe without psychotic features (principal); F41.1 Generalized anxiety disorder
CPT/HCPCS: 90853

== ENCOUNTER 2022-11-26 08:12 | Outpatient (RCR) | payer MEDICARE, OTHER, SELFPAY ==
--- NOTE | 2022-11-29 14:00 | BH.SGPN.GN ---
Behaviors/Verbalizations/Mental Status: []Client alert and oriented, casually dressed and groomed. Eye contact good. Motor activity appropriate. Speech within normal limits. Affect congruent, mood anxious and euthymic. Thoughts linear, logical, no signs of hallucinations or delusions. Client Response/Progress/Benefit: []Pt receptive of session, engaged throughout. Pt completed her aftercare self-reflection worksheet sharing they see their therapist next week and psychiatry this morning, they are taking medications as prescribed, and have been using opposite action, thought challenging, and reaching out to supports as healthy coping skills. Receptive of discussion on healthy decision-making, what impacts making decisions, as well its importance in maintaining mental health stability. Pt worked cooperatively with group to identify benefits of developing and maintaining healthy choices, as well as brainstorming strategies for improving ability to do so. Reported she wants to work on making more time for self-care by creating a daily self-care checklist. Pt seemed to benefit from support from peers and increasing understanding of healthy habit formation benefits and strategies. Will continue IOP aftercare group and tx to maintain gains and prevent decompensation. Narrative Note: []
--- NOTE | 2022-12-13 14:00 | BH.SGPN.GN ---
Behaviors/Verbalizations/Mental Status: []Pt alert and oriented, casually dressed and groomed. Eye contact good. Motor activity appropriate. Speech within normal limits. Affect congruent, mood euthymic and anxious. Thoughts linear, logical, no signs of hallucinations or delusions. Client Response/Progress/Benefit: []Pt responded well to session AEB sharing and listening attentively to others. Pt reports she has been consistent with counseling and psychiatry, is taking medications as prescribed, as well as using several healthy coping skills. Skills used identified as self-compassion and reaching out to supports. Pt participated in group discussion defining affirmations and why they are important. Pt provided insight throughout clinician?s presentation of tips for writing personal affirmations. Pt wrote own affirmations, including ?I have the skills to improve myself?. Pt appeared to benefit from increased knowledge of affirmation writing and increased self-awareness. Will continue aftercare treatment to reinforce healthy coping skills and promote gains. Narrative Note: []
--- NOTE | 2022-12-20 17:53 | BH.DS_ITS ---
Discharge Summary - Demographics Date of Admission:: 11/15/22 Discharge Date: 12/20/22 Presenting Problems at Admission:: Pt discharged from IOP tx and transitioned to IOP aftercare to maintain gains pt made in IOP and to reinforce healthy coping skills. At admission to IOP aftercare, pt continued to report symptoms of depression and anxiety but of reduced intensity and frequency. Pt also was experiencing stressors with lack of support and medical issues. Discharge Diagnoses:: Major depressive disorder, recurrent, severe without psychosis F 33.2; Generalized anxiety disorder; Panic disorder Reason for Discharge:: Pt voluntarily discharged from IOP aftercare due to physical health issues. Pt will continue seeing her outpatient therapist and psychiatrist to maintain progress made in IOP and help pt cope through her medical stressors. - Treatment Progress During Treatment & Response: Pt did not complete IOP aftercare, but pt's scores at review demonstrated ongoing progress since IOP discharge. At Review on 12/13/22 pt's scores for depression were 38% lower than her original IOP scores and her scores for anxiety were 20% lower. Pt was also reporting consistent use of healthy coping skills. Pt was engaged during aftercare, but pt reported it was getting hard for her to attend due to her medical issues. Issues Still to be Addressed:: Core beliefs and negative self-talk, ongoing anxiety and depression management, building social connections, acceptance and processing loss of functioning due to health issues, and daily goal setting. Discharge Recommendations/Instructions:: Pt will follow up with Dr. Carias for psychiatry and pt last saw Dr. Carias on 12/06/22. Pt will continue with [facility] for individual counseling and her last appointment was 11/06/22. Pt will continue to follow up with her neurologist and medical team. Discharge Handout: Complete Discharge Handout with client on aftercare options and continuity of care.
== END 2022-12-23 23:59 ==
LOC: BHOG 08:12
PROVIDERS: PCP Nurse Practitioner Family; Visit Provider Psychiatry & Neurology Psychiatry
DX: F33.2 Major depressive disorder, recurrent severe without psychotic features (principal); F41.1 Generalized anxiety disorder; F41.0 Panic disorder [episodic paroxysmal anxiety]
CPT/HCPCS: 90853

== ENCOUNTER 2022-12-24 08:06 | Outpatient (RCR) | payer MEDICARE, OTHER, SELFPAY | END 2022-12-27 10:10 | disposition home or self-care (01) | LOC: BHOG 08:06 | PROVIDERS: PCP Nurse Practitioner Family; Visit Provider Psychiatry & Neurology Psychiatry | DX: F33.2 Major depressive disorder, recurrent severe without psychotic features (principal) ==

== ENCOUNTER → 2022-12-31 | Outpatient (CLI) | payer MEDICARE, OTHER, SELFPAY | END | disposition home or self-care (01) | LOC: SL 14:53 | PROVIDERS: PCP Nurse Practitioner Family; Referring Provider Psychiatry & Neurology Sleep Medicine; Visit Provider Psychiatry & Neurology Sleep Medicine | DX: G47.33 Obstructive sleep apnea (adult) (pediatric) (principal); G47.52 REM sleep behavior disorder | CPT/HCPCS: 95810 ==

== ENCOUNTER → 2023-06-10 | Outpatient (CLI) | payer MEDICARE, OTHER, SELFPAY ==
[2023-06-10 15:21] LABS: Color, Urine Yellow (Yellow); Glucose, Dipstick Normal (Normal); Ketone-Dipstick 5 mg/dl (Negative); Leukocyte Esterase-Dipstick 25 /ul (Negative); Nitrite-Dipstick Negative (Negative); Occult Blood-Urine Negative /ul (Negative); Protein-Dipstick 15 mg/dl (Negative); Urine Bilirubin Dipstick Negative (Negative); Urine Clarity Clear (Clear); Urine Urobilinogen Normal (Normal)
[2023-06-10 15:25] LABS: Absolute Lymphocyte Count 2.26 X10^3/uL (0.83-4.51); Absolute Neutrophil Count 5.3 X10^3/uL (2.0-7.7); Basophil# 0.03 X10^3/uL; Basophil% 0.4 % (0-1); Eosinophil# 0.06 X10^3/uL; Eosinophils% 0.7 % (0-5); Hematocrit 43.7 % (37-47); Lymphocyte # 2.26 X10^3/ul (0.83-4.51); Lymphocyte % 27.6 % (19-41); Mean Corpuscular Hgb 29.7 pg (27.0-32.0); Mean Corpuscular Volume 92.6 fL (81-99); Mean Platelet Vol. 10.9 fl (6.2-12.0); Monocyte# 0.49 X10^3/uL; NRBC Flagged by Analyzer 0 % (0-5); Neutrophil # 5.32 X10^3/uL (2.7-7.7); Neutrophil % 64.9 % (47-70); Platelet Count 293 K/mm3 (150-450); RBC Distribution Width CV 13.6 % (11.6-14.6); RBC Distribution Width SD 46.5 fl (35.1-43.9); Red Blood Count 4.72 M/mm3 (4.2-5.4); White Blood Count 8.2 K/mm3 (4.4-11.0)
[2023-06-10 15:40] LABS: Microalbumin,Random Urine 7.1 mg/L (NO RANGE EST.); Microalbumin:Creatinine Ratio 3.7 mg/g CRE (<30 mg/g CRE)
[2023-06-10 15:42] LABS: Vitamin B12 355 pg/mL (211-911); Vitamin D,25 Hydroxy 39.7 ng/mL
[2023-06-10 15:44] LABS: Ionized Calcium 5.01 mg/dL (4.36-5.20)
[2023-06-10 17:14] LABS: ALB/GLOB Ratio 1.1 RATIO (0.9-2.4); AST(SGOT) 20 U/L (15-37); Alanine Aminotransfer ALT/SGPT 14 U/L (13-56); Albumin, Serum 3.7 g/dL (3.2-5.0); Alkaline Phosphatase 85 U/L (45-117); Anion Gap 7 (5-15); BUN 26 mg/dL (7-18); BUN/Creat Ratio 23.4 RATIO (10-20); Calcium,Total 8.7 mg/dL (8.5-10.1); Chloride 107 mmol/L (98-107); Cholesterol 250 mg/dL (200); Creatinine, Serum 1.11 mg/dL (0.55-1.02); EST Glomerular Filtration Rate 52 mL/min (>60); Est Glom Filt Rate - Afr Amer 63 mL/min (>60); Globulin 3.4 g/dL (2.2-4.2); Glucose 92 mg/dL (74-106); High Density Lipoprotein 67 mg/dL; Potassium 3.9 mmol/L (3.5-5.1); Protein, Total 7.1 g/dL (6.4-8.2); Sodium Level 141 mmol/L (136-145); Thyroid Stim Hormone (TSH) 1.22 uIU/mL (0.358-3.74); Triglycerides 168 mg/dL; Very Low Density Lipoprotein 34 mg/dL (5-40)
[2023-06-10 19:30] LABS: Ionized Calcium Order ORDER TUBE
[2023-06-11 11:44] LABS: PTHIN 102.5 pg/mL (18.4-80.1)
== END | disposition home or self-care (01) ==
LOC: MTLAB 11:29
PROVIDERS: PCP Nurse Practitioner Family; Referring Provider Nurse Practitioner Family; Visit Provider Nurse Practitioner Family
DX: R79.89 Other specified abnormal findings of blood chemistry (principal); E55.9 Vitamin D deficiency, unspecified; F41.9 Anxiety disorder, unspecified; I10 Essential (primary) hypertension; G43.909 Migraine, unspecified, not intractable, without status migrainosus; R73.01 Impaired fasting glucose
CPT/HCPCS: 36415; 80053; 80061; 81002; 82043; 82306; 82330; 82570; 82607; 82746; 83970; 84443; 85025

== ENCOUNTER → 2023-06-24 | Outpatient (CLI) | payer MEDICARE, OTHER, SELFPAY ==
[2023-06-24 12:22] LABS: Anion Gap 3 (5-15); BUN 18 mg/dL (7-18); BUN/Creat Ratio 16.2 RATIO (10-20); Chloride 106 mmol/L (98-107); Creatinine, Serum 1.11 mg/dL (0.55-1.02); EST Glomerular Filtration Rate 52 mL/min (>60); Est Glom Filt Rate - Afr Amer 63 mL/min (>60); Glucose 100 mg/dL (74-106); Sodium Level 140 mmol/L (136-145)
[2023-06-26 12:08] LABS: Vitamin D 1,25-Dihydroxy 38.3 pg/mL (24.8-81.5)
[2023-06-26 14:09] LABS: Free Kappa Light Chains 17.8 mg/L (3.3-19.4); Free Lambda Light Chains 8.4 mg/L (5.7-26.3); PROEL- A/G Ratio 1.2 (0.7-1.7); PROEL- Albumin 3.6 g/dL (2.9-4.4); PROEL- Alpha-1 Globulin 0.2 g/dL (0.0-0.4); PROEL- Alpha-2 Globulin 0.8 g/dL (0.4-1.0); PROEL- Beta Globulin 1.1 g/dL (0.7-1.3); PROEL- Globulin, Total 3.1 g/dL (2.2-3.9); PROEL- TOTAL PROTEIN 6.7 g/dL (6.0-8.5); PROEL-M-Spike Not Observed g/dL (Not Observed); PROELU- Albumin, Urine 23.7 % (.); PROELU- Alpha-1-Globulin,Ur 6.5 % (.); PROELU- Alpha-2-Globulin,Ur 13.5 % (.); PROELU- Beta Globulin, Ur 36.3 % (.); Total Protein, Ur 17.4 mg/dL (Not Estab.)
== END | disposition home or self-care (01) ==
PROVIDERS: PCP Nurse Practitioner Family; Referring Provider Nurse Practitioner Family; Visit Provider Nurse Practitioner Family
DX: R79.89 Other specified abnormal findings of blood chemistry (principal)
CPT/HCPCS: 36415; 80048; 82330; 82652; 83883; 84165; 84166

== ENCOUNTER → 2023-06-27 | Outpatient (CLI) | payer MEDICARE, OTHER, SELFPAY ==
--- NOTE | 2023-06-27 14:58 | BI_ITS ---
MAMMOGRAPHY - BILATERAL SCREENING REASON FOR EXAM: Female, 68 years old. Routine annual screening examination. PERTINENT HISTORY: Sister with breast cancer. Bilateral breast reduction surgery. TECHNIQUE: Digital bilateral breast marla (3D mammographic acquisition) in the CC and MLO projections. 2-D mediolateral oblique (MLO) and craniocaudad (CC) views of both breasts were obtained. CAD: Full Field Digital Mammography with Computer Added Detection was performed. COMPARISON: Comparison is made with prior study June 12, 2022 and March 24, 2022. FINDINGS: Breast Composition: There are scattered areas of fibroglandular density. Stable 2 cm x 1.4 cm fat-containing nodule in the central retroareolar region of the left breast. Stable macrocalcifications in the left breast. No other significant abnormalities are identified. There has been no significant change since the prior study. BI/SCRN MAMM (CAD)W/MARLA BILAT IMPRESSION: Stable bilateral screening mammogram. Yearly follow-up mammogram recommended. (A) ASSESSMENT CATEGORY: BIRADS Category 2: Benign. A letter regarding these results will be sent to the patient by the facility within 30 days. Approximately 10% of breast cancers are not detected by mammography. A normal mammogram should not delay biopsy of a clinically suspicious abnormality. [id number] Electronically Signed: Ruperto Dorsey MD at 15:54 EDT ,
--- NOTE | 2023-06-27 15:01 | BD_ITS ---
STUDY: DUAL ENERGY X-RAY ABSORPTIOMETRY / DXA REASON FOR EXAM: Female, 68 years old. [id number] TECHNIQUE: Bone Mineral Density (BMD) measurements of lumbar spine and bilateral hips were obtained. COMPARISON: None. FINDINGS: Lumbar Spine (L1-L4): g/cm2 (1.056) / T-score (-0.2) / Z-score (1.7) Findings are suggestive of normal bone density with a low fracture risk. Left Femur Total: g/cm2 (1.016) / T-score (0.6) / Z-score (1.9) Left Femoral Neck: g/cm2 (0.801) / T-score (-0.4) / Z-score (1.1) Right Femur Total: g/cm2 (1.009) / T-score (0.5) / Z-score (1.8) Right Femoral Neck: g/cm2 (0.906) / T-score (0.5) / Z-score (2.1) BD/Dexa Bone Density Study IMPRESSION: The patient is considered normal as outlined below according to World [place] Organization (WHO) criteria with a low fracture risk. Reference Information: The T-score is the number of standard deviations above or below the standard which is normal for young adults at their peak bone mineral density. The World Health Organization (WHO) interprets the T-scores as follows: Above -1 Normal bone density Between -1 and -2.5 Osteopenia Equal to / or below -2.5 Osteoporosis As a practical clinical guideline, osteopenia may be graded as follows: Mild -1 through -1.5 Moderate -1.6 through -2.0 Severe -2.1 through -2.4 The Z-score is the number of standard deviations above or below age-matched controls. A Z-score of less than -1.5 would be considered abnormal. References: 1. NIH Osteoporosis and Related Bone Diseases www osteo.org 2. International Society for Clinical Densitometry www iscd.org 3. National Osteoporosis Foundation www nof.org Electronically Signed: Ruperto Dorsey MD at 13:24 EDT ,
== END | disposition home or self-care (01) ==
LOC: OPBD 14:56
PROVIDERS: PCP Nurse Practitioner Family; Referring Provider Nurse Practitioner Family; Visit Provider Nurse Practitioner Family
DX: Z12.31 Encounter for screening mammogram for malignant neoplasm of breast (principal); Z78.0 Asymptomatic menopausal state; Z80.3 Family history of malignant neoplasm of breast
CPT/HCPCS: 77063; 77067; 77080

== ENCOUNTER → 2023-12-17 | Outpatient (CLI) | payer MEDICARE, OTHER, SELFPAY ==
--- NOTE | 2023-12-17 13:59 | VDLE_ITS ---
Reason For Study: RLE PAIN RIGHT LEFT GSV is normal. CFV is compressible, spontaneous, phasic, CFV is compressible, spontaneous, phasic, competent, and demonstrates normal competent and demonstrates normal augmentation. augmentation. FV is compressible, spontaneous, phasic, competent and demonstrates normal augmentation. POP V is compressible, spontaneous, phasic, competent and demonstrates normal augmentation. T/P Trunk is compressible. PTV is compressible. RT PerV is compressible. NONVASCULAR STRUCTURE MEASURING 3.08CM X 1.03 CM NOTED ANTERIOR ASPECT OF KNEECAP EXTENDING TO LATERAL SIDE OF KNEECAP. Procedure This is a venous duplex using B-mode, color flow and spectral Doppler. Exam performed in department. The exam was diagnostic. A preliminary report was called and/or faxed to Ese castellanos NP-C @ [phone] @ 14:30. VL/Venous Duplex US, Unilateral Interpretation Summary Deep veins of the right lower extremity are patent and compressible segmentally . There is no evidence of right lower extremity deep vein thrombosis. Valvular competence robert ears intact within the proximal deep venous system on the right . The right great saphenous vein a ppears patent and compressible segmentally. A non-vascular, hypoechoic structure is noted anterio r and lateral to the right knee, measuring approximately 3.08 cm x 1.03 cm. This may represent a hem atoma or seroma. Clinical correlation is advised. The left common femoral vein is patent and com pressible . Ordering Physician: Ese Castellanos Referring Physician: Ese Castellanos Performed By: Apurva Tyler, JOSIE, RVT
== END | disposition home or self-care (01) ==
LOC: CVS 13:58
PROVIDERS: PCP Nurse Practitioner Family; Referring Provider Nurse Practitioner Family; Visit Provider Nurse Practitioner Family
DX: R60.0 Localized edema (principal)
CPT/HCPCS: 93971

== ENCOUNTER → 2024-02-03 | Outpatient (CLI) | payer MEDICARE, OTHER, SELFPAY | END | disposition home or self-care (01) | PROVIDERS: PCP Nurse Practitioner Family; Referring Provider Internal Medicine; Visit Provider Internal Medicine | DX: E88.810 Metabolic syndrome (principal) | CPT/HCPCS: 36415; 82533 ==

== ENCOUNTER → 2024-03-30 | Outpatient (CLI) | payer MEDICARE, OTHER, SELFPAY ==
[2024-03-30 15:30] LABS: Hematocrit 45.7 % (37-47); Hemoglobin 14.4 g/dL (12.0-15.0); Mean Corp Hgb Conc 31.5 g/dL (32-36); Mean Corpuscular Hgb 28.9 pg (27.0-32.0); Mean Corpuscular Volume 91.6 fL (81-99); Mean Platelet Vol. 11.4 fl (6.2-12.0); Platelet Count 327 K/mm3 (150-450); RBC Distribution Width CV 14.6 % (11.6-14.6); RBC Distribution Width SD 48.8 fl (35.1-43.9); Red Blood Count 4.99 M/mm3 (4.2-5.4); White Blood Count 10.6 K/mm3 (4.4-11.0)
[2024-03-30 16:00] LABS: Anion Gap 8 (5-15); BUN 16 mg/dL (7-18); BUN/Creat Ratio 13.8 RATIO (10-20); CPK Total, Creatine Kinase 49 U/L (26-192); Calcium,Total 9.7 mg/dL (8.5-10.1); Chloride 105 mmol/L (98-107); Creatinine, Serum 1.16 mg/dL (0.55-1.02); EST Glomerular Filtration Rate 50 mL/min (>60); Est Glom Filt Rate - Afr Amer 60 mL/min (>60); Glucose 95 mg/dL (74-106); Potassium 4.1 mmol/L (3.5-5.1); Sodium Level 141 mmol/L (136-145); Troponin-I HS 3 pg/mL (3.0-54.0)
[2024-03-30 16:09] LABS: D-Dimer Quantitative (DVT/PE) 0.51 FEU/ug/m (0.27-0.49)
== END | disposition home or self-care (01) ==
LOC: LABSPEC 15:12
PROVIDERS: PCP Nurse Practitioner Family; Referring Provider Nurse Practitioner Family; Visit Provider Nurse Practitioner Family
DX: R07.9 Chest pain, unspecified (principal)
CPT/HCPCS: 80048; 82550; 84484; 85027; 85379

== ENCOUNTER 2024-04-08 01:05 | Emergency (ER) | payer MEDICARE, OTHER, SELFPAY ==
[2024-04-08 01:06] VITALS: BP 146/79; PULSE 77; RESP 18; TEMP 36.4; O2SAT 98; BMI 37.5
--- NOTE | 2024-04-08 01:49 | RAD_ITS ---
EXAM: XR Chest 1 View INDICATION: Female, 69 years old. Chest pain TECHNIQUE: Single AP view COMPARISON: 02/27/2022 FINDINGS: DEVICES: None LUNGS: No confluent air space opacity. No concerning pulmonary nodule. No pleural effusion or pneumothorax. MEDIASTINUM: Cardiac and mediastinal silhouettes are within normal limits. No central pulmonary vascular congestion. . SKELETAL STRUCTURES: No acute skeletal abnormality. UPPER ABDOMEN: Unremarkable RAD/Chest 1 View (Portable) IMPRESSION: No acute cardiopulmonary disease Electronically Signed: Anirudh Mueller MD at 3:11 EDT ,
--- NOTE | 2024-04-08 01:49 | EKG12_ITS ---
Test Reason : CP Blood Pressure : / mmHG Vent. Rate : 080 BPM Atrial Rate : 080 BPM P-R Int : 126 ms QRS Dur : 094 ms QT Int : 370 ms P-R-T Axes : 000 -38 031 degrees QTc Int : 426 ms Normal sinus rhythm Left axis deviation Abnormal ECG When compared with ECG of 03-SEP-2022 12:36, Premature supraventricular complexes are no longer Present QRS duration has increased Non-specific change in ST segment in Lateral leads Confirmed by NATIVIDAD JOSEPH, THANG ([id number]), food expeditor DAGMAR KEVIN ([id number]) on 04/17/2024 7:24:12 AM Referred By: Confirmed By:MICHELLE HENSON MD
[2024-04-08 01:55] LABS: Absolute Lymphocyte Count 3.68 X10^3/uL (0.83-4.51); Absolute Neutrophil Count 5.6 X10^3/uL (2.0-7.7); Basophil# 0.04 X10^3/uL; Basophil% 0.4 % (0-1); Eosinophil# 0.13 X10^3/uL; Eosinophils% 1.2 % (0-5); Hematocrit 42.5 % (37-47); Hemoglobin 13.4 g/dL (12.0-15.0); Lymphocyte # 3.68 X10^3/ul (0.83-4.51); Lymphocyte % 35.2 % (19-41); Mean Corp Hgb Conc 31.5 g/dL (32-36); Mean Corpuscular Hgb 28.9 pg (27.0-32.0); Mean Corpuscular Volume 91.6 fL (81-99); Mean Platelet Vol. 11.2 fl (6.2-12.0); Monocyte# 0.98 X10^3/uL; Monocyte% 9.4 % (0-10); NRBC Flagged by Analyzer 0 % (0-5); Neutrophil # 5.57 X10^3/uL (2.7-7.7); Neutrophil % 53.2 % (47-70); Platelet Count 292 K/mm3 (150-450); RBC Distribution Width CV 14.1 % (11.6-14.6); RBC Distribution Width SD 47.6 fl (35.1-43.9); Red Blood Count 4.64 M/mm3 (4.2-5.4); White Blood Count 10.5 K/mm3 (4.4-11.0)
[2024-04-08 02:05] VITALS: BP 104/59; PULSE 64; RESP 15; O2SAT 97
[2024-04-08 02:13] LABS: Anion Gap 6 (5-15); BUN 19 mg/dL (7-18); BUN/Creat Ratio 17.3 RATIO (10-20); Calcium,Total 8.9 mg/dL (8.5-10.1); Chloride 107 mmol/L (98-107); EST Glomerular Filtration Rate 53 mL/min (>60); Est Glom Filt Rate - Afr Amer 64 mL/min (>60); Estimated Creatinine Clearance 54.75 ml/min; Glucose 88 mg/dL (74-106); Potassium 3.7 mmol/L (3.5-5.1); Sodium Level 140 mmol/L (136-145); Troponin-I HS (w/2H Reflex) 5 pg/mL (3.0-54.0)
[2024-04-08 03:00] VITALS: BP 112/62; PULSE 64; RESP 13; O2SAT 95
[2024-04-08 03:52] LABS: Reflex Troponin-HS? (from REC) Y
[2024-04-08 04:00] VITALS: BP 118/57; PULSE 63; RESP 16; O2SAT 95
[2024-04-08 04:24] LABS: Troponin-I HS 4 pg/mL (3.0-54.0)
--- NOTE | 2024-04-08 04:33 | EDS_ITS ---
HPI History of Present Illness Chief Complaint: Chest Pain Informant: patient Narrative Narrative: Patient is a 69-year-old female with past medical history of generalized anxiety disorder and fibromyalgia. She reports over the past 24 hours she has had chest discomfort that she describes as more of a bandlike squeezing. Patient endorses nausea associated with this but denies any vomiting or shortness of breath. She denies any recent trauma or excessive activity and denies any history of lung disorder. As the pain is not resolving she is concerned this could be cardiac in nature and therefore comes in for evaluation [facility] Medical History Tardive dyskinesia Fibromyalgia Fahr's disease Major depressive disorder, recurrent severe without psychotic features Panic disorder DUC (generalized anxiety disorder) Migraine Hypertension Hypothyroid Home Medications ?Medication ?Instructions ?Recorded ?Last Taken ?Type cholecalciferol (vitamin D3) 250 10,000 unit PO QWEEK 10/27/13 Unknown History mcg (10,000 unit) capsule albuterol sulfate 90 mcg/actuation 2 puff inhalation PRN PRN Wheezing 09/05/22 Unknown History aerosol inhaler carbidopa 25 mg-levodopa 100 mg 2 tab PO TID 11/29/22 Unknown History tablet clonazepam 1 mg tablet 1 mg PO BID PRN anxiety 30 days 01/08/24 Unknown Rx #60 tabs valbenazine 80 mg capsule See Rx Instructions .Route 01/08/24 Unknown Rx (Ingrezza) .COMPLEX #30 caps dextromethorphan IR 45 1 tab PO BID 30 days #60 ea 03/10/24 Unknown Rx mg-bupropion ER 105 mg biphasic tablet (Auvelity) phentermine 37.5 mg tablet 18.75 mg PO QAM 03/10/24 Unknown History venlafaxine 150 mg 150 mg PO DAILY 30 days #30 caps 03/10/24 Unknown Rx capsule,extended release 24 hr carbidopa ER 50 mg-levodopa 200 mg 1 tab PO BID 04/08/24 Unknown History tablet,extended release trazodone 50 mg tablet 50 - 100 mg PO QHS PRN insomnia 04/08/24 Unknown History Allergy/AdvReac Type Severity Reaction Status Date / Time bupropion HCl (From Allergy Hives Verified 04/08/24 01:11 Wellbutrin) acetaminophen (From Vicodin) AdvReac Other Verified 04/08/24 01:11 clarithromycin (From Biaxin) AdvReac Vomiting Verified 04/08/24 01:11 hydrocodone bitartrate (From AdvReac Other Verified 04/08/24 01:11 Vicodin) sulfamethoxazole (From AdvReac Vomiting Verified 04/08/24 01:11 Bactrim) trimethoprim (From Bactrim) AdvReac Vomiting Verified 04/08/24 01:11 Family History Other CVA (cerebral vascular accident) Diabetes Heart disease Hypertension Surgical History Hx of breast reduction, elective H/O shoulder surgery H/O right knee surgery History of cholecystectomy Social History Smoking Status: Never smoker alcohol intake: current details: rarely substance use type: does not use ROS ROS ED Constitutional Constitutional ED: Denies chills or fever(s) Eyes Eyes: Denies blurry vision or change in vision ENT ENT ED: Denies sore throat Cardiovascular Cardiovascular: Reports chest pain; Denies palpitations or racing heartbeat Respiratory/Chest Respiratory/Chest: Denies cough or dyspnea Gastrointestinal Gastrointestinal: Reports nausea; Denies abdominal pain, diarrhea or vomiting Genitourinary Genitourinary ED: Denies dysuria Musculoskeletal Musculoskeletal: Denies back pain Integumentary Denies rash Neurologic Neurologic: Denies headache(s) Hematologic/Lymphatic Hematologic/Lymphatic: Denies easy bleeding or easy bruising EXAM Physical Exam Const Vital Signs: 04/08/24 01:06 04/08/24 01:36 04/08/24 01:49 Temperature 97.6 F L Temperature Source Temporal Pulse Rate 77 Respiratory Rate 18 Respiratory Effort Normal Blood Pressure 146/79 H Blood Pressure Mean 101 Pulse Ox 98 Oxygen Delivery Method Room Air Room Air 04/08/24 02:05 04/08/24 03:00 04/08/24 04:00 Temperature Temperature Source Pulse Rate 64 64 63 Respiratory Rate 15 13 16 Respiratory Effort Blood Pressure 104/59 L 112/62 118/57 L Blood Pressure Mean 74 78 77 Pulse Ox 97 95 95 Oxygen Delivery Method Room Air Room Air Room Air Positive well nourished, well developed and obese General Appearance ED: well developed; Negative for pallor Nutritional Appearance: obese HEENT HEENT Narrative: Normocephalic atraumatic Eyes PERRL and EOMs intact bilaterally General Eye ED: Negative for pale conjunctiva or scleral icterus Neck supple and no JVD Chest Wall Chest Narrative: Reproducible anterior chest wall pain on palpation without bony deformity or crepitance Resp normal respiratory effort and clear to auscultation bilaterally Cardio regular rate and regular rhythm Rate: other Other Details: Heart is regular rate and rhythm without murmurs rubs or gallop Radial and carotid pulses are equal and symmetric GI normal to inspection, nondistended, normoactive bowel sounds, non-tender, non- distended and no masses GI Narrative: No voluntary guarding or rigidity or pulsatile mass Auscultation: normoactive bowel sounds Palpation: soft Extremity normal to inspection Extremity Narrative: No asymmetric edema no pitting edema negative Homans' sign bilaterally Neuro oriented x3, CN's II-XII intact bilaterally and no sensory deficits noted Sensorium / Orientation: alert Motor Exam: strength 5/5 throughout Psych Psych Narrative: Patient has a flat affect Skin no rashes or lesions noted General Skin Exam: Negative for jaundice or pallor MDM MDM MDM Narrative Medical decision making narrative: Patient arrived to the ER hypertensive otherwise with stable vital. She reported chest pain and there is concern this could be related to a acute coronary syndrome versus cardiac dysrhythmia versus pneumonia versus pn eumothorax. With concern for lung pathology as a cause of her symptoms a chest x-ray was obtained which revealed no acute finding. EKG revealed no ischemic changes and there was no cardiac dysrhythmia. Patient's troponins were 5 and 4 which is not a clinically significant variation and are both normal going against acute ACS. Therefore at this time with stable vitals and overall negative workup there is no need to keep the patient in the hospital and she is otherwise safe for discharge History & Record Review Discussion w/independent historian: Patient Lab Data Attestation: I reviewed the patient's lab results. Labs: Laboratory Results - last 24 hr 04/08/24 04/08/24 01:12 04:02 WBC 10.5 RBC 4.64 Hgb 13.4 Hct 42.5 MCV 91.6 MCH 28.9 MCHC 31.5 L RDW Std Deviation 47.6 H RDW Coeff of Alen 14.1 Plt Count 292 MPV 11.2 Immature Gran % (Auto) 0.600 Neut % (Auto) 53.2 Lymph % (Auto) 35.2 Barbour % (Auto) 9.4 Eos % (Auto) 1.2 Baso % (Auto) 0.4 Absolute Neuts (auto) 5.6 Absolute Lymphs (auto) 3.68 Nucleated RBC % 0 Sodium 140 Potassium 3.7 Chloride 107 Carbon Dioxide 27.0 Anion Gap 6 BUN 19 H Creatinine 1.10 H Estim Creat Clear Calc 54.75 Est GFR (MDRD) Af Amer 64 Est GFR (MDRD) Non-Af 53 L BUN/Creatinine Ratio 17.3 Glucose 88 Calcium 8.9 Troponin I High Sens 5 4 Radiography Diagnostic Testing: Clinical Impression(s) from Imaging Studies Chest X-Ray 04/08/24 01:49 IMPRESSION: No acute cardiopulmonary disease Electronically Signed: Anirudh Mueller MD at 3:11 EDT , Chest x-ray as interpreted by the emergency medicine physician reveals no acute infiltrate pneumothorax or pleural effusion Discharge Plan Triage Chief Complaint: Chest Pain ED Provider: Kelton [place] Dx/Rx/DC Orders Clinical Impression: Nonspecific chest pain, DUC (generalized anxiety disorder), Tardive dyskinesia Instructions: ED Chest Pain, Uncertain Cause Prescriptions: No Action carbidopa-levodopa 25-100 mg tablet 2 tab PO TID Patient Comments: Take 1 tablet by mouth three times daily. (take with meals or approximately 4-5 hours apart (ie 8AM, Noon, 4PM) clonazepam 1 mg tablet 1 mg PO BID PRN (Reason: anxiety) 30 Days Qty: 60 2RF Ingrezza 80 mg capsule See Rx Instructions .ROUTE .COMPLEX Qty: 30 5RF Dose Instruction: TAKE 1 CAPSULE BY MOUTH DAILY Rx Instructions: TAKE 1 CAPSULE BY MOUTH DAILY phentermine 37.5 mg tablet 18.75 mg PO QAM Auvelity 45-105 mg tablet, IR and ER, biphasic 1 tab PO BID 30 Days Qty: 60 2RF venlafaxine 150 mg capsule,extended release 24hr 150 mg PO DAILY 30 Days Qty: 30 2RF cholecalciferol (vitamin D3) 10,000 UNIT capsule 10,000 unit PO QWEEK albuterol sulfate 90 mcg/actuation HFA aerosol inhaler 2 puff INHALATION PRN PRN (Reason: Wheezing) Patient Comments: two puffs up to four times a day as needed trazodone 50 mg tablet 50 - 100 mg PO QHS PRN (Reason: insomnia) carbidopa-levodopa 50-200 mg tablet extended release 1 tab PO BID Patient Comments: takes in the morning and at bedtime Primary Care Provider: Ese Cam Referrals: Ese Cam, JORGE ALBERTO-C [Primary Care Provider] - Activity Restrictions/Additional Instructions: Your workup today showed no sign of abnormal cardiac rhythm or signs of cardiac event. Follow-up with your family doctor to discuss cardiology referral or outpatient stress test and echo if symptoms persist. Return to the ER should you have any further concern Print Language: Georgian Disposition Disposition: Home, Self Care Discharge Date/Time: 04/08/24 04:40
[2024-04-08 04:36] VITALS: BP 120/68; PULSE 67; RESP 16; TEMP 36.4; O2SAT 95
== END 2024-04-08 04:40 | disposition home or self-care (01) ==
PROVIDERS: Emergency Provider Emergency Medicine; PCP Nurse Practitioner Family; Visit Provider Emergency Medicine
DX: R07.9 Chest pain, unspecified (principal); F41.1 Generalized anxiety disorder; G24.01 Drug induced subacute dyskinesia; Z79.51 Long term (current) use of inhaled steroids
CPT/HCPCS: 71045; 80048; 84484; 85025; 93005; 99283; J7030; A4216

== ENCOUNTER → 2024-08-21 | Outpatient (CLI) | payer MEDICARE, OTHER, SELFPAY ==
--- NOTE | 2024-08-21 12:53 | BI_ITS ---
MAMMOGRAPHY - BILATERAL SCREENING 3-D TOMOSYNTHESIS REASON FOR EXAM: Female, 69 years old. Screening PERTINENT HISTORY: No significant family history. TECHNIQUE: 2-D mammograms and 3-D Tomosynthesis of the breast (s) were performed. CAD was performed. COMPARISON: 06/27/2023 FINDINGS: The breast composition is composed of scattered fibroglandular density. Scattered benign calcifications are seen. No dense spiculated masses or suspicious microcalcifications are identified. No architectural distortion is identified. There is no skin thickening or retraction. There has been no significant change since the prior study. No change in benign rim calcifications in the upper left breast possibly from prior trauma. BI/SCRN MAMM (CAD)W/MARLA BILAT IMPRESSION: No mammographic signs of malignancy. Routine yearly mammograms recommended. ASSESSMENT CATEGORY: BIRADS Category 2: Benign. A letter regarding these results will be sent to the patient by the facility within 30 days. FOLLOW UP RECOMMENDATION: Yearly follow up mammogram recommended. (A) Approximately 10% of breast cancers are not detected by mammography. A normal mammogram should not delay biopsy of a clinically suspicious abnormality. Electronically Signed: Luc Ingram MD at 19:56 EST ,
== END | disposition home or self-care (01) ==
LOC: OPBI 12:52
PROVIDERS: PCP Nurse Practitioner Family; Referring Provider Nurse Practitioner Family; Visit Provider Nurse Practitioner Family
DX: Z12.31 Encounter for screening mammogram for malignant neoplasm of breast (principal)
CPT/HCPCS: 77063; 77067

== ENCOUNTER → 2025-01-13 | Outpatient (CLI) | payer MEDICARE, OTHER, SELFPAY ==
--- NOTE | 2025-01-13 13:13 | CT_ITS ---
PROCEDURE: SOFT TISSUE NECK WITH CONTRAST 01/13/2025 REASON FOR EXAM: RIGHT THROAT PAIN TECHNIQUE: CT of the soft tissues of the neck from the orbits to the upper mediastinum with intravenous contrast. CONTRAST: Isovue-300 VOLUME: 100 mL One or more dose reduction techniques were used (e.g., Automated exposure control, adjustment of the mA and/or kV according to patient size, use of iterative reconstruction technique). RADIATION DOSE SUMMARY: CTDlvol: 18.25 mGy DLP: 537.98 mGycm COMPARISON: None FINDINGS: Airway: Midline and patent. Salivary glands: Fatty replacement of the parotid glands. Lymph nodes: No cervical lymphadenopathy. Thyroid: Unremarkable. Vasculature: Carotid arteries and internal jugular veins are unremarkable. Orbits: Unremarkable at visualized levels. Paranasal sinuses and mastoids: Grossly clear at visualized levels. Lung apices: Clear. Upper mediastinum: Visualized mediastinum is unremarkable. Bones: Multilevel degenerative changes of the spine. Other: Calcification of the basal ganglia bilaterally. This is normal for the patient's age. CT/Soft Tissue Neck WITH Contrast IMPRESSION: No acute abnormality is seen. Reading Location: [place] [id number]
== END | disposition home or self-care (01) ==
LOC: CT 13:12
PROVIDERS: PCP Nurse Practitioner Family; Referring Provider Otolaryngology; Visit Provider Otolaryngology
DX: R07.0 Pain in throat (principal)
CPT/HCPCS: 70491; Q9967

== ENCOUNTER 2025-03-03 12:55 | Outpatient (RCR) | payer MEDICARE, OTHER, SELFPAY | END 2025-03-25 23:59 | LOC: NS 12:55 | PROVIDERS: PCP Nurse Practitioner Family; Referring Provider Nurse Practitioner Family; Visit Provider Nurse Practitioner Family | DX: Z71.3 Dietary counseling and surveillance (principal); E66.812 Obesity, class 2; Z68.38 Body mass index [BMI] 38.0-38.9, adult; N18.31 Chronic kidney disease, stage 3a | CPT/HCPCS: 97802 ==

== ENCOUNTER 2025-04-14 09:59 | Outpatient (RCR) | payer MEDICARE, OTHER, SELFPAY | END 2025-04-25 23:59 | LOC: NS 09:59 | PROVIDERS: PCP Nurse Practitioner Family; Referring Provider Nurse Practitioner Family; Visit Provider Nurse Practitioner Family | DX: Z71.3 Dietary counseling and surveillance (principal); E66.812 Obesity, class 2; N18.31 Chronic kidney disease, stage 3a | CPT/HCPCS: 97803 ==

== ENCOUNTER 2025-06-14 14:28 | Outpatient (RCR) | payer MEDICARE, OTHER, SELFPAY | END 2025-06-25 23:59 | LOC: NS 14:28 | PROVIDERS: PCP Nurse Practitioner Family; Referring Provider Nurse Practitioner Family; Visit Provider Nurse Practitioner Family | DX: E66.812 Obesity, class 2 (principal); N18.31 Chronic kidney disease, stage 3a | CPT/HCPCS: 97803 ==

== ENCOUNTER 2025-07-13 08:59 | Outpatient (RCR) | payer MEDICARE, OTHER, SELFPAY | END 2025-07-25 23:59 | LOC: NS 08:59 | PROVIDERS: PCP Nurse Practitioner Family; Referring Provider Nurse Practitioner Family; Visit Provider Nurse Practitioner Family | DX: Z71.3 Dietary counseling and surveillance (principal); N18.31 Chronic kidney disease, stage 3a; E66.812 Obesity, class 2; Z68.38 Body mass index [BMI] 38.0-38.9, adult | CPT/HCPCS: 97803 ==